=== PATIENT | male | born 1955 | race Caucasian/White ===

== ENCOUNTER 2016-10-26 19:35 | Outpatient (CLI) | payer BC ==
[~2016-10-26 19:35] MED LIST: AMIO200T2 PO; AMLO10TA2 PO; APIX5TAB PO; ASPI-808 PO; ATOR20TA49 PO; ATOR20TA66 PO; CEPH500C PO; DOCU-143 PO; FURO40TA4 PO; HYDR-3812 PO; HYDR-757 PO; IBUP-2055 PO; LISI10TA2 PO; LISI40TA PO; METO-270 PO; METO-333 PO; POTA10CA43 PO; POTA20TA8 PO; SULF-222 PO; TRAM50TA2 PO
--- OUTSIDE RECORDS SUMMARY | 2016-10-26 20:39 | XMS REPORT | Continuity of Care Document ---
Author Author [facility] Organization [facility] Address Unknown Phone Unavailable Care Team Providers Care Carbon Brusher Assembler Name Role Phone COLIN RIDLEY MD PCP Insurance Providers Payer Name Policy Number Subscriber Name Relationship [facility] [id number] Pete Hayward 16 Self / Same As Patient Advance Directives Directive Response Recorded Date/Time Advance Directives No 08/31/16 12:53am Health Care Power of Mounter [employer] No 08/31/16 12:53am Resuscitation Status Full Code [...] OFFICE September AT 3:40 P.M. AT THE [facility] [place]. (Unspecified) - Reason(s) for Referral: RESUME HOME [...] - 99.5) 09/01/2016 11:20am Temperature (Calculated Celsius) 36.56563 degrees C (36.4 - 37.5) 09/01/2016 8:17am [...] 7.00 inches 08/31/2016 12:56am Height (Calculated Centimeters) 170.161477 cm 08/31/2016 12:56am Weight (Pounds) 156 pounds 09/01/2016 6:00am Weight (Ounces) 7.0 oz 09/01/2016 6:00am Weight (Calculated Grams) 35074.857 gm 09/01/2016 6:00am Weight (Calculated Kilograms) 70.101671 kilograms 09/01/2016 6:00am Calculated BMI 26.2 08/31/2016 [...] SELECTED GROUPS OF HIGH RISK PATIENTS. SIXTH [place] COLLEGE OF CHEST PHYSICIANS CONSENSUS CONFERENCE ON [...] Discharge/Depart Date Attending Provider Discharged Inpatient [facility] 08/30/16 11:35pm 11:20am TRISH PIMENTEL MD Registered Clinic [facility] 08/21/16 10:21am TRIHS PIMENTEL MD Discharged Inpatient [facility] 08/13/16 4:57pm 2:20pm KAMLA FERNANDEZ DO Recent Diagnosis CHF (congestive heart failure) Hypertensive urgency, malignant
== END 2016-10-27 05:30 | disposition home or self-care (01) ==
LOC: SLEEP 19:35
PROVIDERS: ATTEND Internal Medicine Critical Care Medicine
DX: G47.33 Obstructive sleep apnea (adult) (pediatric) (principal)
CPT/HCPCS: 95810

== ENCOUNTER 2016-11-06 12:33 | Outpatient (RCR) | payer BC ==
--- OUTSIDE RECORDS SUMMARY | 2016-10-18 08:20 | XMS REPORT | Continuity of Care Document ---
Author Author [facility] Organization [facility] Address Unknown Phone Unavailable Care Team Providers Care Manufacturing Baker Name Role Phone COLIN RIDLEY MD PCP Insurance Providers Payer Name Policy Number Subscriber Name Relationship [facility] [id number] Pete Hayward 16 Self / Same As Patient Advance Directives Directive Response Recorded Date/Time Advance Directives No 08/31/16 12:53am Health Care Power of Customer Agent No 08/31/16 12:53am Resuscitation Status Full Code 08/31/16 12:53am Chief Complaint and Reason for Visit Chief Complaint 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;CHF;CELLULITIS L ARM Reason for Visit CHF (congestive heart failure) Hypertensive urgency, malignant Problems Active Problems Medical Problem Onset Date Status Acute heart failure Unknown Acute Bilateral leg edema Unknown Acute CHF (congestive heart failure) Unknown Acute Hypertensive urgency, malignant Unknown Acute Medications Current Home Medications Medication Dose Units Route Directions Days/Qty Instructions Start Date Apixaban 5 Mg 5 Mg Oral Twice A Day 08/30/16 Docusate Sodium 100 Mg 100 Mg Oral Twice A Day 08/30/16 Cephalexin 500 Mg 500 Mg Oral Twice A Day 7 Days 7 DAY SUPPLY FILLED 08/30/16 Lisinopril 10 Mg 10 Mg Oral Daily 08/31/16 Metoprolol Tartrate 25 Mg 25 Mg Oral Twice A Day 08/31/16 Potassium Chloride 20 Meq 20 Meq Oral Daily 14 Days TAKE FOR 14 DAYS WITH DAILY DOSE OF FUROSEMIDE, STARTING 09-13-16 TAKE 10MEQ DAILY 08/31/16 Atorvastatin Calcium 20 Mg 20 Mg Oral Bedtime 08/31/16 Tramadol Hcl 50 Mg 100 Mg Oral Every 4HRS as needed for Pain TAKES 2 ( 50MG) TABLETS 08/31/16 Hydrocodone/Acetaminophen 1 Each 1-2 Tab Oral Every 4HRS as needed for Pain 08/31/16 Potassium Chloride 10 Meq 10 Meq Oral As Directed TAKE ONCE DAILY AFTER 14 DAY THERAPY OF 20MEQ DAILY IS FINISHED ON 09-12-16. 08/31/16 Furosemide 40 Mg 40 Mg Oral Daily And Prn 60 Take daily Take additional dose if needed for swelling and/or shortness of breath 09/01/16 Amiodarone Hcl 200 Mg 200 Mg Oral Twice A Day 60 09/01/16 Past Home Medications Medication Directions Ordered Status Trimethoprim/Sulfamethoxazole 1 Ea Tablet, 1 Ea Oral Twice A Day 04/22/15 Discontinued Hydrocodone Bit/Acetaminophen 1 Each Tablet, 1 Ea Oral Every 6 Hours as needed for Severe Pain 04/22/15 Discontinued Metoprolol Succinate 25 Mg Tab.er.24h, 25 Mg Oral Daily 08/13/16 Discontinued Lisinopril 40 Mg Tablet, 40 Mg Oral Daily 08/13/16 Discontinued Atorvastatin Calcium 20 Mg Tablet, 20 Mg Oral Daily 08/13/16 Discontinued Tramadol Hcl 50 Mg Tablet, 100 Mg Oral Every 4HRS as needed for Pain Discontinued Aspirin 325 Mg Tablet, 325 Mg Oral Daily 08/14/16 Discontinued Ibuprofen 200 Mg Tablet, 600 Mg Oral Every 4HRS as needed for Pain 08/14/16 Discontinued Metoprolol Succinate 25 Mg Tab.er.24h, 25 Mg Oral Daily 08/16/16 Discontinued Lisinopril 40 Mg Tablet, 40 Mg Oral Daily 08/16/16 Discontinued Atorvastatin Calcium 20 Mg Tablet, 20 Mg Oral Daily 08/16/16 Discontinued Tramadol Hcl 50 Mg Tablet, 100 Mg Oral Every 4HRS as needed for Pain Discontinued Amlodipine Besylate 10 Mg Tablet, 10 Mg Oral Daily 08/16/16 Discontinued Furosemide 40 Mg Tablet, 40 Mg Oral Every 48 Hours 08/16/16 Discontinued Potassium Chloride 10 Meq Capsule.er, 10 Meq Oral Daily 08/16/16 Discontinued Amiodarone Hcl 200 Mg Tablet, 400 Mg Oral As Directed 08/30/16 Discontinued Furosemide 40 Mg Tablet, 40 Mg Oral As Directed 08/31/16 Discontinued Social History Social History Problem Response Recorded Date/Time Alcohol Use Denies Use 04/22/2015 7:20pm Recreational Drug Use No 04/22/2015 7:20pm Recent Foreign Travel No 08/31/2016 1:00am Recent Infectious Disease Exposure No 08/31/2016 1:00am Hospitalization with Isolation Denies 09/01/2016 11:37am Sexually Transmitted Disease No 08/31/2016 12:58am HIV/AIDS No 08/31/2016 12:58am Smoking Status Former Smoker 08/31/2016 12:54am Type Used Cigars 09/01/2016 11:37am Recent Hopitalizations Y LESLIE -D/C'D 08/29/16 08/31/2016 12:58am Sexually Transmitted Disease No 08/31/2016 12:58am Hospitalization with Isolation Denies 09/01/2016 11:37am Query Response Start Date Stop Date Smoking Status Former Smoker Hospital Discharge Instructions Patient Instructions Physician Instructions Follow Up/Plan Appointment with Dr. Pimentel's office in one to 2 weeks CARDIAC CATH DISCHARGE INSTRUCTIONS *Hold Metformin for 48 hours post heart cath. ACTIVITY * Go Home directly and rest. * Limit activity of the leg (or wrist if it was used) for 7 days including aerobics, swimming, jogging, bicycling, etc. * Restrict stair-climbing for 7 days if possible, if not, climb up with your non-cath leg, then bring together on the same step. * Avoid lifting, pushing, pulling or excessive movement of the affected extremity for 7 days. * Customary sexual activity may be resumed after 2 days-use caution not to use a position that strains or causes pain to the affected extremity. * No driving for 24 hours. * NO SMOKING. * Avoid straining for bowel movements for 7 days. * Gentle walking on level ground is allowed. * Returning to work will depend on the type of procedure and the results. Your doctor will discuss this with you. CALL YOUR DOCTOR FOR ANY OF THE FOLLOWING: *If bleeding from the puncture site occurs- Apply gentle pressure to site with clean cloth and call your doctor or EMS. * If a knot or lump forms under the skin, increases in size, or causes pain. * If bruising appears to be worsening or moving further down your leg instead of disappearing. * Temperature above 101 F. CARE OF YOUR GROIN INCISION; * Bruising or purple discoloration of the skin near the puncture site is common. * You may shower only, no bathtub bathing for 5 days. Be careful to avoid slipping as your leg may feel stiff. * If a closure device was used on your femoral artery, please see the attached guide regarding care of the device and your leg. * REMOVE the dressing from your groin the next day after your procedure in the shower. CARE OF YOUR WRIST INCISION; * Bruising or purple discoloration of the skin near the puncture site is common. * You may shower. * DO NOT submerge wrist. * Remove dressing in 24 hours. Plan of Care Discharge Date 09/01/16 11:20am Disposition 09 ADMITTED INPATIENT Instructions/Education Provided Heart Failure, Adult (DC) Prescriptions See Medication Section Referrals (Unspecified) - 09/18/16 Reason(s) for Referral: FOLLOW UP WITH DR PIMENTEL OFFICE September AT 3:40 P.M. AT THE [facility]. (Unspecified) - Reason(s) for Referral: RESUME HOME HEALTH PER PREVIOUS ORDERS. PLEASE DRAW BMP 09/04/2016 Additional Instructions/Education BMP CHECK ON August Care Plan and Goals See Discharge Instructions Section Functional Status Query Response Date Recorded Patient Orientation Normal For Age August 31, 2016 3:46pm Patient Orientation Person Place Time Situation Eyes Open September 01, 2016 11:37am Comprehension Ability Understands Concepts September 01, 2016 8:00am Allergies, Adverse Reactions, Alerts No known allergies. Immunizations Name Given Type FLU TRIvalent 5 years - Adult 08/31/16 Administered Vital Signs Acute Vital Signs Vital Response Date/Time Temperature (Fahrenheit) 98.3 degrees F (97.6 - 99.5) 09/01/2016 11:20am Temperature (Calculated Celsius) 36.48605 degrees C (36.4 - 37.5) 09/01/2016 8:17am Temperature Source Tympanic 09/01/2016 11:20am Pulse Rate (adult) 59 bpm (60 - 90) 09/01/2016 11:20am Respiratory Rate 16 bpm (12 - 24) 09/01/2016 11:20am O2 Sat by Pulse Oximetry 98 % (88 - 100) 09/01/2016 11:20am Blood Pressure 136/79 mm Hg 09/01/2016 11:20am Blood Pressure Mean 96 mm Hg 09/01/2016 8:17am Pain Numeric Pain Scale 0-No Pain 09/01/2016 11:20am Pain Intensity 0 08/13/2016 5:25pm Height (Feet) 5 feet 08/31/2016 12:56am Height (Inches) 7.00 inches 08/31/2016 12:56am Height (Calculated Centimeters) 170.341216 cm 08/31/2016 12:56am Weight (Pounds) 156 pounds 09/01/2016 6:00am Weight (Ounces) 7.0 oz 09/01/2016 6:00am Weight (Calculated Grams) 98542.857 gm 09/01/2016 6:00am Weight (Calculated Kilograms) 70.591929 kilograms 09/01/2016 6:00am Calculated BMI 26.2 08/31/2016 12:56am Capillary Refill Capillary Refill Less Than 3 Seconds 08/31/2016 8:05pm Capillary Refill Capillary Refill Less Than 3 Seconds 08/31/2016 8:05pm Results Laboratory Results Test Name Result Units Flags Reference Collection Date/Time Result Date/ Time Comments White Blood Count 9.3 10^3/uL 4.3-11.0 08/17/2016 5:23am 08/17/2016 6: 06am Red Blood Count 4.39 10^6/uL 4.35-5.85 08/17/2016 5:23am 08/17/2016 6: 06am Hemoglobin 14.4 G/DL 13.3-17.7 08/17/2016 5:23am 08/17/2016 6:06am Hematocrit 42 % 40-54 08/17/2016 5:23am 08/17/2016 6:06am Mean Corpuscular Volume 96 FL 80-99 08/17/2016 5:23am 08/17/2016 6: 06am Mean Corpuscular Hemoglobin 33 PG 25-34 08/17/2016 5:23am 08/17/2016 6: 06am Mean Corpuscular Hemoglobin Concent 34 G/DL 32-36 08/17/2016 5:23am 12/2015 6:06am Red Cell Distribution Width 13.2 % 10.0-14.5 08/17/2016 5:2015 6:06am Platelet Count 195 10^3/uL 130-400 08/17/2016 5:2308/17/2016 6:06am Mean Platelet Volume 10.4 FL 7.4-10.4 08/17/2016 5:2308/17/2016 6: 06am Neutrophils (%) (Auto) 74 % 42-75 08/15/2016 4:20am 08/15/2016 4:55am Lymphocytes (%) (Auto) 13 % 12-44 08/15/2016 4:20am 08/15/2016 4:55am Monocytes (%) (Auto) 11 % 0-12 08/15/2016 4:20am 08/15/2016 4:55am Eosinophils (%) (Auto) 2 % 0-10 08/15/2016 4:20am 08/15/2016 4:55am Basophils (%) (Auto) 0 % 0-10 08/15/2016 4:20am 08/15/2016 4:55am Neutrophils # (Auto) 8.5 X 10^3 H 1.8-7.8 08/15/2016 4:20am 08/15/2016 4: 55am Lymphocytes # (Auto) 1.5 X 10^3 1.0-4.0 08/15/2016 4:20am 08/15/2016 4: 55am Monocytes # (Auto) 1.3 X 10^3 H 0.0-1.0 08/15/2016 4:20am 08/15/2016 4: 55am Eosinophils # (Auto) 0.2 10^3/uL 0.0-0.3 08/15/2016 4:20am 08/15/2016 4 :55am Basophils # (Auto) 0.1 10^3/uL 0.0-0.1 08/15/2016 4:20am 08/15/2016 4: 55am Prothrombin Time 14.7 SEC 12.2-14.7 08/13/2016 4:00pm 08/13/2016 4: 28pm INR Comment 1.2 0.8-1.4 08/13/2016 4:00pm 08/13/2016 4:28pm INTERPRETIVE DATA SUGGESTED THERAPEUTIC RANGE FOR INR'S: VENOUS THROMBOSIS, PULMONARY EMBOLISM, OR PREVENTION OF SYSTEMIC EMBOLISM (EG. IN ATRIAL FIBRILLATION): 2.0 - 3.0 MECHANICAL PROSTHETIC HEART VALVES: 2.5 - 3.5* *NOTE: INR'S UP TO 4.5 MAY BE NECESSARY IN SELECTED GROUPS OF HIGH RISK PATIENTS. SIXTH CITIZEN OF [place] COLLEGE OF CHEST PHYSICIANS CONSENSUS CONFERENCE ON ANTITHROMBOTIC THERAPY (2000). Activated Partial Thromboplast Time 32 SEC 24-35 08/13/2016 4:00pm 4:28pm D-Dimer 1.16 UG/ML H 0.00-0.49 08/13/2016 4:00pm 08/13/2016 4:28pm Sodium Level 139 MMOL/L 135-145 08/17/2016 5:08/17/2016 6:31am Potassium Level 3.2 MMOL/L L 3.6-5.0 08/17/2016 5:08/17/2016 6:31am Chloride Level 102 MMOL/L 98-107 08/17/2016 5:08/17/2016 6:31am Carbon Dioxide Level 26 MMOL/L 21-32 08/17/2016 5:08/17/2016 6: 31am Anion Gap 11 MMOL/L 5-14 08/17/2016 5:08/17/2016 6:31am Blood Urea Nitrogen 18 MG/DL 7-18 08/17/2016 5:08/17/2016 6:31am Creatinine 0.89 MG/DL 0.60-1.30 08/17/2016 5:08/17/2016 6:31am BUN/Creatinine Ratio 20 08/17/2016 5:08/17/2016 6:31am Estimat Glomerular Filtration Rate > 60 08/17/2016 5:2015 6:31am GFR INTERPRETIVE DATA UNITS FOR ESTIMATED GFR (eGFR): mL/min/1.73 M2 REFERENCE RANGE FOR ESTIMATED GFR (eGFR) eGFR NORMAL eGFR >60 MODERATELY DECREASED eGFR 30-59 SEVERLY DECREASED eGFR 15-29 KIDNEY FAILURE <15 (OR DIALYSIS) Glucose Level 101 MG/DL 70-105 08/17/2016 5:08/17/2016 6:31am Calcium Level 8.8 MG/DL 8.5-10.1 08/17/2016 5:08/17/2016 6:31am Phosphorus Level 3.5 MG/DL 2.3-4.7 08/15/2016 4:20am 08/15/2016 5:15am Magnesium Level 1.8 MG/DL 1.8-2.4 08/16/2016 4:25am 08/16/2016 5:34am Total Bilirubin 0.8 MG/DL 0.1-1.0 08/14/2016 4:05am 08/14/2016 5:49am Alkaline Phosphatase 81 U/L 40-136 08/14/2016 4:05am 08/14/2016 5:49am Aspartate Amino Transf (AST/SGOT) 20 U/L 5-34 08/14/2016 4:05am 2015 5:49am Alanine Aminotransferase (ALT/SGPT) 22 U/L 0-55 08/14/2016 4:05am 08/14 5:49am Troponin I < 0.30 NG/ML <0.30 08/14/2016 4:05am 08/14/2016 9:09am Troponin I < 0.30 NG/ML <0.30 08/13/2016 4:00pm 08/13/2016 4:45pm Myoglobin 50.2 NG/ML 10.0-92.0 08/13/2016 4:00pm 08/13/2016 4:45pm B-Type Natriuretic Peptide 372.2 PG/ML H <100.0 08/16/2016 4:25am 2015 5:43am Total Protein 5.7 G/DL L 6.4-8.2 08/14/2016 4:05am 08/14/2016 5:49am Albumin 3.2 G/DL 3.2-4.5 08/14/2016 4:05am 08/14/2016 5:49am Triglycerides Level 87 MG/DL <150 08/14/2016 4:10am 08/14/2016 6:18am Cholesterol Level 139 MG/DL < 200 08/14/2016 4:10am 08/14/2016 6:18am HDL Cholesterol 39 MG/DL L 40-60 08/14/2016 4:10am 08/14/2016 6:18am LDL Cholesterol Direct 91 MG/DL 1-129 08/14/2016 4:10am 08/14/2016 6: 18am VLDL Cholesterol 17 MG/DL 5-40 08/14/2016 4:10am 08/14/2016 6:18am Pending Laboratory Results Test Name Collection Date/Time Microbiology Results Procedure Source Result Collection Date/Time Result Date/Time MRSA Screen Nasal MRSA not isolated 08/13/2016 7:25pm 08/15/2016 6:36am Procedures Procedure Status Date Provider(s) MEASURE OF CARDIAC SAMPL & PRESSURE, L HEART, PERC APPROACH Completed TRISH PIMENTEL MD FLUOROSCOPY OF LEFT HEART USING LOW OSMOLAR CONTRAST Completed 08/16/16 TRISH PIMENTEL MD FLUOROSCOPY OF MULT COR ART USING L OSM CONTRAST Completed 08/16/16 TRISH PIMENTEL MD FLUOROSCOPY OF THORACIC AORTA USING LOW OSMOLAR CONTRAST Completed 08/16/16 TRISH PIMENTEL MD Tracing only of electrocardiogram Completed 08/13/16 KEVON HOUSTON MD Color Doppler echocardiography Active 08/13/16 KAMLA FERNANDEZ DO Tracing only of electrocardiogram Completed 08/14/16 TRISH PIMENTEL MD Tracing only of electrocardiogram Completed 08/30/16 COLIN MCKNIGHT DO Tracing only of electrocardiogram Completed 08/31/16 TRISH PIMENTEL MD Color Doppler echocardiography Completed 08/31/16 TRISH PIMENTEL MD Tracing only of electrocardiogram Active 09/01/16 TRISH PIMENTEL MD Encounters Encounter Location Arrival/Admit Date Discharge/Depart Date Attending Provider Discharged Inpatient [facility] 08/30/16 11:35pm 11:20am TRISH PIMENTEL MD Registered Clinic [facility] 08/21/16 10:21am TRISH PIMENTEL MD Discharged Inpatient [facility] 08/13/16 4:57pm 2:20pm KAMLA FERNANDEZ DO Recent Diagnosis CHF (congestive heart failure) Hypertensive urgency, malignant
== END 2017-01-16 | disposition home or self-care (01) ==
LOC: CR 12:33
PROVIDERS: ATTEND Internal Medicine Cardiovascular Disease
DX: Z48.812 Encounter for surgical aftercare following surgery on the circulatory system (principal); Z95.1 Presence of aortocoronary bypass graft
CPT/HCPCS: 93798

== ENCOUNTER → 2016-11-10 | Outpatient (CLI) | payer BC ==
--- OUTSIDE RECORDS SUMMARY | 2016-11-10 13:02 | XMS REPORT | Continuity of Care Document ---
Author Author [facility] Organization [facility] Address Unknown Phone Unavailable Care Team Providers Care Javascript Application Developer Name Role Phone COLIN RIDLEY MD PCP Insurance Providers Payer Name Policy Number Subscriber Name Relationship [facility] [id number] Pete Hayward 16 Self / Same As Patient Advance Directives Directive Response Recorded Date/Time Advance Directives No 08/31/16 12:53am Health Care Power of Member Services Representative No 08/31/16 12:53am Resuscitation Status Full Code [...] OFFICE September AT 3:40 P.M. AT [facility]. (Unspecified) - Reason(s) for Referral: RESUME [...] - 99.5) 09/01/2016 11:20am Temperature (Calculated Celsius) 36.67859 degrees C (36.4 - 37.5) 09/01/2016 8:17am [...] 7.00 inches 08/31/2016 12:56am Height (Calculated Centimeters) 170.427476 cm 08/31/2016 12:56am Weight (Pounds) 156 pounds 09/01/2016 6:00am Weight (Ounces) 7.0 oz 09/01/2016 6:00am Weight (Calculated Grams) 00919.857 gm 09/01/2016 6:00am Weight (Calculated Kilograms) 70.447657 kilograms 09/01/2016 6:00am Calculated BMI 26.2 08/31/2016 [...] SELECTED GROUPS OF HIGH RISK PATIENTS. SIXTH [place] COLLEGE OF CHEST PHYSICIANS CONSENSUS CONFERENCE ON [...] Inpatient [facility] 08/30/16 11:35pm 11:20am TRISH PIMENTEL MD Registered Clinic [facility] 08/21/16 10:21am TRISH PIMENTEL MD Discharged Inpatient [facility] 08/13/16 4:57pm 2:20pm KAMLA FERNANDEZ DO Recent Diagnosis CHF (congestive heart failure) Hypertensive urgency, malignant
--- NOTE | 2016-11-13 10:01 | ECHOCARDIOGRAPHY REPORT ---
PROCEDURE PHYSICIAN: TRISH LORENZ DATE OF PROCEDURE: 11/10/2016 TWO DIMENSIONAL ECHOCARDIOGRAM REPORT PRIMARY PHYSICIAN: OTHER PHYSICIAN: REFERRING PHYSICIAN: Dr. Malina Gates ORDERING PHYSICIAN: INDICATION FOR THE PROCEDURE: 1. Congestive heart failure. 2. Coronary artery disease. MEASUREMENTS DERIVED VALUES LV DIAMETER (LAX) NORMALS NORMALS Diastolic 5 (3.6-5.2) Eject. Fract. 35 to 40% (60%+/-6%) Systolic (2.3-3.9) Diastolic Vol. % Shortening (0.22-0.42) Systolic Vol. Aortic Root IVS THICKNESS Diastolic 1.1 (0.6-1.1) LVPW THICKNESS Diastolic 1.1 (0.6-1.1) LA DIAMETER Systolic 4 (2.1-3.7) FINDINGS: 1. Technically difficult study. 2. The left ventricle is prominent. Endocardium was not well visualized in all segments. Overall, there is hypokinesia to dyskinesia involving the mid to apical anterior wall and anterior septum, anterolateral wall. Cannot comment on segmental wall motion otherwise. Systolic function is reduced. Estimated ejection fraction 35 to 40%. 3. The left atrium is dilated. No clot or thrombus were seen within the left atrium. 4. The right atrium and right ventricle are prominent. No clot or thrombus were seen within the right side. 5. Mitral valve is normal in morphology with mild mitral regurgitation noted by color Doppler flow. No mitral valve prolapse. No mitral valve stenosis. 6. Aortic valve leaflets were not well visualized. There is no significant aortic stenosis or regurgitation seen. 7. Tricuspid valve is normal in morphology with mild tricuspid regurgitation noted by color Doppler flow. Insufficient Doppler signal to evaluate pulmonary artery pressure. 8. Pulmonic valve was not visualized. 9. No pericardial effusion. IN CONCLUSION: 1. Technically difficult study. 2. Prominent left ventricle with hypokinesia involving the anterior wall, anterior septum, anterolateral wall. Endocardium was not well visualized in all segments. Systolic function is reduced. Estimated ejection fraction 35 to 40%, although the quality of the study is suboptimal. 3. Dilated left atrium. 4. Mild mitral and tricuspid regurgitation. 5. Estimated pulmonary artery pressure of 25 mmHg although the quality of the Doppler was suboptimal. Job ID: [id number] Dictated Date: 11/13/2016 08:31:11 Regulatory Services Consultant Date: 11/13/2016 09:57:38 / chan
== END ==
LOC: CARD 12:58
PROVIDERS: ATTEND Internal Medicine Cardiovascular Disease
DX: I25.10 Atherosclerotic heart disease of native coronary artery without angina pectoris (principal); E78.2 Mixed hyperlipidemia; I10 Essential (primary) hypertension; I27.2 Other secondary pulmonary hypertension; E66.9 Obesity, unspecified
CPT/HCPCS: 93306

== ENCOUNTER → 2017-05-28 | Outpatient (CLI) | payer BC ==
[~2017-05-28] VITALS: Ht 170.2 cm; Wt 86.2 kg
[~2017-05-28] MED LIST changes: +CATHETER FLUSH 10 ML SYR IV PRN; +REGADENOSON 0.4 MG/5 ML SYR (LEXISCAN) IV ONE
[2017-05-28 09:20] VITALS: BP 186/108
--- NOTE | 2017-05-28 12:46 | STRESS TEST ---
DATE OF SERVICE: 05/28/2017 LEXISCAN MYOVIEW STRESS TEST REPORT REFERRING PHYSICIAN: Dr. Malina Gates and Dr. Duran. Baseline heart rate is 60. Baseline blood pressure 190/100. Baseline EKG is sinus rhythm with no ischemic changes. SUMMARY: The patient was injected with 10.73 mCi of technetium-99 Myoview and the resting images were obtained. Then, the patient received 0.4 mg of Lexiscan followed by 29.1 mCi of technetium-99 Myoview. Throughout the test, there were no EKG changes. The resting and stress images were reviewed and compared in the short axis, horizontal long axis, and vertical long axis views. Review of the images showed decreased uptake at the mid to apical anterolateral and inferolateral wall with no reversibility, appeared to be fixed. SSS is 8, SDS zero. TID value 1.0. On the gated images, the left ventricle is prominent with diffuse left ventricular hypokinesia involving the inferior wall, inferolateral wall and anterolateral wall, inferoseptum and anteroseptum. Calculated ejection fraction 47%. CONCLUSION: 1. The patient tolerated Lexiscan well. 2. Fixed defect involving the mid to apical anterolateral wall and inferolateral wall with no significant ischemia. 3. Normal left ventricular size with mild diffuse left ventricular hypokinesia calculated ejection fraction 47%. 4. Overall, patient is considered at intermediate risk for perioperative cardiovascular complications, decision regarding the surgery, risks versus benefits is deferred to the surgeon. Job ID: [id number] DocumentID: [id number] Dictated Date: 05/28/2017 11:54:10 Accounting Coordinator Date: 05/28/2017 12:29:30 Dictated By: TRISH LORENZ MD
== END ==
LOC: CARD 07:03
PROVIDERS: ATTEND Internal Medicine Cardiovascular Disease
DX: Z01.810 Encounter for preprocedural cardiovascular examination (principal); I25.10 Atherosclerotic heart disease of native coronary artery without angina pectoris; I10 Essential (primary) hypertension
CPT/HCPCS: 78452; 93017

== ENCOUNTER 2019-02-03 09:29 | Inpatient (IN) | payer BC, MEDICARE ==
[~2019-02-03] VITALS: Ht 167.6 cm; Wt 103.0 kg
[~2019-02-03 09:29] MED LIST changes: +ACHD5005 PO; -AMIO200T2 PO; +AMIO200T4 PO; -AMLO10TA2 PO; +AMLO10TA7 PO; -CATHETER FLUSH 10 ML SYR IV PRN; -HYDR-3812 PO; -METO-270 PO; +METO-387 PO; -REGADENOSON 0.4 MG/5 ML SYR (LEXISCAN) IV ONE
--- OUTSIDE RECORDS SUMMARY | 2019-02-03 09:45 | XMS REPORT | Continuity of Care Document ---
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 18 mg/dL 7-18 Serum or plasma creatinine measurement (mass/volume) 1.05 mg/dL 0.60-1.30 Serum or plasma urea nitrogen/creatinine mass ratio 17 NRG Serum or plasma creatinine measurement with calculation of estimated glomerular filtration rate > NRG Serum or plasma glucose measurement (mass/volume) 79 mg/dL 70-105 Serum or plasma calcium measurement (mass/volume) 9.0 mg/dL 8.5-10.1 Serum or plasma phosphate measurement (mass/volume) - 08/15/16 04:20 Serum or plasma phosphate measurement (mass/volume) 3.5 mg/dL 2.3-4.7 Magnesium - 08/15/16 04:20 Magnesium 1.8 mg/dL 1.8-2.4 Automated blood complete blood count (hemogram) panel - 08/17/16 05:23 Blood leukocytes automated count (number/volume) 9.3 10*3/uL 4.3-11.0 Blood erythrocytes automated count (number/volume) 4.39 10*6/uL 4.35-5.85 Venous blood hemoglobin measurement (mass/volume) 14.4 g/dL 13.3-17.7 Blood hematocrit (volume fraction) 42 % 40-54 Automated erythrocyte mean corpuscular volume 96 [foz_us] 80-99 Automated erythrocyte mean corpuscular hemoglobin (mass per erythrocyte) 33 pg 25-34 Automated erythrocyte mean corpuscular hemoglobin concentration measurement ( mass/volume) 34 g/dL 32-36 Automated erythrocyte distribution width ratio 13.2 % 10.0-14.5 Automated blood platelet count (count/volume) 195 10*3/uL 130-400 Automated blood platelet mean volume measurement 10.4 [foz_us] 7.4-10.4 Whole blood basic metabolic panel - 08/17/16 05:23 Serum or plasma sodium measurement (moles/volume) 139 mmol/L 135-145 Serum or plasma potassium measurement (moles/volume) 3.2 mmol/L 3.6-5.0 Serum or plasma chloride measurement (moles/volume) 102 mmol/L 98-107 Carbon dioxide 26 mmol/L 21-32 Serum or plasma anion gap determination (moles/volume) 11 mmol/L 5-14 Serum or plasma urea nitrogen measurement (mass/volume) 18 mg/dL 7-18 Serum or plasma creatinine measurement (mass/volume) 0.89 mg/dL 0.60-1.30 Serum or plasma urea nitrogen/creatinine mass ratio 20 NRG Serum or plasma creatinine measurement with calculation of estimated glomerular filtration rate > NRG Serum or plasma glucose measurement (mass/volume) 101 mg/dL 70-105 Serum or plasma calcium measurement (mass/volume) 8.8 mg/dL 8.5-10.1 Complete blood count (CBC) with automated white blood cell (WBC) differential - 08/30/16 22:40 Blood leukocytes automated count (number/volume) 9.2 10*3/uL 4.3-11.0 Blood erythrocytes automated count (number/volume) 3.43 10*6/uL 4.35-5.85 Venous blood hemoglobin measurement (mass/volume) 11.3 g/dL 13.3-17.7 Blood hematocrit (volume fraction) 33 % 40-54 Automated erythrocyte mean corpuscular volume 97 [foz_us] 80-99 Automated erythrocyte mean corpuscular hemoglobin (mass per erythrocyte) 33 pg 25-34 Automated erythrocyte mean corpuscular hemoglobin concentration measurement ( mass/volume) 34 g/dL 32-36 Automated erythrocyte distribution width ratio 12.8 % 10.0-14.5 Automated blood platelet count (count/volume) 271 10*3/uL 130-400 Automated blood platelet mean volume measurement 9.0 [foz_us] 7.4-10.4 Automated blood neutrophils/100 leukocytes 70 % 42-75 Automated blood lymphocytes/100 leukocytes 11 % 12-44 Blood monocytes/100 leukocytes 15 % 0-12 Automated blood eosinophils/100 leukocytes 3 % 0-10 Automated blood basophils/100 leukocytes 0 % 0-10 Blood neutrophils automated count (number/volume) 6.5 10*3 1.8-7.8 Blood lymphocytes automated count (number/volume) 1.1 10*3 1.0-4.0 Blood monocytes automated count (number/volume) 1.3 10*3 0.0-1.0 Automated eosinophil count 0.3 10*3/uL 0.0-0.3 Automated blood basophil count (count/volume) 0.0 10*3/uL 0.0-0.1 PT panel in platelet poor plasma by coagulation assay - 08/30/16 22:40 Prothrombin time (PT) in platelet poor plasma by coagulation assay 16.7 s 12.2-14.7 INR in platelet poor plasma or blood by coagulation assay 1.4 0.8-1.4 Activated partial thromboplastin time (aPTT) in platelet poor plasma bycoagulation assay - 08/30/16 22:40 Activated partial thromboplastin time (aPTT) in platelet poor plasma bycoagulation assay 43 s 24-35 Comprehensive metabolic panel - 08/30/16 22:40 Serum or plasma sodium measurement (moles/volume) 138 mmol/L 135-145 Serum or plasma potassium measurement (moles/volume) 4.1 mmol/L 3.6-5.0 Serum or plasma chloride measurement (moles/volume) 101 mmol/L 98-107 Carbon dioxide 28 mmol/L 21-32 Serum or plasma anion gap determination (moles/volume) 9 mmol/L 5-14 Serum or plasma urea nitrogen measurement (mass/volume) 16 mg/dL 7-18 Serum or plasma creatinine measurement (mass/volume) 1.00 mg/dL 0.60-1.30 Serum or plasma urea nitrogen/creatinine mass ratio 16 NRG Serum or plasma creatinine measurement with calculation of estimated glomerular filtration rate > NRG Serum or plasma glucose measurement (mass/volume) 105 mg/dL 70-105 Serum or plasma calcium measurement (mass/volume) 8.9 mg/dL 8.5-10.1 Serum or plasma total bilirubin measurement (mass/volume) 0.4 mg/dL 0.1-1.0 Serum or plasma alkaline phosphatase measurement (enzymatic activity/volume) 87 U/L 40-136 Serum or plasma aspartate aminotransferase measurement (enzymatic activity/ volume) 33 U/L 5-34 Serum or plasma alanine aminotransferase measurement (enzymatic activity/volume ) 19 U/L 0-55 Serum or plasma protein measurement (mass/volume) 6.4 g/dL 6.4-8.2 Serum or plasma albumin measurement (mass/volume) 3.5 g/dL 3.2-4.5 Magnesium - 08/30/16 22:40 Magnesium 2.0 mg/dL 1.8-2.4 Serum or plasma creatine kinase measurement (enzymatic activity/volume) - 08/30 22:40 Serum or plasma creatine kinase measurement (enzymatic activity/volume) 39 U/L 30-200 Serum or plasma creatine kinase MB measurement (enzymatic activity/volume) - 22:40 Serum or plasma creatine kinase MB measurement (enzymatic activity/volume) 1.7 ng/mL <6.6 Serum or plasma troponin i.cardiac measurement (mass/volume) - 08/30/16 22:40 Serum or plasma troponin i.cardiac measurement (mass/volume) 0.36 ng /mL <0.30 Serum or plasma lithium measurement (moles/volume) - 08/30/16 22:40 BNP level 1098.4 pg/mL <100.0 Complete blood count (CBC) with automated white blood cell (WBC) differential - 08/31/16 03:00 Blood leukocytes automated count (number/volume) 8.5 10*3/uL 4.3-11.0 Blood erythrocytes automated count (number/volume) 3.47 10*6/uL 4.35-5.85 Venous blood hemoglobin measurement (mass/volume) 11.4 g/dL 13.3-17.7 Blood hematocrit (volume fraction) 34 % 40-54 Automated erythrocyte mean corpuscular volume 98 [foz_us] 80-99 Automated erythrocyte mean corpuscular hemoglobin (mass per erythrocyte) 33 pg 25-34 Automated erythrocyte mean corpuscular hemoglobin concentration measurement ( mass/volume) 34 g/dL 32-36 Automated erythrocyte distribution width ratio 13.0 % 10.0-14.5 Automated blood platelet count (count/volume) 320 10*3/uL 130-400 Automated blood platelet mean volume measurement 9.6 [foz_us] 7.4-10.4 Automated blood neutrophils/100 leukocytes 73 % 42-75 Automated blood lymphocytes/100 leukocytes 10 % 12-44 Blood monocytes/100 leukocytes 13 % 0-12 Automated blood eosinophils/100 leukocytes 3 % 0-10 Automated blood basophils/100 leukocytes 1 % 0-10 Blood neutrophils automated count (number/volume) 6.2 10*3 1.8-7.8 Blood lymphocytes automated count (number/volume) 0.9 10*3 1.0-4.0 Blood monocytes automated count (number/volume) 1.1 10*3 0.0-1.0 Automated eosinophil count 0.3 10*3/uL 0.0-0.3 Automated blood basophil count (count/volume) 0.0 10*3/uL 0.0-0.1 Comprehensive metabolic panel - 08/31/16 03:30 Serum or plasma sodium measurement (moles/volume) 141 mmol/L 135-145 Serum or plasma potassium measurement (moles/volume) 3.9 mmol/L 3.6-5.0 Serum or plasma chloride measurement (moles/volume) 99 mmol/L 98-107 Carbon dioxide 31 mmol/L 21-32 Serum or plasma anion gap determination (moles/volume) 11 mmol/L 5-14 Serum or plasma urea nitrogen measurement (mass/volume) 15 mg/dL 7-18 Serum or plasma creatinine measurement (mass/volume) 1.02 mg/dL 0.60-1.30 Serum or plasma urea nitrogen/creatinine mass ratio 15 NRG Serum or plasma creatinine measurement with calculation of estimated glomerular filtration rate > NRG Serum or plasma glucose measurement (mass/volume) 85 mg/dL 70-105 Serum or plasma calcium measurement (mass/volume) 9.1 mg/dL 8.5-10.1 Serum or plasma total bilirubin measurement (mass/volume) 0.5 mg/dL 0.1-1.0 Serum or plasma alkaline phosphatase measurement (enzymatic activity/volume) 86 U/L 40-136 Serum or plasma aspartate aminotransferase measurement (enzymatic activity/ volume) 30 U/L 5-34 Serum or plasma alanine aminotransferase measurement (enzymatic activity/volume ) 20 U/L 0-55 Serum or plasma protein measurement (mass/volume) 6.4 g/dL 6.4-8.2 Serum or plasma albumin measurement (mass/volume) 3.5 g/dL 3.2-4.5 Serum or plasma troponin i.cardiac measurement (mass/volume) - 08/31/16 03:30 Serum or plasma troponin i.cardiac measurement (mass/volume) 0.37 ng /mL <0.30 Automated blood complete blood count (hemogram) panel - 09/01/16 03:18 Blood leukocytes automated count (number/volume) 9.6 10*3/uL 4.3-11.0 Blood erythrocytes automated count (number/volume) 3.54 10*6/uL 4.35-5.85 Venous blood hemoglobin measurement (mass/volume) 11.7 g/dL 13.3-17.7 Blood hematocrit (volume fraction) 35 % 40-54 Automated erythrocyte mean corpuscular volume 98 [foz_us] 80-99 Automated erythrocyte mean corpuscular hemoglobin (mass per erythrocyte) 33 pg 25-34 Automated erythrocyte mean corpuscular hemoglobin concentration measurement ( mass/volume) 34 g/dL 32-36 Automated erythrocyte distribution width ratio 13.1 % 10.0-14.5 Automated blood platelet count (count/volume) 333 10*3/uL 130-400 Automated blood platelet mean volume measurement 9.2 [foz_us] 7.4-10.4 Comprehensive metabolic panel - 09/01/16 03:18 Serum or plasma sodium measurement (moles/volume) 140 mmol/L 135-145 Serum or plasma potassium measurement (moles/volume) 3.6 mmol/L 3.6-5.0 Serum or plasma chloride measurement (moles/volume) 99 mmol/L 98-107 Carbon dioxide 28 mmol/L 21-32 Serum or plasma anion gap determination (moles/volume) 13 mmol/L 5-14 Serum or plasma urea nitrogen measurement (mass/volume) 16 mg/dL 7-18 Serum or plasma creatinine measurement (mass/volume) 1.08 mg/dL 0.60-1.30 Serum or plasma urea nitrogen/creatinine mass ratio 15 NRG Serum or plasma creatinine measurement with calculation of estimated glomerular filtration rate > NRG Serum or plasma glucose measurement (mass/volume) 81 mg/dL 70-105 Serum or plasma calcium measurement (mass/volume) 9.0 mg/dL 8.5-10.1 Serum or plasma total bilirubin measurement (mass/volume) 0.6 mg/dL 0.1-1.0 Serum or plasma alkaline phosphatase measurement (enzymatic activity/volume) 86 U/L 40-136 Serum or plasma aspartate aminotransferase measurement (enzymatic activity/ volume) 26 U/L 5-34 Serum or plasma alanine aminotransferase measurement (enzymatic activity/volume ) 18 U/L 0-55 Serum or plasma protein measurement (mass/volume) 6.0 g/dL 6.4-8.2 Serum or plasma albumin measurement (mass/volume) 3.1 g/dL 3.2-4.5 Serum or plasma troponin i.cardiac measurement (mass/volume) - 09/01/16 03:18 Serum or plasma troponin i.cardiac measurement (mass/volume) 0.33 ng /mL <0.30 Serum or plasma lithium measurement (moles/volume) - 09/01/16 03:18 BNP level 619.4 pg/mL <100.0 Phosphorus - 09/04/16 11:20 Phosphorus 4.6 mg/dL 2.5-4.8 Encounters ACCT No. Visit Date/Time Discharge Status Pt. Type Provider Facility Loc./Unit Complaint [id number] 01/27/2019 14:00:00 01/27/2019 14:00:00 CAN Preadmit CHARBEL KNOWLES [facility] CARD CAD [id number] 05/28/2017 07:03:00 05/28/2017 23:59:59 CLS Outpatient TRISH LORENZ MD [facility] CARD CAD I25.10 [id number] 04/30/2017 10:00:00 04/30/2017 23:59:59 CLS Preadmit CHARBEL KNOWLES [facility] CARD CAD, HYPERLIPIDEMIA,HYPERTENSION,CHELSIE [id number] 01/17/2017 08:00:00 01/17/2017 23:59:59 CLS Preadmit TRISH LORENZ MD [facility] CR STATUS POST ACB [id number] 11/06/2016 12:33:00 01/16/2017 00:01:00 DIS Outpatient TRISH LORENZ MD [facility] CR STATUS POST ACB [id number] 11/10/2016 12:58:00 11/10/2016 23:59:59 CLS Outpatient TRISH LORENZ MD [facility] CARD CAD,HLP [id number] 10/26/2016 19:35:00 10/27/2016 05:30:00 DIS Outpatient RUDY WADE DO [facility] SLEEP CHELSIE [id number] 08/30/2016 23:35:00 09/01/2016 11:20:00 DIS Inpatient TRISH LORENZ MD [facility] ICU 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;CHF; CELLULITIS L ARM [id number] 08/21/2016 10:21:00 08/21/2016 23:59:59 CLS Outpatient TRISH LORENZ MD [facility] CARD ACUTE SYSTOLIC HEART FAIL,HYPERTENSIVE HEART DIS [id number] 08/13/2016 16:57:00 08/17/2016 14:20:00 DIS Inpatient KAMLA FERNANDEZ DO [facility] 4TH ACUTE HEART FAILURE, MALIGNANT HYPERTENSION [id number] 04/22/2015 19:22:00 04/22/2015 21:24:00 DIS Emergency NANDINI REED APRN [facility] ER FINGER LAC [id number] 03/06/2013 08:36:00 03/06/2013 23:59:59 CLS Outpatient CHARBEL KNOWLES [facility] CARD CAD,HTN,HLP, BLURRED VISION [id number] 02/03/2019 09:30:00 ACT Emergency COLLIN REA MD [facility] ER SOB,NAUSEA [id number] 04/22/2015 19:22:27 ACT Document Registration [id number] 11/19/2017 12:46:00 12/17/2017 09:35:00 DIS Outpatient Arnold SNOW [id number] 06/19/2017 13:46:00 07/13/2017 14:58:00 DIS Outpatient BANWART, J [id number] 09/04/2016 11:16:00 09/04/2016 23:59:00 DIS Outpatient Maykel Patino
--- NOTE | 2019-02-03 10:42 | ED Respiratory ---
General Chief Complaint: Respiratory Problems Stated Complaint: SOB,NAUSEA Nursing Triage Note: Pt ambulatory to rm 5. Pt reports, "feeling like I am having a heart attack." Pt denies chest pain at this time. Pt reports waking up at approximately midnight feeling SOB. Pt c/o nausea and cough for the last 24 hours. Monitor shows a-fib. Pt denies hx. Pt reports not taking BP meds over the weekend. Source: patient Exam Limitations: no limitations History of Present Illness Date Seen by Provider: Feb 03, 2019 Time Seen by Provider: 10:39 Initial Comments This 63-year-old white male presents with shortness of breath which awoke him at midnight last night. The patient's symptoms mimic a previous myocardial infarction for which he underwent bypass surgery in [place] several years ago. The patient denies chest pain but has had diaphoresis and nausea. The patient has had an associated cough in last 24 hours. Patient denies acute change in medication, associated fever or chill, productive cough, headache, stiff neck, or photophobia. Allergies and Home Medications Allergies Coded Allergies: No Known Drug Allergies (Unverified , 04/22/15) Home Medications Amiodarone HCl 200 Mg Tablet, 200 MG PO BID Prescribed by: TRISH LORENZ on 09/01/16 08 Apixaban 5 Mg Tablet, 5 MG PO BID, (Reported) Atorvastatin Calcium 20 Mg Tablet, 20 MG PO HS, (Reported) Cephalexin 500 Mg Capsule, 500 MG PO BID, (Reported) 7 DAY SUPPLY FILLED 08-29-16 Docusate Sodium 100 Mg Capsule, 100 MG PO BID, (Reported) Furosemide 40 Mg Tablet, 40 MG PO DAILY PRN Take daily Take additional dose if needed for swelling and/or shortness of breath Prescribed by: TRISH LORENZ on 09/01/16 08 Hydrocodone Bit/Acetaminophen 1 Each Tablet, 1-2 TAB PO Q4H PRN for PAIN, ( Reported) Lisinopril 10 Mg Tablet, 10 MG PO DAILY, (Reported) Metoprolol Tartrate 25 Mg Tablet, 25 MG PO BID, (Reported) Potassium Chloride 20 Meq Tab.er.prt, 20 MEQ PO DAILY, (Reported) TAKE FOR 14 DAYS WITH DAILY DOSE OF FUROSEMIDE, STARTING 09-13-16 TAKE 10MEQ DAILY Potassium Chloride 10 Meq Capsule.er, 10 MEQ PO UD, (Reported) TAKE ONCE DAILY AFTER 14 DAY THERAPY OF 20MEQ DAILY IS FINISHED ON 09-12-16. Tramadol HCl 50 Mg Tablet, 100 MG PO Q4H PRN for PAIN, (Reported) TAKES 2 (50MG) TABLETS Patient Home Medication List Home Medication List Reviewed: Yes Review of Systems Review of Systems Constitutional: No chills, No fever; malaise EENTM: No hearing loss Respiratory: see HPI, cough Cardiovascular: see HPI; No edema, No palpitations, No syncope Gastrointestinal: No abdominal pain; nausea; No vomiting Genitourinary: No dysuria, No frequency Musculoskeletal: No back pain Skin: No rash Psychiatric/Neurological: No Symptoms Reported Hematologic/Lymphatic: No Symptoms Reported Immunological/Allergic: no symptoms reported Past Lmnravh-Toqwws-Exwnta Hx Past Med/Social Hx: Reviewed Nursing Past Med/Soc Hx Patient Social History Alcohol Use: Rarely Uses Recreational Drug Use: No Smoking Status: Former Smoker Type Used: Cigars Former Smoker, Quit: Aug 10, 2016 2nd Hand Smoke Exposure: No Recent Foreign Travel: No Contact w/Someone Who Travel: No Recent Infectious Disease Expo: No Recent Hopitalizations: No Physical Abuse: No Sexual Abuse: No Immunizations Up To Date Tetanus Booster (TDap): Less than 5yrs Seasonal Allergies Seasonal Allergies: No Past Medical History Surgeries: Yes (CARDIAC CATHS. STENT X 1 IN 1998; 2 VESSEL CABG 08/30/16 [facility]/DR. MCMAHON) Cardiac, CABG, Coronary Stent Respiratory: No COPD Currently Using CPAP: No Currently Using BIPAP: No Cardiac: Yes Atrial Fibrillation, Coronary Artery Disease, Heart Attack, High Cholesterol, Hypertension Neurological: No Reproductive Disorders: No Sexually Transmitted Disease: No HIV/AIDS: No Gastrointestinal: No Musculoskeletal: Yes (CHRONIC SHOULDER AND KNEE PAIN) Arthritis Endocrine: No Loss of Vision: Right Hearing Impairment: Denies Cancer: No Psychosocial: No Integumentary: No Blood Disorders: No Adverse Reaction/Blood Tranf: No Family Medical History No Pertinent Family Hx Physical Exam Vital Signs - First Documented 02/03/19 09:29 Temp 97.2 Pulse 51 Resp 20 B/P (MAP) 155/130 (138) Pulse Ox 94 O2 Delivery Room Air Capillary Refill : Less Than 3 Seconds Height: 5'6.00" Weight: 230lbs. 0.0oz. 104.414463ii; 29.8 BMI Method:Stated General Appearance: WD/WN, no apparent distress HEENT: normal ENT inspection Neck: normal inspection Respiratory: decreased breath sounds Cardiovascular: regular rate, rhythm, no murmur Gastrointestinal: normal bowel sounds, non tender, soft Extremities: normal range of motion, non-tender, normal inspection Neurologic/Psychiatric: no motor/sensory deficits, alert, normal mood/affect Skin: normal color, warm/dry; No diaphoresis Progress/Results/Core Measures Suspected Sepsis Recent Fever Within 48 Hours: No Infection Criteria Present: None New/Unexplained Altered Menta: No Sepsis Screen: No Definite Risk SIRS Temperature:97.2 Pulse: 51 Respiratory Rate: 20 Laboratory Tests 02/03/19 09:32: White Blood Count 9.2 Blood Pressure 155 /130 Mean: 138 Laboratory Tests 02/03/19 09:32: Creatinine 1.31H, INR Comment 0.9, Platelet Count 247, Total Bilirubin 1.4H Results/Orders Lab Results Laboratory Tests Test 02/03/19 09:32 Range/Units White Blood Count 9.2 4.3-11.0 10^3/uL Red Blood Count 5.06 4.35-5.85 10^6/uL Hemoglobin 15.7 13.3-17.7 G/DL Hematocrit 48 40-54 % Mean Corpuscular Volume 96 80-99 FL Mean Corpuscular Hemoglobin 31 25-34 PG Mean Corpuscular Hemoglobin Concent 32 32-36 G/DL Red Cell Distribution Width 13.9 10.0-14.5 % Platelet Count 247 130-400 10^3/uL Mean Platelet Volume 10.1 7.4-10.4 FL Neutrophils (%) (Auto) 81 H 42-75 % Lymphocytes (%) (Auto) 10 L 12-44 % Monocytes (%) (Auto) 9 0-12 % Eosinophils (%) (Auto) 1 0-10 % Basophils (%) (Auto) 0 0-10 % Neutrophils # (Auto) 7.4 1.8-7.8 X 10^3 Lymphocytes # (Auto) 0.9 L 1.0-4.0 X 10^3 Monocytes # (Auto) 0.8 0.0-1.0 X 10^3 Eosinophils # (Auto) 0.1 0.0-0.3 10^3/uL Basophils # (Auto) 0.0 0.0-0.1 10^3/uL Prothrombin Time 12.8 12.2-14.7 SEC INR Comment 0.9 0.8-1.4 Activated Partial Thromboplast Time 38 H 24-35 SEC D-Dimer 2.76 H 0.00-0.49 UG/ML Sodium Level 142 135-145 MMOL/L Potassium Level 4.3 3.6-5.0 MMOL/L Chloride Level 104 98-107 MMOL/L Carbon Dioxide Level 26 21-32 MMOL/L Anion Gap 12 5-14 MMOL/L Blood Urea Nitrogen 18 7-18 MG/DL Creatinine 1.31 H 0.60-1.30 MG/DL Estimat Glomerular Filtration Rate 55 BUN/Creatinine Ratio 14 Glucose Level 112 H 70-105 MG/DL Calcium Level 10.1 8.5-10.1 MG/DL Corrected Calcium 9.8 8.5-10.1 MG/DL Magnesium Level 2.3 1.8-2.4 MG/DL Total Bilirubin 1.4 H 0.1-1.0 MG/DL Aspartate Amino Transf (AST/SGOT) 40 H 5-34 U/L Alanine Aminotransferase (ALT/SGPT) 38 0-55 U/L Alkaline Phosphatase 109 40-136 U/L Myoglobin 77.5 10.0-92.0 NG/ML Troponin I 0.084 H <0.028 NG/ML B-Type Natriuretic Peptide 1360.4 H <100.0 PG/ML Total Protein 8.0 6.4-8.2 GM/DL Albumin 4.4 3.2-4.5 GM/DL My Orders Orders - ÁLVARO, COLLIN Julio MD Cbc With Automated Diff (02/03/19 10:36) Magnesium (02/03/19 10:36) Chest 1 View, Ap/Pa Only (02/03/19 10:36) Ekg Tracing (02/03/19 10:36) Cardiac Profile 1 (02/03/19 10:36) Comprehensive Metabolic Panel (02/03/19 10:36) Myoglobin Serum (02/03/19 10:36) Protime With Inr (02/03/19 10:36) Partial Thromboplastin Time (02/03/19 10:36) O2 (02/03/19 10:36) Monitor-Rhythm Ecg Trace Only (02/03/19 10:36) Lipid Panel (02/04/19 06:00) Ed Iv/Invasive Line Start (02/03/19 10:36) BNP (02/03/19 10:36) Fibrin Degradation Products (02/03/19 10:36) Furosemide Injection (Lasix Injection) (02/03/19 11:30) Nitroglycerin Ointment (Nitrobid Ointme (02/03/19 11:30) Clopidogrel Tablet (Plavix Tablet) (02/03/19 12:45) Aspirin Tablet (Aspirin Tablet) (02/03/19 12:45) Medications Given in ED Current Medications Medications Dose Ordered Sig/Joselito Route Start Time Stop Time Status Last Admin Dose Admin Aspirin 325 mg ONCE ONCE PO 02/03/19 12:45 02/03/19 12:46 DC 02/03/19 12:50 325 MG Clopidogrel Bisulfate 300 mg ONCE ONCE PO 02/03/19 12:45 02/03/19 12:46 DC 02/03/19 12:50 300 MG Furosemide 40 mg ONCE ONCE IVP 02/03/19 11:30 02/03/19 11:31 DC 02/03/19 11:40 40 MG Nitroglycerin 1 inch ONCE ONCE TOP 02/03/19 11:30 02/03/19 11:31 DC 02/03/19 11:40 1 INCH Vital Signs/I&O 02/03/19 09:29 Temp 97.2 Pulse 51 Resp 20 B/P (MAP) 155/130 (138) Pulse Ox 94 O2 Delivery Room Air Capillary Refill : Less Than 3 Seconds Blood Pressure Mean: 138 Progress Note : Time: 12:37 Progress Note The patient's laboratory evaluation demonstrated an elevated BNP, d-dimer, and troponin. The patient's EKG demonstrated A. fib. Cardiac consultation was undertaken with . He recommended aspirin and Plavix. He requested an echo of the heart today. A call has been placed to Dr. Santiago for his help in the care of the patient. Departure Communication (Admissions) Time/Spoke to Admitting Phy: 12:39 A call has been placed to Dr. Queen. Time/Spoke to Consulting Phy: 12:39 Dr. Abebe. Impression Primary Impression: CHF (congestive heart failure) Qualified Codes: I50.9 - Heart failure, unspecified Additional Impressions: Elevated troponin Elevated d-dimer Disposition: 09 ADMITTED INPATIENT Condition: Improved Admissions Decision to Admit Reason: Admit from ER (General) Decision to Admit/Date: Feb 03, 2019 Time/Decision to Admit Time: 12:56 Departure-Patient Inst. Referrals: COLIN RIDLEY MD (PCP/Family) Primary Care Physician COLLIN REA MD Feb 03, 2019 10:42
[2019-02-03 10:46] LABS: HEMATOCRIT 48 % (40-54); HEMOGLOBIN 15.7 G/DL (13.3-17.7); LYMPHOCYTES % (AUTO) 10 % (12-44); MEAN CORPUSCULAR HEMOGLOBIN 31 PG (25-34); MEAN CORPUSCULAR HGB CONC 32 G/DL (32-36); MEAN CORPUSCULAR VOLUME 96 FL (80-99); MEAN PLATELET VOLUME 10.1 FL (7.4-10.4); NEUTROPHILS % (AUTO) 81 % (42-75); PLATELET COUNT 247 10^3/uL (130-400); RED CELL DISTRIBUTION WIDTH 13.9 % (10.0-14.5); WHITE BLOOD COUNT 9.2 10^3/uL (4.3-11.0)
[2019-02-03 10:47] LABS: BASOPHILS % (AUTO) 0 % (0-10); EOSINOPHILS # (AUTO) 0.1 10^3/uL (0.0-0.3); EOSINOPHILS % (AUTO) 1 % (0-10); LYMPHOCYTES # (AUTO) 0.9 X 10^3 (1.0-4.0); MONOCYTES # (AUTO) 0.8 X 10^3 (0.0-1.0); MONOCYTES % (AUTO) 9 % (0-12); NEUTROPHILS # (AUTO) 7.4 X 10^3 (1.8-7.8)
[2019-02-03 10:51] LABS: INR 0.9 (0.8-1.4); PROTHROMBIN TIME PATIENT 12.8 SEC (12.2-14.7)
[2019-02-03 10:58] LABS: ALBUMIN 4.4 GM/DL (3.2-4.5); BILIRUBIN,TOTAL 1.4 MG/DL (0.1-1.0); CALCIUM 10.1 MG/DL (8.5-10.1); CREATININE SERUM 1.31 MG/DL (0.60-1.30); MAGNESIUM 2.3 MG/DL (1.8-2.4); POTASSIUM 4.3 MMOL/L (3.6-5.0)
--- NOTE | 2019-02-03 11:01 | Diagnostic Imaging Report ---
Indication: Respiratory distress. Portable chest 10:54 AM There are postop changes from the median sternotomy. Heart size and pulmonary vascularity are normal. Lungs are clear. There are no effusions or pneumothoraces. Impression: Postsurgical changes in the chest. No acute abnormality seen. Dictated by: Dictated on workstation # [id number]
[2019-02-03] MEDS ORDERED: FUROSEMIDE 40 MG/4 ML INJ (LASIX) IVP ONE (11:30)
[2019-02-03] MEDS ORDERED: NITROGLYCERIN 2% OINT 1 GM UNIT DOSE PACKET TOP ONE (11:30)
--- NOTE | 2019-02-03 12:22 | NUR ---
800 ml urine out at this time.
[2019-02-03] MEDS ORDERED: CLOPIDOGREL 300 MG (PLAVIX) TABLET PO ONE (12:45)
[2019-02-03] MEDS ORDERED: ASPIRIN 325 MG (5 GR) TABLET PO ONE (12:45)
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
[2019-02-03 14:15] VITALS: BP 159/125
[2019-02-03 14:36] VITALS: BP 175/100
[2019-02-03] MEDS ORDERED: CATHETER FLUSH 10 ML SYR IV PRN (15:15)
--- NOTE | 2019-02-03 15:53 | NUR ---
Patient received definity solution for his echocardiogram with no complaints.
--- NOTE | 2019-02-03 15:59 | Consultation-Cardiology ---
HPI-Cardiology Cardiology Consultation: Date of Consultation 02/03/19 Date of Admission Attending Physician Clive Santiago MD Admitting Physician Malina Gates MD Consulting Physician Petr ABEBE MD HPI: Time Seen by a Provider: 16:00 Chief Complaint: Chest pain, shortness of breath This is a 63-year-old gentleman who is a patient of Dr. Pimentel. He has history of CABG, CAD. Last coronary angiography was in 2016 which showed patent grafts to LAD and left circumflex artery. RCA was patent. Patient has previous history of atrial fibrillation and was on amiodarone and Eliquis. However these were discontinued subsequently. He also has history of sleep apnea and is supposed to be on CPAP. He denies active smoking. He presents with chest pain with diaphoresis and nausea. He also complains of shortness of breath. Review of Systems-Cardiology Review of Systems Constitutional: As described under HPI; No As described under HPI, No no symptoms reported, No chills, No fever, No lightheadedness Eyes: No As described under HPI, No no symptoms reported, No blindness, No blurred vision, No contact lenses, No drainage, No decreased acuity, No foreign body sensation, No pain, No vision change Ears/Nose/Throat: No As described under HPI, No no symptoms reported, No chronic hearing loss, No ear discharge, No ear pain, No nasal drainage, No ulcerations Respiratory: No no symptoms reported; As described under HPI; No As described under HPI, No cough, No orthopnea; shortness of breath; No SOB with excertion Cardiovascular: No no symptoms reported; As described under HPI; No As described under HPI; chest pain; No edema, No irregular heart rate, No lightheadedness, No palpitations Gastrointestinal: No no symptoms reported, No As described under HPI, No abdomen distended, No abdominal pain, No blood streaked bowels, No constipation , No diarrhea, No nausea, No vomiting, No stool coloration changes Genitourinary: No As described under HPI, No burning, No dysuria, No discharge , No frequency, No flank pain, No hematuria, No urgency Skin: No rash, No skin related problems, No ulcerations Psychiatric/Neurological: No anxiety, No depression, No seizure, No focal weakness, No syncope Hematologic: No bleeding abnormalities RKE-Xqaibh-Gwihpk Hx Patient Social History Alcohol Use: Rarely Uses Recreational Drug Use: No Smoking Status: Former Smoker Type Used: Cigars 2nd Hand Smoke Exposure: No Recent Foreign Travel: No Recent Infectious Disease Expo: No Hospitalization with Isolation: Denies Immunizations Up To Date Tetanus Booster (TDap): Less than 5yrs Past Medical History PMH As described under Assessment. Allergies and Home Medications Allergies Coded Allergies: No Known Drug Allergies (Unverified , 04/22/15) Home Medications Acetaminophen 500 Mg Tablet, 1,000 MG PO Q4H PRN for PAIN-MILD, (Reported) Atorvastatin Calcium 40 Mg Tablet, 40 MG PO HS, (Reported) Furosemide 40 Mg Tablet, 40 MG PO DAILY, (Reported) Ibuprofen 200 Mg Tablet, 600 MG PO Q6H PRN for PAIN-MILD, (Reported) Lisinopril/Hydrochlorothiazide 1 Each Tablet, 1 TAB PO DAILY, (Reported) Metoprolol Tartrate 25 Mg Tablet, 25 MG PO BID, (Reported) Potassium Chloride 10 Meq Tablet.er, 10 MEQ PO DAILY, (Reported) Vit C/Marvin & Celery Ex/Grp E 1 Each Capsule, 3 CAP PO DAILY, (Reported) Patient Home Medication List Home Medication List Reviewed: Yes Physical Exam-Cardiology Physical Exam Vital Signs/I&O 02/03/19 02/03/19 02/03/19 02/03/19 09:29 14:01 14:15 14:36 Temp 97.2 97.2 97.2 97.5 Pulse 51 85 85 75 Resp 20 20 20 18 B/P (MAP) 155/130 (138) 159/125 (136) 159/125 175/100 Pulse Ox 94 96 96 97 O2 Delivery Room Air Room Air Room Air Room Air 02/03/19 02/03/19 15:30 16:10 Temp 98.1 Pulse 88 Resp 18 B/P (MAP) 174/98 (123) Pulse Ox 96 O2 Delivery Room Air Room Air Capillary Refill : Less Than 3 Seconds Constitutional: appears stated age; No apparent distress; well-developed, well- nourished HEENT: PERRL; No normal ENT inspection, No TMs normal, No pharynx normal, No scleral icterus (R), No scleral icterus (L), No pale conjunctivae (R), No pale conjunctivae (L), No photophobia, No TM abnormal (R), No TM abnormal (L), No pharyngeal erythema, No tonsillar exudate, No other, No discharge, No EOMI; hearing is well preserved; No hard of hearing; oral hygience is good; No ulceration, No xanthelasmas are seen Neck: No non-tender, No full range of motion, No supple, No normal inspection, No carotid bruit, No limited range of motion, No lymphadenopathy (R), No lymphadenopathy (L), No tender lateral, No tender midline, No thyromegaly, No other; carotid pulses are 2 + bilaterally; No with good upstrokes Respiratory: No accessory muscle use, No respiratory distress, No chest tender , No chest expansion is symmetric; chest is bilaterally symmetric; No lungs clear to percussion; lungs clear to auscultation; No crackles, No rhonchi, No rales, No stridor, No wheezing, No pleural rub, No other Cardiovascular: No regular rate-rhythm; irregularly irregular; No extra beats, No parasternal heave is noted, No JVD, No edema, No bradycardia, No tachycardia , No point of maximal impulse, No cardiac thrills are palpable; S1 and S2; No gallop/S3, No gallop/S4, No diastolic murmur, No systolic murmur, No friction rub, No click, No other Gastrointestinal: No tender, No soft, No round, No distended, No pulsatile mass , No organomegaly, No guarding, No rebound, No tenderness, No hernia, No mass, No audible bowel sounds, No abnormal bowel sounds, No abdominal bruits, No spleenomegaly, No other Rectal: deferred Extremities: No normal range of motion, No non-tender, No normal inspection, No pedal edema, No calf tenderness, No normal capillary refill, No pelvis stable , No calf tenderness, No inflammation, No pedal edema, No slow capillary refill , No swelling, No other, No abrasion, No clubbing, No cyanosis, No ecchymosis, No laceration, No no lower extremity edema bilateral, No significant edema, No tenderness, No wound Neurologic/Psychiatric: no motor/sensory deficits, alert, normal mood/affect, oriented x 3, power is 5/5 both on sides Skin: No normal color, No warm/dry, No cyanosis, No cool, No diaphoresis, No damp, No ecchymosis, No jaundice, No mottled, No pallor, No rash, No tattoos/ piercings, No ulcerations, No rash on exposed areas, No ulcerations on exposed areas, No other Data Review Labs Laboratory Tests 02/03/19 09:32: White Blood Count 9.2, Red Blood Count 5.06, Hemoglobin 15.7, Hematocrit 48, Mean Corpuscular Volume 96, Mean Corpuscular Hemoglobin 31, Mean Corpuscular Hemoglobin Concent 32, Red Cell Distribution Width 13.9, Platelet Count 247, Mean Platelet Volume 10.1, Neutrophils (%) (Auto) 81H, Lymphocytes (%) (Auto) 10L, Monocytes (%) (Auto) 9, Eosinophils (%) (Auto) 1, Basophils (%) (Auto) 0, Neutrophils # (Auto) 7.4, Lymphocytes # (Auto) 0.9L, Monocytes # (Auto) 0.8, Eosinophils # (Auto) 0.1, Basophils # (Auto) 0.0, Prothrombin Time 12.8, INR Comment 0.9, Activated Partial Thromboplast Time 38H, D-Dimer 2.76H, Sodium Level 142, Potassium Level 4.3, Chloride Level 104, Carbon Dioxide Level 26, Anion Gap 12, Blood Urea Nitrogen 18, Creatinine 1.31H, Estimat Glomerular Filtration Rate 55, BUN/Creatinine Ratio 14, Glucose Level 112H, Calcium Level 10.1, Corrected Calcium 9.8, Magnesium Level 2.3, Total Bilirubin 1.4H, Aspartate Amino Transf (AST/SGOT) 40H, Alanine Aminotransferase (ALT/SGPT) 38, Alkaline Phosphatase 109, Myoglobin 77.5, Troponin I 0.084H, B-Type Natriuretic Peptide 1360.4H, Total Protein 8.0, Albumin 4.4 ECG Impression ECG Initial ECG Rhythm: PVC Initial ECG Impression: Atrial Fibrillation A/P-Cardiology Assessment/Admission Diagnosis Chest pain with positive troponins, Shortness of breath, Positive BNP, positive D dimer, Sleep apnea, History of CAD, Paroxysmal atrial fibrillation with controlled ventricular rate. Plan Chest pain with positive troponins, previous history of CAD. Coronary angiography by Dr. Pimentel in 2016 which showed patent grafts. Defer to Dr. Pimentel about coronary angiography versus nuclear stress testing. Shortness of breath, acute congestive heart failure. We will request an echocardiogram. IV Lasix. Positive BNP, positive D dimer, Sleep apnea, CPAP is recommended. History of CAD, Paroxysmal atrial fibrillation with controlled ventricular rate, I discussed with the patient about eliquis and he flatly refused Eliquis. I will defer to Dr. Pimentel. Thank you for your consultation. Please call me if you have any questions. Cristina Abebe MD, FACP, FACC, FSCAI, FHRS, CCDS Interventional Cardiology Cardiac Electrophysiology Vascular Medicine and Endovascular Interventions Petr ABEBE MD Feb 03, 2019 3:59 pm
[2019-02-03] MEDS ORDERED: POTA10TA10 PO (16:09)
[2019-02-03] MEDS ORDERED: LISI1TAB8 PO (16:09)
[2019-02-03] MEDS ORDERED: ATOR40TA70 PO (16:09)
[2019-02-03] MEDS ORDERED: FURO40TA4 PO (16:09)
[2019-02-03 16:10] VITALS: BP 174/98
[2019-02-03] MEDS ORDERED: ACET-2267 PO (16:18)
[2019-02-03] MEDS ORDERED: VIT1CAPS4 PO (16:18)
[2019-02-03] MEDS ORDERED: IBUP-30 PO (16:18)
--- NOTE | 2019-02-03 16:19 | NUR ---
SPOKE WITH THE PATIENT ABOUT HIS MEDICATIONS. HE HAD A LIST WITH HIM AND I COMPARED IT WITH THE EXT MED HX. IN ADDITION TO WHAT IS SHOWN ON THE EXT MED HX [facility] FILLED: 11-09-18 METOPROLOL TARTRATE 25MG BID #180 OTC MEDS: ADVIL 600MG PRN TYLENOL 1000MG PRN TART KESSLER 2 DAILY
[2019-02-03] MEDS: NS IV 1000 ML 1,000 ML IV SCH (17:36)
[2019-02-03 19:20] VITALS: BP 115/81
[2019-02-04 00:01] VITALS: BP 143/90
[2019-02-04 04:55] VITALS: BP 174/93
[2019-02-04 06:19] VITALS: BP 153/99
[2019-02-04 06:32] LABS: BASOPHILS % (AUTO) 0 % (0-10); EOSINOPHILS # (AUTO) 0.2 10^3/uL (0.0-0.3); EOSINOPHILS % (AUTO) 4 % (0-10); HEMATOCRIT 43 % (40-54); HEMOGLOBIN 14.1 G/DL (13.3-17.7); LYMPHOCYTES % (AUTO) 19 % (12-44); MEAN CORPUSCULAR HEMOGLOBIN 31 PG (25-34); MEAN CORPUSCULAR HGB CONC 33 G/DL (32-36); MEAN CORPUSCULAR VOLUME 94 FL (80-99); MEAN PLATELET VOLUME 9.8 FL (7.4-10.4); MONOCYTES # (AUTO) 0.6 X 10^3 (0.0-1.0); MONOCYTES % (AUTO) 10 % (0-12); NEUTROPHILS # (AUTO) 3.7 X 10^3 (1.8-7.8); NEUTROPHILS % (AUTO) 67 % (42-75); PLATELET COUNT 190 10^3/uL (130-400); RED CELL DISTRIBUTION WIDTH 13.7 % (10.0-14.5); WHITE BLOOD COUNT 5.6 10^3/uL (4.3-11.0)
[2019-02-04 06:54] LABS: ALANINE AMINOTRANSFERASE 44 U/L (0-55); ALBUMIN 3.5 GM/DL (3.2-4.5); ALKALINE PHOSPHATASE 84 U/L (40-136); BILIRUBIN,TOTAL 1.1 MG/DL (0.1-1.0); BUN/CREATININE RATIO 19; CARBON DIOXIDE 26 MMOL/L (21-32); CHLORIDE 106 MMOL/L (98-107); CHOLESTEROL 184 MG/DL (< 200); CREATININE SERUM 1.02 MG/DL (0.60-1.30); GFR ESTIMATED > 60; GLUCOSE 90 MG/DL (70-105); HDL CHOLESTEROL 35 MG/DL (40-60); POTASSIUM 3.5 MMOL/L (3.6-5.0); SODIUM 141 MMOL/L (135-145); TOTAL PROTEIN 6.4 GM/DL (6.4-8.2); TRIGLYCERIDES 92 MG/DL (<150); VLDL CHOLESTEROL 18 MG/DL (5-40)
[2019-02-04 08:00] VITALS: BP 186/87
[2019-02-04] MEDS ORDERED: KCL 10 MEQ TAB (MICRO K) PO SCH (08:13)
[2019-02-04] MEDS ORDERED: meTOprolol TARTRATE 25 MG (LOPRESSOR) TABLET PO SCH (09:00)
[2019-02-04] MEDS ORDERED: FUROSEMIDE 40 MG (LASIX) TAB PO SCH (09:00)
[2019-02-04] MEDS ORDERED: ASPIRIN 325 MG (5 GR) TABLET PO SCH (09:00)
[2019-02-04] MEDS ORDERED: HYDROCHLOROTHIAZIDE 12.5 MG (HCTZ) CAP PO SCH (09:00)
[2019-02-04] MEDS ORDERED: CLOPIDOGREL 75 MG (PLAVIX) TABLET PO SCH (09:00)
[2019-02-04] MEDS ORDERED: lisINopril 20 MG (PRINIVIL) TABLET PO SCH (09:00)
[2019-02-04] MEDS ORDERED: FUROSEMIDE 40 MG/4 ML INJ (LASIX) IVP SCH (09:03)
[2019-02-04] MEDS: POTASSIUM CL 10MEQ/50ML IVPB 50 ML IV SCH ×2 (09:15→10:21)
[2019-02-04] MEDS: NS IV 1000 ML 1,000 ML IV SCH (11:34)
[2019-02-04 12:00] VITALS: BP 133/73
--- NOTE | 2019-02-04 12:12 | Cardiology Progress Note ---
Subjective Date Seen by Provider: Feb 04, 2019 Time Seen by Provider: 12:09 Subjective/Events-last exam patient was seen and evaluated at bedside, feeling better, reporting improvement in his dyspnea, denied any chest pain. No palpitation Review of Systems General: No Chills, No Night Sweats, No Fatigue, No Malaise, No Appetite, No Other HEENT: No Head Aches, No Visual Changes, No Eye Pain, No Ear Pain, No Dysphasia , No Sinus Congestion, No Post Nasal Drip, No Sore Throat, No Other Pulmonary: Dyspnea; No Cough, No Pleuritic Chest Pain, No Other Cardiovascular: Edema; No: Chest Pain, Palpitations, Orthopnea, Paroxysmal Noc. Dyspnea, Lt Headedness, Other Objective-Cardiology Exam Last Set of Vital Signs Vital Signs 02/04/19 08:00 Temp 98.7 Pulse 63 Resp 20 B/P (MAP) 186/87 (120) Pulse Ox 96 O2 Delivery Room Air Capillary Refill : Less Than 3 Seconds I&O Intake and Output 02/04/19 00:00 Intake Total 680 ml Output Total 625 ml Balance 55 ml Intake Oral 680 ml Output Urine Total 625 ml Daily Weight Change No No General: Alert, Oriented X3, Cooperative HEENT: Atraumatic, PERRLA Neck: Supple, No JVD, No Thyromegaly Lungs: Clear to Auscultation, Normal Air Movement Heart: Regular Rate, Normal S1, Normal S2, No Murmurs Abdomen: Normal Bowel Sounds, Soft, No Tenderness, No Hepatosplenomegaly, No Masses Extremities: No Clubbing, No Cyanosis, No Edema, Normal Pulses, No Tenderness/ Swelling Skin: No Rashes, No Breakdown, No Significant Lesion Neuro: Normal Gait, Normal Speech, Strength at 5/5 X4 Ext, Normal Tone, Sensation Intact Psych/Mental Status: Mental Status NL, Mood NL Results Lab Laboratory Tests 02/04/19 06:04 A/P-Cardiology Admission Diagnosis shortness of breath Coronary artery disease Congestive heart failure, acute on chronic left ventricular systolic dysfunction Hypertension Hyperlipidemia Assessment/Plan Shortness of breath, acute on chronic left ventricular systolic dysfunction, ejection fraction 30-35 percent per echocardiogram, responded well to diuretics. Feeling better. Continue to monitor Troponin level is normal, trending down, abnormal value 0.3. EKG did not show acute changes. Denied any chest pain. Planning to discharge and follow-up as an outpatient Coronary artery disease, history of angioplasty, CABG 2 done early in August 2016, patient return for chest pain and flash pulmonary edema, cardiac catheterization was done on August 31, 2016. Showing patent DOMÍNGUEZ to LAD, patent vein graft to the obtuse marginal branch with small vessel disease with slower flow responded to intracoronary nitroglycerin and improvement of the flow. Continue medical therapy. Stress test done 05/28/17 revealed fixed defect with no ischemia or infarct. EF 47%, continue to monitor Congestive heart failure, acute on chronic left ventricular systolic dysfunction , ischemic cardiomyopathy, responding to diuretics. Continue to monitor Peripheral edema, educated on diet and compliance with diet and medication Hypertension, controlled. Continue to monitor Paroxysmal atrial fibrillation, had transient atrial fibrillation after his bypass surgery, currently sinus rhythm. Continue to monitor. Hyperlipidemia, continue on current medication and monitor lipids Pulmonary hypertension, continue to monitor at this time Mild bilateral carotid stenosis, nonobstructive disease. continue to monitor Right eye blindness, episode of left eye blurred vision occurred in the past. Workup has been negative. Gouty arthritis, having significant pain in his knees and shoulder,receiving injection his knees. Tobaccoism, back to smoking, educated on smoking cessation Clinical Quality Measures DVT/VTE Risk/Contraindication: Risk Factor Score Per Nursin RFS Level Per Nursing on Admit: 4+=Very High TRISH LORENZ MD Feb 04, 2019 12:12
[2019-02-04] MEDS ORDERED: ASPI-983 PO (12:15)
[2019-02-04] MEDS ORDERED: FURO40TA4 PO (12:15)
--- NOTE | 2019-02-04 13:05 | History & Physical-Hospitalist ---
History of Present Illness HPI/Chief Complaint The patient is a 63-year-old white male who presented to the emergency room on the morning of 02/03 with complaints of shortness of breath. He reported that this seemed to come on suddenly and awakened him at about midnight on 02/03. There was no chest pain associated with it. He reported that he noted that his ankles were quite swollen and did not believe that they were when he went to bed. He became very anxious and also remembered that he was not using his CPAP. He got up and took his dogs on a walk for a few blocks but return very winded. His anxiety and shortness of breath continued as well as the sensation of pounding in his chest and he ultimately came to the emergency room at about 0900 hours. Electrocardiogram showed him to be in atrial fibrillation with frequent PVCs. He has a heart history and some years ago had stenting performed percutaneously. In 2015 he had bypass grafting and states that he was in atrial fibrillation in the immediate postop period and then converted back to sinus rhythm. His echocardiogram shows an ejection fraction less than 40 percent. He adds that he is of a long line of high cholesterols and relatively early coronary artery disease. Date Seen 02/04/19 Time Seen by a Provider: 13:00 Attending Physician Clive Santiago MD PCP Malina Ridley MD Referring Physician Date of Admission Feb 03, 2019 at 12:30 Home Medications & Allergies Home Medications Reviewed patient Home Medication Reconciliation performed by pharmacy medication reconciliations underwriting technician and/or nursing. Patients Allergies have been reviewed. Allergies Allergies Coded Allergies No Known Drug Allergies (Unverified04/22/15) Past Gjgywln-Uctkyp-Lyhooi Hx Past Med/Social Hx: Reviewed Nursing Past Med/Soc Hx Patient Social History Alcohol Use: Rarely Uses Recreational Drug Use: No Smoking Status: Former Smoker Former Smoker, Quit: Aug 10, 2016 Type Used: Cigars 2nd Hand Smoke Exposure: No Recent Foreign Travel: No Contact w/other who traveled: No Recent Hopitalizations: No Recent Infectious Disease Expo: No Immunizations Up To Date Tetanus Booster (TDap): Less than 5yrs Seasonal Allergies Seasonal Allergies: No Past Medical History Surgeries: Cardiac, CABG, Coronary Stent Currently Using CPAP: No Currently Using BIPAP: No Cardiac: Atrial Fibrillation, Coronary Artery Disease, Heart Attack, High Cholesterol, Hypertension Reproductive: No Sexually Transmitted Disease: No HIV/AIDS: No Musculoskeletal: Arthritis Loss of Vision: Right Hearing Impairment: Denies History of Blood Disorders: No Adverse Reaction to Blood Watson: No Family History No Pertinent Family Hx Review of Systems Constitutional: see HPI EENTM: no symptoms reported Respiratory: see HPI, cough, dyspnea on exertion Cardiovascular: see HPI, palpitations Gastrointestinal: no symptoms reported Genitourinary: no symptoms reported Musculoskeletal: no symptoms reported Skin: no symptoms reported Psychiatric/Neurological: No Symptoms Reported Physical Exam Physical Exam Vital Signs Vital Signs - First Documented 02/03/19 09:29 Temp 97.2 Pulse 51 Resp 20 B/P (MAP) 155/130 (138) Pulse Ox 94 O2 Delivery Room Air Capillary Refill : Less Than 3 Seconds Height, Weight, BMI Height: 5'6.00" Weight: 227lbs. 0.0oz. 102.543871hi; 37.1 BMI Method:Stated General Appearance: Anxious Eyes: Bilateral Eye Normal Inspection HEENT: Normal ENT Inspection Neck: Normal Inspection Respiratory: Chest Non Tender, Lungs Clear, Normal Breath Sounds, No Accessory Muscle Use, No Respiratory Distress Cardiovascular: Irregularly Irregular Gastrointestinal: Other (obese. No masses or tenderness to palpation.) Extremity: Other Neurologic/Psychiatric: Alert, Oriented x3, No Motor/Sensory Deficits, Normal Mood/Affect, shuttler car II-XII Norm as Tested Skin: Normal Color, Warm/Dry Lymphatic: No Adenopathy Results Results/Procedures Labs Laboratory Tests 02/03/19 09:32 02/04/19 06:04 Patient resulted labs reviewed. Assessment/Plan Admission Diagnosis See below Admission Status: Observation Assessment and Plan 1.acute congestive heart failure. 2.ischemic cardiomyopathy. 3.atrial fibrillation and frequent PVCs. Clinical Quality Measures DVT/VTE Risk/Contraindication: Risk Factor Score Per Nursin RFS Level Per Nursing on Admit: 4+=Very High Copy Copies To 1: MALINA RIDLEY MD,CLIVE Granados MD Feb 04, 2019 13:05
[2019-02-04 14:45] VITALS: BP 133/73
[2019-02-04] MEDS ORDERED: ATORVASTATIN 40 MG (LIPITOR) TABLET PO SCH (21:00)
== END 2019-02-04 14:45 | disposition home or self-care (01) | DRG 293 ==
LOC: EDUNIT# 09:29 → ER 09:30 → 4TH 12:30
PROVIDERS: ADMIT Internal Medicine; ATTEND Internal Medicine
DX: I50.23 Acute on chronic systolic (congestive) heart failure (principal); I25.5 Ischemic cardiomyopathy; I48.0 Paroxysmal atrial fibrillation; F17.290 Nicotine dependence, other tobacco product, uncomplicated; I25.10 Atherosclerotic heart disease of native coronary artery without angina pectoris; I25.2 Old myocardial infarction; E78.00 Pure hypercholesterolemia, unspecified; I11.0 Hypertensive heart disease with heart failure; M19.91 Primary osteoarthritis, unspecified site; E78.5 Hyperlipidemia, unspecified; I27.20 Pulmonary hypertension, unspecified; I65.23 Occlusion and stenosis of bilateral carotid arteries; M10.9 Gout, unspecified; H54.40 Blindness, one eye, unspecified eye; G47.30 Sleep apnea, unspecified; Z95.5 Presence of coronary angioplasty implant and graft; Z95.1 Presence of aortocoronary bypass graft
CPT/HCPCS: 36415; 71045; 80053; 80061; 83735; 83874; 83880; 84484; 85025; 85379; 85610; 85730; 93005; 93041; 93306

== ENCOUNTER 2019-05-14 06:54 | Day surgery (SDC) | payer BC, MEDICARE ==
[~2019-05-14] VITALS: Ht 167.6 cm; Wt 102.1 kg
[2019-05-14] VITALS (24 sets, daily range): BP systolic 107–149; BP diastolic 8–125
[~2019-05-14 06:54] MED LIST changes: +ACET-2267 PO; +ASPI-983 PO; +ATOR40TA70 PO; +IBUP-30 PO; +LISI1TAB8 PO; +POTA10TA10 PO; +VIT1CAPS4 PO
[2019-05-14] MEDS ORDERED: NS IV 1000 ML 1,000 ML ONE (07:05)
[2019-05-14] MEDS ORDERED: LIDOCAINE 2% VISCOUS 15 ML UDC ONE (07:05)
[2019-05-14] MEDS: NS IV 1000 ML 1,000 ML IV SCH ×3 (07:19→20:29)
[2019-05-14] MEDS ORDERED: RIVA20TA PO (07:38)
[2019-05-14] MEDS ORDERED: ASPI-983 PO (07:38)
[2019-05-14] MEDS ORDERED: FURO40TA4 PO (07:38)
[2019-05-14 07:39] LABS: HEMOGLOBIN 15.9 G/DL (13.3-17.7); MEAN PLATELET VOLUME 9.1 FL (7.4-10.4); RED CELL DISTRIBUTION WIDTH 14.8 % (10.0-14.5); WHITE BLOOD COUNT 7.4 10^3/uL (4.3-11.0)
[2019-05-14 07:51] LABS: INR 1.9 (0.8-1.4); PROTHROMBIN TIME PATIENT 22.6 SEC (12.2-14.7)
--- NOTE | 2019-05-14 07:53 | Diagnostic Imaging Report ---
INDICATION: Transesophageal echo preop. Comparison with 02/03/2019. FINDINGS: Portable chest shows mild cardiomegaly with median sternotomy changes. The lungs are well-aerated and clear. No pneumothorax or pleural effusions. No bony abnormality is noted. IMPRESSION: Stable portable chest with cardiomegaly and postoperative residue. Dictated by: Dictated on workstation # [id number]
[2019-05-14 07:56] LABS: ALBUMIN 4.3 GM/DL (3.2-4.5); BILIRUBIN,TOTAL 0.6 MG/DL (0.1-1.0); CALCIUM 9.8 MG/DL (8.5-10.1); CREATININE SERUM 1.24 MG/DL (0.60-1.30); POTASSIUM 3.8 MMOL/L (3.6-5.0); TOTAL PROTEIN 7.6 GM/DL (6.4-8.2)
[2019-05-14] MEDS ORDERED: MIDAZOLAM 2 MG/2 ML (VERSED) VIAL ONE (08:09)
[2019-05-14] MEDS ORDERED: proPOfol 200 MG/20 ML (DIPRIVAN) VIAL IV ONE ×2 (08:09→09:00)
[2019-05-14] MEDS ORDERED: AMIODARONE (OMNICELL DRIP KIT) 150 MG/3 ML IV ONE (08:33)
--- NOTE | 2019-05-14 08:42 | Cardiac Procedure Note-CS/ASA ---
Pre-Procedure Note Pre-Op Procedure Note H&P Reviewed The H&P was reviewed, patient examined and no changes noted. Date H&P Reviewed: May 14, 2019 Time H&P Reviewed: 08:10 Conscious Sedation Pre-Proced Time 08:10 ASA Score 3 For ASA 3 and 4: Consider anesthesia and medical clearance. Also, for patients with a history of failed moderate sedation consider anesthesia. Airway Lungs Heart ASA score ASA 1: a normal healthy patient ASA 2: a patient with a mild systemic disease (mid diabetes, controlled hypertension, obesity X ASA 3: a patient with a severe systemic disease that limits activity (angina, COPD, prior Myocardial infarction) ASA 4: a patient with an incapacitating disease that is a constant threat to life (CHF, renal failure) ASA 5: a moribund patient not expected to survive 24 hrs. (ruptured aneurysm) ASA 6: a declared brain- patient whose organs are being harvested. For emergent operations, add the letter E after the classification Mallampati Classification Grade 3 Sedation Plan Analgesia, Amnesia, Plan communicated to team members, Discussed options with patient/fam, Discussed risks with patient/fam The patient is an appropriate candidate to undergo the planned procedure, sedation, and anesthesia. The patient immediately re-assessed prior to indication. TRISH LORENZ MD May 14, 2019 08:42
--- NOTE | 2019-05-14 08:44 | Cardioversion ---
Cardioversion PROCEDURE PHYSICIAN: Trish Pimentel DATE OF PROCEDURE: 05/14/19 DIRECT EXTERNAL ELECTRICAL CARDIOVERSION: Indications: Atrial Fibrillation Preoperative diagnoses: Atrial Fibrillation Postoperative diagnosis: Sinus rhythm, Successful Electrical Cardioversion Anesthesia: By Anesthesia services Complications: None Specimen: None Contrast: 0 Flouroscopy: none Procedure Details: The patient was brought the cardiac catheterization technologist after informed consent was taken, all the risks and complications were explained including the risk of stroke. Electrical cardioversion was carried out with anesthesia support with propofol. 200 joules of synchronized shock was delivered through external patches which promptly restored sinus rhythm. The patient tolerated the procedure well. Conclusions: Successful electrical cardioversion Final Diagnosis: Chronic persistent atrial fibrillation Coronary artery disease Congestive heart failure, chronic compensated ischemic cardiomyopathy Hypertension TRISH PIMENTEL MD May 14, 2019 08:44
--- NOTE | 2019-05-14 08:48 | Progress Note ---
Standard Progress Note Progress Notes/Assess & Plan Date Seen by a Provider: May 14, 2019 Time Seen by a Provider: 08:34 Progress/Assessment & Plan asa3. start time 0824 end time 0834. 100mg propofol and 2mg versed given. tolerated procedure well YARED ANDREA CRNA May 14, 2019 08:48
[2019-05-14] MEDS ORDERED: MIDAZOLAM 2 MG/2 ML (VERSED) VIAL IVP ONE (09:00)
[2019-05-14] MEDS ORDERED: AMIODARONE FOR BOLUS 150 MG in D5W 100 ML IVPB 100 ML IV ONE (09:00)
[2019-05-14] MEDS: D5W IV SCH ×2 (09:28→17:23)
[2019-05-14] MEDS: AMIODARONE FOR BOLUS IV SCH ×2 (09:28→17:23)
[2019-05-14] MEDS: RIVAROXABAN 20 MG TABLET (XARELTO) PO SCH (10:56)
[2019-05-14] MEDS: KCL 10 MEQ TAB (MICRO K) PO SCH (10:56)
[2019-05-14] MEDS: meTOprolol TARTRATE 25 MG (LOPRESSOR) TABLET PO SCH ×2 (10:56→20:29)
[2019-05-14] MEDS: AMIODARONE 200 MG (CORDARONE) TAB PO SCH ×2 (10:56→20:29)
[2019-05-14] MEDS: lisINopril 20 MG (PRINIVIL) TABLET PO SCH (10:56)
[2019-05-14] MEDS: ASPIRIN E.C. 81 MG (ECOTRIN) TAB PO SCH (10:57)
[2019-05-14] MEDS: HYDROCHLOROTHIAZIDE 12.5 MG (HCTZ) CAP PO SCH (10:57)
[2019-05-14] MEDS: FUROSEMIDE 40 MG (LASIX) TAB PO SCH (16:22)
[2019-05-14] MEDS ORDERED: ATORVASTATIN 40 MG (LIPITOR) TABLET PO SCH (21:00)
[2019-05-15] VITALS (9 sets, daily range): BP systolic 126–174; BP diastolic 76–121
--- NOTE | 2019-05-15 05:46 | Pulmonary Consultation ---
History of Present Illness History of Present Illness Date of Consultation 05/15/19 05:45 Time Seen by Provider: 06:39 Date of Admission Allergies and Home Medications Allergies Coded Allergies: amlodipine (Verified Allergy, Unknown, 05/14/19) Home Medications Acetaminophen 500 Mg Tablet, 1,000 MG PO Q4H PRN for PAIN-MILD, (Reported) Aspirin 81 Mg Tablet.dr, 81 MG PO DAILY, (Reported) Atorvastatin Calcium 40 Mg Tablet, 40 MG PO HS, (Reported) Furosemide 40 Mg Tablet, 40 MG PO BID, (Reported) Lisinopril/Hydrochlorothiazide 1 Each Tablet, 1 TAB PO DAILY, (Reported) Metoprolol Tartrate 25 Mg Tablet, 25 MG PO BID, (Reported) Potassium Chloride 10 Meq Tablet.er, 10 MEQ PO DAILY, (Reported) Rivaroxaban 20 Mg Tablet, 20 MG PO DAILY IN EVENING, (Reported) Vit C/Marvin & Celery Ex/Grp E 1 Each Capsule, 3 CAP PO DAILY, (Reported) Past Eidhaxk-Btmqfl-Qfqacu Hx Patient Social History Alcohol Use: Rarely Uses Recreational Drug Use: No Smoking Status: Former Smoker Type Used: Cigars Former Smoker, Quit: Aug 10, 2016 2nd Hand Smoke Exposure: No Recent Foreign Travel: No Contact w/Someone Who Travel: No Recent Infectious Disease Expo: No Recent Hopitalizations: No Immunizations Up To Date Tetanus Booster (TDap): Less than 5yrs Date of Pneumonia Vaccine: May 14, 2018 Seasonal Allergies Seasonal Allergies: No Past Medical History Surgeries: Yes (CARDIAC CATHS. STENT X 1 IN 1998; 2 VESSEL CABG 08/30/16 [facility]/DR. MCMAHON) Cardiac, CABG, Coronary Stent Respiratory: No COPD Currently Using CPAP: No Currently Using BIPAP: No Cardiac: Yes Atrial Fibrillation, Coronary Artery Disease, Heart Attack, High Cholesterol, Hypertension Neurological: No Reproductive Disorders: No Sexually Transmitted Disease: No HIV/AIDS: No Gastrointestinal: No Musculoskeletal: Yes (CHRONIC SHOULDER AND KNEE PAIN) Arthritis Endocrine: No Loss of Vision: Right Hearing Impairment: Denies Cancer: No Psychosocial: No Integumentary: No Blood Disorders: No Adverse Reaction/Blood Tranf: No Family Medical History No Pertinent Family Hx Review of Systems Time Seen by Provider: 06:38 Constitutional: Weakness, Malaise; No: Fever, Chills, Sweats, Other Eyes: No: Pain, Vision change, Conjunctivae inflammation, Eyelid inflammation, Other, Redness ENT: Nose congestion; No: Ear pain, Ear discharge, Nose pain, Nose discharge, Mouth pain, Mouth swelling, Throat pain, Throat swelling, Other Respiratory: SOB with excertion; No: Cough, Dry, Shortness of breath, Wheezing, Hemoptysis, Pleuritic Pain, Sputum, Wheezing, Other Cardiovascular: Palpitations, Lt Headedness; No: Chest Pain, Orthopnea, Paroxysmal Noc. Dyspnea, Edema, Other Gastrointestinal: No: Nausea, Vomiting, Abdominal Pain, Diarrhea, Constipation, Melena, Hematochezia, Other Sepsis Event Evaluation Height, Weight, BMI Height: 5'6.00" Weight: 225lbs. 0.0oz. 102.946464uf; 36.3 BMI Method:Stated Exam Exam Vital Signs Date Time Temp Pulse Resp B/P (MAP) Pulse Ox O2 Delivery O2 Flow Rate FiO2 05/15/19 05:00 70 16 174/111 (132) 95 Room Air 05/15/19 04:15 96.9 05/15/19 04:00 97 Room Air 05/15/19 04:00 63 18 164/100 (121) 99 Room Air 05/15/19 03:00 61 27 148/106 (120) 98 Room Air 05/15/19 02:00 55 12 126/83 (97) 95 Room Air 05/15/19 01:00 64 17 153/121 (132) 99 Room Air 05/15/19 01:00 64 05/15/19 00:00 97 Room Air 05/15/19 00:00 96.6 05/15/19 00:00 51 13 136/76 (96) 98 Room Air 05/14/19 23:00 56 18 116/79 (91) 99 Room Air 05/14/19 22:00 54 14 132/93 (106) 98 Room Air 05/14/19 21:00 56 16 120/81 (94) 100 Room Air 05/14/19 20:31 96.6 05/14/19 20:00 97 Room Air 05/14/19 20:00 57 16 133/94 (107) 99 Room Air 05/14/19 19:00 51 05/14/19 19:00 51 16 129/79 (96) 99 Room Air 05/14/19 18:00 58 17 107/89 (95) 97 Room Air 05/14/19 17:00 74 10 135/91 (106) 97 Room Air 05/14/19 16:18 97 Room Air 05/14/19 16:00 64 16 129/95 (106) 97 Room Air 05/14/19 16:00 96.6 05/14/19 15:00 68 16 134/68 (90) 96 Room Air 05/14/19 14:00 66 15 134/92 (106) 96 Room Air 05/14/19 13:00 72 16 133/88 (103) 97 Room Air 05/14/19 12:41 71 05/14/19 12:00 96.7 05/14/19 12:00 70 12 139/113 (122) 98 Room Air 05/14/19 12:00 98 Room Air 05/14/19 11:00 74 16 145/95 (112) 99 Room Air 05/14/19 10:14 71 05/14/19 10:00 99 Room Air 05/14/19 10:00 75 21 133/87 (102) Room Air 05/14/19 09:47 84 16 132/99 (110) 98 Room Air 05/14/19 09:33 74 16 129/96 (107) 98 Room Air 05/14/19 09:19 73 16 128/104 (112) 100 Room Air 05/14/19 09:03 73 16 126/99 (108) 100 Nasal Cannula 2.00 05/14/19 08:50 75 16 128/79 (95) 100 Nasal Cannula 2.00 05/14/19 08:42 82 16 139/91 (107) 100 Nasal Cannula 2.00 05/14/19 08:36 89 16 140/118 (125) 100 Nasal Cannula 2.00 05/14/19 08:27 92 16 149/8 (55) 100 Nasal Cannula 2.00 05/14/19 08:24 96 16 138/125 (129) 100 Nasal Cannula 2.00 05/14/19 08:23 100 Nasal Cannula 2.00 05/14/19 07:25 98.3 87 16 136/110 (119) 100 Room Air I & O 05/15/19 07:00 Intake Total 2143 ml Output Total 2150 ml Balance -7 ml Height & Weight Height: 5'6.00" Weight: 225lbs. 0.0oz. 102.598999xh; 36.3 BMI Method:Stated General Appearance: No Apparent Distress, WD/WN, Anxious HEENT: PERRL/EOMI Neck: Full Range of Motion, Non Tender, Supple Respiratory: Chest Non Tender, No Accessory Muscle Use, No Respiratory Distr ess, Decreased Breath Sounds Cardiovascular: Regular Rate, Rhythm Gastrointestinal: normal bowel sounds, non tender, soft, no organomegaly Extremity: Normal Capillary Refill Neurologic/Psychiatric: Alert, Oriented x3 Skin: Normal Color, Warm/Dry Lymphatic: No Adenopathy Results Lab Laboratory Tests 05/14/19 07:31 Assessment/Plan Assessment/Plan Afib RVR s/p cardioversion -Currently on Amio gtt -Cardiology following -On Xarelto hx systolic CHF - EF 30% -Lasix HTN Hx CHELSIE - pt has not been able to tolerate -Will follow as out pt to help with CPAP desensitization -PT may need BiPAP secondary to CPAP failure Hx of tobacco use -Pt needs out pt PFT RUDY WADE DO May 15, 2019 05:46
[2019-05-15 06:17] LABS: BUN/CREATININE RATIO 16; CALCIUM 9.4 MG/DL (8.5-10.1); CARBON DIOXIDE 21 MMOL/L (21-32); CHLORIDE 104 MMOL/L (98-107); CREATININE SERUM 1.15 MG/DL (0.60-1.30); GFR ESTIMATED > 60; GLUCOSE 111 MG/DL (70-105); POTASSIUM 3.7 MMOL/L (3.6-5.0); SODIUM 138 MMOL/L (135-145)
[2019-05-15] MEDS ORDERED: hydrALAZINE (APESOLINE) 20 MG/ML VIAL ONE (06:30)
[2019-05-15] MEDS: KCL 10 MEQ TAB (MICRO K) PO SCH (06:40)
[2019-05-15] MEDS: FUROSEMIDE 40 MG (LASIX) TAB PO SCH (06:40)
[2019-05-15] MEDS ORDERED: hydrALAZINE (APESOLINE) 20 MG/ML VIAL IV NR ×2 (06:45→07:08)
[2019-05-15] MEDS: NS IV 1000 ML 1,000 ML IV SCH (06:45)
--- NOTE | 2019-05-15 06:45 | NUR ---
Patient's blood pressure noted to be running 170s/110s. EICU notified and orders received to give one time dose hydralazine 20mg IV. Will continue to monitor.
[2019-05-15] MEDS: HYDROCHLOROTHIAZIDE 12.5 MG (HCTZ) CAP PO SCH (08:16)
[2019-05-15] MEDS: meTOprolol TARTRATE 25 MG (LOPRESSOR) TABLET PO SCH (08:16)
[2019-05-15] MEDS: lisINopril 20 MG (PRINIVIL) TABLET PO SCH (08:16)
[2019-05-15] MEDS: AMIODARONE 200 MG (CORDARONE) TAB PO SCH (08:16)
[2019-05-15] MEDS: ASPIRIN E.C. 81 MG (ECOTRIN) TAB PO SCH (08:16)
[2019-05-15] MEDS: RIVAROXABAN 20 MG TABLET (XARELTO) PO SCH (08:17)
--- NOTE | 2019-05-15 08:25 | Cardiology Progress Note ---
Subjective Date Seen by Provider: May 15, 2019 Time Seen by Provider: 08:20 Subjective/Events-last exam Patient sitting up in chair. Denies any chest pain or dyspnea, currently in sinus rhythm. Review of Systems General: No Chills, No Night Sweats, No Fatigue, No Malaise, No Appetite, No Ot her HEENT: No Head Aches, No Visual Changes, No Eye Pain, No Ear Pain, No Dysp hasia, No Sinus Congestion, No Post Nasal Drip, No Sore Throat, No Other Pulmonary: No Dyspnea, No Cough, No Pleuritic Chest Pain, No Other Cardiovascular: No: Chest Pain, Palpitations, Orthopnea, Paroxysmal Noc. Dyspnea, Edema, Lt Headedness, Other Objective-Cardiology Exam Last Set of Vital Signs Vital Signs 05/14/19 05/15/19 05/15/19 05/15/19 09:03 04:15 09:00 10:00 Temp 96.9 Pulse 57 Resp 15 B/P (MAP) 141/89 (106) Pulse Ox 99 O2 Delivery Room Air O2 Flow Rate 2.00 Capillary Refill : I&O Intake and Output 05/15/19 00:00 Intake Total 2093 ml Output Total 1850 ml Balance 243 ml Intake Oral 1190 ml IV Total 903 ml Output Urine Total 1850 ml General: Alert, Oriented X3, Cooperative HEENT: Atraumatic, PERRLA Neck: Supple, No JVD, No Thyromegaly Lungs: Clear to Auscultation, Normal Air Movement Heart: Regular Rate, Normal S1, Normal S2, No Murmurs Abdomen: Normal Bowel Sounds, Soft, No Tenderness, No Hepatosplenomegaly, No Masses Extremities: No Clubbing, No Cyanosis, No Edema, Normal Pulses, No Tenderness /Swelling Skin: No Rashes, No Breakdown, No Significant Lesion Neuro: Normal Gait, Normal Speech, Strength at 5/5 X4 Ext, Normal Tone, Sensation Intact Psych/Mental Status: Mental Status NL, Mood NL Results Lab Laboratory Tests 05/15/19 05:25 A/P-Cardiology Admission Diagnosis Atrial fibrillation CAD HTN HLP Assessment/Plan Coronary artery disease, history of angioplasty, CABG 2 done early in August 2016, patient return for chest pain and flash pulmonary edema, cardiac catheterization was done on August 31, 2016. Showing patent DOMÍNGUEZ to LAD, patent vein graft to the obtuse marginal branch with small vessel disease with slower flow responded to intracoronary nitroglycerin and improvement of the flow. Continue medical therapy. Stress test done 05/28/17 revealed fixed defect with no ischemia or infarct. EF 47%. Persistent atrial fibrillation, has been maintained on Xarelto since February 2019. s/p FREDERIC with cardioversion yesterday. Currently in sinus rhythm. Continue PO amiodarone. [id number] score of 4, yearly risk of stroke without oral anticoagulation is 4 percent, maintained on Xarelto. Congestive heart failure, chronic compensated left ventricular systolic dysfunction, last echocardiogram reported as ejection fraction 30-35 percent. Continue to monitor Peripheral edema, maintained on Lasix, doing better, continue to monitor Hypertension, controlled. Continue to monitor Hyperlipidemia, continue on current medication and monitor lipids CHELSIE, maintained on CPAP, follows with Dr. Whatley Pulmonary hypertension, continue to monitor at this time Mild bilateral carotid stenosis, nonobstructive disease. Most recent cardiac duplex done April 2019. Right eye blindness, episode of left eye blurred vision occurred in the past. Workup has been negative. Tobaccoism, Patient has stopped smoking in August after his bypass Supervisory-Addendum Brief Supervisory Addendum Participated in pt care: history, MDM, physical Personally performed: exam, history, MDM Care discussed with: IVAN Notes: Patient was seen and evaluated, examination showed normal sinus rhythm, lungs were clear, patient had successful electrical cardioversion yesterday, I'll load him with amiodarone bolus IV and oral, discussed the management plan, continue on oral anticoagulation and planning to do amiodarone 400 mg twice daily for one week then 200 mg twice daily. Continue to monitor, planning to evaluate echocardiogram as an outpatient. Discussed his discharge medication. CHARBEL GUERRERO May 15, 2019 08:25 TRISH LORENZ MD May 15, 2019 10:28
[2019-05-15] MEDS ORDERED: AMIO200T4 PO (08:37)
[2019-05-15] MEDS ORDERED: FURO40TA4 PO (08:37)
== END 2019-05-15 11:15 | disposition home or self-care (01) ==
LOC: CATH 06:54 → ICU 10:04 → CATH 05-15 11:15
PROVIDERS: ATTEND Internal Medicine Cardiovascular Disease
DX: I48.0 Paroxysmal atrial fibrillation (principal); I25.10 Atherosclerotic heart disease of native coronary artery without angina pectoris; I11.0 Hypertensive heart disease with heart failure; I50.22 Chronic systolic (congestive) heart failure; I25.5 Ischemic cardiomyopathy; E78.5 Hyperlipidemia, unspecified; J44.9 Chronic obstructive pulmonary disease, unspecified; E78.00 Pure hypercholesterolemia, unspecified; G89.29 Other chronic pain; M25.519 Pain in unspecified shoulder; M25.569 Pain in unspecified knee; G47.33 Obstructive sleep apnea (adult) (pediatric); M10.9 Gout, unspecified; I27.20 Pulmonary hypertension, unspecified; E66.9 Obesity, unspecified; Z68.36 Body mass index [BMI] 36.0-36.9, adult; Z88.8 Allergy status to other drugs, medicaments and biological substances; Z79.82 Long term (current) use of aspirin; Z79.01 Long term (current) use of anticoagulants; Z87.891 Personal history of nicotine dependence; Z95.5 Presence of coronary angioplasty implant and graft; Z95.1 Presence of aortocoronary bypass graft; Z82.49 Family history of ischemic heart disease and other diseases of the circulatory system; Z82.3 Family history of stroke
CPT/HCPCS: 36415; 71045; 80048; 80053; 83735; 84100; 85027; 85610; 85730; 87081; 92960; 93005; 93312; 93320; 93325

== ENCOUNTER → 2019-10-22 | Outpatient (CLI) | payer BC ==
[~2019-10-22] MED LIST changes: +RIVA20TA PO; -TRAM50TA2 PO; +TRM50T PO
== END ==
LOC: CARD 12:33
PROVIDERS: ATTEND Physician Assistant
DX: I25.10 Atherosclerotic heart disease of native coronary artery without angina pectoris (principal); E78.5 Hyperlipidemia, unspecified; I10 Essential (primary) hypertension; I27.20 Pulmonary hypertension, unspecified
CPT/HCPCS: 93306

== ENCOUNTER 2020-04-05 22:41 | Emergency (ER) | payer BC ==
[~2020-04-05] VITALS: Ht 170 cm; Wt 99.7 kg
[~2020-04-05 22:41] MED LIST changes: -IBUP-2055 PO; +IBUP-2473 PO; +LISI1TAB25 PO; -LISI1TAB8 PO; -METO-387 PO; +MTP25TSR PO
[2020-04-05] MEDS ORDERED: HYDR-3922 (23:28)
[2020-04-05] MEDS ORDERED: CLON0.1T (23:28)
[2020-04-05] MEDS ORDERED: CLON0.2T (23:28)
[2020-04-05] MEDS ORDERED: LISI40TA (23:28)
[2020-04-06 00:15] LABS: BASOPHILS % (AUTO) 0 % (0-10); EOSINOPHILS # (AUTO) 0.1 10^3/uL (0.0-0.3); EOSINOPHILS % (AUTO) 2 % (0-10); HEMATOCRIT 42 % (40-54); HEMOGLOBIN 14.1 G/DL (13.3-17.7); LYMPHOCYTES # (AUTO) 1.5 X 10^3 (1.0-4.0); LYMPHOCYTES % (AUTO) 21 % (12-44); MEAN CORPUSCULAR HEMOGLOBIN 31 PG (25-34); MEAN CORPUSCULAR HGB CONC 33 G/DL (32-36); MEAN CORPUSCULAR VOLUME 93 FL (80-99); MEAN PLATELET VOLUME 9.4 FL (7.4-10.4); MONOCYTES # (AUTO) 1.1 X 10^3 (0.0-1.0); MONOCYTES % (AUTO) 16 % (0-12); NEUTROPHILS # (AUTO) 4.4 X 10^3 (1.8-7.8); NEUTROPHILS % (AUTO) 61 % (42-75); PLATELET COUNT 214 10^3/uL (130-400); RED CELL DISTRIBUTION WIDTH 14.8 % (10.0-14.5); WHITE BLOOD COUNT 7.3 10^3/uL (4.3-11.0)
[2020-04-06 00:33] LABS: INR 2.3 (0.8-1.4); PROTHROMBIN TIME PATIENT 26.5 SEC (12.2-14.7)
[2020-04-06 00:35] LABS: POTASSIUM 3.7 MMOL/L (3.6-5.0)
[2020-04-06 00:36] LABS: CALCIUM 9.1 MG/DL (8.5-10.1)
[2020-04-06 00:39] LABS: BILIRUBIN,TOTAL 0.5 MG/DL (0.1-1.0)
[2020-04-06 00:40] LABS: ERYTHROCYTE SEDIMENTATION RATE 9 MM/HR (0-30)
[2020-04-06 00:41] LABS: CREATININE SERUM 1.75 MG/DL (0.60-1.30)
[2020-04-06 00:44] LABS: MAGNESIUM 2.3 MG/DL (1.6-2.4)
[2020-04-06] MEDS ORDERED: SULF1TAB35 PO (01:11)
[2020-04-06] MEDS ORDERED: RX-TRIMETH/SULFA. 160-800 MG (BACTRIM DS) TAB PPK#2 PO STA (01:12)
--- NOTE | 2020-04-06 01:12 | ED Lower Extremity ---
General Chief Complaint: Lower Extremity Stated Complaint: LEFT LEG SWELLING Nursing Triage Note: c/o left leg swelling today. denies injury. Nursing Sepsis Screen: No Definite Risk Source: patient History of Present Illness Date Seen by Provider: Apr 05, 2020 Time Seen by Provider: 23:49 Initial Comments PT ARRIVES VIA POV FROM HOME STATES HE WOKE THIS MORNING AND HAD SWELLING AND REDNESS TO LEFT LOWER LEG HAS CHRONIC SWELLING IN LEGS, BUT HAS NEVER BEEN THIS BAD, AND IS NOT NORMALLY RED. HAS HISTORY OF CHF AND WAS ADMITTED OVERNIGHT AT [facility] THE FIRST January FOR IT NO PAIN TO LEG AND NO PAIN WITH WALKING NO KNOWN INJURY NO PARESTHESIAS OR MOTOR DEFICITS NO CHEST PAIN NO SHORTNESS OF BREATH NO PALPITATIONS NO DIZZINESS NO FEVER PT IS ON XARELTO FOR CAD WITH CABG AND STENT--STATES HE MISSED A DOSE ON SATU RDAY 04/03/20. PCP: DR. RIDLEY MOGUL OPERATOR: DR. LORENZ Allergies and Home Medications Allergies Coded Allergies: amlodipine (Verified Allergy, Unknown, 05/14/19) Home Medications Amiodarone HCl 200 Mg Tablet, 400 MG PO BID 400mg BID x 1 week, then 200mg BID Prescribed by: CHARBEL ESCALERA on 05/15/19 0837 Aspirin 81 Mg Tablet.dr, 81 MG PO DAILY, (Reported) Atorvastatin Calcium 40 Mg Tablet, 40 MG PO HS, (Reported) Furosemide 40 Mg Tablet, 40 MG PO BID Prescribed by: CHARBEL ESCALERA on 05/15/19 0837 Metoprolol Tartrate 25 Mg Tablet, 25 MG PO BID, (Reported) Potassium Chloride 10 Meq Tablet.er, 10 MEQ PO DAILY, (Reported) Rivaroxaban 20 Mg Tablet, 20 MG PO DAILY IN EVENING, (Reported) Sulfamethoxazole/Trimethoprim 1 Each Tablet, 1 EACH PO BID Prescribed by: COLIN MCKNIGHT on 04/06/20 0111 Patient Home Medication List Home Medication List Reviewed: Yes Review of Systems Constitutional: no symptoms reported; No chills, No diaphoresis, No dizziness, No fever EENTM: no symptoms reported Respiratory: no symptoms reported; No short of breath Cardiovascular: no symptoms reported; No chest pain Gastrointestinal: no symptoms reported Musculoskeletal: see HPI Skin: see HPI Psychiatric/Neurological: No Symptoms Reported Past Loiyudu-Zwepnl-Oarguh Hx Past Med/Social Hx: Reviewed and Corrections made Patient Social History Alcohol Use: Denies Use Recreational Drug Use: No Smoking Status: Former Smoker Type Used: Cigars, Cigarettes Former Smoker, Quit: Aug 10, 2016 2nd Hand Smoke Exposure: No Recent Foreign Travel: No Contact w/Someone Who Travel: No Recent Infectious Disease Expo: No Recent Hopitalizations: No Physical Abuse: No Sexual Abuse: No Mistreated: No Fear: No Immunizations Up To Date Tetanus Booster (TDap): Less than 5yrs Date of Pneumonia Vaccine: May 14, 2018 Seasonal Allergies Seasonal Allergies: No Past Medical History Surgeries: Yes (CARDIAC CATHS. STENT X 1 IN 1998; 2 VESSEL CABG 08/30/16 [facility]/DR. MCMAHON) Cardiac, CABG, Coronary Stent Respiratory: No COPD Currently Using CPAP: No Currently Using BIPAP: No Cardiac: Yes (BRADYCARDIA; CHF; 2 VESSEL CABG; STENT X 1) Atrial Fibrillation, Chronic Edema/Swelling, Coronary Artery Disease, Heart Attack, High Cholesterol, Hypertension Neurological: No Reproductive Disorders: No Sexually Transmitted Disease: No HIV/AIDS: No Genitourinary: No Gastrointestinal: No Musculoskeletal: Yes (CHRONIC SHOULDER AND KNEE PAIN) Arthritis Endocrine: No HEENT: No Loss of Vision: Right Hearing Impairment: Denies Cancer: No Psychosocial: No Integumentary: No Blood Disorders: No Adverse Reaction/Blood Tranf: No Family Medical History No Pertinent Family Hx Physical Exam Vital Signs Vital Signs - First Documented 04/05/20 23:16 Temp 36.6 Pulse 47 Resp 16 B/P (MAP) 176/91 (119) Pulse Ox 98 O2 Delivery Room Air Capillary Refill : Less Than 3 Seconds Height, Weight, BMI Height: 5'6.00" Weight: 225lbs. 0.0oz. 102.385192bo; 34.00 BMI Method:Stated General Appearance: WD/WN, no apparent distress, other (AMBULATES INTO ER WITHOUT DIFFICULTY) Cardiovascular: normal peripheral pulses (+2-3/4 BILATERALLY), no murmur, bradycardia (RATE IN 40'S--APPEARS TO BE FAIRLY NORMAL FOR PT, AND PT IS ASYMPTOMATIC. ) Respiratory: normal breath sounds, no respiratory distress, no accessory muscle use Legs: bilateral leg other (RIGHT LOWER LEG WITH 1+ EDEMA. LEFT LOWER LEG WITH 2-3 + EDEMA, ALONG WITH MILD ERYTHEMA AND WARMTH TO LOWER LEG--MOSTLY ANTERIOR, MEDIAL AND PART OF POSTERIOR ASPECT--STARTS JUST BELOW KNEE AND ENDS JUST ABOVE THE ANKLE. PT HAS A FEW SMALL, SCATTERED SORES TO LOWER LEG BUT NO OBVIOUS SIGNS OF AN INFECTED SORE. ) Knees: bilateral knee normal inspection Ankles: bilateral ankle normal inspection Feet: bilateral foot normal inspection Neurologic/Tendon: normal sensation, normal motor functions, normal tendon functions Neurologic/Psychiatric: no motor/sensory deficits, alert, normal mood/affect, oriented x 3 Skin: normal color, warm/dry, other ( ABOVE) Progress/Results/Core Measures Results/Orders Lab Results Laboratory Tests Test 04/06/20 00:00 Range/Units White Blood Count 7.3 4.3-11.0 10^3/uL Red Blood Count 4.55 4.35-5.85 10^6/uL Hemoglobin 14.1 13.3-17.7 G/DL Hematocrit 42 40-54 % Mean Corpuscular Volume 93 80-99 FL Mean Corpuscular Hemoglobin 31 25-34 PG Mean Corpuscular Hemoglobin Concent 33 32-36 G/DL Red Cell Distribution Width 14.8 H 10.0-14.5 % Platelet Count 214 130-400 10^3/uL Mean Platelet Volume 9.4 7.4-10.4 FL Neutrophils (%) (Auto) 61 42-75 % Lymphocytes (%) (Auto) 21 12-44 % Monocytes (%) (Auto) 16 H 0-12 % Eosinophils (%) (Auto) 2 0-10 % Basophils (%) (Auto) 0 0-10 % Neutrophils # (Auto) 4.4 1.8-7.8 X 10^3 Lymphocytes # (Auto) 1.5 1.0-4.0 X 10^3 Monocytes # (Auto) 1.1 H 0.0-1.0 X 10^3 Eosinophils # (Auto) 0.1 0.0-0.3 10^3/uL Basophils # (Auto) 0.0 0.0-0.1 10^3/uL Erythrocyte Sedimentation Rate 9 0-30 MM/HR Prothrombin Time 26.5 H 12.2-14.7 SEC INR Comment 2.3 H 0.8-1.4 Activated Partial Thromboplast Time 55 H 24-35 SEC Sodium Level 140 135-145 MMOL/L Potassium Level 3.7 3.6-5.0 MMOL/L Chloride Level 102 98-107 MMOL/L Carbon Dioxide Level 26 21-32 MMOL/L Anion Gap 12 5-14 MMOL/L Blood Urea Nitrogen 22 H 7-18 MG/DL Creatinine 1.75 H 0.60-1.30 MG/DL Estimat Glomerular Filtration Rate 39 BUN/Creatinine Ratio 13 Glucose Level 99 70-105 MG/DL Lactic Acid Level 0.93 0.50-2.00 MMOL/L Calcium Level 9.1 8.5-10.1 MG/DL Corrected Calcium 9.1 8.5-10.1 MG/DL Magnesium Level 2.3 1.6-2.4 MG/DL Total Bilirubin 0.5 0.1-1.0 MG/DL Aspartate Amino Transf (AST/SGOT) 30 5-34 U/L Alanine Aminotransferase (ALT/SGPT) 29 0-55 U/L Alkaline Phosphatase 99 40-136 U/L B-Type Natriuretic Peptide 471.4 H <100.0 PG/ML Total Protein 7.0 6.4-8.2 GM/DL Albumin 4.0 3.2-4.5 GM/DL My Orders Orders - COLIN MCKNIGHT DO Ed Iv/Invasive Line Start (04/05/20 23:54) Monitor-Rhythm Ecg Trace Only (04/05/20 23:54) BNP (04/05/20 23:54) Cbc With Automated Diff (04/05/20 23:54) Comprehensive Metabolic Panel (04/05/20 23:54) Lactic Acid Analyzer (04/05/20 23:54) Magnesium (04/05/20 23:54) Protime With Inr (04/05/20 23:54) Partial Thromboplastin Time (04/05/20 23:54) Blood Culture (04/05/20 23:54) Erythrocyte Sedimentation Rate (04/05/20 23:54) Chest 1 View, Ap/Pa Only (04/06/20 00:01) Rx-Trimeth/Sulfameth Ds Tab (Rx-Bactrim/ (04/06/20 01:12) Vital Signs/I&O 04/05/20 04/06/20 23:16 01:16 Temp 36.6 36.5 Pulse 47 40 Resp 16 16 B/P (MAP) 176/91 (119) 160/81 (119) Pulse Ox 98 99 O2 Delivery Room Air Room Air Blood Pressure Mean: 119 Progress Progress Note : Progress Note NO ULTRASOUND AVAILABLE AT THIS TIME OFFERED TO ORDER OUTPATIENT ULTRASOUND, BUT PT DECLINES AND STATES HE CAN JUST SEE HIS FAMILY TOMORROW. PT IS VERY ANXIOUS TO GO HOME. Departure Impression Primary Impression: LEFT LOWER LEG SWELLING AND ERYTHEMA Additional Impressions: Mild congestive heart failure Chronic anticoagulation Disposition: HOME, SELF-CARE Condition: Stable Departure-Patient Inst. Referrals: COLIN RIDLEY MD (PCP/Family) Primary Care Physician Patient Instructions: Cellulitis (Skin Infection), Adult (DC), Dependent Edema (DC), Heart Failure, Adult (DC) Add. Discharge Instructions: WEAR COMPRESSION STOCKINGS ELEVATE LEGS MUCH POSSIBLE TAKE AN EXTRA DOSE OF LASIX AND ONE EXTRA POTASSIUM PILL IN THE MORNING, OTHERWISE CONTINUE YOUR CURRENT MEDICATIONS PRESCRIBED FOLLOW UP WITH YOUR DR TOMORROW FOR FURTHER CARE All discharge instructions reviewed with patient and/or family. Voiced understanding. Scripts Sulfamethoxazole/Trimethoprim (Bactrim Ds Tablet) 1 Each Tablet 1 EACH PO BID, #20 TAB Prov: COLIN MCKNIGHT DO 04/06/20 COLIN MCKNIGHT DO Apr 06, 2020 01:11
[2020-04-06 01:16] VITALS: BP 160/81
--- NOTE | 2020-04-06 06:30 | Diagnostic Imaging Report ---
CLINICAL INDICATION: Patient with mild vascular congestion. EXAM: Portable chest x-ray upright view. COMPARISONS: Chest x-ray dated 05/14/2019. FINDINGS: Stable cardiomegaly with mild pulmonary vascular congestion seen which appears minimally increased. There is small airspace opacity in the right lung base seen which may be related to atelectasis versus infiltrate. There is no pleural effusion or pneumothorax. There are degenerative spurs involving the spine. Again seen sternotomy wires overlying the chest. IMPRESSION: 1: There is cardiomegaly and mild pulmonary vascular congestion which has slightly increased compared to prior study, which may be seen with congestive heart failure. 2: There is mild airspace opacity in right lung base which may represent atelectasis or infiltrate. 3: The remainder of this exam shows no significant interval change compared to the prior study of comparison. Dictated by: Dictated on workstation # [id number]
== END 2020-04-06 01:16 | disposition home or self-care (01) ==
LOC: EDUNIT# 22:41 → ER 22:42
DX: I11.0 Hypertensive heart disease with heart failure (principal); I50.9 Heart failure, unspecified; L54 Erythema in diseases classified elsewhere; I48.91 Unspecified atrial fibrillation; I25.2 Old myocardial infarction; E78.00 Pure hypercholesterolemia, unspecified; I25.10 Atherosclerotic heart disease of native coronary artery without angina pectoris; Z95.5 Presence of coronary angioplasty implant and graft; Z95.1 Presence of aortocoronary bypass graft; Z79.01 Long term (current) use of anticoagulants; Z88.8 Allergy status to other drugs, medicaments and biological substances; Z79.82 Long term (current) use of aspirin; Z87.891 Personal history of nicotine dependence
CPT/HCPCS: 36415; 71045; 80053; 83605; 83735; 83880; 85025; 85610; 85652; 85730; 87040; 93041

== ENCOUNTER 2021-09-25 20:22 | Inpatient (IN) | payer MEDICARE ==
[~2021-09-25] VITALS: Ht 172 cm; Wt 114.7 kg
[~2021-09-25 20:22] MED LIST changes: -AMIO200T4 PO; +AMIO200T65 PO; +AMLO-251 PO; -AMLO10TA7 PO; +ASPI-1238 PO; -ASPI-983 PO; +CLN.1T; +CLN.2T PO; +HYDR-3922 PO; -LISI10TA2 PO; +LISI10TA25 PO; -LISI1TAB25 PO; +LISI1TAB46 PO; -LISI40TA PO; +LISI40TA9 PO; +POTA-169 PO; -POTA20TA8 PO; +SULF1TAB38 PO
[2021-09-25] MEDS ORDERED: PROPOFOL DRIP (ICU) 100 ML IV ONE (22:34)
[2021-09-25] MEDS ORDERED: BISACODYL 10 MG SUPP (DULCOLAX) PR PRN (22:45)
[2021-09-25] MEDS ORDERED: ONDANSETRON 4 MG/2 ML (SDV) Z0FRAN IV PRN (22:45)
[2021-09-25] MEDS ORDERED: polyethylene glycoL POWDER 17 GM (MIRALAX) PACK PO PRN (22:45)
[2021-09-25] MEDS ORDERED: ONDANSETRON 4 MG (ZOFRAN) ORAL DISSOLVE TAB PO PRN (22:45)
[2021-09-25 22:49] LABS: ABG BASE EXCESS -4.3 MMOL/L (-2.5-2.5); ABG OXYGEN SATURATION 94 % (94-100); ABG PCO2 45 MMHG (35-45); ABG PH 7.29 (7.37-7.43); ABG PO2 82 MMHG (79-93); ABG TCO2 22.8 MMOL/L (21.0-31.0)
--- NOTE | 2021-09-25 22:49 | Diagnostic Imaging Report ---
PROCEDURE: CT angiography of the chest with contrast. TECHNIQUE: Multiple contiguous axial images were obtained through the chest after uneventful bolus administration of intravenous contrast. 3D reconstructed CTA MIP acquisitions were also performed. Auto Exposure Controls were utilized during the CT exam to meet ALARA standards for radiation dose reduction. INDICATION: Respiratory failure, hypoxemia and CODE. FINDINGS: There is good opacification of central pulmonary arteries without filling defect identified. There is more heterogeneous opacification of distal lower lobe branches most pronounced in the posterior basal segment which may represent small filling defects due to pulmonary emboli. There is, however, dense consolidation within both lower lobes with small amount of bilateral pleural fluid. There are also coronary artery calcifications. Endotracheal tube is in place with tip extending to the lower trachea just above the moises. The aorta is not well opacified but appears to be of normal caliber. Advanced degenerative findings are seen within the shoulder girdles. IMPRESSION: Dense consolidation within the lower lobes, bilaterally. This does limit evaluation, however, there is question of small filling defects involving the posterior basal aspect of both lower lobes possibly due to pulmonary emboli. No large or central pulmonary embolus is seen. Dictated by: Dictated on workstation # [id number]
[2021-09-25 22:51] LABS: ALLENS TEST YES-POS; INSPIRED O2 65%; PATIENT TEMP 36.2; VENTILATOR YES
[2021-09-25 23:08] LABS: BASOPHILS # (AUTO) 0.1 10^3/uL (0.0-0.1); BASOPHILS % (AUTO) 0 % (0-10); EOSINOPHILS # (AUTO) 0.1 10^3/uL (0.0-0.3); EOSINOPHILS % (AUTO) 0 % (0-10); HEMATOCRIT 47 % (40-54); HEMOGLOBIN 14.5 g/dL (13.3-17.7); LYMPHOCYTES # (AUTO) 1.4 10^3/uL (1.0-4.0); LYMPHOCYTES % (AUTO) 9 % (12-44); MEAN CORPUSCULAR HEMOGLOBIN 31 pg (25-34); MEAN CORPUSCULAR HGB CONC 31 g/dL (32-36); MEAN CORPUSCULAR VOLUME 99 fL (80-99); MEAN PLATELET VOLUME 9.7 fL (9.0-12.2); MONOCYTES # (AUTO) 1.6 10^3/uL (0.0-1.0); MONOCYTES % (AUTO) 9 % (0-12); NEUTROPHILS # (AUTO) 13.6 10^3/uL (1.8-7.8); NEUTROPHILS % (AUTO) 80 % (42-75); PLATELET COUNT 285 10^3/uL (130-400)
[2021-09-25] MEDS ORDERED: EPINEPHrine 1 MG INJECTION 4 MG in NS (IVPB) 248 ML IV SCH (23:15)
--- NOTE | 2021-09-25 23:19 | Tele-ICU Progress Note ---
Progress Note Transferred fron OSH -No notes, labs, orders etc Abg reviewed. Pt viewed on camera Intubated, Not in any acute distress. HR 60, RR 22. SATS 92%, BP 105/70. on AC/ 16/450/45/+5 awaiting CMP, CBC, LA d/w the nurse to call for any abn labs and orders. Pt is being evaluated by hospitalist. Interventions Minor-Other: Respiratory failure Annotated By: Joleen Back) Received medical records from OSH Date: 09/25/2021 23:17 Pt is transferred from [facility]. 66 y/o presented with sudden onset of SOB, felt congested and had severe SOB, No fever, chills or CP. Has Hx of COPD, CAD, HTN, CHF, MO, Gout, CABG X2 , Afib s/p ablation and obesity. CT chest with RLL PE and bilateral consolidation. Initial ABG hypercapnic and hypoxic resp failure PH 7.14/67 CO2. 1. Ac hypoxic , hypercapnic resp failure 2. Bilateral LL pneumonia CAP, POA 3.HYPERTENSION , INITIALLY UNCONTROLLED 4. Hx of CAD, CHF, CABG and Afib Plan Abx, heparin drip or Lovenox full dose. CMP, CBC , LA, BLOOD CULTURES and vent management. will have hospitalist d/w us for further orders etc. Page 1 of 1 [facility] HAYWARD [facility] This is a permanent part of the medical record. Do not discard. 09/25/2021 22:59 Focused Exam Lactate Level 09/25/21 22:58: Height, Weight, BMI Height: 5'6.00" Weight: 225lbs. 0.0oz. 102.771699az; 34.00 BMI Method:Stated Lactic Acid Level Laboratory Tests Test 09/25/21 22:58 JOLEEN BACK MD Sep 25, 2021 23:19
[2021-09-25 23:20] LABS: ALBUMIN 3.3 GM/DL (3.2-4.5); POTASSIUM 4.8 MMOL/L (3.6-5.0)
[2021-09-25 23:21] LABS: CALCIUM 8.4 MG/DL (8.5-10.1)
[2021-09-25 23:23] LABS: TOTAL PROTEIN 6.2 GM/DL (6.4-8.2)
[2021-09-25 23:24] LABS: BILIRUBIN,TOTAL 0.5 MG/DL (0.1-1.0)
[2021-09-25 23:26] LABS: CREATININE SERUM 1.63 MG/DL (0.60-1.30)
[2021-09-25] MEDS ORDERED: cefTRIAXone 1 GM PRE-MIX 50 ML IV SCH (23:30)
[2021-09-25] MEDS ORDERED: DOXYCYCLINE INJECTION 100 MG in NS (IVPB) 100 ML IV ONE (23:30)
[2021-09-25] MEDS: PROPOFOL DRIP (ICU) 100 ML IV SCH (23:35)
[2021-09-25] MEDS: NOREPINEPHRINE 8 MG/250 ML 250 ML IV SCH (23:35)
[2021-09-25] MEDS: VASOPRESSIN INJECTION 20 UNIT in NS (IVPB) 100 ML IV SCH (23:35)
[2021-09-25 23:36] LABS: ATYPICAL LYMPHOCYTES 1 %; BAND NEUTROPHILS 2 %; LYMPHOCYTES % (MANUAL) 10 %; METAMYELOCYTES % 1 %; MICROCYTOSIS SLIGHT; MONOCYTES % (MANUAL) 5 %; NEUTROPHILS % (MANUAL) 81 %; POLYCHROMASIA SLIGHT; TOXIC GRANULATION/VACUOLAZATIO 1+
[2021-09-25 23:53] LABS: PHOSPHORUS 4.1 MG/DL (2.3-4.7)
[2021-09-25 23:55] LABS: MAGNESIUM 2.1 MG/DL (1.6-2.4)
[2021-09-26] VITALS (7 sets, daily range): BP systolic 96–156; BP diastolic 57–89
[2021-09-26] MEDS ORDERED: RT-ALBUTEROL/IPRATROPIUM 3 ML (DUONEB) VIAL INH ONE (00:15)
[2021-09-26] MEDS ORDERED: ENOXAPARIN 100 MG/1 ML (LOVENOX) SYR SC SCH (00:15)
[2021-09-26] MEDS: D5 LR IV SOLUTION 1,000 ML IV SCH ×2 (02:00→23:37)
[2021-09-26] MEDS: RT-ALBUTEROL/IPRATROPIUM 3 ML (DUONEB) VIAL INH SCH ×6 (02:18→21:06)
[2021-09-26] MEDS: PROPOFOL DRIP (ICU) 100 ML IV SCH ×4 (03:37→23:35)
[2021-09-26] MEDS: NOREPINEPHRINE 8 MG/250 ML 250 ML IV SCH (03:37)
[2021-09-26 04:44] LABS: BASOPHILS # (AUTO) 0.1 10^3/uL (0.0-0.1); BASOPHILS % (AUTO) 1 % (0-10); EOSINOPHILS % (AUTO) 0 % (0-10); HEMATOCRIT 43 % (40-54); HEMOGLOBIN 13.6 g/dL (13.3-17.7); LYMPHOCYTES # (AUTO) 1.4 10^3/uL (1.0-4.0); LYMPHOCYTES % (AUTO) 9 % (12-44); MEAN CORPUSCULAR HEMOGLOBIN 31 pg (25-34); MEAN CORPUSCULAR HGB CONC 31 g/dL (32-36); MEAN CORPUSCULAR VOLUME 99 fL (80-99); MEAN PLATELET VOLUME 9.7 fL (9.0-12.2); MONOCYTES # (AUTO) 1.4 10^3/uL (0.0-1.0); MONOCYTES % (AUTO) 9 % (0-12); NEUTROPHILS # (AUTO) 12.5 10^3/uL (1.8-7.8); NEUTROPHILS % (AUTO) 81 % (42-75); PLATELET COUNT 268 10^3/uL (130-400); WHITE BLOOD COUNT 15.5 10^3/uL (4.3-11.0)
[2021-09-26 04:56] LABS: ALBUMIN 3.2 GM/DL (3.2-4.5)
[2021-09-26 04:57] LABS: POTASSIUM 4.4 MMOL/L (3.6-5.0)
[2021-09-26 04:58] LABS: CALCIUM 8.5 MG/DL (8.5-10.1)
[2021-09-26 04:59] LABS: TOTAL PROTEIN 6.1 GM/DL (6.4-8.2)
[2021-09-26 05:01] LABS: BILIRUBIN,TOTAL 0.3 MG/DL (0.1-1.0)
[2021-09-26 05:02] LABS: PHOSPHORUS 3.9 MG/DL (2.3-4.7)
[2021-09-26 05:03] LABS: CREATININE SERUM 1.63 MG/DL (0.60-1.30)
[2021-09-26 05:06] LABS: MAGNESIUM 2.1 MG/DL (1.6-2.4)
[2021-09-26] MEDS ORDERED: LACTATED RINGERS 1,000 ML IV SCH (05:30)
--- NOTE | 2021-09-26 05:34 | Tele-ICU Progress Note ---
Progress Note LA 2.38. Pt with ac hypoxic resp failure due to PNA. LA 2.38. LR 250 ml bolus ordered. No fluid overload on CT chest. Trend troponin. Request cardiology consult. d/w the bedside nurse. Interventions Minor-Other: SEPSIS , pna Focused Exam Lactate Level 09/25/21 22:58: Lactic Acid Level 2.30*H 09/26/21 04:19: Lactic Acid Level 2.38*H Height, Weight, BMI Height: 5'6.00" Weight: 225lbs. 0.0oz. 102.834756np; 37.79 BMI Method:Stated Lactic Acid Level Laboratory Tests Test 09/26/21 04:19 Lactic Acid Level 2.38 MMOL/L (0.50-2.00) *JOLEEN TURPIN MD Sep 26, 2021 05:34
[2021-09-26 05:36] LABS: ABG BASE EXCESS -1.2 MMOL/L (-2.5-2.5); ABG OXYGEN SATURATION 95 % (94-100); ABG PCO2 44 MMHG (35-45); ABG PH 7.35 (7.37-7.43); ABG PO2 78 MMHG (79-93); ABG TCO2 25.2 MMOL/L (21.0-31.0); ALLENS TEST YES-POS; INSPIRED O2 40%; PATIENT TEMP 36.3; VENTILATOR YES
[2021-09-26] MEDS: MAGNESIUM 1 GM/100 ML IVPB 100 ML IV SCH (05:45)
[2021-09-26] MEDS: KCL 20 MEQ TAB (K-DUR) PO SCH (05:45)
[2021-09-26] MEDS: POTASSIUM CL 10MEQ/50ML IVPB 50 ML IV SCH (05:45)
[2021-09-26] MEDS ORDERED: inSUlin ASPART (NovoLOG) 1 UNIT/0.01 ML (CHARGE PER UNIT) SC SCH (06:00)
--- NOTE | 2021-09-26 07:20 | Diagnostic Imaging Report ---
Clinical indications: Patient on ventilator. Exam: Portable chest x-ray upright view. Comparisons: Chest x-ray dated 04/06/2020. Findings: There is interval development of moderate amount of diffuse bilateral lung infiltrates with patchy consolidation and groundglass opacification. There is blunting of left costophrenic angle region and a left pleural effusion cannot be excluded. There is no pneumothorax. There is interval placement of feeding tube with tip overlying the expected region of the gastric body. ET tube has been placed in interim with its distal portion partially obscured by the sternotomy wires, but appears to be at least 2.5 cm from the moises. Follow up x-ray would help better evaluate. There are degenerative spurs involving the spine. Again seen cardiomegaly. Pulmonary vasculature is mildly prominent. IMPRESSION: 1: There is interval progression of diffuse bilateral lung infiltrates. 2: Again seen cardiomegaly. Pulmonary vasculature is mildly prominent. 3: There is interval placement of ET tube which is partially obscured, but appears to be at least 2.5 cm from the moises. Dictated by: Dictated on workstation # [id number]
--- NOTE | 2021-09-26 08:17 | Diagnostic Imaging Report ---
EXAM: US VENOUS LOWER EXT BECKY INDICATION: Respiratory failure. Pulmonary emboli. COMPARISON: None. TECHNIQUE: Duplex, peters-scale and color-flow imaging of the bilateral lower extremities venous system was performed FINDINGS: The bilateral common femoral vein, superficial femoral vein, profunda femoris, and popliteal veins are normal. These vessels show normal compressibility, color flow, and doppler augmentation. The deep calf veins demonstrate no distinct intraluminal thrombus where seen. IMPRESSION: No evidence of deep venous thrombosis in the bilateral lower extremities. Dictated by: Dictated on workstation # [id number]
--- NOTE | 2021-09-26 08:46 | Consultation-Cardiology ---
HPI-Cardiology Cardiology Consultation Date of Consultation 09/26/21 Date of Admission Time Seen by Provider: 08:40 Indication: Non-ST elevation myocardial infarction HPI 66 years old gentleman with extensive cardiac history, admitted with acute respiratory failure. Patient is intubated and sedated, unable to provide any history, history was obtained by reviewing his record and interviewing his son. Patient has been having shortness of breath for the past 2 weeks which progressed became severely short of breath earlier this morning, went to the hospital where he was intubated in [place] and transferred to [place]. He did not have chest pain or palpitation. Noted to have mild elevation in troponin level. Home Medications & Allergies Allergies: Coded Allergies: amlodipine (Verified Allergy, Unknown, 05/14/19) Home Medication List Reviewed: Yes UOF-Iwiuiy-Zzhbkn Hx Patient Social History Marital Status: Type Used: Cigars, Cigarettes 2nd Hand Smoke Exposure: No Recent Hopitalizations: No Immunizations Up To Date Tetanus Booster (TDap): Less than 5yrs Date of Pneumonia Vaccine: May 14, 2018 Past Medical History Discussed below Family Medical History Significant Family History: No Pertinent Family Hx Family Medical Hx Noncontributory Review of Systems-General Review of Systems Constitutional: no symptoms reported, see HPI, other (Unable to provide review of system) EENTM: see HPI, no symptoms reported Respiratory: no symptoms reported, see HPI Cardiovascular: see HPI Gastrointestinal: no symptoms reported, see HPI Genitourinary: no symptoms reported, see HPI Musculoskeletal: no symptoms reported, see HPI Skin: no symptoms reported, see HPI Psychiatric/Neurological: No Symptoms Reported, See HPI Reviewed Test Results Reviewed Test Results Lab Laboratory Tests Test 09/25/21 22:40 09/25/21 22:58 09/26/21 04:19 09/26/21 05:25 Range/Units Blood Gas Puncture Site RT RADIAL RIGHT RADIAL Blood Gas Patient Temperature 36.2 36.3 Arterial Blood pH 7.29 *L 7.35 L 7.37-7.43 Arterial Blood Partial Pressure CO2 45 44 35-45 MMHG Arterial Blood Partial Pressure O2 82 78 L 79-93 MMHG Arterial Blood HCO3 21 L 24 23-27 MMOL/L Arterial Blood Total CO2 22.8 25.2 21.0-31.0 MMOL/L Arterial Blood Oxygen Saturation 94 95 94-100 % Arterial Blood Base Excess -4.3 L -1.2 -2.5-2.5 MMOL/L Stuart Test YES-POS YES-POS Blood Gas Ventilator Setting YES YES Blood Gas Inspired Oxygen 65% 40% White Blood Count 17.0 H 15.5 H 4.3-11.0 10^3/uL Red Blood Count 4.74 4.40 4.30-5.52 10^6/uL Hemoglobin 14.5 13.6 13.3-17.7 g/dL Hematocrit 47 43 40-54 % Mean Corpuscular Volume 99 99 80-99 fL Mean Corpuscular Hemoglobin 31 31 25-34 pg Mean Corpuscular Hemoglobin Concent 31 L 31 L 32-36 g/dL Red Cell Distribution Width 13.5 13.5 10.0-14.5 % Platelet Count 285 268 130-400 10^3/uL Mean Platelet Volume 9.7 9.7 9.0-12.2 fL Immature Granulocyte % (Auto) 2 1 % Neutrophils (%) (Auto) 80 H 81 H 42-75 % Lymphocytes (%) (Auto) 9 L 9 L 12-44 % Monocytes (%) (Auto) 9 9 0-12 % Eosinophils (%) (Auto) 0 0 0-10 % Basophils (%) (Auto) 0 1 0-10 % Neutrophils # (Auto) 13.6 H 12.5 H 1.8-7.8 10^3/uL Lymphocytes # (Auto) 1.4 1.4 1.0-4.0 10^3/uL Monocytes # (Auto) 1.6 H 1.4 H 0.0-1.0 10^3/uL Eosinophils # (Auto) 0.1 0.0 0.0-0.3 10^3/uL Basophils # (Auto) 0.1 0.1 0.0-0.1 10^3/uL Immature Granulocyte # (Auto) 0.3 H 0.1 0.0-0.1 10^3/uL Neutrophils % (Manual) 81 % Lymphocytes % (Manual) 10 % Monocytes % (Manual) 5 % Metamyelocytes % 1 % Band Neutrophils 2 % Atypical Lymphocytes 1 % Smudge Cells 1 Toxic Granulation 1+ Polychromasia SLIGHT Microcytosis SLIGHT D-Dimer 2.72 H 0.00-0.49 UG/ML Sodium Level 138 142 135-145 MMOL/L Potassium Level 4.8 4.4 3.6-5.0 MMOL/L Chloride Level 108 H 108 H 98-107 MMOL/L Carbon Dioxide Level 19 L 21 21-32 MMOL/L Anion Gap 11 13 5-14 MMOL/L Blood Urea Nitrogen 18 18 7-18 MG/DL Creatinine 1.63 H 1.63 H 0.60-1.30 MG/DL Estimat Glomerular Filtration Rate 42 42 BUN/Creatinine Ratio 11 11 Glucose Level 168 H 129 H 70-105 MG/DL Lactic Acid Level 2.30 *H 2.38 *H 0.50-2.00 MMOL/L Calcium Level 8.4 L 8.5 8.5-10.1 MG/DL Corrected Calcium 9.0 9.1 8.5-10.1 MG/DL Phosphorus Level 4.1 3.9 2.3-4.7 MG/DL Magnesium Level 2.1 2.1 1.6-2.4 MG/DL Total Bilirubin 0.5 0.3 0.1-1.0 MG/DL Aspartate Amino Transf (AST/SGOT) 30 32 5-34 U/L Alanine Aminotransferase (ALT/SGPT) 25 26 0-55 U/L Alkaline Phosphatase 100 93 40-136 U/L Troponin I 0.335 *H 0.614 *H <0.028 NG/ML Total Protein 6.2 L 6.1 L 6.4-8.2 GM/DL Albumin 3.3 3.2 3.2-4.5 GM/DL Triglycerides Level 87 <150 MG/DL Procalcitonin 0.44 H <0.10 NG/ML Test 09/26/21 08:24 Range/Units Physical Exam Physical Exam Vital Signs Vital Signs - First Documented 09/25/21 09/25/21 09/25/21 09/25/21 22:41 22:45 23:21 23:29 Temp 36.2 Pulse 59 Resp 22 B/P (MAP) 105/70 Pulse Ox 93 O2 Delivery Mechanical Ventilator O2 Flow Rate 45.00 FiO2 45 Capillary Refill : Height, Weight, BMI Height: 5'6.00" Weight: 225lbs. 0.0oz. 102.253370iu; 37.79 BMI Method:Stated General Appearance: No Apparent Distress, WD/WN, Other (Sedated and intubated) Eyes: Bilateral Eye Normal Inspection, Bilateral Eye PERRL, Bilateral Eye EOMI HEENT: TMs Normal, Moist Mucous Membranes Neck: Full Range of Motion, Normal Inspection, Non Tender, Supple Respiratory: Chest Non Tender, No Accessory Muscle Use, Crackles, Decreased Breath Sounds, Other (Ventilator dependent) Cardiovascular: Regular Rate, Rhythm, No Edema, No Gallop, No JVD, No Murmur, Normal Peripheral Pulses Gastrointestinal: Normal Bowel Sounds, No Organomegaly, No Pulsatile Mass, Non Tender, Soft Back: Normal Inspection Extremity: Normal Capillary Refill, No Pedal Edema Neurologic/Psychiatric: Other (Sedated and intubated) Skin: Normal Color, Warm/Dry Lymphatic: No Adenopathy A/P-Cardiology Admission Diagnosis Acute respiratory failure None ST elevation myocardial infarction Coronary artery disease Pneumonia Assessment/Plan Acute respiratory failure, ventilator dependent, bilateral pneumonia, questionable bilateral pulmonary embolism. Mild elevation in troponin, probably type II myocardial infarction secondary to respiratory failure. He has extensive coronary artery disease, conservative management is recommended at this time. Coronary artery disease, History of angioplasty, CABG 2 done early in August 2016, Patient return for chest pain and flash pulmonary edema, cardiac catheterization was done on August 31, 2016. Showing patent DOMÍNGUEZ to LAD, patent vein graft to the obtuse marginal branch with small vessel disease with slower flow responded to intracoronary nitroglycerin and improvement of the flow. Stress test done 05/28/17 revealed fixed defect with no ischemia or infarct. EF 47%. Paroxysmal atrial fibrillation, has been maintained on Xarelto since February 2019. Status post FREDERIC with cardioversion done May 14, 2019. Continue to monitor [id number] score of 4, yearly risk of stroke without oral anticoagulation is 4 percent, maintained on Xarelto. Congestive heart failure, chronic compensated left ventricular systolic dysfunction, last echocardiogram reported as ejection fraction 30-35 percent, done in October 2019, moderate tricuspid regurgitation, left atrium 4.92 cm, PA pressure 65-70 mmHg. Continue on diuretics and monitor. I will review his 2D echo Peripheral edema, maintained on Lasix Hypertension, Unable to tolerate beta haresh secondary to bradycardia, patient is allergic to amlodipine. Does not tolerate hydrochlorothiazide secondary to history of gout. Patient was on clonidine 0.2 mg 3 times a day, hydralazine 100 mg 3 times a day, lisinopril 40 mg daily as an outpatient On this admission he is on pressors due to hypotensive secondary to sepsis. Holding his blood pressure medication and monitor closely. We will restart his blood pressure medication as needed Hyperlipidemia, continue on current medication and monitor lipids Pulmonary hypertension, continue to monitor at this time Mild bilateral carotid stenosis, nonobstructive disease. Most recent cardiac duplex done April 2019, I will evaluate carotid duplex. Right eye blindness, episode of left eye blurred vision occurred in the past. Workup has been negative. Tobaccoism, Patient has stopped smoking in August after his bypass Gouty arthritis with recent flareup, management per PCP TRISH LORENZ MD Sep 26, 2021 08:46
--- NOTE | 2021-09-26 09:30 | Tele-ICU Progress Note ---
Subjective Date Seen by a Provider: Sep 26, 2021 Time Seen by a Provider: 09:30 Sepsis Event Evaluation Height, Weight, BMI Height: 5'6.00" Weight: 225lbs. 0.0oz. 102.207176fe; 37.79 BMI Method:Stated Focused Exam Lactate Level 09/25/21 22:58: Lactic Acid Level 2.30*H 09/26/21 04:19: Lactic Acid Level 2.38*H 09/26/21 08:24: Lactic Acid Level 2.18*H Lactic Acid Level Laboratory Tests Test 09/26/21 08:24 Lactic Acid Level 2.18 MMOL/L (0.50-2.00) *H Exam Exam Patient acknowledged, consented, and participated in this virtual visit which was conducted using real time audio/video Vital Signs Date Time Temp Pulse Resp B/P (MAP) Pulse Ox O2 Delivery O2 Flow Rate FiO2 09/26/21 08:54 Mechanical Ventilator 35.00 09/26/21 08:30 64 28 135/74 93 Mechanical Ventilator 40.00 09/26/21 08:30 Mechanical Ventilator 35 09/26/21 08:25 63 25 93 Mechanical Ventilator 40.00 09/26/21 08:15 62 29 73/65 83 Mechanical Ventilator 40.00 09/26/21 08:00 62 14 106/95 92 Mechanical Ventilator 40.00 09/26/21 07:49 36.5 09/26/21 07:45 59 28 111/64 96 Mechanical Ventilator 40.00 09/26/21 07:30 60 28 107/67 96 Mechanical Ventilator 40.00 09/26/21 07:15 57 19 97 40 09/26/21 07:15 53 27 96/60 97 Mechanical Ventilator 40.00 09/26/21 07:00 52 28 92/56 96 Mechanical Ventilator 40.00 09/26/21 07:00 61 09/26/21 06:00 60 26 107/74 99 Mechanical Ventilator 40.00 09/26/21 05:25 Mechanical Ventilator 40.00 09/26/21 05:21 57 16 99 09/26/21 05:00 47 15 114/71 99 Mechanical Ventilator 45.00 09/26/21 04:51 Mechanical Ventilator 45 09/26/21 04:15 50 16 93/58 95 Mechanical Ventilator 45.00 09/26/21 04:00 36.3 09/26/21 03:37 86/55 09/26/21 03:37 86/55 09/26/21 03:15 53 16 91/59 95 Mechanical Ventilator 45.00 09/26/21 02:18 40 09/26/21 02:00 53 27 112/72 98 Mechanical Ventilator 45.00 09/26/21 02:00 52 16 97 45 09/26/21 01:00 56 16 126/86 97 Mechanical Ventilator 45.00 09/26/21 01:00 56 09/26/21 00:07 60 92 100 09/26/21 00:00 54 15 106/75 96 Mechanical Ventilator 45.00 09/25/21 23:45 55 16 103/74 95 Mechanical Ventilator 45.00 09/25/21 23:38 Mechanical Ventilator 45 09/25/21 23:35 56 111/74 09/25/21 23:35 56 111/74 09/25/21 23:30 56 15 100/69 93 Mechanical Ventilator 45.00 09/25/21 23:29 36.2 56 16 111/74 94 Mechanical Ventilator 45.00 09/25/21 23:21 60 16 93 45 09/25/21 23:00 58 16 91/65 93 Mechanical Ventilator 45.00 09/25/21 22:45 60 22 105/70 93 Mechanical Ventilator 45.00 09/25/21 22:41 59 I & O 09/26/21 07:00 Intake Total 350 ml Output Total 875 ml Balance -525 ml Height & Weight Height: 5'6.00" Weight: 225lbs. 0.0oz. 102.318199bt; 37.79 BMI Method:Stated General Appearance: No Apparent Distress, WD/WN, Other (Sedated and intubated) HEENT: TMs Normal, Moist Mucous Membranes Neck: Full Range of Motion, Normal Inspection, Non Tender, Supple Respiratory: Chest Non Tender, No Accessory Muscle Use, Crackles, Decreased Breath Sounds, Other (Ventilator dependent) Cardiovascular: Regular Rate, Rhythm, No Edema, No Gallop, No JVD, No Murmur, Normal Peripheral Pulses Extremity: Normal Capillary Refill, No Pedal Edema Neurologic/Psychiatric: Other (Sedated and intubated) Skin: Normal Color, Warm/Dry Lymphatic: No Adenopathy Results Lab Laboratory Tests 09/25/21 22:58 09/26/21 04:19 Assessment/Plan Assessment/Plan (Tele-ICU Physician , Progress Note ) Available chart/ vitals / labs / Images reviewed Video assessment done using teleICU camera, rest of exam as per RN Discussed with RN , EXAM PER RN Events overnight : Afebrile FiO2 - 40% I/O = neg Drips: d5lr 40 Pressors: , hemodynamically stable Sedation gtt: propofol 25 ( RASS -1 ) VENT SETTINGS and ABG reviewed candidate for SBT today REVIEWED Cardiovascular Stability / Sedation Score / FI02/PEEP / ABG / CXR Consultants: Hospital course: (09/25) 66yr old male admitted with respiratory failure, pneumonia, and PE 09/26 - 40% A/P Acute respiratory failure -Intubated 40 % - try SBT today -Full vent support PE , ? suspected - NO large vessels PE , can not be r/o small cliths in lower loves due to effusion/pna - US LE - neg DVT -lovenox 100 bid Shock - sepsi vs cardiogenic - OFF PRESSORS , will try not to VO with effusions /pulm HTN PNA - bilat infitrates on CT , with effusions - cont abx- ceftriaxone started 09/25 - await sputum cx CAD, elev trop - as per cardfs - EF 35-45% Pulm HTN - RVSP 65-70 mmHg CKD -? stable h/o a fib -AC with xarelto [employer] , lovenox now - sinus now - amio po Lines : (Central Line Necessity Reviewed) Engel: + OG: + Nutrition: not yet Analgesia: Anxiety/ delirium VTE Prophylaxis: lovenox 100 bid Stress Ulcer Prophylaxis: ppi Plans in collaboration with bedside consultants and IM MDs. Discussed with RN to reach out if any questions or concerns A total of 33 minutes of critical care time was devoted to this patient today, required to treat and/or prevent further deterioration of critical care condition ( as above) RICK PARRA MD Sep 26, 2021 09:30
[2021-09-26] MEDS: VASOPRESSIN INJECTION 20 UNIT in NS (IVPB) 100 ML IV SCH ×2 (09:37→21:33)
[2021-09-26] MEDS: ENOXAPARIN 300 MG/3 ML (LOVENOX) MULTI-DOSE VIAL SQ SCH ×2 (09:37→21:35)
[2021-09-26] MEDS: PANTOPRAZOLE 40 MG (PROTONIX) VIAL IV SCH (09:37)
--- NOTE | 2021-09-26 09:59 | Physical Therapy Progress Note ---
Therapy Progress Note Patient currently intubated. Physical Therapy will continue to follow and attempt Physical Therapy evaluation when patient is able to participate and tolerate. SHAMA RODAS PT Sep 26, 2021 09:59
--- NOTE | 2021-09-26 10:25 | Occ Therapy Progress Note ---
Therapy Progress Note OT orders received and chart reviewed. Pt is currently intubated/sedated. OT will continue to monitor pt and initiate tx when pt is more medically stable and able to actively participate in skilled therapy. DONNY PLUNKETT OT Sep 26, 2021 10:25
[2021-09-26] MEDS: inSUlin ASPART (NovoLOG) 1 UNIT/0.01 ML (CHARGE PER UNIT) SC SCH ×2 (11:32→18:52)
--- NOTE | 2021-09-26 12:39 | History & Physical-Hospitalist ---
WINDY JAQUEZ MED STUDENT 09/26/21 1239: History of Present Illness HPI/Chief Complaint Pt is intubated and not able to give a full HPI. Per the ICU note he had come form [place] w/ sudden onset of SOB, felt congested, and severe SOB. He has a history of COPD, CAD, HTN, CHF, MN, CABGx2, AFIB s/p ablation. CT chest w/ RLL PE and bilateral consolidation. This morning patient is laying in bed and is intubated and sedated. He does open his eyes to verbal stimulation and is able to squeeze hands on command. He has a catheter and appears stable. Cardiology is consulted. He is on ABX and pressors. Has a catheter and fluids. No family with him this morning. Source: patient, other (ICU note) Exam Limitations: other (Intubated/Sedated) Date Seen 09/26/21 Time Seen by a Provider: 08:40 Attending Physician Nely Fernandez Lisa A MD Referring Physician Date of Admission Sep 25, 2021 at 22:31 Home Medications & Allergies Home Medications Reviewed patient Home Medication Reconciliation performed by pharmacy medication reconciliations system support technician and/or nursing. Patients Allergies have been reviewed. Allergies Allergies Coded Allergies amlodipine (Verified Allergy, Unknown, 05/14/19) Past Rnvldlt-Zzcvyb-Bfwsrx Hx Patient Social History Marrital Status: Immunizations Up To Date Date of Pneumonia Vaccine: May 14, 2018 Seasonal Allergies Seasonal Allergies: No Current Status Primary Language: Nepali Past Medical History Surgeries: Cardiac, CABG, Coronary Stent COPD Currently Using CPAP: No Currently Using BIPAP: No Atrial Fibrillation, Chronic Edema/Swelling, Coronary Artery Disease, Heart Attack, High Cholesterol, Hypertension Sexually Transmitted Disease: No HIV/AIDS: No Arthritis Loss of Vision: Right Hearing Impairment: Denies Blood Disorders: No Adverse Reaction/Blood Tranf: No Family Medical History No Pertinent Family Hx Review of Systems ROS-Unable to Obtain: Pt is Sedated and Intubated Constitutional: other (Pt appears to be stable.) Physical Exam Physical Exam Vital Signs Vital Signs - First Documented 09/25/21 09/25/21 09/25/21 09/25/21 22:41 22:45 23:21 23:29 Temp 36.2 Pulse 59 Resp 22 B/P (MAP) 105/70 Pulse Ox 93 O2 Delivery Mechanical Ventilator O2 Flow Rate 45.00 FiO2 45 Capillary Refill : Height, Weight, BMI Height: 5'6.00" Weight: 225lbs. 0.0oz. 102.230242cf; 37.79 BMI Method:Stated General Appearance: No Apparent Distress, Other (Sedated and Intubated) HEENT: Pharynx Normal, Moist Mucous Membranes Neck: Supple Respiratory: Chest Non Tender; No Normal Breath Sounds (Lungs sounds a bit coarse, no wheeze); No Accessory Muscle Use, Other (Intubated) Cardiovascular: Regular Rate, Rhythm, No Murmur, Normal Peripheral Pulses, Other (Some edema of LE bilateral) Gastrointestinal: Normal Bowel Sounds, No Organomegaly, No Pulsatile Mass, Non Tender (Pt does not react to palpation), Soft Rectal: Deferred Extremity: Normal Capillary Refill, Normal Inspection; No No Pedal Edema (mild) Neurologic/Psychiatric: No Alert, No Oriented x3; Other (Intubated/Sedated) Skin: Normal Color, Warm/Dry Results Results/Procedures Labs Laboratory Tests 09/25/21 22:58 09/26/21 04:19 Patient resulted labs reviewed. Imaging NAME: AKILAH HAYWARD REC#: [id number] PT STATUS: ADM IN : 1955 PHYSICIAN: GIOVANNA JORDAN MD ADMIT DATE: 09/25/21/ICU Signed Date of Exam:09/25/21 CT ANGIO CHEST W PROCEDURE: CT angiography of the chest with contrast. TECHNIQUE: Multiple contiguous axial images were obtained through the chest after uneventful bolus administration of intravenous contrast. 3D reconstructed CTA MIP acquisitions were also performed. Auto Exposure Controls were utilized during the CT exam to meet ALARA standards for radiation dose reduction. INDICATION: Respiratory failure, hypoxemia and CODE. FINDINGS: There is good opacification of central pulmonary arteries without filling defect identified. There is more heterogeneous opacification of distal lower lobe branches most pronounced in the posterior basal segment which may represent small filling defects due to pulmonary emboli. There is, however, dense consolidation within both lower lobes with small amount of bilateral pleural fluid. There are also coronary artery calcifications. Endotracheal tube is in place with tip extending to the lower trachea just above the moises. The aorta is not well opacified but appears to be of normal caliber. Advanced degenerative findings are seen within the shoulder girdles. IMPRESSION: Dense consolidation within the lower lobes, bilaterally. This does limit evaluation, however, there is question of small filling defects involving the posterior basal aspect of both lower lobes possibly due to pulmonary emboli. No large or central pulmonary embolus is seen. Dictated by: Dictated on workstation # [id number] Dict: 09/25/210 Trans: 09/26/21800 PJE [id number] Interpreted by: LUNA JACOBS MD Electronically signed by: LUNA JACOBS MD 09/26/21800 NAME: AKILAH HAYWARD [facility] REC#: [id number] PT STATUS: ADM IN : 1955 PHYSICIAN: JOLEEN BACK MD ADMIT DATE: 09/25/21/ICU Draft Date of Exam:09/26/21 US VENOUS LOWER EXT BECKY EXAM: US VENOUS LOWER EXT BECKY INDICATION: Respiratory failure. Pulmonary emboli. COMPARISON: None. TECHNIQUE: Duplex, pteers-scale and color-flow imaging of the bilateral lower extremities venous system was performed FINDINGS: The bilateral common femoral vein, superficial femoral vein, profunda femoris, and popliteal veins are normal. These vessels show normal compressibility, color flow, and doppler augmentation. The deep calf veins demonstrate no distinct intraluminal thrombus where seen. IMPRESSION: No evidence of deep venous thrombosis in the bilateral lower extremities. Dictated on workstation # [id number] Dict: 09/26/21812 Trans: 09/26/21[facility] [id number] Interpreted by: MARISSA PAUL MD Electronically signed by: NAME: AKILAH HAYWARD [facility] REC#: [id number] PT STATUS: ADM IN : 1955 PHYSICIAN: GIOVANNA JORDAN MD ADMIT DATE: 09/25/21/ICU Signed Date of Exam:09/26/21 CHEST 1 VIEW, AP/PA ONLY Clinical indications: Patient on ventilator. Exam: Portable chest x-ray upright view. Comparisons: Chest x-ray dated 04/06/2020. Findings: There is interval development of moderate amount of diffuse bilateral lung infiltrates with patchy consolidation and groundglass opacification. There is blunting of left costophrenic angle region and a left pleural effusion cannot be excluded. There is no pneumothorax. There is interval placement of feeding tube with tip overlying the expected region of the gastric body. ET tube has been placed in interim with its distal portion partially obscured by the sternotomy wires, but appears to be at least 2.5 cm from the moises. Follow up x-ray would help better evaluate. There are degenerative spurs involving the spine. Again seen cardiomegaly. Pulmonary vasculature is mildly prominent. IMPRESSION: 1: There is interval progression of diffuse bilateral lung infiltrates. 2: Again seen cardiomegaly. Pulmonary vasculature is mildly prominent. 3: There is interval placement of ET tube which is partially obscured, but appears to be at least 2.5 cm from the moises. Dictated by: Dictated on workstation # [id number] Dict: 09/26/21 0647 Trans: 09/26/21 0825 [facility] [id number] Interpreted by: DELANEY JACQUES MD Electronically signed by: DELANEY JACQUES MD 09/26/21 0825 Assessment/Plan Admission Diagnosis Respiratory Failure, Sepsis Admission Status: Inpatient Order (span 2 midnights) Reason for Inpatient Admission: Vent, Sepsis Assessment and Plan Lactic Acidosis Sepsis Vent -Giving Fluids -ABX -ABG today 7.35/44/78 -Continue morning labs and adjust vent as needed -Continue sedation -Pressors as needed PE Elevated Troponin -Cardiology consulted -EF 35-45 -Echo done today -Blood thinners HX of COPD, CAD, HTN, CHF, MN, CABGx2, AFIB s/p ablation -Continue Home meds Supervisory-Addendum Brief Verification & Attestation Participated in pt care: history, physical Personally performed: exam, history Care discussed with: Medical Student Procedures: n/a n/a NELY FERNANDEZ DO 09/27/21 0539: History of Present Illness HPI/Chief Complaint CC: Respiratory failure HPI: This is [place] 66[place] me [place] [facility] [place] who [facility] to [facility] on a [facility]ator after [place] [facility] acute hypoxic respiratory failure. His troponin was elevated. Cardiology has been consulted. CT Scan showed pulmonary [place]oli[place] [id number]. ABG is 7.3544/78, and vent settings are 450/16/5/35%. He will be on a CPAP trial. Source: patient Exam Limitations: clinical condition Past Okqmdmn-Uhujrf-Qvhufq Hx Patient Social History Marrital Status: Employed/Student: retired Smoking Status: Unknown if Ever Smoked Past Medical History High Cholesterol, Hypertension Review of Systems ROS-Unable to Obtain: Intubation Physical Exam Physical Exam General Appearance: No Apparent Distress, Chronically ill Eyes: Right Eye Normal Inspection, Right Eye PERRL HEENT: PERRL/EOMI Respiratory: Lungs Clear, Normal Breath Sounds, No Accessory Muscle Use, No Respiratory Distress Cardiovascular: Regular Rate, Rhythm, No Edema, No Gallop, No JVD, No Murmur, Normal Peripheral Pulses Gastrointestinal: Normal Bowel Sounds, No Organomegaly, No Pulsatile Mass, Soft Back: Normal Inspection Extremity: Normal Capillary Refill, Normal Inspection, Non Tender, No Calf Tenderness, No Pedal Edema Skin: Normal Color, Warm/Dry Lymphatic: No Adenopathy Assessment/Plan Admission Diagnosis Assessment: Acute respiratory failure Ventilator dependence Hypertensive episode and [facility] Elevated troponin Plan: Supportive care Monitor closely Admission Status: Inpatient Order (span 2 midnights) Reason for Inpatient Admission: Ventilator dependence Supervisory-Addendum Brief Verification & Attestation Participated in pt care: history, MDM, physical Personally performed: exam, history, MDM, supervision of care Care discussed with: Medical Student Procedures: n/a Results interpretation: Verified all documentation Verification and Attestation of Medical Student E/M Service A medical student performed and documented this service in my presence. I reviewed and verified all information documented by the medical student and made modifications to such information, when appropriate. I personally performed the physical exam and medical decision making. Nely Fernandez, Sep 27, 2021,05:39 WINDY JAQUEZ MED STUDENT Sep 26, 2021 12:39 NELY FERNANDEZ DO Sep 27, 2021 05:39
[2021-09-26] MEDS: fentaNYL INJ 100 MCG/2 ML AMP IVP PRN (13:46)
[2021-09-26] MEDS: ACETAMINOPHEN 325 MG TABLET PO PRN (17:16)
[2021-09-27] VITALS (7 sets, daily range): BP systolic 130–229; BP diastolic 69–120
[2021-09-27] MEDS: inSUlin ASPART (NovoLOG) 1 UNIT/0.01 ML (CHARGE PER UNIT) SC SCH ×4 (01:44→18:38)
[2021-09-27] MEDS: D5 LR IV SOLUTION 1,000 ML IV SCH (01:53)
[2021-09-27] MEDS: NOREPINEPHRINE 8 MG/250 ML 250 ML IV SCH ×2 (02:02→12:41)
[2021-09-27] MEDS: RT-ALBUTEROL/IPRATROPIUM 3 ML (DUONEB) VIAL INH SCH ×6 (02:55→22:26)
[2021-09-27] MEDS: PROPOFOL DRIP (ICU) 100 ML IV SCH ×2 (02:58→06:02)
[2021-09-27 04:35] LABS: BASOPHILS % (AUTO) 0 % (0-10); EOSINOPHILS # (AUTO) 0.1 10^3/uL (0.0-0.3); EOSINOPHILS % (AUTO) 1 % (0-10); HEMATOCRIT 38 % (40-54); HEMOGLOBIN 12.1 g/dL (13.3-17.7); LYMPHOCYTES % (AUTO) 10 % (12-44); MEAN CORPUSCULAR HEMOGLOBIN 31 pg (25-34); MEAN CORPUSCULAR HGB CONC 32 g/dL (32-36); MEAN CORPUSCULAR VOLUME 98 fL (80-99); MEAN PLATELET VOLUME 9.3 fL (9.0-12.2); MONOCYTES # (AUTO) 0.9 10^3/uL (0.0-1.0); MONOCYTES % (AUTO) 10 % (0-12); NEUTROPHILS # (AUTO) 7.3 10^3/uL (1.8-7.8); NEUTROPHILS % (AUTO) 78 % (42-75); PLATELET COUNT 187 10^3/uL (130-400); WHITE BLOOD COUNT 9.4 10^3/uL (4.3-11.0)
[2021-09-27 04:47] LABS: ALBUMIN 2.9 GM/DL (3.2-4.5); POTASSIUM 3.5 MMOL/L (3.6-5.0)
[2021-09-27 04:49] LABS: CALCIUM 8.3 MG/DL (8.5-10.1)
[2021-09-27 04:50] LABS: TOTAL PROTEIN 5.8 GM/DL (6.4-8.2)
[2021-09-27 04:52] LABS: BILIRUBIN,TOTAL 0.3 MG/DL (0.1-1.0)
[2021-09-27 04:53] LABS: PHOSPHORUS 3.8 MG/DL (2.3-4.7)
[2021-09-27 04:54] LABS: CREATININE SERUM 1.21 MG/DL (0.60-1.30)
[2021-09-27 05:29] LABS: ABG BASE EXCESS 1.2 MMOL/L (-2.5-2.5); ABG OXYGEN SATURATION 93 % (94-100); ABG PCO2 47 MMHG (35-45); ABG PH 7.36 (7.37-7.43); ABG PO2 71 MMHG (79-93); ABG TCO2 27.4 MMOL/L (21.0-31.0)
[2021-09-27 05:30] LABS: ALLENS TEST YES-POS; INSPIRED O2 30%; PATIENT TEMP 36.9; VENTILATOR YES
[2021-09-27] MEDS: KCL 20 MEQ TAB (K-DUR) PO SCH (05:53)
[2021-09-27] MEDS: POTASSIUM CL 10MEQ/50ML IVPB 50 ML IV SCH ×7 (05:53→22:28)
[2021-09-27] MEDS: MAGNESIUM 1 GM/100 ML IVPB 100 ML IV SCH ×2 (05:53→16:40)
--- NOTE | 2021-09-27 06:05 | Diagnostic Imaging Report ---
INDICATION: Respiratory failure. COMPARISON: 09/26/2021 FINDINGS: Single frontal radiographic view of the chest was obtained and demonstrates indwelling endotracheal tube with tip just below the clavicular heads. Gastric tube is also identified. Tip likely terminates within the stomach. Sternotomy wires are also noted. Overall, lungs show interval improved aeration. There is mild residual prominence of the interstitium and prominence of the vasculature. Moderate cardiomegaly also persists. Small effusion is also noted on the right. Small effusion on the left cannot be entirely excluded. There is no pneumothorax. IMPRESSION: 1. Overall improved aeration, but with persistent cardiomegaly and sequela of CHF. 2. Probable small bibasilar effusions Dictated by: Dictated on workstation # [id number]
--- NOTE | 2021-09-27 06:48 | Occ Therapy Progress Note ---
Therapy Progress Note Pt currently intubated. OT to monitor pt's status and will initiate treatment when pt is medically stable and able to actively participate in skilled therapy. HIRAL VERA Sep 27, 2021 06:48
[2021-09-27] MEDS: PANTOPRAZOLE 40 MG (PROTONIX) VIAL IV SCH (07:59)
[2021-09-27] MEDS: cefTRIAXone 1 GM PRE-MIX 50 ML IV SCH (07:59)
[2021-09-27] MEDS: VASOPRESSIN INJECTION 20 UNIT in NS (IVPB) 100 ML IV SCH ×2 (07:59→19:23)
--- NOTE | 2021-09-27 08:43 | Physical Therapy Progress Note ---
Therapy Progress Note Pt currently intubated. PT to monitor pt's status and will initiate treatment when pt is medically stable and able to actively participate in skilled therapy. SHAMA RODAS PT Sep 27, 2021 08:43
--- NOTE | 2021-09-27 08:52 | Cardiology Progress Note ---
Subjective Date Seen by Provider: Sep 27, 2021 Time Seen by Provider: 08:51 Subjective/Events-last exam Patient is sedated and intubated Review of Systems General: Other (Unable to provide review of system) Focused Exam Lactate Level 09/25/21 22:58: Lactic Acid Level 2.30*H 09/26/21 04:19: Lactic Acid Level 2.38*H 09/26/21 08:24: Lactic Acid Level 2.18*H Objective-Cardiology Exam Last Set of Vital Signs Vital Signs 09/27/21 09/27/21 09/27/21 09/27/21 06:00 06:02 06:41 08:00 Temp 37.0 Pulse 63 Resp 18 B/P (MAP) 144/80 Pulse Ox 96 O2 Delivery Mechanical Ventilator O2 Flow Rate 30.00 FiO2 30 I&O Intake and Output 09/27/21 00:00 Intake Total 650 ml Output Total 1930 ml Balance -1280 ml Intake Oral 0 ml IV Total 350 ml Tube Feeding 60 ml Other 240 ml Output Urine Total 1930 ml General: No Acute Distress, Other (Sedated and intubated) HEENT: Atraumatic, PERRLA Neck: Supple, No JVD Lungs: Clear to Auscultation, Normal Air Movement Heart: Regular Rate, Normal S1, Normal S2 Abdomen: Normal Bowel Sounds, No Tenderness Extremities: No Clubbing, No Cyanosis Skin: No Rashes, No Breakdown Neuro: Other (Sedated and intubated) Psych/Mental Status: Other (Sedated and intubated) Results Lab Laboratory Tests 09/27/21 04:28 A/P-Cardiology Admission Diagnosis Acute respiratory failure None ST elevation myocardial infarction Coronary artery disease Pneumonia Assessment/Plan Acute respiratory failure, ventilator dependent, bilateral pneumonia, questio nable bilateral pulmonary embolism. Started on Lovenox, has been on Xarelto. Sepsis, pneumonia, pleural effusion, receiving antibiotic, ventilator dependent. Possible weaning today. Mild elevation in troponin, probably type II myocardial infarction secondary to respiratory failure. He has extensive coronary artery disease, conservative management is recommended at this time. Coronary artery disease, History of angioplasty, CABG 2 done early in August 2016, Patient return for chest pain and flash pulmonary edema, cardiac catheterization was done on August 31, 2016. Showing patent DOMÍNGUEZ to LAD, patent vein graft to the obtuse marginal branch with small vessel disease with slower flow responded to intracoronary nitroglycerin and improvement of the flow. Stress test done 05/28/17 revealed fixed defect with no ischemia or infarct. EF 47%. Paroxysmal atrial fibrillation, has been maintained on Xarelto since February 2019. Status post FREDERIC with cardioversion done May 14, 2019. Continue to monitor [id number] score of 4, yearly risk of stroke without oral anticoagulation is 4 percent, maintained on Xarelto. Currently on Lovenox Congestive heart failure, chronic compensated left ventricular systolic dysfunction, last echocardiogram reported as ejection fraction 30-35 percent, done in October 2019, moderate tricuspid regurgitation, left atrium 4.92 cm, PA pressure 65-70 mmHg. Continue on diuretics and monitor. I will review his 2D echo Peripheral edema, maintained on Lasix Hypertension, Unable to tolerate beta haresh secondary to bradycardia, patient is allergic to amlodipine. Does not tolerate hydrochlorothiazide secondary to history of gout. Patient was on clonidine 0.2 mg 3 times a day, hydralazine 100 mg 3 times a day, lisinopril 40 mg daily as an outpatient Currently off of pressors. Holding all his blood pressure medication. Continue to monitor closely Hyperlipidemia, continue on current medication and monitor lipids Pulmonary hypertension, continue to monitor at this time Mild bilateral carotid stenosis, nonobstructive disease. Most recent cardiac duplex done April 2019, I will evaluate carotid duplex. Right eye blindness, episode of left eye blurred vision occurred in the past. Workup has been negative. Tobaccoism, Patient has stopped smoking in August after his bypass Gouty arthritis with recent flareup, management per PCP TRISH LORENZ MD Sep 27, 2021 08:52
--- NOTE | 2021-09-27 09:02 | Tele-ICU Progress Note ---
Subjective Date Seen by a Provider: Sep 27, 2021 Time Seen by a Provider: 09:01 Sepsis Event Evaluation Height, Weight, BMI Height: 5'6.00" Weight: 225lbs. 0.0oz. 102.360201rb; 37.79 BMI Method:Stated Focused Exam Lactate Level 09/25/21 22:58: Lactic Acid Level 2.30*H 09/26/21 04:19: Lactic Acid Level 2.38*H 09/26/21 08:24: Lactic Acid Level 2.18*H Exam Exam Patient acknowledged, consented, and participated in this virtual visit which was conducted using real time audio/video Vital Signs Date Time Temp Pulse Resp B/P (MAP) Pulse Ox O2 Delivery O2 Flow Rate FiO2 09/27/21 08:00 Mechanical Ventilator 30 09/27/21 06:41 63 18 96 30 09/27/21 06:02 71 144/80 09/27/21 06:00 37.0 72 23 144/80 95 Mechanical Ventilator 30.00 09/27/21 05:00 36.8 66 18 137/68 94 Mechanical Ventilator 30.00 09/27/21 04:00 Mechanical Ventilator 35 09/27/21 04:00 36.7 64 17 138/70 95 Mechanical Ventilator 30.00 09/27/21 03:00 36.7 65 19 145/83 100 Mechanical Ventilator 30.00 09/27/21 03:00 Mechanical Ventilator 30.00 09/27/21 02:58 61 130/69 09/27/21 02:56 63 18 96 35 09/27/21 02:00 36.6 67 17 137/70 95 Mechanical Ventilator 35.00 09/27/21 01:00 70 09/27/21 01:00 36.6 63 17 112/66 95 Mechanical Ventilator 35.00 09/27/21 00:00 36.7 64 18 112/66 94 Mechanical Ventilator 35.00 09/27/21 00:00 Mechanical Ventilator 35 09/26/21 23:35 64 110/62 09/26/21 23:00 36.9 67 16 107/69 95 Mechanical Ventilator 35.00 09/26/21 22:00 37.1 68 17 118/59 96 Mechanical Ventilator 35.00 09/26/21 21:06 68 20 97 35 09/26/21 21:00 37.3 66 17 112/57 97 Mechanical Ventilator 35.00 09/26/21 20:00 Mechanical Ventilator 35 09/26/21 20:00 37.4 70 20 102/54 94 Mechanical Ventilator 35.00 09/26/21 19:49 70 105/55 09/26/21 19:00 75 09/26/21 19:00 37.8 75 19 99/49 93 Mechanical Ventilator 35.00 09/26/21 18:14 76 19 95 35 09/26/21 18:00 80 20 115/61 95 Mechanical Ventilator 35.00 09/26/21 17:45 83 21 118/62 94 Mechanical Ventilator 35.00 09/26/21 17:30 84 20 138/66 93 Mechanical Ventilator 35.00 09/26/21 17:17 83 146/77 09/26/21 17:15 85 24 145/70 92 Mechanical Ventilator 35.00 09/26/21 17:00 84 19 130/73 95 Mechanical Ventilator 35.00 09/26/21 16:45 86 24 132/67 95 Mechanical Ventilator 35.00 09/26/21 16:30 84 22 146/73 88 Mechanical Ventilator 35.00 09/26/21 16:26 Mechanical Ventilator 35 09/26/21 16:15 86 22 149/79 95 Mechanical Ventilator 35.00 09/26/21 16:00 152/77 09/26/21 15:45 83 21 146/77 95 Mechanical Ventilator 35.00 09/26/21 15:30 80 20 131/71 93 Mechanical Ventilator 35.00 09/26/21 15:15 80 16 139/70 94 Mechanical Ventilator 35.00 09/26/21 15:00 82 19 144/72 94 Mechanical Ventilator 35.00 09/26/21 14:45 77 20 148/81 94 Mechanical Ventilator 35.00 09/26/21 14:30 80 17 144/73 95 Mechanical Ventilator 35.00 09/26/21 14:19 82 23 95 35 09/26/21 14:15 128/89 09/26/21 14:00 80 20 152/69 96 Mechanical Ventilator 35.00 09/26/21 13:45 83 22 159/81 97 Mechanical Ventilator 35.00 09/26/21 13:30 81 18 163/77 95 Mechanical Ventilator 35.00 09/26/21 13:15 80 16 167/78 96 Mechanical Ventilator 35.00 09/26/21 13:00 168/83 09/26/21 12:52 37.4 09/26/21 12:45 79 19 170/82 96 Mechanical Ventilator 35.00 09/26/21 12:34 82 09/26/21 12:30 81 19 169/74 96 Mechanical Ventilator 35.00 09/26/21 12:30 Mechanical Ventilator 35 09/26/21 12:15 84 29 194/97 97 Mechanical Ventilator 35.00 09/26/21 12:00 83 19 187/94 96 Mechanical Ventilator 35.00 09/26/21 11:45 80 23 184/89 97 Mechanical Ventilator 35.00 09/26/21 11:30 80 14 120/96 91 Mechanical Ventilator 35.00 09/26/21 11:15 74 24 169/82 96 Mechanical Ventilator 35.00 09/26/21 11:00 68 28 156/84 92 Mechanical Ventilator 35.00 09/26/21 10:56 68 20 97 35 09/26/21 10:45 143/74 09/26/21 10:30 65 27 133/91 100 Mechanical Ventilator 35.00 09/26/21 10:15 65 28 133/71 97 Mechanical Ventilator 35.00 09/26/21 10:00 66 23 136/65 96 Mechanical Ventilator 35.00 09/26/21 09:45 62 29 131/64 96 Mechanical Ventilator 35.00 09/26/21 09:30 119/64 09/26/21 09:15 57 27 111/58 96 Mechanical Ventilator 35.00 I & O 09/27/21 07:00 Intake Total 660 ml Output Total 1675 ml Balance -1015 ml Height & Weight Height: 5'6.00" Weight: 225lbs. 0.0oz. 102.584063zr; 37.79 BMI Method:Stated General Appearance: No Apparent Distress, Chronically ill HEENT: PERRL/EOMI Neck: Supple Respiratory: Lungs Clear, Normal Breath Sounds, No Accessory Muscle Use, No Respiratory Distress Cardiovascular: Regular Rate, Rhythm, No Edema, No Gallop, No JVD, No Murmur, Normal Peripheral Pulses Extremity: Normal Capillary Refill, Normal Inspection, Non Tender, No Calf Tenderness, No Pedal Edema Neurologic/Psychiatric: No Alert, No Oriented x3; Other (Intubated/Sedated) Skin: Normal Color, Warm/Dry Lymphatic: No Adenopathy Results Lab Laboratory Tests 09/25/21 22:58 09/26/21 04:19 09/27/21 04:28 Assessment/Plan Assessment/Plan (Tele-ICU Physician , Progress Note ) Available chart/ vitals / labs / Images reviewed Video assessment done using teleICU camera, rest of exam as per RN Discussed with RN , EXAM PER RN Events overnight : Afebrile FiO2 - 40% I/O = neg Drips: d5lr 40 Pressors: , hemodynamically stable Sedation gtt: propofol 40 ( RASS -1 ) VENT SETTINGS and ABG reviewed candidate for SBT today REVIEWED Cardiovascular Stability / Sedation Score / FI02/PEEP / ABG / CXR Consultants: Hospital course: (09/25) 66yr old male admitted with respiratory failure, pneumonia, and PE 09/26 - 40% 09/27 - 35 % A/P Acute respiratory failure -Intubated 40 % - try SBT today -Full vent support PE , ? suspected - NO large vessels PE , can not be r/o small cliths in lower loves due to effusion/pna - US LE - neg DVT -lovenox 100 bid Shock - sepsi vs cardiogenic - OFF PRESSORS , will try not to VO with effusions /pulm HTN PNA - bilat infitrates on CT , with effusions - cont abx- ceftriaxone started 09/25 - await sputum cx CAD, elev trop - as per cardfs - EF 35-45% Pulm HTN - RVSP 65-70 mmHg CKD -? 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 Discussed with RN to reach out if any questions or concerns A total of 33 minutes of critical care time was devoted to this patient today, required to treat and/or prevent further deterioration of critical care conditimichael n ( as above) RICK PARRA MD Sep 27, 2021 09:02
[2021-09-27] MEDS ORDERED: FURO40TA4 PO (09:49)
[2021-09-27] MEDS ORDERED: AMIO200T65 PO (09:50)
[2021-09-27] MEDS ORDERED: POTA10TA37 PO (09:51)
[2021-09-27] MEDS ORDERED: LABETALOL HCL 20 MG/4 ML VIAL IV NR (11:00)
[2021-09-27] MEDS: ENOXAPARIN 300 MG/3 ML (LOVENOX) MULTI-DOSE VIAL SQ SCH ×2 (11:13→22:30)
--- NOTE | 2021-09-27 12:32 | Progress Note - Hospitalist ---
WINDY JAQUEZ MED STUDENT 09/27/21 1232: Subjective HPI/CC On Admission Date Seen by Provider: Sep 27, 2021 Time Seen by Provider: 08:50 CC: Respiratory failure HPI: This is a 66yoWM known to me from [facility] Dr. Gates who presented to [facility] on a ventilator after intubation at [facility] for acute hypoxic respiratory failure. His troponin was elevated. Cardiology has been consulted. CT Scan showed pulmonary emboli[place] [id number]. ABG is 7.35/44/78, and vent settings are 450/16/5/35%. He will be on a CPAP trial. Subjective/Events-last exam MR Hayward is intubated and sedated this morning. He is able to respond to verbal stimuli and squeezes my fingers on request. He is off pressors. Continuing ABX. He is currently going trial of extubation during rounds today. He is breathing on his own and sedation is stopped, if he continues well he will be taken off vent. Has a new CXR that looks a bit improved. ABG about the same as yesterday 7.36/47/71. Vent settings 16/450/5/30%. ROS not obtained due to intubated status Review of Systems Unable to obtain, intubated Focused Exam Lactate Level 09/25/21 22:58: Lactic Acid Level 2.30*H 09/26/21 04:19: Lactic Acid Level 2.38*H 09/26/21 08:24: Lactic Acid Level 2.18*H Objective Exam Vital Signs Vital Signs Date Time Temp Pulse Resp B/P (MAP) Pulse Ox O2 Delivery O2 Flow Rate FiO2 09/27/21 11:45 37.6 09/27/21 11:20 NIV Bilevel 50.00 09/27/21 11:00 114 30 187/109 98 09/27/21 09:58 30 Capillary Refill : General Appearance: No Apparent Distress, Other (intubated/sedated, can respond to verbal stimuli) HEENT: Moist Mucous Membranes Neck: Supple Respiratory: Chest Non Tender, Lungs Clear, Normal Breath Sounds, No Accessory Muscle Use, No Respiratory Distress, Other (vent) Cardiovascular: Regular Rate, Rhythm, No Murmur, Normal Peripheral Pulses, Other (some edema of LE) Gastrointestinal: Normal Bowel Sounds, No Organomegaly, No Pulsatile Mass, Non Tender, Soft Rectal: Deferred Extremity: Normal Capillary Refill, Normal Inspection, Normal Range of Motion; No No Pedal Edema (slight) Neurologic/Psychiatric: Alert (responds to verbal stimuli), Other (sedated) Results/Procedures Lab Laboratory Tests 09/27/21 04:28 Patient resulted labs reviewed. Radiology NAME: AKLIAH HAYWARD [facility] REC#: [id number] PT STATUS: ADM IN : 1955 PHYSICIAN: GIOVANNA JORDAN MD ADMIT DATE: 09/25/21/ICU Signed Date of Exam:09/27/21 CHEST 1 VIEW, AP/PA ONLY INDICATION: Respiratory failure. COMPARISON: 09/26/2021 FINDINGS: Single frontal radiographic view of the chest was obtained and demonstrates indwelling endotracheal tube with tip just below the clavicular heads. Gastric tube is also identified. Tip likely terminates within the stomach. Sternotomy wires are also noted. Overall, lungs show interval improved aeration. There is mild residual prominence of the interstitium and prominence of the vasculature. Moderate cardiomegaly also persists. Small effusion is also noted on the right. Small effusion on the left cannot be entirely excluded. There is no pneumothorax. IMPRESSION: 1. Overall improved aeration, but with persistent cardiomegaly and sequela of CHF. 2. Probable small bibasilar effusions Dictated by: Dictated on workstation # [id number] Dict: 09/27/21 0556 Trans: 09/27/21 0840 [facility] [id number] Interpreted by: SARAH EVANS MD Electronically signed by: SARAH EVANS MD 09/27/21 0840 Assessment/Plan Assessment and Plan Assess & Plan/Chief Complaint Lactic Acidosis Sepsis Vent -Giving Fluids -ABX -ABG today 7.36/47/71 -Continue morning labs and adjust vent as needed -pressors stopped -Pt currently being extubated, if pt can't tolerate will be re-intubated PE Elevated Troponin -Cardiology consulted -EF 35-45 -Echo done yesterday -Blood thinners HX of COPD, CAD, HTN, CHF, DC, CABGx2, AFIB s/p ablation -Continue Home meds Supervisory-Addendum Brief Verification & Attestation Participated in pt care: history, physical Personally performed: exam Care discussed with: Medical Student Procedures: n/a n/a KAMLA FERNANDEZ DO 09/28/21 0518: Subjective Subjective/Events-last exam Pt on a weaning trial Rocephin is still on board Off pressors ABG is 7.36/47/71 Vent settings are 450/16/5/35% Objective Exam General Appearance: No Apparent Distress, Other (intubated/sedated, can respond to verbal stimuli) Respiratory: Lungs Clear, Normal Breath Sounds Cardiovascular: Regular Rate, Rhythm Assessment/Plan Assessment and Plan Assess & Plan/Chief Complaint Supportive care Wean protocol Supervisory-Addendum Brief Verification & Attestation Participated in pt care: history, MDM, physical Personally performed: exam, history, MDM, supervision of care Care discussed with: Medical Student Procedures: n/a Results interpretation: Verified all documentation Verification and Attestation of Medical Student E/M Service A medical student performed and documented this service in my presence. I reviewed and verified all information documented by the medical student and made modifications to such information, when appropriate. I personally performed the physical exam and medical decision making. Kamla Fernandez, Sep 28, 2021,05:18 WINDY JAQUEZ MED STUDENT Sep 27, 2021 12:32 KAMLA FERNANDEZ DO Sep 28, 2021 05:18
[2021-09-27] MEDS ORDERED: hydrALAZINE (APESOLINE) 20 MG/ML VIAL IV ONE (13:00)
[2021-09-27] MEDS ORDERED: niCARdipine IV FOR DRIP 50 MG KIT ONE (13:54)
[2021-09-27] MEDS ORDERED: NS (IVPB) 250 ML ONE (13:55)
[2021-09-27] MEDS: niCARdipine IV 50 MG in NS (IVPB) 230 ML IV SCH ×2 (14:01→19:23)
--- NOTE | 2021-09-27 14:29 | Pulmonary Progress Note ---
ALFONSO ESPINO 09/27/21 1429: Subjective Subjective/Events-last exam The patient was successfully extubated today. He is resting comfortably and has no complaints at this time. Review of Systems General: No Chills, No Night Sweats HEENT: No Head Aches, No Visual Changes Pulmonary: No Dyspnea, No Cough Cardiovascular: No: Chest Pain, Palpitations Gastrointestinal: No: Nausea, Vomiting Genitourinary: No Dysuria, No Frequency Musculoskeletal: No: other, neck pain, shoulder pain, arm pain, back pain, hand pain, leg pain, foot pain Neurological: No: Weakness, Numbness Exam Exam Patient acknowledged, consented, and participated in this virtual visit which was conducted using real time audio/video Vital Signs Date Time Temp Pulse Resp B/P (MAP) Pulse Ox O2 Delivery O2 Flow Rate FiO2 09/27/21 13:00 97 09/27/21 12:00 NIV Bilevel 50 09/27/21 11:45 37.6 09/27/21 11:20 NIV Bilevel 50.00 09/27/21 11:00 37.8 114 30 187/109 98 Nasal Cannula 4.00 09/27/21 10:58 113 25 98 50.00 09/27/21 10:15 Nasal Cannula 4.00 09/27/21 10:00 37.8 93 23 229/120 94 Mechanical Ventilator 30.00 09/27/21 09:58 92 23 94 30 09/27/21 09:00 37.4 72 19 201/110 94 Mechanical Ventilator 30.00 09/27/21 08:00 37.3 73 25 149/94 96 Mechanical Ventilator 30.00 09/27/21 08:00 Mechanical Ventilator 30 09/27/21 07:00 69 09/27/21 07:00 37.1 69 18 163/94 96 Mechanical Ventilator 30.00 09/27/21 06:41 63 18 96 30 09/27/21 06:02 71 144/80 09/27/21 06:00 37.0 72 23 144/80 95 Mechanical Ventilator 30.00 09/27/21 05:00 36.8 66 18 137/68 94 Mechanical Ventilator 30.00 09/27/21 04:00 Mechanical Ventilator 35 09/27/21 04:00 36.7 64 17 138/70 95 Mechanical Ventilator 30.00 09/27/21 03:00 36.7 65 19 145/83 100 Mechanical Ventilator 30.00 09/27/21 03:00 Mechanical Ventilator 30.00 09/27/21 02:58 61 130/69 09/27/21 02:56 63 18 96 35 09/27/21 02:00 36.6 67 17 137/70 95 Mechanical Ventilator 35.00 09/27/21 01:00 70 09/27/21 01:00 36.6 63 17 112/66 95 Mechanical Ventilator 35.00 09/27/21 00:00 36.7 64 18 112/66 94 Mechanical Ventilator 35.00 09/27/21 00:00 Mechanical Ventilator 35 09/26/21 23:35 64 110/62 09/26/21 23:00 36.9 67 16 107/69 95 Mechanical Ventilator 35.00 09/26/21 22:00 37.1 68 17 118/59 96 Mechanical Ventilator 35.00 09/26/21 21:06 68 20 97 35 09/26/21 21:00 37.3 66 17 112/57 97 Mechanical Ventilator 35.00 09/26/21 20:00 Mechanical Ventilator 35 09/26/21 20:00 37.4 70 20 102/54 94 Mechanical Ventilator 35.00 09/26/21 19:49 70 105/55 09/26/21 19:00 75 09/26/21 19:00 37.8 75 19 99/49 93 Mechanical Ventilator 35.00 09/26/21 18:14 76 19 95 35 09/26/21 18:00 80 20 115/61 95 Mechanical Ventilator 35.00 09/26/21 17:45 83 21 118/62 94 Mechanical Ventilator 35.00 09/26/21 17:30 84 20 138/66 93 Mechanical Ventilator 35.00 09/26/21 17:17 83 146/77 09/26/21 17:15 85 24 145/70 92 Mechanical Ventilator 35.00 09/26/21 17:00 84 19 130/73 95 Mechanical Ventilator 35.00 09/26/21 16:45 86 24 132/67 95 Mechanical Ventilator 35.00 09/26/21 16:30 84 22 146/73 88 Mechanical Ventilator 35.00 09/26/21 16:26 Mechanical Ventilator 35 09/26/21 16:15 86 22 149/79 95 Mechanical Ventilator 35.00 09/26/21 16:00 152/77 09/26/21 15:45 83 21 146/77 95 Mechanical Ventilator 35.00 09/26/21 15:30 80 20 131/71 93 Mechanical Ventilator 35.00 09/26/21 15:15 80 16 139/70 94 Mechanical Ventilator 35.00 09/26/21 15:00 82 19 144/72 94 Mechanical Ventilator 35.00 09/26/21 14:45 77 20 148/81 94 Mechanical Ventilator 35.00 09/26/21 14:30 80 17 144/73 95 Mechanical Ventilator 35.00 I & O 09/27/21 07:00 Intake Total 660 ml Output Total 1675 ml Balance -1015 ml Height & Weight Height: 5'6.00" Weight: 225lbs. 0.0oz. 102.209295qd; 37.79 BMI Method:Stated General Appearance: No Apparent Distress HEENT: Moist Mucous Membranes Neck: Supple Respiratory: Chest Non Tender, Lungs Clear, Normal Breath Sounds, No Accessory Muscle Use, No Respiratory Distress Cardiovascular: Regular Rate, Rhythm, No Murmur, Normal Peripheral Pulses, Other (some edema of LE) Extremity: Normal Capillary Refill, Normal Inspection, Normal Range of Motion; No No Pedal Edema (slight) Neurologic/Psychiatric: Alert (responds to verbal stimuli), Other (sedated) Skin: Normal Color, Warm/Dry Lymphatic: No Adenopathy Results Lab Laboratory Tests 09/25/21 22:58 09/26/21 04:19 09/27/21 04:28 Assessment/Plan Assessment/Plan Acute respiratory failure - Extubated on 09/27 - Currently on BIPAP 50% PNA - bilat infitrates on CT , with effusions - cont abx- ceftriaxone started 09/25 - await sputum cx Hypertension - cardene drip CAD, elev trop - as per cardfs - EF 35-45% RICK PARRA MD 09/30/21 1422: Subjective Date Seen by a Provider: Sep 27, 2021 Time Seen by a Provider: 10:00 Supervisory-Addendum Brief Verification & Attestation Participated in pt care: history, MDM, physical Personally performed: exam, history, MDM, supervision of care Care discussed with: Medical Student Procedures: n/a Results interpretation: Verified all documentation A medical student performed and documented this service. I reviewed information documented by the medical student . Medical student performed patients physica l exam . Medical decision making was done during tele-rounds with this medical student and a bedside RN . Please see my notes for details /clarification of assessment and plans ALFONSO ESPINO Sep 27, 2021 14:29 RICK PARRA MD Sep 30, 2021 14:22
[2021-09-27] MEDS ORDERED: CALCIUM GLUCONATE 10% INJ 4.65 MEQ in NS (IVPB) 50 ML IV ONE (14:30)
[2021-09-27 15:37] LABS: POTASSIUM 3.1 MMOL/L (3.6-5.0)
[2021-09-27 15:44] LABS: MAGNESIUM 1.6 MG/DL (1.6-2.4)
[2021-09-28] MEDS: niCARdipine IV 50 MG in NS (IVPB) 230 ML IV SCH ×2 (00:36→08:48)
[2021-09-28] MEDS: inSUlin ASPART (NovoLOG) 1 UNIT/0.01 ML (CHARGE PER UNIT) SC SCH ×4 (00:36→19:28)
[2021-09-28] MEDS: RT-ALBUTEROL/IPRATROPIUM 3 ML (DUONEB) VIAL INH SCH ×6 (03:03→22:56)
[2021-09-28] MEDS: fentaNYL INJ 100 MCG/2 ML AMP IVP PRN ×3 (04:52→14:19)
[2021-09-28] MEDS: NOREPINEPHRINE 8 MG/250 ML 250 ML IV SCH ×2 (04:55→19:29)
[2021-09-28 05:01] LABS: BASOPHILS % (AUTO) 0 % (0-10); EOSINOPHILS % (AUTO) 0 % (0-10); HEMATOCRIT 42 % (40-54); HEMOGLOBIN 13.2 g/dL (13.3-17.7); LYMPHOCYTES # (AUTO) 0.5 10^3/uL (1.0-4.0); LYMPHOCYTES % (AUTO) 4 % (12-44); MEAN CORPUSCULAR HEMOGLOBIN 31 pg (25-34); MEAN CORPUSCULAR HGB CONC 32 g/dL (32-36); MEAN CORPUSCULAR VOLUME 97 fL (80-99); MEAN PLATELET VOLUME 9.9 fL (9.0-12.2); MONOCYTES # (AUTO) 1.2 10^3/uL (0.0-1.0); MONOCYTES % (AUTO) 9 % (0-12); NEUTROPHILS # (AUTO) 12.1 10^3/uL (1.8-7.8); NEUTROPHILS % (AUTO) 87 % (42-75); PLATELET COUNT 224 10^3/uL (130-400); WHITE BLOOD COUNT 13.9 10^3/uL (4.3-11.0)
[2021-09-28 05:16] LABS: ALBUMIN 3.1 GM/DL (3.2-4.5); POTASSIUM 3.7 MMOL/L (3.6-5.0)
[2021-09-28 05:17] LABS: CALCIUM 8.9 MG/DL (8.5-10.1)
[2021-09-28] MEDS: KCL 20 MEQ TAB (K-DUR) PO SCH (05:17)
[2021-09-28] MEDS: POTASSIUM CL 10MEQ/50ML IVPB 50 ML IV SCH (05:17)
[2021-09-28 05:18] LABS: TOTAL PROTEIN 6.6 GM/DL (6.4-8.2)
[2021-09-28 05:20] LABS: BILIRUBIN,TOTAL 1.1 MG/DL (0.1-1.0)
[2021-09-28 05:21] LABS: PHOSPHORUS 2.4 MG/DL (2.3-4.7)
[2021-09-28 05:22] LABS: CREATININE SERUM 0.97 MG/DL (0.60-1.30)
[2021-09-28 05:25] LABS: MAGNESIUM 2.2 MG/DL (1.6-2.4)
[2021-09-28] MEDS: MAGNESIUM 1 GM/100 ML IVPB 100 ML IV SCH (05:40)
[2021-09-28] MEDS: VASOPRESSIN INJECTION 20 UNIT in NS (IVPB) 100 ML IV SCH ×2 (06:29→14:19)
--- NOTE | 2021-09-28 07:07 | Diagnostic Imaging Report ---
INDICATION: Respiratory failure. Comparison with 09/27/2021. FINDINGS: ET tube has been removed. There has been improved aeration to the lungs. There continues to be some mild bilateral diffuse infiltrates though there is significantly less atelectasis in the lung bases. No pneumothorax or pleural effusion. Cardiomegaly with median sternotomy changes and prominence of pulmonary vasculature again noted. IMPRESSION: 1. Extubation chest with improved aeration since previous exam. 2. Continued cardiomegaly with pulmonary venous congestion and bilateral interstitial infiltrates. Dictated by: Dictated on workstation # [id number]
--- NOTE | 2021-09-28 08:23 | ST Dysphagia Evaluation ---
Speech Evaluation-General Medical Diagnosis SOB Onset Date: Sep 25, 2021 Therapy Diagnosis Therapy Diagnosis: Oropharyngeal Dysphagia Precautions Precautions: Aspiration Precautions/Isolations: Aspiration Referral Referring Physician: Dr. Cobian Medical History Pertinent Medical History: Atrial Fib, CABG, CAD, COPD, Heart Failure, [place], Smoking Reviewed History: Yes Speech PLF/Current-Dysphagia Prior Level of Function Patient lived in his own home where he was independent for his daily needs. Subjective Patient was pleasant and cooperative with the Bedside Dysphagia Evaluation. Oral Motor Skills Dentition: Natural Ability to Follow Directions: Good Patient was NPO pending BDE. Oral Expression Ability: No Impairment Voice Voice Phonatory-Based Quality: Hoarse Voice Pitch: Normal Voice Loudness: Normal Face Facial Symmetry: Symmetrical Oral-Facial Assessment Oral-Facial Dentition: Normal Labial Seal Description: Normal Lingual Protrusion: Normal Lingual ROM: Normal Lingual Strength: Normal Pharynx Velopharyngeal Move.: Normal Volitional Dry Swallow: Yes Voluntary Cough: Yes Can Clear Throat Volitionally: Yes Dysphagia Evaluation Consistencies Presented: Regular, Thin Liquid, Mechanical Soft, Pureed Oral phase is within normal range of function for all consistencies presented. Pharyngeal phase is within normal range of function for all consistencies presented. Dietary Recommendations: Regular Liquid Recommendations: Thin Swallowing Precautions: Alternate Liquids/Solids, Double Swallow, Decreased Rate of Oral Intake, Liquids from Straw, Small Bites and Sips, Sitting Upright 90 Degrees, Sitting 90 Degrees 30 Post Intake Dysphagia Evaluation Summary Patient is a pleasant 66 y/o male who was admitted to the ICU via ED due to se odalys SOB. The patient has a medical history of COPD, CAD, HTN, CHF, [place], Gout, A- Fib, and CABGx2. The patient was intubated upon arrival with extubation on 09/27/2021. Patient was referred for a BDE in order to return to least restrictive diet. The patient was presented 1/2 tsp of thin liquids x2 and small sips via straw x2 without difficulty. The patient completed trials of 1/2 tsp of puree, mechanical soft and regular without s/s of aspiration. The patient is recommended for a regular consistency diet with thin liquids. This information was presented to his nurse who will place the orders as such. Barriers to Learning Patient's recent health status, age Speech-Plan Patient/Family Goals Patient/Family Goals: Patient plans on returning to his home upon discharge. Treatment Plan Speech Therapy Treatment Plan: Discontinue ST Treatment Duration: Sep 28, 2021 Frequency: 1 time per week Estimated Hrs Per Day: .25 hour per day Rehab Potential: Good Barriers to Learning: Patient's recent health status, age Pt/Family Agrees to Plan: Yes Safety Risks/Education Teaching Recipient: Patient Teaching Methods: Demonstration, Discussion Response to Teaching: Verbalize Understanding, Return Demonstration Education Topics Provided: Safety strategies for oral intake, diet level Time Speech Therapy Time In: 07:45 Speech Therapy Time Out: 08:05 Total Billed Time: 20 Billed Treatment Time 1, NATHANIEL MENDOZA [address] [address] Sep 28, 2021 08:23
[2021-09-28] MEDS: PANTOPRAZOLE 40 MG (PROTONIX) VIAL IV SCH (08:34)
[2021-09-28] MEDS: cefTRIAXone 1 GM PRE-MIX 50 ML IV SCH (08:34)
[2021-09-28] MEDS: PROPOFOL DRIP (ICU) 100 ML IV SCH (08:35)
[2021-09-28] MEDS: ACETAMINOPHEN 325 MG TABLET PO PRN ×2 (08:45→17:07)
[2021-09-28] MEDS: D5 LR IV SOLUTION 1,000 ML IV SCH (08:48)
[2021-09-28] MEDS ORDERED: BUMETANIDE 1 MG/4 ML (BUMEX) VIAL IV NR (09:30)
--- NOTE | 2021-09-28 09:49 | Physical Therapy Evaluation ---
PT Evaluation-General Medical Diagnosis Admission Date Sep 25, 2021 at 22:31 Medical Diagnosis: SOB Onset Date: Sep 25, 2021 Therapy Diagnosis Therapy Diagnosis: Gait deficit, strength deficit Height/Weight Height (Feet): 5 Height (Inches): 6.00 Weight (Pounds): 225 Weight (Ounces): 0.0 Precautions Precautions/Isolations: Aspiration Referral Physician: Dr. Cobian Reason for Referral: Evaluation/Treatment Medical History Pertinent Medical History: Atrial Fib, CABG, CAD, COPD, Heart Failure, [place], Smoking Reviewed History: Yes Social History Home: Single Level Current Living Status: Alone Entry Into Home: Stairs With Railing PT Steps Into Home: 6 Prior Prior Level of Function SCALE: Activities may be completed with or without assistive devices. 2-Xqcxzobjtj-zocverm completes the activity by him/herself with no assistance from a helper. 5-Set-up or Clean-up Assistance-helper sets up or cleans up; patient completes activity. Warren assists only prior to or following the activity. 4-Supervision or Touching Assistance-helper provides verbal cues and/or touching/steadying and/or contact guard assistance as patient completes activity. Assistance may be provided throughout the activity or intermittently. 3-Partial/Moderate Assistance-helper does LESS THAN HALF the effort. Warren lifts, holds or supports trunk or limbs, but provides less than half the effort. 2-Substantial/Maximal Assistance-helper does MORE THAN HALF the effort. Warren lifts or holds trunk or limbs and provides more than half the effort. 7-Xopecviky-tgiqcz does ALL the effort. Patient does none of the effort to complete the activity. Or, the assistance of 2 or more helpers is required for the patient to complete the activity. If activity was not attempted, code reason: 7-Patient Refused. 9-Not Applicable-not attempted and the patient did not perform the activity before the current illness, exacerbation or injury. 10-Not Attempted due to Environmental Limitations-(lack of equipment, weather restraints, etc.). 88-Not Attempted due to Medical Conditions or Safety Concerns. Bed Mobility: 6 Transfers (B,C,W/C): 6 Gait: 6 Stairs: 6 Indoor Mobility (Ambulation): Independent Stairs: Independent Prior Devices Use: None Prior Device Use: Reports he has FWW and cane from 2 TKA PT Evaluation-Current Subjective Patient lying supine in bed upon PT arrival, agreeable to treatment. Patient reports 0/10 pain. PT just beginning objective portion of eval when [employer] TE[employer] LEADER comes into room and reports nurse told him that the patient had just gone into A-Fib. Reports he would be doing a EKG. PT eval from 914-926 am. Patient evaluation part 2 from 1446- 1514. Objective Patient Orientation: Person, Place, Time, Situation Attachments: Oxygen, Engel Catheter, IV ROM/Strength ROM Lower Extremities WFLs bilaterally to PROM all available planes. Significant strength deficit makes AROM difficult to assess. Strength Lower Extremities 3/5 bilaterally all hip, knee and ankle joints Sensory Vision: Functional Hearing: Functional Sensation Right Lower Extremit: Intact Sensation Left Lower Extremity: Intact Transfers Roll Left to Right (QC): 3 Sit to Lying (QC): 3 Lying to Sitting/Side of Bed(Q: 3 Patient sat edge of bed x 5 minutes with CGA for balance and safety. Gait Does the Patient Walk?: No and Walking Goal IS indicated Mode of Locomotion: Walk Anticipated Mode of Locomotion: Walk Balance Sitting Static: Fair Sitting Dynamic: Fair Treatment Supine LE therapeutic exercise, AP, QS, HS, GS, hip abd/add, SLR, SAQ x 20 bilateral LEs. Assessment/Needs Patient tolerated treatment fair. He performed LE therapeutic exercise of AP, QS, GS, hip abd/add, SLR, SAQ, HS x 20 each LE. Patient performs all bed mobility and transfers with Min/mod A and verbal cues for safety and progression. Patient tolerated sitting at edge of bed x 5 minutes with CGA for occasional trunk swaying. His O2 sats stayed above 94% throughout while on O2. Patient in bed post treatment with all needs met, nursing notified, call light in reach and daughter in the room. Rehab Potential: Fair PT Short Term Goals Short Term Goals Time Frame: Oct 05, 2021 Roll Left & Right: 5 Sit to lyin Lying to sitting on side of be: 5 Sit to stand: 3 Chair/awy-sv-yygkl transfer: 3 Toilet transfer: 3 Walk 10 feet: 3 Walk 50 feet with two turns: 3 PT C D Still Operator Goals Mcfp Goals PT C D Still Operator Goals Time Frame: Oct 14, 2021 Roll Left & Right (QC): 6 Sit to Lying (QC): 6 Lying-Sitting on Side/Bed(QC): 6 Sit to Stand (QC): 6 Chair/Ikz-pj-Zvnht Xfer(QC): 6 Toilet Transfer (QC): 6 Does the Patient Walk: Yes Walk 10 feet (QC): 5 Walk 50ft with 2 Turns (QC): 5 Walk 150 ft (QC): 5 1 Step (curb) (QC): 4 4 Steps (QC): 4 12 Steps (QC): 4 PT Plan Problem List Problem List: Activity Tolerance, Functional Strength, Safety, Balance, Gait, Transfer, Bed Mobility, ROM Treatment/Plan Treatment Plan: Continue Plan of Care Treatment Plan: Bed Mobility, Education, Functional Activity Claudia, Functional Strength, Group Therapy, Gait, Safety, Therapeutic Exercise, Transfers Treatment Duration: Nov 12, 2021 Frequency: 6 times per week Patient and/or Family Agrees t: Yes Safety Risks/Education Patient Education: Transfer Techniques, Reviewed Precautions, Safety Issues Teaching Recipient: Patient Teaching Methods: Demonstration, Discussion Response to Teaching: Verbalize Understanding, Return Demonstration Discharge Recommendations Target Placement Post acute placement recommended unless significant improvement made by patient. Time/GCodes Time In: 914 Time Out: 1514 Total Billed Treatment Time: 40 Total Billed Treatment Visit, Adry watts, Ex, PT adry from 914-926 am. Patient evaluation part 2 from 1106- 1514. SHAMA RODAS PT Sep 28, 2021 09:49
[2021-09-28] MEDS: ENOXAPARIN 300 MG/3 ML (LOVENOX) MULTI-DOSE VIAL SQ SCH ×2 (10:10→21:00)
[2021-09-28] MEDS ORDERED: AMIODARONE FOR BOLUS 150 MG in NS (IVPB) 100 ML IV NR (10:30)
--- NOTE | 2021-09-28 10:46 | Tele-ICU Progress Note ---
Subjective Date Seen by a Provider: Sep 28, 2021 Time Seen by a Provider: 09:17 Sepsis Event Evaluation Height, Weight, BMI Height: 5'6.00" Weight: 225lbs. 0.0oz. [id number]; 37.79 BMI Method:Stated Focused Exam Lactate Level 09/25/21 22:58: Lactic Acid Level 2.30*H 09/26/21 04:19: Lactic Acid Level 2.38*H 09/26/21 08:24: Lactic Acid Level 2.18*H Exam Exam Patient acknowledged, consented, and participated in this virtual visit which was conducted using real time audio/video Vital Signs Date Time Temp Pulse Resp B/P (MAP) Pulse Ox O2 Delivery O2 Flow Rate FiO2 09/28/21 10:37 98 Vapotherm 25.00 50 09/28/21 08:24 37.5 09/28/21 08:23 36.3 09/28/21 08:00 Vapotherm 25.00 50 09/28/21 07:26 98 Vapotherm 25.00 55 09/28/21 06:00 18 96 141/72 Vapotherm 25.00 70.00 09/28/21 05:00 21 94 141/71 Vapotherm 25.00 70.00 09/28/21 04:00 37.6 09/28/21 04:00 Vapotherm 25.00 70 09/28/21 04:00 26 97 129/72 Vapotherm 25.00 70.00 09/28/21 03:05 97 Vapotherm 25.00 60 09/28/21 03:00 20 20 141/77 97 Vapotherm 25.00 70.00 09/28/21 02:00 22 22 154/78 99 Vapotherm 25.00 70.00 09/28/21 01:00 19 19 138/71 97 Vapotherm 25.00 70.00 09/28/21 01:00 90 09/28/21 00:00 25 25 123/65 95 Vapotherm 25.00 70.00 09/28/21 00:00 37.6 09/27/21 23:59 Vapotherm 25.00 70 09/27/21 23:00 Vapotherm 25.00 70.00 09/27/21 23:00 Vapotherm 25.00 70 09/27/21 23:00 87 22 136/68 93 Vapotherm 25.00 70.00 09/27/21 22:26 89 16 97 35.00 09/27/21 22:00 85 20 139/69 96 NIV Bilevel 40.00 09/27/21 21:48 100 09/27/21 21:00 92 24 143/79 95 NIV Bilevel 40.00 09/27/21 20:00 NIV Bilevel 40 09/27/21 20:00 93 20 143/71 93 NIV Bilevel 40.00 09/27/21 19:20 89 22 98 40.00 09/27/21 19:00 95 09/27/21 19:00 98 18 145/76 97 NIV Bilevel 40.00 09/27/21 18:00 91 15 147/77 96 NIV Bilevel 40.00 09/27/21 17:00 102 15 155/77 96 NIV Bilevel 40.00 09/27/21 16:01 37.8 09/27/21 16:00 103 27 149/73 96 NIV Bilevel 40.00 09/27/21 16:00 NIV Bilevel 40 09/27/21 15:45 103 18 150/79 96 NIV Bilevel 40.00 09/27/21 15:00 103 24 148/76 96 NIV Bilevel 50.00 09/27/21 14:32 105 32 98 40.00 09/27/21 14:00 92 25 168/87 99 NIV Bilevel 50.00 09/27/21 13:00 92 29 203/119 100 NIV Bilevel 50.00 09/27/21 13:00 97 09/27/21 12:00 NIV Bilevel 50 09/27/21 12:00 95 14 203/116 99 NIV Bilevel 50.00 09/27/21 11:45 37.6 09/27/21 11:20 NIV Bilevel 50.00 09/27/21 11:00 37.8 114 30 187/109 98 Nasal Cannula 4.00 09/27/21 10:58 113 25 98 50.00 I & O 09/28/21 07:00 Intake Total 600 ml Output Total 2975 ml Balance -2375 ml Height & Weight Height: 5'6.00" Weight: 225lbs. 0.0oz. 102.345060ii; 37.79 BMI Method:Stated General Appearance: No Apparent Distress, Other (intubated/sedated, can respond to verbal stimuli) HEENT: Moist Mucous Membranes Neck: Supple Respiratory: Lungs Clear, Normal Breath Sounds Cardiovascular: Regular Rate, Rhythm Extremity: Normal Capillary Refill, Normal Inspection, Normal Range of Motion; No No Pedal Edema (slight) Neurologic/Psychiatric: Alert (responds to verbal stimuli), Other (sedated) Skin: Normal Color, Warm/Dry Lymphatic: No Adenopathy Results Lab Laboratory Tests 09/27/21 04:28 09/27/21 15:17 09/28/21 04:29 Assessment/Plan Assessment/Plan (Tele-ICU Physician , Progress Note ) Available chart/ vitals / labs / Images reviewed Video assessment done using teleICU camera, rest of exam as per RN Discussed with RN , EXAM PER RN Events overnight : Afebrile FiO2 - 40% I/O = neg Drips: d5lr 40 Pressors: , hemodynamically stable Consultants: Hospital course: (09/25) 66yr old male admitted with respiratory failure, pneumonia, and PE 09/26 - 40% 09/27 - 35 % - extubated -> bipap and cardene gtt 09/28- - VT 25L 50% now , will try bumex x1 A/P Acute respiratory failure -Intubated 40 % - extubated 09/27- went to BIPAP - ? pulmonary edema with HTN - - VT 25L 50% now , will try bumex x1 - cough with secretions PE , ? suspected - NO large vessels PE , can not be r/o small cliths in lower loves due to effusion/pna - US LE - neg DVT -lovenox 100 bid HTN - started on cardene 09/27 - as per cads Shock on presentation - sepsi vs cardiogenic - RESOLVED will try not to VO with effusions /pulm HTN PNA - bilat infitrates on CT , with effusions - cont abx- ceftriaxone started 09/25 - await sputum cx CAD, elev trop - as per cardfs - EF 35-45% Pulm HTN - -previous RVSP 65-70 mmHg - IMPROVED TO 45 mmHG ON LAST ECHO ( -lovenox 100 bid - DOUBT PE - on AC for h/o AFIB CKD -? 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 Discussed with RN to reach out if any questions or concerns A total of 33 minutes of critical care time was devoted to this patient today, required to treat and/or prevent further deterioration of critical care condition ( as above) RICK PARRA MD Sep 28, 2021 10:46
--- NOTE | 2021-09-28 11:07 | Occupational Therapy Eval ---
OT Evaluation-General/PLF Medical Diagnosis Admission Date Sep 25, 2021 at 22:31 Medical Diagnosis: SOB Onset Date: Sep 25, 2021 Therapy Diagnosis Therapy Diagnosis: decreased ADL Status Height/Weight Height (Feet): 5 Height (Inches): 6.00 Weight (Pounds): 225 Weight (Ounces): 0.0 Precautions Precautions/Isolations: Aspiration Referral Physician: Dr. Cobian Referral Reason: Evaluation/Treatment Medical History Pertinent Medical History: Atrial Fib, CABG, CAD, COPD, Heart Failure, [place], Smoking Additional Medical History COPD, CAD, HTN, CHF, [place], Gout, CABG x2, Afib s/p ablation, obesity Current History transfer from OSH due to sudden onset SOB and congestion. Pt intubated, extubated 09/27/21 Social History Home: Single Level Current Living Status: Alone Entry Into Home: Stairs With Railing Steps Into Home: 6 ADL-Prior Level of Function SCALE: Activities may be completed with or without assistive devices. 4-Ijqanwtpbu-fflvfsj completes the activity by him/herself with no assistance from a helper. 5-Set-up or Clean-up Assistance-helper sets up or cleans up; patient completes activity. Adel assists only prior to or following the activity. 4-Supervision or Touching Assistance-helper provides verbal cues and/or touching/steadying and/or contact guard assistance as patient completes activity. Assistance may be provided throughout the activity or intermittently. 3-Partial/Moderate Assistance-helper does LESS THAN HALF the effort. Adel lifts, holds or supports trunk or limbs, but provides less than half the effort. 2-Substantial/Maximal Assistance-helper does MORE THAN HALF the effort. Adel lifts or holds trunk or limbs and provides more than half the effort. 2-Skxezqoox-ccavvu does ALL the effort. Patient does none of the effort to complete the activity. Or, the assistance of 2 or more helpers is required for the patient to complete the activity. If activity was not attempted, code reason: 7-Patient Refused. 9-Not Applicable-not attempted and the patient did not perform the activity befo re the current illness, exacerbation or injury. 10-Not Attempted due to Environmental Limitations-(lack of equipment, weather re straints, etc.). 88-Not Attempted due to Medical Conditions or Safety Concerns. ADL PLOF Comments Pt indicates IND with ADLs and functional mobility at PLOF, no AD. Self Care: Independent Functional Cognition: Independent OT Current Status Subjective Pt laying in bed, agreeable to OT Tx. Nurse states pt OK to be seen by OT. Mental Status/Objective Patient Orientation: Person, Place, Situation Attachments: Engel Catheter, IV, Oxygen (vapotherm), Telemetry Current Hand Dominance: Left Upper Extremity ROM BUE shoulder flexion to approx 90 degrees Upper Extremity Coordination Slightly decreased, pt has difficulty making full fist LUE. States this is due to arthritis. Upper Extremity Strength grossly 3+/5 BUEs ADL-Treatment Eating (QC): 5 (Pt reports he was able to eat applesauce this morning after set up. He did spill.) Oral Hygiene (QC): 7 Shower/Bathe Self (QC): 7 Upper Body Dressing (QC): 7 On/Off Footwear (QC): 7 Toileting Hygiene (QC): 1 (catheter) Other Treatments Pt laying in bed, agreeable to OT tx. OT educated pt on purpose and benefit of OT, he verbalized understanding. Pt provided information about PLOF and home set up, and participated in UE screen. Pt declined ADLs at this time. Pt agreeable to UE exercises in order to increase BUE strength and activity tolerance. Pt performed x10 reps each of the following: shoulder flexion, elbow flexion/ext ension and finger flexion/extension. Post tx, pt in bed, call light in reach and all needs met. Education OT Patient Education: Correct positioning, Energy conservation, Exercise program, Modified ADL techniques, Progress toward Goal/Update tx plan, Purpose of tx/functional activities, Rehab process Teaching Recipient: Patient Teaching Methods: Discussion Response to Teaching: Verbalize Understanding OT Senior Living Goals Senior Living Goals Time Frame: Oct 14, 2021 Eating (QC): 6 Oral Hygiene (QC): 6 Toileting Hygiene (QC): 6 Shower/Bathe Self (QC): 6 Upper Body Dressing (QC): 6 Lower Body Dressing (QC): 6 On/Off Footwear (QC): 6 Additional Goals: 1-Demonstrate ADL Tasks, 2-Verbalize Understanding, 3- ImproveStrength/Claudia 1=Demonstrate adherence to instructed precautions during ADL tasks. 2=Patient will verbalize/demonstrate understanding of assistive devices/modifications for ADL. 3=Patient will improve strength/tolerance for activity to enable patient to perform ADL's. OT Education/Plan Problem List/Assessment Assessment: Decreased Activ Tolerance, Decreased UE Strength, Impaired Funct Balance, Impaired I ADL's, Impaired Self-Care Skills Discharge Recommendations Plan/Recommendations: Continue POC Treatment Plan/Plan of Care Patient would benefit from OT for education, treatment and training to promote independence in ADL's, mobility, safety and/or upper extremity function for ADL's. Plan of Care: ADL Retraining, Functional Mobility, UE Funct Exercise/Act Treatment Duration: Oct 14, 2021 Frequency: 3 times per week (3-5 times per week) Rehab Potential: Good Time/GCodes Start Time: 10:42 Stop Time: 10:51 Total Time Billed (hr/min): 9 Billed Treatment Time 1, DONNY POWELL OT Sep 28, 2021 11:07
--- NOTE | 2021-09-28 12:40 | Progress Note - Hospitalist ---
WINDY JAQUEZ MED STUDENT 09/28/21 1240: Subjective HPI/CC On Admission Date Seen by Provider: Sep 28, 2021 Time Seen by Provider: 08:20 CC: Respiratory failure HPI: This is a 66yoWM known to me from [facility] Dr. Gates who presented to [facility] on a ventilator after intubation at [facility] for acute hypoxic respiratory failure. His troponin was elevated. Cardiology has been consulted. CT Scan showed pulmonary emboli[place] [address]. ABG is 7.35/44/78, and vent settings are 450/16/5/35%. He will be on a CPAP trial. Subjective/Events-last exam Mr Hayward is sitting up in bed this morning. He is extubated and states that he is not in any pain at all today except for his chronic arthritis pain. He is not having any SOB but states he is coughing up a lot of nasty phlegm. He is eating okay, had some applesauce this morning and no problems with nausea, vomiting, or trouble swallowing. He has no bowel or bladder complaints but states he has not had a bowel movement. Currently has a catheter in. He has not done any PT. He does say he is a little swollen in the legs and that this is a chronic problem for him as well. Review of Systems General: No Chills, No Night Sweats, No Fatigue HEENT: No Head Aches, No Visual Changes, No Dysphasia Pulmonary: No Dyspnea; Cough Cardiovascular: Edema; No: Chest Pain, Palpitations Gastrointestinal: No: Nausea, Vomiting, Abdominal Pain, Diarrhea, Constipation, Melena Genitourinary: No Dysuria, No Frequency, No Hematuria Musculoskeletal: arm pain (arthritis), hand pain (arthritis) Neurological: No: Weakness, Numbness Unable to obtain, intubated Focused Exam Lactate Level 09/25/21 22:58: Lactic Acid Level 2.30*H 09/26/21 04:19: Lactic Acid Level 2.38*H 09/26/21 08:24: Lactic Acid Level 2.18*H Objective Exam Vital Signs Vital Signs Date Time Temp Pulse Resp B/P (MAP) Pulse Ox O2 Delivery O2 Flow Rate FiO2 09/28/21 11:51 37.0 09/28/21 11:03 106 129/77 09/28/21 10:37 98 Vapotherm 25.00 50 09/28/21 06:00 96 Capillary Refill : General Appearance: No Apparent Distress, WD/WN, Obese HEENT: Moist Mucous Membranes Neck: Supple Respiratory: Chest Non Tender; No Lungs Clear (coarse lung sounds in lower lobes); No Accessory Muscle Use, No Respiratory Distress Cardiovascular: Regular Rate, Rhythm; No No Edema; No Murmur, Normal Peripheral Pulses Gastrointestinal: Normal Bowel Sounds, No Organomegaly, No Pulsatile Mass, Non Tender, Soft Rectal: Deferred Extremity: Normal Capillary Refill, Normal Inspection, Normal Range of Motion, Non Tender, No Calf Tenderness, Pedal Edema Neurologic/Psychiatric: Alert, Oriented x3, Normal Mood/Affect Skin: Normal Color, Warm/Dry Results/Procedures Lab Laboratory Tests 09/27/21 15:17 09/28/21 04:29 Patient resulted labs reviewed. Radiology NAME: AKILAH HAYWARD [facility] REC#: [id number] PT STATUS: ADM IN : 1955 PHYSICIAN: GIOVANNA JORDAN MD ADMIT DATE: 09/25/21/ICU Signed Date of Exam:09/28/21 CHEST 1 VIEW, AP/PA ONLY INDICATION: Respiratory failure. Comparison with 09/27/2021. FINDINGS: ET tube has been removed. There has been improved aeration to the lungs. There continues to be some mild bilateral diffuse infiltrates though there is significantly less atelectasis in the lung bases. No pneumothorax or pleural effusion. Cardiomegaly with median sternotomy changes and prominence of pulmonary vasculature again noted. IMPRESSION: 1. Extubation chest with improved aeration since previous exam. 2. Continued cardiomegaly with pulmonary venous congestion and bilateral interstitial infiltrates. Dictated by: Dictated on workstation # [id number] Dict: 09/28/21 0655 Trans: 09/28/21 1139 [id number] Interpreted by: SHMUEL GENTILE MD Electronically signed by: SHMUEL GENTILE MD 09/28/21 1139 Assessment/Plan Assessment and Plan Assess & Plan/Chief Complaint Lactic Acidosis Sepsis -Will hep lock fluids, pt can eat and drink -ABX -Continue morning labs -pressors stopped -Pt extubated today On vapotherm 25L 55% PE Elevated Troponin -Cardiology consulted -EF 35-45 -Echo done yesterday -Blood thinners -No SOB or CP today HX of COPD, CAD, HTN, CHF, [place], CABGx2, AFIB s/p ablation -Continue Home meds Supervisory-Addendum Brief Verification & Attestation Participated in pt care: history, physical Personally performed: exam Care discussed with: Medical Student Procedures: n/a n/a KAMLA FERNANDEZ DO 09/29/21 0532: Subjective Subjective/Events-last exam Pt doing well Extubated yesterday at 10:00 Cardene drip due to elevated BP Heplocking IV fluid Inpatient rehab could be an option Vapotherm at 25 liters 55% Cough is productive with sputum Speech therapy saw him and agreed with regular diet Dr. Pimentel is appreciated Review of Systems General: Fatigue, Malaise Objective Exam General Appearance: No Apparent Distress, WD/WN, Chronically ill Respiratory: No Accessory Muscle Use, No Respiratory Distress, Decreased Breath Sounds Cardiovascular: Regular Rate, Rhythm Neurologic/Psychiatric: Alert, Oriented x3 Assessment/Plan Assessment and Plan Assess & Plan/Chief Complaint Assessment: Respiratory failure status post extubation Malignant hypertension Elevated troponin Acute bronchitis Plan: Supportive care Incentive spirometer Appreciate cardiology Supervisory-Addendum Brief Verification & Attestation Participated in pt care: history, MDM, physical Personally performed: exam, history, MDM, supervision of care Care discussed with: Medical Student Procedures: n/a Results interpretation: Verified all documentation Verification and Attestation of Medical Student E/M Service A medical student performed and documented this service in my presence. I reviewed and verified all information documented by the medical student and made modifications to such information, when appropriate. I personally performed the physical exam and medical decision making. Kamla Fernandez, Sep 29, 2021,05:32 WINDY JAQUEZ MED STUDENT Sep 28, 2021 12:40 KAMLA FERNANDEZ DO Sep 29, 2021 05:32
[2021-09-28] MEDS: AMIODARONE INJECTION 450 MG in D5W IV SOLUTION (EXCEL) 250 ML IV SCH ×2 (14:54→20:56)
--- NOTE | 2021-09-28 16:14 | Cardiology Progress Note ---
Subjective Date Seen by Provider: Sep 28, 2021 Time Seen by Provider: 16:11 Subjective/Events-last exam Patient is laying down in bed, extubated today, complain of fatigue Went to atrial fibrillation with rapid ventricular response earlier today. Review of Systems General: No Chills, No Night Sweats; Fatigue, Malaise; No Appetite, No Other HEENT: No Head Aches, No Visual Changes, No Eye Pain, No Ear Pain, No Dysphasia, No Sinus Congestion, No Post Nasal Drip, No Sore Throat, No Other Pulmonary: Dyspnea; No Cough, No Pleuritic Chest Pain, No Other Cardiovascular: No: Chest Pain, Palpitations, Orthopnea, Paroxysmal Noc. Dyspnea, Edema, Lt Headedness, Other Focused Exam Lactate Level 09/25/21 22:58: Lactic Acid Level 2.30*H 09/26/21 04:19: Lactic Acid Level 2.38*H 09/26/21 08:24: Lactic Acid Level 2.18*H Objective-Cardiology Exam Last Set of Vital Signs Vital Signs 09/28/21 09/28/21 09/28/21 09/28/21 09/28/21 06:00 11:03 11:51 14:12 15:00 Temp 37.0 Pulse 106 Resp 96 B/P (MAP) 129/77 Pulse Ox 97 O2 Delivery Vapotherm O2 Flow Rate 25.00 45.00 FiO2 45 I&O Intake and Output 09/28/21 00:00 Intake Total 960 ml Output Total 2695 ml Balance -1735 ml Intake Oral 0 ml IV Total 600 ml Tube Feeding 120 ml Other 240 ml Output Urine Total 2695 ml General: Alert, Oriented X3, Cooperative, No Acute Distress HEENT: Atraumatic, PERRLA Neck: Supple, No JVD Lungs: Clear to Auscultation, Normal Air Movement Heart: Normal S1, Normal S2, Other (Atrial fibrillation) Abdomen: Normal Bowel Sounds, No Tenderness Extremities: No Clubbing, No Cyanosis Skin: No Rashes, No Breakdown Neuro: Normal Speech Psych/Mental Status: Mental Status NL, Mood NL Results Lab Laboratory Tests 09/28/21 04:29 A/P-Cardiology Admission Diagnosis Acute respiratory failure None ST elevation myocardial infarction Coronary artery disease Pneumonia Assessment/Plan Acute respiratory failure, extubated on September 27, 2021, doing better today. managed by primary care team Paroxysmal atrial fibrillation has been on Xarelto since February 2019, underwent electrical cardioversion in April 2019. Went back to atrial fibrillation today. I rebolused him with amiodarone and placed him on a drip. Planning to do cardioversion in the morning. Patient has been on Xarelto since 2018 uninterrupted, since his admission while he was in sinus rhythm he was maintained on Lovenox and received Lovenox today. Sepsis, pneumonia, pleural effusion, receiving antibiotic, ventilator dependent. Possible weaning today. Mild elevation in troponin, probably type II myocardial infarction secondary to respiratory failure. He has extensive coronary artery disease, conservative management is recommended at this time. Coronary artery disease, History of angioplasty, CABG 2 done early in August 2016, Patient return for chest pain and flash pulmonary edema, cardiac catheterization was done on August 31, 2016. Showing patent DOMÍNGUEZ to LAD, patent vein graft to the obtuse marginal branch with small vessel disease with slower flow responded to intracoronary nitroglycerin and improvement of the flow. Stress test done 05/28/17 revealed fixed defect with no ischemia or infarct. EF 47%. [id number] score of 4, yearly risk of stroke without oral anticoagulation is 4 percent, maintained on Xarelto. Currently on Lovenox Congestive heart failure, chronic compensated left ventricular systolic dysfunction, ejection fraction 35 to 40%. Continue to monitor 2D echo was done on September 25, 2015 showing normal LV size with EF 35 to 40%, PA pressure 45 to 50 mmHg. Peripheral edema, maintained on Lasix, continue to monitor Hypertension, Unable to tolerate beta haresh secondary to bradycardia, patient is allergic to amlodipine. Does not tolerate hydrochlorothiazide secondary to history of gout. Patient was on clonidine 0.2 mg 3 times a day, hydralazine 100 mg 3 times a day, lisinopril 40 mg daily as an outpatient I will restart his home medication slowly and monitor his blood pressure tolerance and response Hyperlipidemia, continue on current medication and monitor lipids Pulmonary hypertension, continue to monitor at this time Mild bilateral carotid stenosis, nonobstructive disease. Most recent cardiac duplex done April 2019, I will evaluate carotid duplex. Right eye blindness, episode of left eye blurred vision occurred in the past. Workup has been negative. Tobaccoism, Patient has stopped smoking in August after his bypass Gouty arthritis with recent flareup, management per PCP TRISH LORENZ MD Sep 28, 2021 16:14
[2021-09-29] MEDS: RT-ALBUTEROL/IPRATROPIUM 3 ML (DUONEB) VIAL INH SCH ×5 (02:39→19:21)
[2021-09-29] MEDS: niCARdipine IV 50 MG in NS (IVPB) 230 ML IV SCH ×3 (03:10→20:58)
[2021-09-29] MEDS: ACETAMINOPHEN 325 MG TABLET PO PRN (03:41)
[2021-09-29 04:31] LABS: BASOPHILS % (AUTO) 0 % (0-10); EOSINOPHILS % (AUTO) 0 % (0-10); HEMATOCRIT 39 % (40-54); HEMOGLOBIN 12.3 g/dL (13.3-17.7); LYMPHOCYTES # (AUTO) 0.8 10^3/uL (1.0-4.0); LYMPHOCYTES % (AUTO) 5 % (12-44); MEAN CORPUSCULAR HEMOGLOBIN 31 pg (25-34); MEAN CORPUSCULAR HGB CONC 32 g/dL (32-36); MEAN CORPUSCULAR VOLUME 97 fL (80-99); MEAN PLATELET VOLUME 9.6 fL (9.0-12.2); MONOCYTES # (AUTO) 1.5 10^3/uL (0.0-1.0); MONOCYTES % (AUTO) 10 % (0-12); NEUTROPHILS # (AUTO) 12.9 10^3/uL (1.8-7.8); NEUTROPHILS % (AUTO) 84 % (42-75); PLATELET COUNT 232 10^3/uL (130-400); WHITE BLOOD COUNT 15.3 10^3/uL (4.3-11.0)
[2021-09-29 04:46] LABS: POTASSIUM 3.4 MMOL/L (3.6-5.0)
[2021-09-29 04:47] LABS: CALCIUM 9.1 MG/DL (8.5-10.1)
[2021-09-29 04:48] LABS: TOTAL PROTEIN 6.6 GM/DL (6.4-8.2)
[2021-09-29] MEDS: VASOPRESSIN INJECTION 20 UNIT in NS (IVPB) 100 ML IV SCH ×2 (04:49→15:20)
[2021-09-29 04:52] LABS: CREATININE SERUM 1.05 MG/DL (0.60-1.30); PHOSPHORUS 2.5 MG/DL (2.3-4.7)
[2021-09-29 04:55] LABS: MAGNESIUM 2.1 MG/DL (1.6-2.4)
[2021-09-29] MEDS ORDERED: KCL 20 MEQ TAB (K-DUR) PO ONE (05:00)
[2021-09-29] MEDS: POTASSIUM CL 10MEQ/50ML IVPB 50 ML IV SCH ×5 (05:04→13:19)
[2021-09-29] MEDS: KCL 20 MEQ TAB (K-DUR) PO SCH (05:04)
[2021-09-29] MEDS: MAGNESIUM 1 GM/100 ML IVPB 100 ML IV SCH (05:04)
[2021-09-29] MEDS: inSUlin ASPART (NovoLOG) 1 UNIT/0.01 ML (CHARGE PER UNIT) SC SCH ×5 (05:05→20:57)
--- NOTE | 2021-09-29 06:07 | Diagnostic Imaging Report ---
INDICATION: Respiratory failure. FINDINGS: AP view of chest is obtained with comparison made study one day earlier. There is continued cardiomegaly and prominence of pulmonary vascularity. Diffuse bilateral airspace disease is stable or mildly improved. No pneumothorax or significant pleural fluid is seen. Advanced degenerative findings are seen in the shoulder girdles. IMPRESSION: Stable or mildly improved airspace disease suggestive of edema. Dictated by: Dictated on workstation # [id number]
[2021-09-29] MEDS: NOREPINEPHRINE 8 MG/250 ML 250 ML IV SCH ×2 (07:10→20:57)
--- NOTE | 2021-09-29 08:19 | Cardioversion ---
Cardioversion PROCEDURE PHYSICIAN: Trish Pimentel DATE OF PROCEDURE: 09/29/21 DIRECT EXTERNAL ELECTRICAL CARDIOVERSION: Indications: Atrial Fibrillation with rapid ventricular rate Preoperative diagnoses: Atrial Fibrillation with rapid ventricular rate Postoperative diagnosis: Sinus rhythm, Successful Electrical Cardioversion Anesthesia: By Anesthesia services Complications: None Specimen: None Contrast: 0 Flouroscopy: none Procedure Details: The patient was brought the laborer hoisting after informed consent was taken, all the risks and complications were explained including the risk of stroke. Electrical cardioversion was carried out with anesthesia support with propofol. 200 joules of synchronized shock was delivered through external patches which promptly restored sinus rhythm. The patient tolerated the procedure well. Conclusions: Successful electrical cardioversion in terminating atrial fibrillation TRISH PIMENTEL MD Sep 29, 2021 08:19
--- NOTE | 2021-09-29 08:19 | Conscious Sedation/ASA ---
Conscious Sedation Pre-Proced Time 08:00 ASA Score 3 For ASA 3 and 4: Consider anesthesia and medical clearance. Also, for patients with a history of failed moderate sedation consider anesthesia. Airway Lungs Heart ASA score ASA 1: a normal healthy patient ASA 2: a patient with a mild systemic disease (mid diabetes, controlled hypertension, obesity x ASA 3: a patient with a severe systemic disease that limits activity (angina, COPD, prior Myocardial infarction) ASA 4: a patient with an incapacitating disease that is a constant threat to life (CHF, renal failure) ASA 5: a moribund patient not expected to survive 24 hrs. (ruptured aneurysm) ASA 6: a declared brain- patient whose organs are being harvested. For emergent operations, add the letter E after the classification Mallampati Classification Grade 3 Sedation Plan Analgesia, Amnesia, Plan communicated to team members, Discussed options with patient/fam, Discussed risks with patient/fam The patient is an appropriate candidate to undergo the planned procedure, sedation, and anesthesia. The patient immediately re-assessed prior to indication. TRISH LORENZ MD Sep 29, 2021 08:18
--- NOTE | 2021-09-29 08:20 | Cardiology Progress Note ---
Subjective Date Seen by Provider: Sep 29, 2021 Time Seen by Provider: 08:19 Subjective/Events-last exam Patient was seen at bedside, still on Vapotherm. Doing better. Feeling better. Review of Systems General: No Chills, No Night Sweats, No Fatigue, No Malaise, No Appetite, No Other HEENT: No Head Aches, No Visual Changes, No Eye Pain, No Ear Pain, No Dysphasia, No Sinus Congestion, No Post Nasal Drip, No Sore Throat, No Other Pulmonary: No Dyspnea, No Cough, No Pleuritic Chest Pain, No Other Cardiovascular: No: Chest Pain, Palpitations, Orthopnea, Paroxysmal Noc. Dyspnea, Edema, Lt Headedness, Other Focused Exam Lactate Level 09/26/21 08:24: Lactic Acid Level 2.18*H Objective-Cardiology Exam Last Set of Vital Signs Vital Signs 09/29/21 09/29/21 09/29/21 09/29/21 06:00 07:23 07:44 08:14 Temp 36.0 Pulse 98 Resp 29 B/P (MAP) 137/74 Pulse Ox 95 O2 Delivery Vapotherm O2 Flow Rate 40.00 100.00 FiO2 35 I&O Intake and Output 09/29/21 00:00 Intake Total 1903 ml Output Total 2725 ml Balance -822 ml Intake Oral 1380 ml IV Total 523 ml Output Urine Total 2725 ml General: Alert, Oriented X3, Cooperative, No Acute Distress HEENT: Atraumatic, PERRLA Neck: Supple, No JVD Lungs: Clear to Auscultation, Normal Air Movement Heart: Normal S1, Normal S2, Other (Atrial fibrillation) Abdomen: Normal Bowel Sounds, No Tenderness Extremities: No Clubbing, No Cyanosis Skin: No Rashes, No Breakdown Neuro: Normal Speech Psych/Mental Status: Mental Status NL, Mood NL Results Lab Laboratory Tests 09/29/21 04:13 A/P-Cardiology Admission Diagnosis Acute respiratory failure None ST elevation myocardial infarction Coronary artery disease Pneumonia Assessment/Plan Acute respiratory failure, extubated on September 27, 2021, doing better today. managed by primary care team Paroxysmal atrial fibrillation has been on Xarelto since February 2019, underwent electrical cardioversion in April 2019. Underwent another electrical cardioversion today on September 29, 2021 after being admitted with amiodarone IV. Continue on oral amiodarone, patient tolerated procedure well. Sepsis, pneumonia, pleural effusion, receiving antibiotic, ventilator dependent. Possible weaning today. Mild elevation in troponin, probably type II myocardial infarction secondary to respiratory failure. He has extensive coronary artery disease, conservative management is recommended at this time. Coronary artery disease, History of angioplasty, CABG 2 done early in August 2016, Patient return for chest pain and flash pulmonary edema, cardiac catheterization was done on August 31, 2016. Showing patent DOMÍNGUEZ to LAD, patent vein graft to the obtuse marginal branch with small vessel disease with slower flow responded to intracoronary nitroglycerin and improvement of the flow. Stress test done 05/28/17 revealed fixed defect with no ischemia or infarct. EF 47%. [id number] score of 4, yearly risk of stroke without oral anticoagulation is 4 percent, maintained on Xarelto. Currently on Lovenox Congestive heart failure, chronic compensated left ventricular systolic dysfunction, ejection fraction 35 to 40%. Continue to monitor 2D echo was done on September 25, 2015 showing normal LV size with EF 35 to 40%, PA pressure 45 to 50 mmHg. Peripheral edema, maintained on Lasix, continue to monitor Hypertension, Unable to tolerate beta haresh secondary to bradycardia, patient is allergic to amlodipine. Does not tolerate hydrochlorothiazide secondary to history of gout. Patient was on clonidine 0.2 mg 3 times a day, hydralazine 100 mg 3 times a day, lisinopril 40 mg daily as an outpatient I will restart his home medication slowly and monitor his blood pressure tolerance and response Hyperlipidemia, continue on current medication and monitor lipids Pulmonary hypertension, continue to monitor at this time Mild bilateral carotid stenosis, nonobstructive disease. Most recent cardiac duplex done April 2019, I will evaluate carotid duplex. Right eye blindness, episode of left eye blurred vision occurred in the past. Workup has been negative. Tobaccoism, Patient has stopped smoking in August after his bypass Gouty arthritis with recent flareup, management per PCP TRISH LORENZ MD Sep 29, 2021 08:20
[2021-09-29] MEDS: AMIODARONE 200 MG (CORDARONE) TAB PO SCH (08:58)
[2021-09-29] MEDS: PANTOPRAZOLE 40 MG (PROTONIX) VIAL IV SCH (08:58)
[2021-09-29] MEDS: cefTRIAXone 1 GM PRE-MIX 50 ML IV SCH (08:58)
[2021-09-29] MEDS: ENOXAPARIN 300 MG/3 ML (LOVENOX) MULTI-DOSE VIAL SQ SCH ×2 (09:38→21:02)
[2021-09-29] MEDS ORDERED: BUMETANIDE 1 MG/4 ML (BUMEX) VIAL IV NR (10:15)
[2021-09-29] MEDS ORDERED: MAGNESIUM 2 GM/50 ML IVPB 50 ML IV ONE (10:15)
--- NOTE | 2021-09-29 10:51 | Tele-ICU Progress Note ---
Subjective Date Seen by a Provider: Sep 29, 2021 Time Seen by a Provider: 10:06 Sepsis Event Evaluation Height, Weight, BMI Height: 5'6.00" Weight: 225lbs. 0.0oz. [id number]; 37.79 BMI Method:Stated Exam Exam Patient acknowledged, consented, and participated in this virtual visit which was conducted using real time audio/video Vital Signs Date Time Temp Pulse Resp B/P (MAP) Pulse Ox O2 Delivery O2 Flow Rate FiO2 09/29/21 10:26 94 Nasal Cannula 5.00 09/29/21 08:50 Vapotherm 15.00 35.00 09/29/21 08:14 Vapotherm 40.00 100.00 09/29/21 08:04 88 09/29/21 08:00 Vapotherm 15.00 35 09/29/21 07:44 36.0 09/29/21 07:23 95 Vapotherm 15.00 35 09/29/21 07:22 96 Vapotherm 20.00 40 09/29/21 07:00 88 09/29/21 06:00 98 29 137/74 97 Vapotherm 25.00 45.00 09/29/21 05:00 103 28 143/75 93 Vapotherm 25.00 45.00 09/29/21 04:20 37.0 09/29/21 04:11 37.0 09/29/21 04:00 125 29 145/73 95 Vapotherm 25.00 45.00 09/29/21 04:00 Vapotherm 20.00 45 09/29/21 03:41 38.0 09/29/21 03:29 38.0 Vapotherm 20.00 45.00 09/29/21 03:00 121 28 149/73 96 Vapotherm 25.00 45.00 09/29/21 02:40 98 Vapotherm 20.00 40 09/29/21 02:00 120 19 145/96 96 Vapotherm 25.00 45.00 09/29/21 01:00 118 25 130/85 96 Vapotherm 25.00 45.00 09/29/21 00:40 97 09/29/21 00:00 116 21 175/70 95 Vapotherm 25.00 45.00 09/29/21 00:00 37.3 09/28/21 23:59 Vapotherm 25.00 45 09/28/21 23:00 103 30 143/73 96 Vapotherm 25.00 45.00 09/28/21 22:57 96 Vapotherm 20.00 45 09/28/21 22:00 101 27 149/69 96 Vapotherm 25.00 45.00 09/28/21 21:00 98 26 146/61 93 Vapotherm 25.00 45.00 09/28/21 20:00 Vapotherm 25.00 45 09/28/21 20:00 107 19 139/73 97 Vapotherm 25.00 45.00 09/28/21 19:46 36.8 09/28/21 19:14 96 Vapotherm 20.00 45 09/28/21 19:00 96 23 123/65 94 Vapotherm 25.00 45.00 09/28/21 19:00 93 09/28/21 16:45 122 21 144/81 96 09/28/21 16:30 120 24 142/85 09/28/21 16:30 117 20 153/104 95 09/28/21 16:15 115 24 140/90 96 09/28/21 16:05 111 29 96 09/28/21 16:00 35.5 09/28/21 16:00 117 21 124/96 09/28/21 16:00 Vapotherm 25.00 45 09/28/21 15:45 106 14 161/143 91 09/28/21 15:30 110 19 153/104 83 09/28/21 15:15 111 24 159/91 96 09/28/21 15:05 112 33 95 09/28/21 15:00 105 24 144/97 96 09/28/21 15:00 Vapotherm 25.00 45.00 09/28/21 14:45 103 19 145/87 09/28/21 14:30 110 20 165/94 09/28/21 14:15 111 28 145/82 09/28/21 14:12 97 Vapotherm 20.00 45 09/28/21 14:05 98 18 98 09/28/21 14:00 98 17 136/98 09/28/21 13:45 105 20 133/102 09/28/21 13:30 101 25 145/70 85 09/28/21 13:15 107 26 142/85 96 09/28/21 13:05 102 22 98 09/28/21 13:00 94 09/28/21 12:00 Vapotherm 25.00 45 09/28/21 11:51 37.0 09/28/21 11:03 106 129/77 I & O 09/29/21 07:00 Intake Total 1903 ml Output Total 2425 ml Balance -522 ml Height & Weight Height: 5'6.00" Weight: 225lbs. 0.0oz. 102.580215yj; 37.79 BMI Method:Stated General Appearance: No Apparent Distress, WD/WN, Chronically ill HEENT: Moist Mucous Membranes Neck: Supple Respiratory: No Accessory Muscle Use, No Respiratory Distress, Decreased Breath Sounds Cardiovascular: Regular Rate, Rhythm Capillary Refill: Less Than 3 Seconds Extremity: Normal Capillary Refill, Normal Inspection, Normal Range of Motion, Non Tender, No Calf Tenderness, Pedal Edema Neurologic/Psychiatric: Alert, Oriented x3 Skin: Normal Color, Warm/Dry Lymphatic: No Adenopathy Results Lab Laboratory Tests 09/27/21 15:17 09/28/21 04:29 09/29/21 04:13 Assessment/Plan Assessment/Plan (Tele-ICU Physician , Progress Note ) Available chart/ vitals / labs / Images reviewed Video assessment done using teleICU camera, rest of exam as per RN Discussed with RN , EXAM PER RN Events overnight : Afebrile FiO2 - 40% I/O = neg Drips: [id number] 40 Pressors: , hemodynamically stable Consultants: Hospital course: (09/25) 66yr old male admitted with respiratory failure, pneumonia, and PE 09/26 - 40% 09/27 - 35 % - extubated -> bipap and cardene gtt 09/28- - VT 25L 50% now , will try bumex x1 09/29 - cCARDIOVERSION , in sinus , cardene htt , VT 15L 35% A/P Acute respiratory failure -Intubated 40 % - extubated 09/27- went to BIPAP - ? pulmonary edema with HTN - - VT VT 15L 35% now , will try bumex x1 again - cough with secretions suspected PE on admission - NO large vessels PE , can not be r/o small cliths in lower loves due to effusion/pna - US LE - neg DVT -lovenox 100 bid ( on AC for a -fib anyway HTN - started on cardene 09/27 - as per cads Shock on presentation - sepsi vs cardiogenic - RESOLVED will try not to VO with effusions /pulm HTN PNA - bilat infitrates on CT , with effusions - cont abx- ceftriaxone started 09/25 - await sputum cx CAD, elev trop - as per cardfs - EF 35-45% Pulm HTN - -previous RVSP 65-70 mmHg - IMPROVED TO 45 mmHG ON LAST ECHO ( -lovenox 100 bid - DOUBT PE - on AC for h/o AFIB CKD -? 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 Discussed with RN to reach out if any questions or concerns A total of 33 minutes of critical care time was devoted to this patient today, required to treat and/or prevent further deterioration of critical care condition ( as above) RICK APRRA MD Sep 29, 2021 10:51
[2021-09-29] MEDS: MAGNESIUM 1 GM/D5W 100 ML IVPB IV SCH ×2 (10:56→12:22)
--- NOTE | 2021-09-29 11:01 | Physical Therapy Daily Note ---
PT Daily Note-Current Subjective Pt is in bed and states that he is ready to get up and out of bed. Pain Numeric Pain Scale: 0-No Pain Location: No Pain Reported Mental Status Patient Orientation: Person, Place, Time, Situation Attachments: SCD's, Oxygen, Engel Catheter, IV Transfers SCALE: Activities may be completed with or without assistive devices. 0-Dfpbbncnwj-ajzhcmo completes the activity by him/herself with no assistance from a helper. 5-Set-up or Clean-up Assistance-helper sets up or cleans up; patient completes activity. [place] assists only prior to or following the activity. 4-Supervision or Touching Assistance-helper provides verbal cues and/or touching/steadying and/or contact guard assistance as patient completes activity. Assistance may be provided throughout the activity or intermittently. 3-Partial/Moderate Assistance-helper does LESS THAN HALF the effort. [place] lifts, holds or supports trunk or limbs, but provides less than half the effort. 2-Substantial/Maximal Assistance-helper does MORE THAN HALF the effort. [place] lifts or holds trunk or limbs and provides more than half the effort. 2-Nphwgtlmd-dwirnp does ALL the effort. Patient does none of the effort to c omplete the activity. Or, the assistance of 2 or more helpers is required for the patient to complete the activity. If activity was not attempted, code reason: 7-Patient Refused. 9-Not Applicable-not attempted and the patient did not perform the activity before the current illness, exacerbation or injury. 10-Not Attempted due to Environmental Limitations-(lack of equipment, weather restraints, etc.). 88-Not Attempted due to Medical Conditions or Safety Concerns. Roll Left & Right (QC): 3 Sit to Lying (QC): 3 Lying to Sitting/Side of Bed(Q: 3 Sit to Stand (QC): 3 Gait Training Does the Patient Walk?: Yes Distance: 2ft Gait Persons Needed: 1 Gait Assistive Device: FWW Pt was able to take 3 steps forward and back, then 2 steps to the (R). Exercises Supine Ex: LE Protocol Supine Reps: 15 Assessment Current Status: Good Progress Stood 3x with the last attempt he was able to lock out his knees and remain standing 30 seconds. He was then able to take 2 steps forward and back. 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 Sheet Metal Worker Helper Goals Time Frame: Oct 14, 2021 Roll Left & Right (QC): 6 Sit to Lying (QC): 6 Lying-Sitting on Side/Bed(QC): 6 Sit to Stand (QC): 6 Chair/Tlu-sf-Wsnql Xfer(QC): 6 Toilet Transfer (QC): 6 Does the Patient Walk: Yes Walk 10 feet (QC): 5 Walk 50ft with 2 Turns (QC): 5 Walk 150 ft (QC): 5 1 Step (curb) (QC): 4 4 Steps (QC): 4 12 Steps (QC): 4 PT Plan Treatment/Plan Treatment Plan: Continue Plan of Care Treatment Plan: Bed Mobility, Education, Functional Activity Claudia, Functional Strength, Group Therapy, Gait, Safety, Therapeutic Exercise, Transfers Treatment Duration: Nov 12, 2021 Frequency: 6 times per week Patient and/or Family Agrees t: Yes Time/GCodes Time In: 1004 Time Out: 1030 Total Billed Treatment Time: 26 Total Billed Treatment 1, fa 10, ex 16 SCOT DENTON PT Sep 29, 2021 11:01
--- NOTE | 2021-09-29 11:12 | Occupational Ther Daily Note ---
OT Current Status-Daily Note Subjective Pt in bed, nurse states pt OK for therapy at this time. Pt reports he is pretty tired today Mental Status/Objective Patient Orientation: Person, Place Attachments: Engel Catheter, IV, Oxygen ADL-Treatment Therapy Code Descriptions/Definitions Functional [place] Measure: 0=Not Assessed/NA 4=Minimal Assistance 1=Total Assistance 5=Supervision or Setup 2=Maximal Assistance 6=Modified [place] 3=Moderate Assistance 7=Complete IndependenceSCALE: Activities may be completed with or without assistive devices. 1-Tgflfpegiw-htpksvf completes the activity by him/herself with no assistance from a helper. 5-Set-up or Clean-up Assistance-helper sets up or cleans up; patient completes activity. [place] assists only prior to or following the activity. 4-Supervision or Touching Assistance-helper provides verbal cues and/or touching/steadying and/or contact guard assistance as patient completes activi ty. Assistance may be provided throughout the activity or intermittently. 3-Partial/Moderate Assistance-helper does LESS THAN HALF the effort. [place] lifts, holds or supports trunk or limbs, but provides less than half the effort. 2-Substantial/Maximal Assistance-helper does MORE THAN HALF the effort. [place] lifts or holds trunk or limbs and provides more than half the effort. 1-Akynljmlp-nnfzyh does ALL the effort. Patient does none of the effort to complete the activity. Or, the assistance of 2 or more helpers is required for the patient to complete the activity. If activity was not attempted, code reason: 7-Patient Refused. 9-Not Applicable-not attempted and the patient did not perform the activity before the current illness, exacerbation or injury. 10-Not Attempted due to Environmental Limitations-(lack of equipment, weather restraints, etc.). 88-Not Attempted due to Medical Conditions or Safety Concerns. Oral Hygiene (QC): 3 (min A) Other Treatment Pt in bed, OT gathered oral care supplies and set on tray table in front of pt. Pt required assistance opening toothbrush packet, unscrewing lid of toothpaste, and squeezing onto toothbrush. pt able to brush teeth using RUE, assistance provided to hold basin. Pt has difficulty with coordination of L hand. Pt washed his face with set up assistance using RUE. OT instructed pt to continue with UE exercises throughout the day in order to increase strength and activity tolerance, he verbalized understanding. Post tx, pt in bed, call light in reach and all needs met. Education OT Patient Education: Correct positioning, Energy conservation, Exercise program, Modified ADL techniques, Progress toward Goal/Update tx plan, Purpose of tx/functional activities, Rehab process Teaching Recipient: Patient Teaching Methods: Discussion Response to Teaching: Verbalize Understanding OT Long-Term Goals Long-Term Goals Time Frame: Oct 14, 2021 Eating (QC): 6 Oral Hygiene (QC): 6 Toileting Hygiene (QC): 6 Shower/Bathe Self (QC): 6 Upper Body Dressing (QC): 6 Lower Body Dressing (QC): 6 On/Off Footwear (QC): 6 Additional Goals: 1-Demonstrate ADL Tasks, 2-Verbalize Understanding, 3- ImproveStrength/Claudia 1=Demonstrate adherence to instructed precautions during ADL tasks. 2=Patient will verbalize/demonstrate understanding of assistive devices/mod ifications for ADL. 3=Patient will improve strength/tolerance for activity to enable patient to perform ADL's. OT Education/Plan Problem List/Assessment Assessment: Decreased Activ Tolerance, Decreased UE Strength, Impaired Coordination, Impaired Funct Balance, Impaired I ADL's, Impaired Self-Care Skills Discharge Recommendations Plan/Recommendations: Continue POC Treatment Plan/Plan of Care Patient would benefit from OT for education, treatment and training to promote independence in ADL's, mobility, safety and/or upper extremity function for ADL's. Plan of Care: ADL Retraining, Functional Mobility, UE Funct Exercise/Act Treatment Duration: Oct 14, 2021 Frequency: 3 times per week (3-5 times per week) Rehab Potential: Fair Time/GCodes Start Time: 10:55 Stop Time: 11:04 Total Time Billed (hr/min): 9 Billed Treatment Time 1, ADL DONNY PLUNKETT OT Sep 29, 2021 11:12
[2021-09-29] MEDS: fentaNYL INJ 100 MCG/2 ML AMP IVP PRN ×3 (12:19→23:24)
--- NOTE | 2021-09-29 13:12 | Progress Note - Hospitalist ---
WINDY JAQUEZ MED STUDENT 09/29/21 1312: Subjective HPI/CC On Admission Date Seen by Provider: Sep 29, 2021 Time Seen by Provider: 08:35 CC: Respiratory failure HPI: This is [place] 66yo[place] me [place] [facility] [place] who presented to [facility] a ventilator after [place] [facility] [place] respiratory failure. His troponin was elevated. Cardiology has been consulted. CT Scan showed pulmonary emboli. [place] [id number]. ABG is 7.35/44/78, and vent settings are 450/16/5/35%. He will be on a CPAP trial. Subjective/Events-last exam Pt is awake and sitting up in bed this morning. He states that he is not having any fevers or chills. He is not having any pain this morning. He does have a bit of a productive cough but is not complaining of SOB. He is eating and drinking without difficulty. He has not had a BM yet but does not havy any bowel or bladder concerns. He has a urinary catheter. He has decreased his vapotherm from yesterday to 15L 35% Review of Systems General: No Chills, No Night Sweats, No Malaise HEENT: No Head Aches, No Visual Changes, No Dysphasia Pulmonary: No Dyspnea; Cough; No Pleuritic Chest Pain Cardiovascular: Edema; No: Chest Pain, Palpitations Gastrointestinal: Constipation; No: Nausea, Vomiting, Abdominal Pain, Diarrhea Genitourinary: No Dysuria, No Frequency, No Hematuria Musculoskeletal: other (Chronic arthritis pain) Neurological: No: Weakness, Numbness Objective Exam Vital Signs Vital Signs Date Time Temp Pulse Resp B/P (MAP) Pulse Ox O2 Delivery O2 Flow Rate FiO2 09/29/21 12:00 95 22 147/94 98 High Flow N/C 5.00 09/29/21 11:44 37.4 09/29/21 08:00 35 Capillary Refill : Less Than 3 Seconds General Appearance: No Apparent Distress, WD/WN, Obese HEENT: PERRL/EOMI, Moist Mucous Membranes Neck: Supple Respiratory: Chest Non Tender, Lungs Clear (slightly deminished but clearer than yesterday), Normal Breath Sounds, No Accessory Muscle Use, No Respiratory Distress Cardiovascular: Regular Rate, Rhythm, No Murmur, Normal Peripheral Pulses Gastrointestinal: Normal Bowel Sounds, No Organomegaly, No Pulsatile Mass, Non Tender, Soft Rectal: Deferred Extremity: Normal Capillary Refill, Normal Inspection, Non Tender, No Calf Tenderness, Other (some swelling of legs noted, pt states it is slightly worse than his chronic swelling. ) Neurologic/Psychiatric: Alert, Oriented x3, Normal Mood/Affect Skin: Normal Color, Warm/Dry Results/Procedures Lab Laboratory Tests 09/29/21 04:13 Patient resulted labs reviewed. Radiology NAME: AKILAH HAYWARD [facility] REC#: [id number] PT STATUS: ADM IN : 1955 PHYSICIAN: GIOVANNA JORDAN MD ADMIT DATE: 09/25/21/ICU Signed Date of Exam:09/29/21 CHEST 1 VIEW, AP/PA ONLY INDICATION: Respiratory failure. FINDINGS: AP view of chest is obtained with comparison made study one day earlier. There is continued cardiomegaly and prominence of pulmonary vascularity. Diffuse bilateral airspace disease is stable or mildly improved. No pneumothorax or significant pleural fluid is seen. Advanced degenerative findings are seen in the shoulder girdles. IMPRESSION: Stable or mildly improved airspace disease suggestive of edema. Dictated by: Dictated on workstation # [id number] Dict: 09/29/21 0559 Trans: 09/29/21 0637 [id number] Interpreted by: LUNA JACOBS MD Electronically signed by: LUNA JACOBS MD 09/29/21 0637 Assessment/Plan Assessment and Plan Assess & Plan/Chief Complaint Lactic Acidosis Sepsis -hep lock fluids, pt can eat and drink -ABX -Continue morning labs -pressors stopped -Pt extubated yesterday On vapotherm 15L 35% -Try to wean off as much O2 as possible PE Elevated Troponin -Cardiology consulted -EF 35-45 -Echo done -Blood thinners -No SOB or CP today Hypokalemia -Mild at 3.4 -Supplementing and will monitor HX of COPD, CAD, HTN, CHF, [place], CABGx2, AFIB s/p ablation -Continue Home meds pt candidate for rehab Pt continuing to improve Supervisory-Addendum Brief Verification & Attestation Participated in pt care: history, physical Personally performed: exam Care discussed with: Medical Student Procedures: n/a n/a KAMLA FERNANDEZ DO 09/30/21 0520: Subjective Subjective/Events-last exam Pt doing well Still remains critical but stable Not ready for inpatient rehab today Remains on a Cardene Drip Vapotherm 15 liters at 35% Labs are stable Review of Systems General: Fatigue, Malaise Objective Exam General Appearance: No Apparent Distress, WD/WN, Chronically ill, Obese Respiratory: No Accessory Muscle Use, No Respiratory Distress, Decreased Breath Sounds Cardiovascular: Regular Rate, Rhythm Neurologic/Psychiatric: Alert, Oriented x3 Assessment/Plan Assessment and Plan Assess & Plan/Chief Complaint Continue ICU aggressive care Supervisory-Addendum Brief Verification & Attestation Participated in pt care: history, MDM, physical Personally performed: exam, history, MDM, supervision of care Care discussed with: Medical Student Procedures: n/a Results interpretation: Verified all documentation Verification and Attestation of Medical Student E/M Service A medical student performed and documented this service in my presence. I reviewed and verified all information documented by the medical student and made modifications to such information, when appropriate. I personally performed the physical exam and medical decision making. Kamla Fernandez, Sep 30, 2021,05:20 WINDY JAQUEZ MED STUDENT Sep 29, 2021 13:12 KAMLA FERNANDEZ DO Sep 30, 2021 05:20
[2021-09-29 15:31] VITALS: BP 149/63
[2021-09-29] MEDS ORDERED: RT-ALBUTEROL SULF 2.5 MG/3 ML PRE-MIX VIAL INH PRN (15:45)
[2021-09-30] MEDS: VASOPRESSIN INJECTION 20 UNIT in NS (IVPB) 100 ML IV SCH ×2 (03:20→14:01)
[2021-09-30] MEDS: fentaNYL INJ 100 MCG/2 ML AMP IVP PRN (03:53)
[2021-09-30] MEDS: niCARdipine IV 50 MG in NS (IVPB) 230 ML IV SCH ×2 (04:04→11:03)
[2021-09-30 05:07] LABS: BASOPHILS # (AUTO) 0.1 10^3/uL (0.0-0.1); BASOPHILS % (AUTO) 0 % (0-10); EOSINOPHILS # (AUTO) 0.2 10^3/uL (0.0-0.3); EOSINOPHILS % (AUTO) 1 % (0-10); HEMATOCRIT 38 % (40-54); LYMPHOCYTES # (AUTO) 0.8 10^3/uL (1.0-4.0); LYMPHOCYTES % (AUTO) 6 % (12-44); MEAN CORPUSCULAR HEMOGLOBIN 31 pg (25-34); MEAN CORPUSCULAR HGB CONC 32 g/dL (32-36); MEAN CORPUSCULAR VOLUME 95 fL (80-99); MEAN PLATELET VOLUME 10.3 fL (9.0-12.2); MONOCYTES # (AUTO) 1.7 10^3/uL (0.0-1.0); MONOCYTES % (AUTO) 14 % (0-12); NEUTROPHILS # (AUTO) 10.1 10^3/uL (1.8-7.8); NEUTROPHILS % (AUTO) 78 % (42-75); PLATELET COUNT 239 10^3/uL (130-400); WHITE BLOOD COUNT 12.9 10^3/uL (4.3-11.0)
[2021-09-30 05:16] LABS: ALBUMIN 2.6 GM/DL (3.2-4.5); POTASSIUM 5.5 MMOL/L (3.6-5.0)
[2021-09-30 05:18] LABS: TOTAL PROTEIN 7.2 GM/DL (6.4-8.2)
[2021-09-30 05:20] LABS: BILIRUBIN,TOTAL 0.5 MG/DL (0.1-1.0)
[2021-09-30 05:21] LABS: PHOSPHORUS 3.6 MG/DL (2.3-4.7)
[2021-09-30 05:22] LABS: CREATININE SERUM 0.95 MG/DL (0.60-1.30)
[2021-09-30 05:25] LABS: MAGNESIUM 2.4 MG/DL (1.6-2.4)
[2021-09-30] MEDS: POTASSIUM CL 10MEQ/50ML IVPB 50 ML IV SCH (05:45)
[2021-09-30] MEDS: MAGNESIUM 1 GM/100 ML IVPB 100 ML IV SCH (05:45)
[2021-09-30] MEDS: KCL 20 MEQ TAB (K-DUR) PO SCH (05:45)
[2021-09-30] MEDS: inSUlin ASPART (NovoLOG) 1 UNIT/0.01 ML (CHARGE PER UNIT) SC SCH ×4 (05:46→21:28)
[2021-09-30] MEDS: cefTRIAXone 1 GM PRE-MIX 50 ML IV SCH (07:43)
[2021-09-30] MEDS: PANTOPRAZOLE 40 MG (PROTONIX) VIAL IV SCH (07:43)
[2021-09-30] MEDS: AMIODARONE 200 MG (CORDARONE) TAB PO SCH (07:43)
[2021-09-30] MEDS: RT-ALBUTEROL/IPRATROPIUM 3 ML (DUONEB) VIAL INH SCH ×2 (08:48→19:38)
--- NOTE | 2021-09-30 10:17 | Cardiology Progress Note ---
Subjective Date Seen by Provider: Sep 30, 2021 Time Seen by Provider: 10:15 Subjective/Events-last exam Patient is laying down in bed. Feeling better today. Still on Cardene drip Review of Systems General: No Chills, No Night Sweats; Fatigue, Malaise; No Appetite, No Other HEENT: No Head Aches, No Visual Changes, No Eye Pain, No Ear Pain, No Dysphasia, No Sinus Congestion, No Post Nasal Drip, No Sore Throat, No Other Pulmonary: Dyspnea; No Cough, No Pleuritic Chest Pain, No Other Cardiovascular: No: Chest Pain, Palpitations, Orthopnea, Paroxysmal Noc. Dyspnea, Edema, Lt Headedness, Other Objective-Cardiology Exam Last Set of Vital Signs Vital Signs 09/29/21 09/30/21 09/30/21 15:31 08:12 10:00 Temp 37.3 Pulse 87 Resp 10 B/P (MAP) 148/74 Pulse Ox 96 O2 Delivery High Flow N/C O2 Flow Rate 3.00 FiO2 32 I&O Intake and Output 09/30/21 00:00 Intake Total 2159 ml Output Total 2525 ml Balance -366 ml Intake Oral 1200 ml IV Total 959 ml Output Urine Total 2525 ml General: Alert, Oriented X3, Cooperative, No Acute Distress HEENT: Atraumatic, PERRLA Neck: Supple, No JVD Lungs: Clear to Auscultation, Normal Air Movement Heart: Normal S1, Normal S2, Other (Atrial fibrillation) Abdomen: Normal Bowel Sounds, No Tenderness Extremities: No Clubbing, No Cyanosis Skin: No Rashes, No Breakdown Neuro: Normal Speech Psych/Mental Status: Mental Status NL, Mood NL Results Lab Laboratory Tests 09/30/21 05:02 A/P-Cardiology Admission Diagnosis Acute respiratory failure None ST elevation myocardial infarction Coronary artery disease Pneumonia Assessment/Plan Acute respiratory failure, extubated on September 27, 2021, doing better today. managed by primary care team Paroxysmal atrial fibrillation has been on Xarelto since February 2019, underwent electrical cardioversion in April 2019. Underwent another electrical cardioversion today on September 29, 2021 after being admitted with amiodarone IV. Continue on oral amiodarone, patient tolerated procedure well. Hypertension, Unable to tolerate beta haresh secondary to bradycardia, patient is allergic to amlodipine. Does not tolerate hydrochlorothiazide secondary to history of gout. Patient was on clonidine 0.2 mg 3 times a day, hydralazine 100 mg 3 times a day, lisinopril 40 mg daily as an outpatient I am restarting his home medication and wean him off Cardene drip and evaluate tolerance and response Sepsis, pneumonia, pleural effusion, receiving antibiotic, ventilator dependent. Possible weaning today. Mild elevation in troponin, probably type II myocardial infarction secondary to respiratory failure. He has extensive coronary artery disease, conservative management is recommended at this time. Coronary artery disease, History of angioplasty, CABG 2 done early in August 2016, Patient return for chest pain and flash pulmonary edema, cardiac catheterization was done on August 31, 2016. Showing patent DOMÍNGUEZ to LAD, patent vein graft to the obtuse marginal branch with small vessel disease with slower flow responded to intracoronary nitroglycerin and improvement of the flow. Stress test done 05/28/17 revealed fixed defect with no ischemia or infarct. EF 47%. [id number] score of 4, yearly risk of stroke without oral anticoagulation is 4 percent, maintained on Xarelto. Currently on Lovenox Congestive heart failure, chronic compensated left ventricular systolic dysfunction, ejection fraction 35 to 40%. Continue to monitor 2D echo was done on September 25, 2015 showing normal LV size with EF 35 to 40%, PA pressure 45 to 50 mmHg. Peripheral edema, maintained on Lasix, continue to monitor Hyperlipidemia, continue on current medication and monitor lipids Pulmonary hypertension, continue to monitor at this time Mild bilateral carotid stenosis, nonobstructive disease. Most recent cardiac duplex done April 2019, I will evaluate carotid duplex. Right eye blindness, episode of left eye blurred vision occurred in the past. Workup has been negative. Tobaccoism, Patient has stopped smoking in August after his bypass Gouty arthritis with recent flareup, management per PCP TRISH LORENZ MD Sep 30, 2021 10:17
[2021-09-30] MEDS: NOREPINEPHRINE 8 MG/250 ML 250 ML IV SCH ×2 (10:28→21:29)
[2021-09-30] MEDS: ENOXAPARIN 300 MG/3 ML (LOVENOX) MULTI-DOSE VIAL SQ SCH ×2 (10:43→21:28)
[2021-09-30] MEDS ORDERED: methylPREDNISolone 40 MG/ML (Solu-MEDROL) VIAL IV ONE (10:45)
[2021-09-30] MEDS ORDERED: COLCHICINE 0.6 MG (COLCRYS) TABLET PO ONE (10:45)
--- NOTE | 2021-09-30 11:02 | Physical Therapy Daily Note ---
PT Daily Note-Current Subjective Patient in bed pre tx, agrees to PT, has unrated pain in his thumbs bilaterally due to gout, he also has painful swollen feet. Appearance Patient in recliner post tx with nurse call, phone, tray, all needs met. Mental Status Patient Orientation: Person, Place, Situation Attachments: Oxygen, Engel Catheter Transfers SCALE: Activities may be completed with or without assistive devices. 9-Nfgniltiuh-txpihgu completes the activity by him/herself with no assistance from a helper. 5-Set-up or Clean-up Assistance-helper sets up or cleans up; patient completes activity. [place] assists only prior to or following the activity. 4-Supervision or Touching Assistance-helper provides verbal cues and/or touching/steadying and/or contact guard assistance as patient completes activity. Assistance may be provided throughout the activity or intermittently. 3-Partial/Moderate Assistance-helper does LESS THAN HALF the effort. [place] lifts, holds or supports trunk or limbs, but provides less than half the effort. 2-Substantial/Maximal Assistance-helper does MORE THAN HALF the effort. [place] lifts or holds trunk or limbs and provides more than half the effort. 8-Gnqhrnofd-zkvckc does ALL the effort. Patient does none of the effort to complete the activity. Or, the assistance of 2 or more helpers is required for the patient to complete the activity. If activity was not attempted, code reason: 7-Patient Refused. 9-Not Applicable-not attempted and the patient did not perform the activity before the current illness, exacerbation or injury. 10-Not Attempted due to Environmental Limitations-(lack of equipment, weather restraints, etc.). 88-Not Attempted due to Medical Conditions or Safety Concerns. Roll Left & Right (QC): 4 Lying to Sitting/Side of Bed(Q: 4 Sit to Stand (QC): 3 Chair/Oep-zv-Cvwtq Xfer(QC): 3 Patient performed supine to sit with SBA, sit to stand mod assist, transfers with rolling walker with min assist. He has to take several steps to the recliner, ambulates about 3 feet, very painful for his feet. Exercises Seated Therapy Exercises: Ankle pumps, Long arc quads Seated Reps: 20 Treatments bed mobility and transfers, ambulation, LE strengthening Assessment Current Status: Poor Progress pain in feet and hands make mobility tough PT Short Term Goals Short Term Goals Time Frame: Oct 05, 2021 Roll Left & Right: 5 Sit to lyin Lying to sitting on side of be: 5 Sit to stand: 3 Chair/fqz-uf-tcruz transfer: 3 Toilet transfer: 3 Walk 10 feet: 3 Walk 50 feet with two turns: 3 PT Penitentiary Goals Account Relationship Manager Goals PT Penitentiary Goals Time Frame: Oct 14, 2021 Roll Left & Right (QC): 6 Sit to Lying (QC): 6 Lying-Sitting on Side/Bed(QC): 6 Sit to Stand (QC): 6 Chair/Ftf-ri-Igkya Xfer(QC): 6 Toilet Transfer (QC): 6 Does the Patient Walk: Yes Walk 10 feet (QC): 5 Walk 50ft with 2 Turns (QC): 5 Walk 150 ft (QC): 5 1 Step (curb) (QC): 4 4 Steps (QC): 4 12 Steps (QC): 4 PT Plan Problem List Problem List: Activity Tolerance, Functional Strength, Safety, Balance, Gait, Transfer, Bed Mobility, ROM Treatment/Plan Treatment Plan: Continue Plan of Care Treatment Plan: Bed Mobility, Education, Functional Activity Claudia, Functional Strength, Group Therapy, Gait, Safety, Therapeutic Exercise, Transfers Treatment Duration: Nov 12, 2021 Frequency: 6 times per week Patient and/or Family Agrees t: Yes Safety Risks/Education Patient Education: Gait Training, Transfer Techniques, Correct Positioning, Safety Issues Teaching Recipient: Patient Teaching Methods: Demonstration, Discussion Response to Teaching: Reinforcement Needed Time/GCodes Time In: 1037 Time Out: 1054 Total Billed Treatment Time: 17 Total Billed Treatment 1 visit FA CHIP BROWN PT Sep 30, 2021 11:02
--- NOTE | 2021-09-30 11:53 | Tele-ICU Progress Note ---
Subjective Date Seen by a Provider: Sep 30, 2021 Time Seen by a Provider: 11:53 Sepsis Event Evaluation Height, Weight, BMI Height: 5'6.00" Weight: 225lbs. 0.0oz. 102.538706uc; 37.79 BMI Method:Stated Exam Exam Patient acknowledged, consented, and participated in this virtual visit which was conducted using real time audio/video Vital Signs Date Time Temp Pulse Resp B/P (MAP) Pulse Ox O2 Delivery O2 Flow Rate FiO2 09/30/21 11:00 81 17 141/77 97 High Flow N/C 3.00 09/30/21 10:00 87 10 148/74 96 High Flow N/C 3.00 09/30/21 09:00 84 19 138/73 96 High Flow N/C 3.00 09/30/21 08:50 96 Nasal Cannula 3.00 09/30/21 08:16 High Flow N/C 3.00 09/30/21 08:12 37.3 09/30/21 08:00 86 18 136/80 96 High Flow N/C 3.00 09/30/21 07:00 85 09/30/21 07:00 89 13 144/76 94 High Flow N/C 3.00 09/30/21 06:00 89 22 144/74 95 High Flow N/C 3.00 09/30/21 05:00 86 17 141/79 95 High Flow N/C 3.00 09/30/21 04:04 High Flow N/C 3.00 09/30/21 04:00 87 33 150/67 93 High Flow N/C 3.00 09/30/21 03:00 87 13 133/83 96 High Flow N/C 3.00 09/30/21 02:00 86 22 139/71 95 High Flow N/C 3.00 09/30/21 01:00 86 09/30/21 01:00 87 12 145/80 96 High Flow N/C 3.00 09/30/21 00:00 85 15 137/75 96 High Flow N/C 3.00 09/30/21 00:00 37.0 09/29/21 23:59 High Flow N/C 3.00 09/29/21 23:00 84 18 144/74 96 High Flow N/C 3.00 09/29/21 22:00 85 21 145/76 96 High Flow N/C 3.00 09/29/21 21:00 86 13 149/74 92 High Flow N/C 3.00 09/29/21 20:00 38.0 09/29/21 20:00 86 21 150/79 95 High Flow N/C 3.00 09/29/21 20:00 High Flow N/C 3.00 09/29/21 19:22 96 Nasal Cannula 3.00 09/29/21 19:00 93 09/29/21 19:00 89 18 138/76 96 High Flow N/C 3.00 09/29/21 18:00 90 11 155/75 96 High Flow N/C 3.00 09/29/21 17:00 89 17 169/88 96 High Flow N/C 3.00 09/29/21 16:00 86 20 143/82 97 High Flow N/C 3.00 09/29/21 15:52 High Flow N/C 3.00 09/29/21 15:31 36.3 89 93 32 09/29/21 15:25 36.3 09/29/21 15:20 High Flow N/C 3.00 09/29/21 15:00 89 29 149/83 93 High Flow N/C 3.00 09/29/21 14:39 94 Nasal Cannula 3.00 09/29/21 14:00 98 23 154/78 98 High Flow N/C 5.00 09/29/21 13:00 95 22 155/76 98 High Flow N/C 5.00 09/29/21 13:00 93 09/29/21 12:00 95 22 147/94 98 High Flow N/C 5.00 09/29/21 12:00 High Flow N/C 5.00 I & O 09/30/21 07:00 Intake Total 2519 ml Output Total 2675 ml Balance -156 ml Height & Weight Height: 5'6.00" Weight: 225lbs. 0.0oz. 102.876029in; 37.79 BMI Method:Stated General Appearance: No Apparent Distress, WD/WN, Chronically ill, Obese HEENT: PERRL/EOMI, Moist Mucous Membranes Neck: Supple Respiratory: No Accessory Muscle Use, No Respiratory Distress, Decreased Breath Sounds Cardiovascular: Regular Rate, Rhythm Capillary Refill: Less Than 3 Seconds Extremity: Normal Capillary Refill, Normal Inspection, Non Tender, No Calf Tenderness, Other (some swelling of legs noted, pt states it is slightly worse t laureano his chronic swelling. ) Neurologic/Psychiatric: Alert, Oriented x3 Skin: Normal Color, Warm/Dry Lymphatic: No Adenopathy Results Lab Laboratory Tests 09/29/21 04:13 09/30/21 05:02 Assessment/Plan Assessment/Plan (Tele-ICU Physician , Progress Note ) Available chart/ vitals / labs / Images reviewed Video assessment done using teleICU camera, rest of exam as per RN Discussed with RN , EXAM PER RN Events overnight : Afebrile FiO2 - 40% I/O = neg Drips: d5lr 40 cardene Pressors: , hemodynamically stable Consultants: Hospital course: (09/25) 66yr old male admitted with respiratory failure, pneumonia, and PE 09/26 - 40% 09/27 - 35 % - extubated -> bipap and cardene gtt 09/28- - VT 25L 50% now , will try bumex x1 09/29 - CARDIOVERSION , in sinus , cardene htt , VT 15L 35% A/P Acute respiratory failure -Intubated 40 % - extubated 09/27- went to BIPAP - ? pulmonary edema with HTN - diuresis > 5 L - 3 L , STRTING ON LASIX PO - cough with secretions suspected PE on admission - NO large vessels PE , can not be r/o small cliths in lower loves due to effusion/pna - US LE - neg DVT -lovenox 100 bid ( on AC for a -fib anyway HTN - started on cardene 09/27 - as per cads Shock on presentation - sepsi vs cardiogenic - RESOLVED will try not to VO with effusions /pulm HTN PNA - bilat infitrates on CT , with effusions - cont abx- ceftriaxone started 09/25 - await sputum cx CAD, elev trop - as per cardfs - EF 35-45% Pulm HTN - -previous RVSP 65-70 mmHg - IMPROVED TO 45 mmHG ON LAST ECHO ( -lovenox 100 bid - DOUBT PE - on AC for h/o AFIB CKD -? stable, improved , monitor with diuresis h/o a fib -AC with xarelto HOUSEMAID , lovenox now - amio gtt , po to resume today - cardioversion 09/29 Lines : (Central Line Necessity Reviewed) Engel: + OG: + Nutrition: tf Analgesia: Anxiety/ delirium VTE Prophylaxis: lovenox 100 bid Stress Ulcer Prophylaxis: ppi Plans in collaboration with bedside consultants and IM MDs. Discussed with RN to reach out if any questions or concerns A total of 33 minutes of critical care time was devoted to this patient today, required to treat and/or prevent further deterioration of critical care condition ( as above) RICK PARRA MD Sep 30, 2021 11:53
--- NOTE | 2021-09-30 12:07 | Occupational Ther Daily Note ---
OT Current Status-Daily Note Subjective Pt up in recliner, agreeable to OT tx. Pt states gout in his thumbs are causing him pain, and he had pain in his feet limiting his mobility. Mental Status/Objective Patient Orientation: Normal For Age Attachments: IV, Oxygen ADL-Treatment Therapy Code Descriptions/Definitions Functional [place] Measure: 0=Not Assessed/NA 4=Minimal Assistance 1=Total Assistance 5=Supervision or Setup 2=Maximal Assistance 6=Modified [place] 3=Moderate Assistance 7=Complete IndependenceSCALE: Activities may be completed with or without assistive devices. 3-Iquszhcuua-gaxeacd completes the activity by him/herself with no assistance from a helper. 5-Set-up or Clean-up Assistance-helper sets up or cleans up; patient completes activity. [place] assists only prior to or following the activity. 4-Supervision or Touching Assistance-helper provides verbal cues and/or touching/steadying and/or contact guard assistance as patient completes activity. Assistance may be provided throughout the activity or intermittently. 3-Partial/Moderate Assistance-helper does LESS THAN HALF the effort. [place] lifts, holds or supports trunk or limbs, but provides less than half the effort. 2-Substantial/Maximal Assistance-helper does MORE THAN HALF the effort. [place] lifts or holds trunk or limbs and provides more than half the effort. 6-Gzkwcrops-newipo does ALL the effort. Patient does none of the effort to complete the activity. Or, the assistance of 2 or more helpers is required for the patient to complete the activity. If activity was not attempted, code reason: 7-Patient Refused. 9-Not Applicable-not attempted and the patient did not perform the activity before the current illness, exacerbation or injury. 10-Not Attempted due to Environmental Limitations-(lack of equipment, weather restraints, etc.). 88-Not Attempted due to Medical Conditions or Safety Concerns. Oral Hygiene (QC): 3 (Min A, OT held basin for pt) Other Treatment Pt seated in recliner. Declined UE exercises, as he has been completing them within his room. Pt agreeable to brushing his teeth and washing his face. OT set up ADL tx, pt required assistance opening toothpaste. Pt was able to squeeze paste onto brush on this date, as OT held toothbrush for pt. Pt able to brush his teeth using RUE, He reached for cup to rinse his mouth. OT held basin for pt as he rinsed/spit. Pt handed washcloth, he washed his face with set up assistance, assistance provided after task to replace NC. Pt declined further activity at this time. Post tx, pt in recliner, call light in reach and all need met. Education OT Patient Education: Correct positioning, Energy conservation, Exercise program, Modified ADL techniques, Progress toward Goal/Update tx plan, Purpose of tx/functional activities, Rehab process Teaching Recipient: Patient Teaching Methods: Discussion Response to Teaching: Verbalize Understanding OT Licensing Worker Goals Licensing Worker Goals Time Frame: Oct 14, 2021 Eating (QC): 6 Oral Hygiene (QC): 6 Toileting Hygiene (QC): 6 Shower/Bathe Self (QC): 6 Upper Body Dressing (QC): 6 Lower Body Dressing (QC): 6 On/Off Footwear (QC): 6 Additional Goals: 1-Demonstrate ADL Tasks, 2-Verbalize Understanding, 3- ImproveStrength/Claudia 1=Demonstrate adherence to instructed precautions during ADL tasks. 2=Patient will verbalize/demonstrate understanding of assistive devices/modifications for ADL. 3=Patient will improve strength/tolerance for activity to enable patient to perform ADL's. OT Education/Plan Problem List/Assessment Assessment: Decreased Activ Tolerance, Decreased UE Strength, Impaired Coordination, Impaired Funct Balance, Impaired I ADL's, Impaired Self-Care Skills, Restricted Funct UE ROM Discharge Recommendations Plan/Recommendations: Continue POC Treatment Plan/Plan of Care Patient would benefit from OT for education, treatment and training to promote independence in ADL's, mobility, safety and/or upper extremity function for ADL's. Plan of Care: ADL Retraining, Functional Mobility, UE Funct Exercise/Act Treatment Duration: Oct 14, 2021 Frequency: 3 times per week (3-5 times per week) Rehab Potential: Fair Time/GCodes Start Time: 11:41 Stop Time: 11:50 Total Time Billed (hr/min): 9 Billed Treatment Time 1, ADL DONNY PLUNKETT OT Sep 30, 2021 12:07
[2021-09-30] MEDS: cloNIDine 0.2 MG (CATAPRES) TAB PO SCH ×2 (12:35→21:28)
--- NOTE | 2021-09-30 13:49 | Progress Note - Hospitalist ---
JAZMIN MOSS 09/30/21 1349: Subjective HPI/CC On Admission Date Seen by Provider: Sep 30, 2021 Time Seen by Provider: 09:00 CC: Respiratory failure HPI: This is a 66yoWM known to me from [facility] [place] Gates who presented to [facility] on a ventilator after intubation at [facility] for acute hypoxic respiratory elsa aram. His troponin was elevated. Cardiology has been consulted. CT Scan showed pulmonary emboli. [place] [address]. ABG is 7.35/44/78, and vent settings are 450/16/5/35%. He will be on a CPAP trial. Subjective/Events-last exam Patient had cardioversion yesterday for Afib, maintained now on amiodarone. Dr. Pimentel thinks patient had a type II ID due to acute respiratory failure. Patient is complaining today of gout flare up that started in his left thumb and has now spread to his right thumb. Patient has had this before. Will start on solumedrol and colchicine. Patient is still complaining of his cough. Says that he coughed up some bile/blood today. Review of Systems Pulmonary: Cough Cardiovascular: No: Chest Pain, Palpitations Gastrointestinal: No: Nausea, Vomiting Genitourinary: No Dysuria Objective Exam Vital Signs Vital Signs Date Time Temp Pulse Resp B/P (MAP) Pulse Ox O2 Delivery O2 Flow Rate FiO2 09/30/21 13:00 80 18 130/80 High Flow N/C 3.00 09/30/21 12:30 97 09/30/21 08:12 37.3 09/29/21 15:31 32 Capillary Refill : Less Than 3 Seconds General Appearance: No Apparent Distress, WD/WN Respiratory: Chest Non Tender, Lungs Clear, Normal Breath Sounds, No Accessory Muscle Use, No Respiratory Distress Cardiovascular: Regular Rate, Rhythm, Normal Peripheral Pulses Rectal: Deferred Neurologic/Psychiatric: Alert, Oriented x3, Normal Mood/Affect Results/Procedures Lab Laboratory Tests 09/30/21 05:02 Patient resulted labs reviewed. Assessment/Plan Assessment and Plan Assess & Plan/Chief Complaint Assessment Sepsis AFib Elevated Troponin - Dr. Pimentel believes type II ID secondary to hypoxia Hyperkalemia Acute Gout flare-up PE COPD CAD HTN CHF Hx ID Plan Cardioversion done today -Continue care per cardiology Solumedrol Colchicine D/C KCl Continue ICU care Critical Care: Critically Ill Patient FERNANDEZ,NELY MARQUEZ 10/01/21 0626: Subjective Subjective/Events-last exam Pt doing okay Transitioning Cardene to PO meds Lasix and Potassium ordered Cardioversion yesterday due to AF and now he is on Amiodarone Solumedrol and Colchicine initiated for a gout flare up in his left thumb Review of Systems General: Fatigue, Malaise Musculoskeletal: hand pain Objective Exam General Appearance: No Apparent Distress, WD/WN, Chronically ill, Obese Respiratory: Lungs Clear, Normal Breath Sounds Cardiovascular: Regular Rate, Rhythm Neurologic/Psychiatric: Alert, Oriented x3 Assessment/Plan Assessment and Plan Assess & Plan/Chief Complaint Count treatment Atrial fibrillation management appreciated Supervisory-Addendum Brief Verification & Attestation Participated in pt care: history, MDM, physical Personally performed: exam, history, MDM, supervision of care Care discussed with: Medical Student Procedures: n/a Results interpretation: Verified all documentation Verification and Attestation of Medical Student E/M Service A medical student performed and documented this service in my presence. I reviewed and verified all information documented by the medical student and made modifications to such information, when appropriate. I personally performed the physical exam and medical decision making. Nely Fernandez, Oct 01, 2021,06:25 JAZMIN MOSS Sep 30, 2021 13:49 NELY FERNANDEZ DO Oct 01, 2021 06:26
[2021-09-30] MEDS: KCL 10 MEQ TAB (MICRO K) PO SCH (17:06)
[2021-09-30] MEDS: FUROSEMIDE 40 MG (LASIX) TAB PO SCH (17:16)
[2021-10-01] MEDS: VASOPRESSIN INJECTION 20 UNIT in NS (IVPB) 100 ML IV SCH (02:03)
[2021-10-01 05:43] LABS: BASOPHILS % (AUTO) 0 % (0-10); EOSINOPHILS # (AUTO) 0.2 10^3/uL (0.0-0.3); EOSINOPHILS % (AUTO) 1 % (0-10); HEMATOCRIT 42 % (40-54); HEMOGLOBIN 13.7 g/dL (13.3-17.7); LYMPHOCYTES # (AUTO) 0.6 10^3/uL (1.0-4.0); LYMPHOCYTES % (AUTO) 4 % (12-44); MEAN CORPUSCULAR HEMOGLOBIN 31 pg (25-34); MEAN CORPUSCULAR HGB CONC 32 g/dL (32-36); MEAN CORPUSCULAR VOLUME 96 fL (80-99); MEAN PLATELET VOLUME 10.7 fL (9.0-12.2); MONOCYTES # (AUTO) 1.1 10^3/uL (0.0-1.0); MONOCYTES % (AUTO) 8 % (0-12); NEUTROPHILS # (AUTO) 11.6 10^3/uL (1.8-7.8); NEUTROPHILS % (AUTO) 85 % (42-75); PLATELET COUNT 238 10^3/uL (130-400); WHITE BLOOD COUNT 13.6 10^3/uL (4.3-11.0)
[2021-10-01] MEDS: KCL 20 MEQ TAB (K-DUR) PO SCH (06:35)
[2021-10-01] MEDS: POTASSIUM CL 10MEQ/50ML IVPB 50 ML IV SCH (06:35)
[2021-10-01] MEDS: FUROSEMIDE 40 MG (LASIX) TAB PO SCH (06:35)
[2021-10-01] MEDS: MAGNESIUM 1 GM/100 ML IVPB 100 ML IV SCH (06:35)
[2021-10-01 06:41] LABS: ALBUMIN 2.9 GM/DL (3.2-4.5); POTASSIUM 4.4 MMOL/L (3.6-5.0)
[2021-10-01 06:42] LABS: CALCIUM 9.4 MG/DL (8.5-10.1)
[2021-10-01] MEDS: inSUlin ASPART (NovoLOG) 1 UNIT/0.01 ML (CHARGE PER UNIT) SC SCH ×2 (06:42→11:20)
[2021-10-01 06:44] LABS: TOTAL PROTEIN 6.7 GM/DL (6.4-8.2)
[2021-10-01 06:45] LABS: BILIRUBIN,TOTAL 0.3 MG/DL (0.1-1.0)
[2021-10-01 06:47] LABS: CREATININE SERUM 0.87 MG/DL (0.60-1.30); PHOSPHORUS 3.9 MG/DL (2.3-4.7)
[2021-10-01 06:50] LABS: MAGNESIUM 2.5 MG/DL (1.6-2.4)
[2021-10-01 07:06] LABS: BAND NEUTROPHILS 4 %; LYMPHOCYTES % (MANUAL) 9 %; MONOCYTES % (MANUAL) 6 %; NEUTROPHILS % (MANUAL) 81 %; RBC MORPH NORMAL
[2021-10-01] MEDS: RT-ALBUTEROL/IPRATROPIUM 3 ML (DUONEB) VIAL INH SCH (07:38)
[2021-10-01] MEDS: niCARdipine IV 50 MG in NS (IVPB) 230 ML IV SCH (07:42)
[2021-10-01] MEDS: KCL 10 MEQ TAB (MICRO K) PO SCH (08:10)
[2021-10-01] MEDS: cloNIDine 0.2 MG (CATAPRES) TAB PO SCH (08:10)
[2021-10-01] MEDS: AMIODARONE 200 MG (CORDARONE) TAB PO SCH (08:10)
[2021-10-01] MEDS: cefTRIAXone 1 GM PRE-MIX 50 ML IV SCH (08:11)
[2021-10-01] MEDS: PANTOPRAZOLE 40 MG (PROTONIX) VIAL IV SCH (08:11)
[2021-10-01] MEDS ORDERED: lisINopril 40 MG (PRINIVIL) TABLET PO SCH (09:00)
--- NOTE | 2021-10-01 09:38 | Tele-ICU Progress Note ---
Progress Note video rounds completed 66 y/o transfered from OSH for Resp failure/ PNA/PE Now extubated On therapeutic lovenox for PE and a fib Had afib and was cardioverted PE: sitting up in chair VSS Assessment/Plan Assessment/Plan (Tele-ICU Physician , Progress Note ) Available chart/ vitals / labs / Images reviewed Video assessment done using teleICU camera, rest of exam as per RN Discussed with RN , EXAM PER RN Events overnight : Afebrile FiO2 - 40% I/O = neg Drips: d5lr 40 cardene Pressors: , hemodynamically stable Consultants: Hospital course: (09/25) 66yr old male admitted with respiratory failure, pneumonia, and PE 09/26 - 40% 09/27 - 35 % - extubated -> bipap and cardene gtt 09/28- - VT 25L 50% now , will try bumex x1 09/29 - CARDIOVERSION , in sinus , cardene htt , VT 15L 35% A/P Acute respiratory failure -Intubated 40 % - extubated 09/27- went to BIPAP - ? pulmonary edema with HTN - diuresis > 5 L - 3 L , STRTING ON LASIX PO - cough with secretions suspected PE on admission - NO large vessels PE , can not be r/o small clots in lower lobes due to effusion/pna - US LE - neg DVT -lovenox 100 bid ( on AC for a -fib anyway HTN - started on cardene 09/27 - as per cads Shock on presentation - sepsi vs cardiogenic - RESOLVED will try not to VO with effusions /pulm HTN PNA - bilat infitrates on CT , with effusions - cont abx- ceftriaxone started 09/25 - await sputum cx CAD, elev trop - as per cardfs - EF 35-45% Pulm HTN - -previous RVSP 65-70 mmHg - IMPROVED TO 45 mmHG ON LAST ECHO ( -lovenox 100 bid - h/o a fib s/p cardioversion, cardiology following Focused Exam Height, Weight, BMI Height: 5'6.00" Weight: 225lbs. 0.0oz. 102.127528vx; 37.79 BMI Method:Stated Laboratory Tests 10/01/21 05:15 10/01/21 06:13 Labs Labs Laboratory Tests 09/30/21 10:16: Glucometer 99 09/30/21 15:49: Glucometer 141H 09/30/21 20:34: Glucometer 151H 10/01/21 05:15: White Blood Count 13.6H, Red Blood Count 4.43, Hemoglobin 13.7, Hematocrit 42, Mean Corpuscular Volume 96, Mean Corpuscular Hemoglobin 31, Mean Corpuscular Hemoglobin Concent 32, Red Cell Distribution Width 14.1, Platelet Count 238, Mean Platelet Volume 10.7, Immature Granulocyte % (Auto) 1, Neutrophils (%) (Auto) 85H, Lymphocytes (%) (Auto) 4L, Monocytes (%) (Auto) 8, Eosinophils (%) (Auto) 1, Basophils (%) (Auto) 0, Neutrophils # (Auto) 11.6H, Lymphocytes # (Auto) 0.6L, Monocytes # (Auto) 1.1H, Eosinophils # (Auto) 0.2, Basophils # (Auto) 0.0, Immature Granulocyte # (Auto) 0.2H, Neutrophils % (Manual) 81, Lymphocytes % (Manual) 9, Monocytes % (Manual) 6, Band Neutrophils 4, Blood Morphology Comment NORMAL 10/01/21 06:13: Sodium Level 138, Potassium Level 4.4, Chloride Level 105, Carbon Dioxide Level 23, Anion Gap 10, Blood Urea Nitrogen 26H, Creatinine 0.87, Estimat Glomerular Filtration Rate 87, BUN/Creatinine Ratio 30, Glucose Level 124H, Calcium Level 9.4, Corrected Calcium 10.3H, Phosphorus Level 3.9, Magnesium Level 2.5H, Total Bilirubin 0.3, Aspartate Amino Transf (AST/SGOT) 50H, Alanine Aminotransferase (ALT/SGPT) 41, Alkaline Phosphatase 71, Total Protein 6.7, Albumin 2.9L 10/01/21 06:40: Glucometer 119H Microbiology 09/26/21 Gram Stain - Final, Complete 09/26/21 Sputum Culture - Final, Complete Usual upper respiratory emi 09/26/21 Blood Culture - Preliminary, Resulted No growth AILYN DAHL MD Oct 01, 2021 09:38
[2021-10-01] MEDS: ENOXAPARIN 300 MG/3 ML (LOVENOX) MULTI-DOSE VIAL SQ SCH (11:02)
[2021-10-01] MEDS ORDERED: COLC0.6C3 PO ×2 (11:03→18:13)
--- NOTE | 2021-10-01 11:09 | Discharge Summary ---
Discharge Summary Hospital Course Was the Problem List Reviewed?: Yes Hospital Course Date of Admission: Sep 25, 2021 at 22:31 Admission Diagnosis : Family Physician/Provider: Malina Gates MD Date of Discharge: 10/01/21 Discharge Diagnosis: [Acute respiratory failure ] A. fib-with RVR Malignant hypertension Acute flareup of gout Myocardial infarction type II secondary to respiratory failure Coronary artery disease with history of coronary artery bypass graft Hospital Course: [ ] This is a 66-year-old white male who was admitted intubated from [facility] for acute respiratory's failure. It was felt to be secondary to flash pulmonary edema. The patient does have a history of coronary artery disease and depressed ejection fraction of 40%. The patient was extubated without difficulty and underwent cardioversion for atrial fibrillation with RVR. He was placed on antibiotics for presumed sepsis at the time of admission. CT angiogram showed the possibility of small pulmonary emboli in the small dependent pulmonary arteries. Venous Doppler of the legs did not confirm any thrombus. The patient was placed on Xarelto for his atrial fibrillation which would cover the possibility of pulmonary emboli as well. The patient did deve lop a flare of gout before being transferred to the acute patient rehab for further physical therapy from weakness and deconditioning. Labs and Pending Lab Test: Laboratory Tests 09/30/21 15:49: Glucometer 141H 09/30/21 20:34: Glucometer 151H 10/01/21 05:15: White Blood Count 13.6H, Red Blood Count 4.43, Hemoglobin 13.7, Hematocrit 42, Mean Corpuscular Volume 96, Mean Corpuscular Hemoglobin 31, Mean Corpuscular Hemoglobin Concent 32, Red Cell Distribution Width 14.1, Platelet Count 238, Mean Platelet Volume 10.7, Immature Granulocyte % (Auto) 1, Neutrophils (%) (Auto) 85H, Lymphocytes (%) (Auto) 4L, Monocytes (%) (Auto) 8, Eosinophils (%) (Auto) 1, Basophils (%) (Auto) 0, Neutrophils # (Auto) 11.6H, Lymphocytes # (Auto) 0.6L, Monocytes # (Auto) 1.1H, Eosinophils # (Auto) 0.2, Basophils # (Auto) 0.0, Immature Granulocyte # (Auto) 0.2H, Neutrophils % (Manual) 81, Lymphocytes % (Manual) 9, Monocytes % (Manual) 6, Band Neutrophils 4, Blood Morphology Comment NORMAL 10/01/21 06:13: Sodium Level 138, Potassium Level 4.4, Chloride Level 105, Carbon Dioxide Level 23, Anion Gap 10, Blood Urea Nitrogen 26H, Creatinine 0.87, Estimat Glomerular Filtration Rate 87, BUN/Creatinine Ratio 30, Glucose Level 124H, Calcium Level 9.4, Corrected Calcium 10.3H, Phosphorus Level 3.9, Magnesium Level 2.5H, Total Bilirubin 0.3, Aspartate Amino Transf (AST/SGOT) 50H, Alanine Aminotransferase (ALT/SGPT) 41, Alkaline Phosphatase 71, Total Protein 6.7, Albumin 2.9L 10/01/21 06:40: Glucometer 119H Microbiology 09/26/21 Gram Stain - Final, Complete 09/26/21 Sputum Culture - Final, Complete Usual upper respiratory eim 09/26/21 Blood Culture - Preliminary, Resulted No growth Home Meds Active Colchicine 0.6 Mg Capsule 0.6 Mg PO DAILY 30 Days Reported Potassium Chloride 10 Meq Tab.er.prt 10 Meq PO BID Amiodarone HCl 200 Mg Tablet 100 Mg PO DAILY TAKES 1/2 OF A 200MG TABLET Furosemide 40 Mg Tablet 40 Mg PO BID Hydralazine HCl 10 Mg Tablet 10 Mg PO TID Lisinopril 40 Mg Tablet 40 Mg PO DAILY Clonidine HCl 0.2 Mg Tablet 0.2 Mg PO TID Xarelto (Rivaroxaban) 20 Mg Tablet 20 Mg PO DAILY IN EVENING Atorvastatin Calcium 40 Mg Tablet 40 Mg PO DAILY 40MG TABLET IN THE EVENING Assessment/Pt Instructions Sepsis AFib Elevated Troponin - Dr. Pimentel believes type II OH secondary to hypoxia Hyperkalemia Acute Gout flare-up COPD CAD HTN CHF Hx OH Discharge Planning: >30 minutes discharge planning Discharge Instructions Discharge Diet: Low Sodium Diet, Cardiac Diet Activity as Tolerated: Yes Consultations Cardiology Discharge Physical Examination Vital Signs Vital Signs Date Time Temp Pulse Resp B/P (MAP) Pulse Ox O2 Delivery O2 Flow Rate FiO2 10/01/21 10:00 66 36 134/72 95 High Flow N/C 2.00 10/01/21 07:29 35.9 09/29/21 15:31 32 General Appearance: No Apparent Distress HEENT: Normal ENT Inspection Respiratory: Lungs Clear, Normal Breath Sounds, No Accessory Muscle Use, No Respiratory Distress Cardiovascular: Regular Rate, Rhythm, No Gallop, Systolic Murmur Gastrointestinal: Normal Bowel Sounds, Soft Extremity: Pedal Edema Skin: Normal Color Neurologic/Psychiatric: Alert, Oriented x3, Normal Mood/Affect Allergies: Coded Allergies: amlodipine (Verified Allergy, Unknown, 05/14/19) Discharge Summary Date of Admission Sep 25, 2021 at 22:31 Date of Discharge Discharge Date: Oct 01, 2021 Discharge Time: 1200 Admission Diagnosis Assessment: Acute respiratory failure Ventilator dependence Hypertensive episode and [facility] Elevated troponin Plan: Supportive care Monitor closely TASIA HUITRON MD Oct 01, 2021 11:09
--- NOTE | 2021-10-01 13:39 | Progress Note - Cardiology ---
Cardiology SOAP Progress Note Subjective: No cp or palp or syncope No shortness of breath at rest No swelling No n/v/d Gen weakness and malaise present Objective: I&O/Vital Signs 10/01/21 10/01/21 10/01/21 10/01/21 02:00 03:00 04:00 04:00 Pulse 56 65 64 Resp 15 17 12 B/P (MAP) 130/72 147/82 148/86 Pulse Ox 98 98 99 O2 Delivery High Flow N/C High Flow N/C High Flow N/C High Flow N/C O2 Flow Rate 2.00 2.00 2.00 2.00 10/01/21 10/01/21 10/01/21 10/01/21 04:00 05:00 06:00 07:00 Temp 36.8 Pulse 63 65 64 Resp 28 22 B/P (MAP) 143/88 139/89 Pulse Ox 99 99 O2 Delivery High Flow N/C High Flow N/C High Flow N/C O2 Flow Rate 2.00 2.00 2.00 10/01/21 10/01/21 10/01/21 10/01/21 07:00 07:29 07:38 08:00 Temp 35.9 Pulse 58 76 Resp 21 29 B/P (MAP) 140/82 136/92 Pulse Ox 100 100 89 O2 Delivery High Flow N/C Nasal Cannula High Flow N/C O2 Flow Rate 2.00 2.00 2.00 10/01/21 10/01/21 10/01/21 10/01/21 08:20 09:00 10:00 11:00 Pulse 66 66 69 Resp 16 36 16 B/P (MAP) 135/78 134/72 138/75 Pulse Ox 93 95 93 O2 Delivery Room Air High Flow N/C High Flow N/C High Flow N/C O2 Flow Rate 2.00 2.00 2.00 10/01/21 00:00 Intake Total 900 ml Output Total 975 ml Balance -75 ml Weight (Pounds): 225 Weight (Ounces): 0.0 Weight (Calculated Kilograms): 102.320166 Constitutional: AAO x 3, well-developed, well-nourished Respiratory: No accessory muscle use; other (fair, bilateral air entry that is diminished at th ebases) Cardiovascular: regular rate-rhythm, S1 and S2, systolic murmur (soft GAUDENCIO at card basee) Gastrointestional: No tender; soft; No guarding, No rebound; audible bowel sounds Extremities: swelling (mild to mod, bilat leg swelling); No clubbing, No cyanosis Neurologic/Psychiatric: oriented x 3, other (moves all limbs equally) Skin: No rash on exposed areas, No ulcerations on exposed areas Results/Procedures: Labs Laboratory Tests 09/30/21 15:49: Glucometer 141H 09/30/21 20:34: Glucometer 151H 10/01/21 05:15: White Blood Count 13.6H, Red Blood Count 4.43, Hemoglobin 13.7, Hematocrit 42, Mean Corpuscular Volume 96, Mean Corpuscular Hemoglobin 31, Mean Corpuscular Hemoglobin Concent 32, Red Cell Distribution Width 14.1, Platelet Count 238, Mean Platelet Volume 10.7, Immature Granulocyte % (Auto) 1, Neutrophils (%) (Auto) 85H, Lymphocytes (%) (Auto) 4L, Monocytes (%) (Auto) 8, Eosinophils (%) (Auto) 1, Basophils (%) (Auto) 0, Neutrophils # (Auto) 11.6H, Lymphocytes # (Auto) 0.6L, Monocytes # (Auto) 1.1H, Eosinophils # (Auto) 0.2, Basophils # (Auto) 0.0, Immature Granulocyte # (Auto) 0.2H, Neutrophils % (Manual) 81, Lymphocytes % (Manual) 9, Monocytes % (Manual) 6, Band Neutrophils 4, Blood Morphology Comment NORMAL 10/01/21 06:13: Sodium Level 138, Potassium Level 4.4, Chloride Level 105, Carbon Dioxide Level 23, Anion Gap 10, Blood Urea Nitrogen 26H, Creatinine 0.87, Estimat Glomerular Filtration Rate 87, BUN/Creatinine Ratio 30, Glucose Level 124H, Calcium Level 9.4, Corrected Calcium 10.3H, Phosphorus Level 3.9, Magnesium Level 2.5H, Total Bilirubin 0.3, Aspartate Amino Transf (AST/SGOT) 50H, Alanine Aminotransferase (ALT/SGPT) 41, Alkaline Phosphatase 71, Total Protein 6.7, Albumin 2.9L 10/01/21 06:40: Glucometer 119H 10/01/21 11:30: Glucometer 126H Microbiology 09/26/21 Gram Stain - Final, Complete 09/26/21 Sputum Culture - Final, Complete Usual upper respiratory emi 09/26/21 Blood Culture - Preliminary, Resulted No growth A/P: Assessment: Acute respiratory failure due sepsis and pneumonia, resolved - managed by Dr Cobian Paroxysmal atrial fibrillation - NSR post cardioversion on 09/29/21 - has been on Xarelto since February 2019 Hypertension, controlled - not suitable for beta-haresh (bradycardia) or amlodipine (reports intoleran ce) Mild elevation in troponin, probably type II myocardial infarction secondary to respiratory failure. He has extensive coronary artery disease, conservative management is recommended at this time. Coronary artery disease, - H/o CABG - Last cardiac catheterization was done on August 31, 2016: patent DOMÍNGUEZ to LAD, patent vein graft to the obtuse marginal branch with small vessel disease with slower flow responded to intracoronary nitroglycerin and improvement of the flow. - Stress test done 05/28/17 revealed fixed defect with no ischemia or infarct. EF 47%. - Minimal troponin elevation during this admission with sepsis and ac resp failure: likely type 2 [place] due ac resp failure H/o chronic systolic congestive heart failure and mod pulm htn - Echo 09/26/21: LVEF 35-40%, PASP 45-50 mmHg Chronic leg edema Hyperlipidemia Mild bilateral carotid stenosis, nonobstructive disease - monitored by Dr Pimentel Right eye blindness, episode of left eye blurred vision occurred in the past. Workup has been negative. Tobaccoism, Patient has stopped smoking several years ago Gouty arthritis Plan: * I reviewed the records of his hospitalization and interviewed and examined him * I discussed his case with Dr Cobian * Continue current antihypertensive regimen, amiodarone, and oral anticoag KYUNG GASTELUM MD FACP FAC CCDS Oct 01, 2021 13:39
[2021-10-01] MEDS ORDERED: ZINC220T3 PO (18:20)
[2021-10-01] MEDS ORDERED: CYAN500T44 PO (18:20)
[2021-10-01] MEDS ORDERED: ERGO50CA PO (18:22)
== END 2021-10-01 11:40 | DRG 871 ==
LOC: ICU 22:31
PROVIDERS: ADMIT Internal Medicine; ATTEND Internal Medicine
PROC: 5A1945Z Respiratory Ventilation, 24-96 Consecutive Hours (ICD-10-PCS; principal; 2021-09-25)
PROC: 0BH17EZ Insertion of Endotracheal Airway into Trachea, Via Natural or Artificial Opening (ICD-10-PCS; 2021-09-25)
PROC: 5A09357 Assistance with Respiratory Ventilation, Less than 24 Consecutive Hours, Continuous Positive Airway Pressure (ICD-10-PCS; 2021-09-27)
PROC: 5A2204Z Restoration of Cardiac Rhythm, Single (ICD-10-PCS; 2021-09-29)
DX: A41.9 Sepsis, unspecified organism (principal); J18.9 Pneumonia, unspecified organism; J96.01 Acute respiratory failure with hypoxia; I21.A1 Myocardial infarction type 2; I26.99 Other pulmonary embolism without acute cor pulmonale; J96.02 Acute respiratory failure with hypercapnia; J44.0 Chronic obstructive pulmonary disease with (acute) lower respiratory infection; Z99.11 Dependence on respirator [ventilator] status; I50.22 Chronic systolic (congestive) heart failure; I25.10 Atherosclerotic heart disease of native coronary artery without angina pectoris; I11.0 Hypertensive heart disease with heart failure; I25.2 Old myocardial infarction; Z95.1 Presence of aortocoronary bypass graft; I48.91 Unspecified atrial fibrillation; E66.9 Obesity, unspecified; M10.9 Gout, unspecified; I27.20 Pulmonary hypertension, unspecified; Z95.5 Presence of coronary angioplasty implant and graft; M19.90 Unspecified osteoarthritis, unspecified site; E78.00 Pure hypercholesterolemia, unspecified; J20.9 Acute bronchitis, unspecified; E87.6 Hypokalemia; E87.5 Hyperkalemia; I65.23 Occlusion and stenosis of bilateral carotid arteries; H54.413A Blindness right eye category 3, normal vision left eye; F17.210 Nicotine dependence, cigarettes, uncomplicated
CPT/HCPCS: 36415; 71045; 71275; 80053; 82805; 82947; 83605; 83735; 84100; 84132; 84145; 84478; 84484; 85007; 85025; 85027; 85379; 87040; 87070; 87081; 87205; 93005; 93306; 93970; 94002; 94003; 94640; 94660; 94799

== ENCOUNTER 2021-10-01 09:44 | Inpatient (IN) | payer MEDICARE, OTHER ==
[~2021-10-01] VITALS: Ht 172 cm; Wt 108.3 kg
[~2021-10-01 09:44] MED LIST changes: +POTA10TA37 PO
[2021-10-01] MEDS ORDERED: DOCUSATE SODIUM 100 MG (COLACE) CAP PO PRN (11:00)
[2021-10-01] MEDS ORDERED: BISACODYL 10 MG SUPP (DULCOLAX) PR PRN ×2 (11:00→13:15)
[2021-10-01] MEDS ORDERED: ALPRAZolam 0.25 MG (XANAX) TAB PO PRN (11:00)
[2021-10-01] MEDS ORDERED: CALCIUM CARBONATE 500 MG (TUMS) TAB.CHEW PO PRN (11:00)
[2021-10-01] MEDS ORDERED: LOPERAMIDE 2 MG (IMODIUM) TABLET PO PRN (11:00)
[2021-10-01] MEDS ORDERED: MELATONIN 3 MG TABLET PO PRN (11:00)
[2021-10-01] MEDS ORDERED: diphenhydrAMINE 25 MG TAB (BENADRYL) PO PRN (11:00)
[2021-10-01] MEDS ORDERED: ONDANSETRON 4 MG (ZOFRAN) ORAL DISSOLVE TAB PO PRN ×2 (11:00→13:15)
[2021-10-01] MEDS ORDERED: LACTULOSE SYRUP 10GM/15ML (ENULOSE) 30ML UDC PO PRN (11:00)
[2021-10-01] MEDS ORDERED: FLEET ENEMA ADULT 1 EA BTL PR PRN (11:00)
[2021-10-01] MEDS ORDERED: COLC0.6C3 PO ×2 (11:03→18:13)
[2021-10-01 11:45] VITALS: BP 162/74
--- NOTE | 2021-10-01 12:56 | Physical Therapy Evaluation ---
PT Evaluation-General Medical Diagnosis Admission Date Oct 01, 2021 at 09:44 Medical Diagnosis: Debility Onset Date: Sep 27, 2021 Therapy Diagnosis Therapy Diagnosis: Gait deficit, strength deficit Height/Weight Height (Feet): 5 Height (Inches): 6.00 Weight (Pounds): 225 Weight (Ounces): 0.0 Precautions Precautions/Isolations: Fall Prevention, Standard Precautions Referral Physician: Dr. Cobian Reason for Referral: Evaluation/Treatment Medical History Pertinent Medical History: Atrial Fib, CABG, CAD, COPD, Heart Failure, [place], Smoking Social History Home: Single Level Current Living Status: Children Entry Into Home: Stairs With Railing PT Steps Into Home: 5 Prior Prior Level of Function SCALE: Activities may be completed with or without assistive devices. 5-Yvdkvhasql-jyjtpde completes the activity by him/herself with no assistance from a helper. 5-Set-up or Clean-up Assistance-helper sets up or cleans up; patient completes activity. [place] assists only prior to or following the activity. 4-Supervision or Touching Assistance-helper provides verbal cues and/or touching/steadying and/or contact guard assistance as patient completes activity. Assistance may be provided throughout the activity or intermittently. 3-Partial/Moderate Assistance-helper does LESS THAN HALF the effort. [place] lifts, holds or supports trunk or limbs, but provides less than half the effort. 2-Substantial/Maximal Assistance-helper does MORE THAN HALF the effort. [place] lifts or holds trunk or limbs and provides more than half the effort. 0-Govusewwz-nxjnuv does ALL the effort. Patient does none of the effort to complete the activity. Or, the assistance of 2 or more helpers is required for the patient to complete the activity. If activity was not attempted, code reason: 7-Patient Refused. 9-Not Applicable-not attempted and the patient did not perform the activity before the current illness, exacerbation or injury. 10-Not Attempted due to Environmental Limitations-(lack of equipment, weather restraints, etc.). 88-Not Attempted due to Medical Conditions or Safety Concerns. Bed Mobility: 6 Transfers (B,C,W/C): 6 Gait: 6 Stairs: 6 Indoor Mobility (Ambulation): Independent Stairs: Independent Prior Devices Use: None PT Evaluation-Current Subjective Patient reports 0/10 pain currently. Reports he is experiencing gout in his hands and feet, but has started receiving medications for it yesterday Objective Patient Orientation: Person, Place, Time, Situation ROM/Strength ROM Lower Extremities WFLs bilaterally all planes to AROM. Feet and legs are swollen but his overall ROM is still WFLs Strength Lower Extremities 3+/5 bilaterally all hip, knee and ankle planes Sensory Vision: Functional Hearing: Functional Sensation Right Lower Extremit: Intact Sensation Left Lower Extremity: Intact Transfers Roll Left & Right (QC): 3 Sit to Lying (QC): 3 Lying to Sitting/Side of Bed(Q: 3 Sit to Stand (QC): 3 Chair/Ris-fs-Wvyft Xfer(QC): 3 Toilet Transfer (QC): 3 Car Transfer (QC): 3 Gait Does the Patient Walk?: Yes Mode of Locomotion: Walk Anticipated Mode of Locomotion: Walk Walk 10 feet (QC): 4 Walk 50 ft with 2 Turns(QC): 4 Walk 150 ft (QC): 88 Walking 10ft/uneven surface-QC: 88 Distance: 60 feet Gait Assistive Device: FWW Wheelchair Training Does the Pt Use a Wheelchair?: No Wheel 50 ft with 2 turns (QC): 88 Wheel 150 ft (QC): 88 Stairs #of Steps: 0 1 Step (curb) (QC): 88 4 Steps (QC): 88 12 Steps (QC): 88 Balance Sitting Static: Good Sitting Dynamic: Good Standing Static: Fair Standing Dynamic: Fair Picking up an Object (QC): 88 Assessment/Needs Patient tolerated treatment fair. Demonstrates minimal overall improvement in bed mobility and transfers since evaluation in ICU. Patient performs all observed bed mobility and transfers with min A. He ambulates 60 feet x 2 with FWW, with CGA, and tech following with transport chair. Patient in chair post treatment with all needs met, nursing notified, call light in reach and all needs met. Rehab Potential: Good PT Short Term Goals Short Term Goals Time Frame: Oct 08, 2021 Roll Left & Right: 4 Sit to lyin Lying to sitting on side of be: 4 Sit to stand: 4 Chair/ocy-yl-ihjvb transfer: 4 Toilet transfer: 4 Car transfer: 4 Walk 10 feet: 5 Walk 50 feet with two turns: 5 Walk 150 feet: 5 PT Jail Goals Jail Goals PT Shoemaking Finisher Goals Time Frame: Oct 28, 2021 Roll Left & Right (QC): 6 Sit to Lying (QC): 6 Lying-Sitting on Side/Bed(QC): 6 Sit to Stand (QC): 6 Chair/Uel-pd-Nywfx Xfer(QC): 6 Toilet Transfer (QC): 6 Car Transfer (QC): 6 Does the Patient Walk: Yes Walk 10 feet (QC): 6 Walk 50ft with 2 Turns (QC): 6 Walk 150 ft (QC): 6 Walking 10ft on Uneven Surface: 4 1 Step (curb) (QC): 4 4 Steps (QC): 4 12 Steps (QC): 4 Picking up an Object (QC): 5 Does the Pt use WC or Scooter?: No Wheel 50 feet with 2 turns (QC: 88 Wheel 150 feet: 88 PT Plan Problem List Problem List: Activity Tolerance, Functional Strength, Safety, Balance, Gait, Transfer, Bed Mobility, ROM Treatment/Plan Treatment Plan: Continue Plan of Care Treatment Plan: Bed Mobility, Education, Functional Activity Claudia, Functional Strength, Gait, Safety, Therapeutic Exercise, Transfers Treatment Duration: Nov 12, 2021 Frequency: At least 5 of 7 days/Wk (IRF) Estimated Hrs Per Day: 1.5 hours per day Patient and/or Family Agrees t: Yes Safety Risks/Education Patient Education: Gait Training, Transfer Techniques Teaching Recipient: Patient Teaching Methods: Demonstration, Discussion Response to Teaching: Verbalize Understanding, Return Demonstration Time/GCodes Time In: 1142 Time Out: 1207 Total Billed Treatment Time: 25 Total Billed Treatment Visit, Jeanne Escobar JOHN A PT Oct 01, 2021 12:55
[2021-10-01] MEDS ORDERED: RT-ALBUTEROL SULF 2.5 MG/3 ML PRE-MIX VIAL INH PRN (13:15)
[2021-10-01] MEDS ORDERED: polyethylene glycoL POWDER 17 GM (MIRALAX) PACK PO PRN (13:15)
[2021-10-01] MEDS ORDERED: ONDANSETRON 4 MG/2 ML (SDV) Z0FRAN IV PRN (13:15)
[2021-10-01] MEDS ORDERED: ACETAMINOPHEN 325 MG TABLET PO PRN (13:15)
--- NOTE | 2021-10-01 13:17 | PM&R Post Admission Assessment ---
PM&R Date of Visit: Oct 01, 2021 Time of Visit: 13:15 History of Present Illness Chief complaint: Myopathy following critical illness History of present illness: This is a 66-year-old white male who presents to inpatient rehab following intubation due to respiratory failure from malignant hypertension and atrial fibrillation with rapid ventricular response. Patient was moved over to [facility] from [facility] after episode of respiratory failure and intubation. He required multiple IV medication for malignant and emergent hypertension including Cardene. Patient remained intubated for 3 days. He did have an episode of atrial fibrillation with rapid ventricular response status post cardioversion and placed on amiodarone. He did have a gout attack in his left thumb relieved with 1 dose of Solu-Medrol and 1 dose of colchicine. He will need aggressive rehabilitation in order to return back to independent living. Past Dnftkvy-Bqfiat-Wleqmv Hx Past Med/Social Hx: Reviewed Nursing Past Med/Soc Hx, Reviewed and Corrections made Patient Social History Marrital Status: Employed/Student: retired Smoking Status: Former Smoker Former Smoker, Quit: Aug 10, 2016 Type Used: Cigars, Cigarettes 2nd Hand Smoke Exposure: No Recent Hopitalizations: No Immunizations Up To Date Tetanus Booster (TDap): Less than 5yrs Date of Pneumonia Vaccine: May 14, 2018 Seasonal Allergies Seasonal Allergies: No Past Medical History Surgeries: Cardiac, CABG, Coronary Stent Currently Using CPAP: No Currently Using BIPAP: No Cardiac: High Cholesterol, Hypertension Reproductive: No Sexually Transmitted Disease: No HIV/AIDS: No Musculoskeletal: Arthritis, Gout Loss of Vision: Right Hearing Impairment: Denies History of Blood Disorders: No Adverse Reaction to Blood Watson: No Family History No Pertinent Family Hx Prior Level of Function Bed Mobility: 6 Transfers: 6 Gait: 6 Stairs: 6 Indoor Mobility (Ambulation): Independent Stairs: Independent Prior Devices Use: None Current Level of Fuctioning Roll Left to Right: 3 Sit to Lyin Lying to Sitting/Side of Bed: 3 Sit to Stand: 3 Chair/Mpy-do-Ylrkk Xfer: 3 Car Transfer: 3 Does the Patient Walk: Yes Mode of Locomotion: Walk Anticipated Mode of Locomotion: Walk Walk 10 feet: 4 Walk 50 ft with 2 Turns: 4 Walk 150 ft: 88 Walking 10ft on uneven surface: 88 Gait Assistive Device: FWW Does the Pt Use a Wheelchair: No Wheel 50 ft with 2 turns: 88 Wheel 150 ft: 88 #of Steps: 0 1 Step (curb): 88 4 Steps: 88 12 Steps: 88 Picking up an Object: 88 PM&R Allergy/Meds/Data Review Allergies Coded Allergies: amlodipine (Verified Allergy, Unknown, 05/14/19) Home Medications Scheduled Amiodarone HCl (Amiodarone HCl), 100 MG PO DAILY, (Reported) Atorvastatin Calcium (Atorvastatin Calcium), 40 MG PO DAILY, (Reported) Clonidine HCl (Clonidine HCl), 0.2 MG PO TID, (Reported) Colchicine (Colchicine), 0.6 MG PO DAILY Cyanocobalamin (Vitamin B-12) (B-12), 500 MCG PO DAILY Ergocalciferol (Vitamin D2) (Vitamin D2), 50 MCG PO DAILY Furosemide (Furosemide), 40 MG PO BID, (Reported) Hydralazine HCl (Hydralazine HCl), 10 MG PO TID, (Reported) Lisinopril (Lisinopril), 40 MG PO DAILY, (Reported) Potassium Chloride (Potassium Chloride), 10 MEQ PO BID, (Reported) Rivaroxaban (Xarelto), 20 MG PO DAILY IN EVENING, (Reported) Zinc Sulfate (Zinc), 50 MG PO DAILY Discontinued Medications Amiodarone HCl (Amiodarone HCl), 400 MG PO BID Discontinued Reason: No Longer Taking Aspirin (Aspirin EC), 81 MG PO DAILY, (Reported) Discontinued Reason: No Longer Taking Clonidine HCl (Clonidine HCl), (Reported) Discontinued Reason: No Longer Taking Furosemide (Furosemide), 40 MG PO BID Discontinued Reason: Duplicate Order Metoprolol Tartrate (Metoprolol Tartrate), 25 MG PO BID, (Reported) Discontinued Reason: No Longer Taking Potassium Chloride (Potassium Chloride), 10 MEQ PO DAILY, (Reported) Discontinued Reason: No Longer Taking Sulfamethoxazole/Trimethoprim (Bactrim Ds Tablet), 1 EACH PO BID Discontinued Reason: No Longer Taking Current Medications Current Medications Reviewed Review of Systems Constitutional: see HPI, malaise, weakness EENTM: no symptoms reported Respiratory: dyspnea on exertion Cardiovascular: no symptoms reported Gastrointestinal: no symptoms reported Genitourinary: no symptoms reported Musculoskeletal: back pain, joint pain Skin: no symptoms reported Psychiatric/Neurological: Anxiety, Depressed All Other Systems Reviewed Negative Unless Noted: Yes Physical Exam Physical Exam Vital Signs Vital Signs - First Documented 10/01/21 11:45 Pulse 72 Resp 20 B/P (MAP) 162/74 (103) Pulse Ox 95 O2 Delivery Room Air Capillary Refill : Height, Weight, BMI Height: 5'6.00" Weight: 225lbs. 0.0oz. 102.061617yh; 37.79 BMI Method:Stated General Appearance: No Apparent Distress, WD/WN, Anxious, Chronically ill, Obese Eyes: Bilateral Eye Normal Inspection, Bilateral Eye PERRL HEENT: PERRL/EOMI, Normal ENT Inspection, Pharynx Normal Neck: Full Range of Motion, Normal Inspection, Non Tender, Supple, Carotid Bruit Respiratory: Chest Non Tender, Lungs Clear, Normal Breath Sounds, No Accessory Muscle Use, No Respiratory Distress Cardiovascular: Regular Rate, Rhythm, No Edema, No Gallop, No JVD, No Murmur, Normal Peripheral Pulses Gastrointestinal: Normal Bowel Sounds, No Organomegaly, No Pulsatile Mass, Non Tender, Soft Back: Normal Inspection, No CVA Tenderness, No Vertebral Tenderness Extremity: Normal Capillary Refill, Normal Inspection, Normal Range of Motion, Non Tender, No Calf Tenderness, No Pedal Edema Neurologic/Psychiatric: Alert, Oriented x3, No Motor/Sensory Deficits, 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 Norm as Tested, Abnormal Gait, Depressed Affect, Motor Weakness (Generalized 4/5) Skin: Normal Color, Warm/Dry Lymphatic: No Adenopathy PM&R Medical Assessment & Plan REHAB/MEDICAL ASSESSMENT AND PLAN: 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 The comorbidities that impact the patients function and/or functional outcome by: Malignant hypertension, atrial fibrillation, CAD, suspected CHELSIE REHAB PLAN: The patient is being admitted to our comprehensive inpatient rehabilitation facility and can tolerate the intensity of service consisting of at least: 180 minutes of therapy a day, 5 out of 7 days a week Rehab treatment will consist of: PT and OT will focus on aggressive rehabilitation with use of assistive device in order to regain enough function to return to independent living The patient/family has a good understanding of our discharge process and will benefit from an interdisciplinary inpatient rehabilitation program. The patient has potential to make improvement and is in need of at least two of the following multidisciplinary therapies including but not limited to physical, occupational, speech, and prosthetics and orthotics. Additionally the patient will need services from respiratory, nutritional services, wound care, psychology, etc. (Customize this to each patient). Given the patients complex condition and risk of further medical complications, rehabilitation services cannot be safely or effectively provided at a lower level of care such as a care home facility. BARRIERS TO DISCHARGE: Severe weakness ESTIMATED LOS: 10 days DISPOSITION: Home RELEVANT CHANGES SINCE PREADMISSION SCREENING: I have compared the patients medical and functional status at the time of the preadmission screening and there are: No changes PROGNOSIS: Good REHABILITATION GOALS: 1.PT and OT will focus on aggressive rehabilitation with use of assistive device in order to regain enough function to return to independent living All the above goals were reviewed with the patient and he/she is in agreement. By signing this document, I acknowledge that I have personally performed a full physical examination on this patient within 24 hours of admission to this inpatient rehabilitation facility and have determined the patient to be able to tolerate the above course of treatment at an intensive level for a reasonable period of time. I will be completing a detailed individualized Plan of Care for this patient by day #4 of the patients stay based upon the Preadmission Screen, the Post-Admission Evaluation, and the therapy evaluations. Admission Dx/Comorbidities: (1) Acute respiratory failure with hypoxia and hypercapnia ICD Codes: J96.01 - Acute respiratory failure with hypoxia; J96.02 - Acute respiratory failure with hypercapnia (2) Afib ICD Codes: I48.91 - Unspecified atrial fibrillation (3) CHF (congestive heart failure) Status: Acute (4) Bilateral leg edema Status: Acute (5) Hypertensive urgency, malignant Status: Acute Assessment/Plan Assessment and Plan Assess & Plan/Chief Complaint Assessment: 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 Status post intubation due to respiratory failure intubated at [facility] ER Congestive heart failure Atrial fibrillation with rapid ventricular response status post cardioversion placed on amiodarone Gout with acute gout flare Engel catheter now DC Anxiety with panic attacks Anemia Malignant hypertension requiring Cardene drip Plan: Supportive care Aggressive rehab Home meds Gout treatment KAMLA FERNANDEZ DO Oct 01, 2021 13:17
[2021-10-01] MEDS: inSUlin ASPART (NovoLOG) 1 UNIT/0.01 ML (CHARGE PER UNIT) SC SCH ×2 (16:56→23:13)
[2021-10-01] MEDS: FUROSEMIDE 40 MG (LASIX) TAB PO SCH (17:13)
[2021-10-01] MEDS: KCL 10 MEQ TAB (MICRO K) PO SCH (17:14)
[2021-10-01] MEDS: RIVAROXABAN 20 MG TABLET (XARELTO) PO SCH (17:14)
[2021-10-01] MEDS ORDERED: ZINC220T3 PO (18:20)
[2021-10-01] MEDS ORDERED: CYAN500T44 PO (18:20)
[2021-10-01] MEDS ORDERED: ERGO50CA PO (18:22)
[2021-10-01 20:00] VITALS: BP 153/80
[2021-10-01] MEDS: polyethylene glycoL POWDER 17 GM (MIRALAX) PACK PO SCH (21:00)
[2021-10-01] MEDS: DOCUSATE SODIUM 100 MG (COLACE) CAP PO SCH (21:47)
[2021-10-01] MEDS: cloNIDine 0.2 MG (CATAPRES) TAB PO SCH (21:47)
[2021-10-01] MEDS: SENNA W/DOCUSATE (SENOKOT S) TABLET PO SCH (21:47)
[2021-10-01] MEDS: RT-ALBUTEROL/IPRATROPIUM 3 ML (DUONEB) VIAL INH SCH (22:26)
[2021-10-02 01:40] VITALS: BP 162/74
[2021-10-02 06:05] LABS: BASOPHILS % (AUTO) 0 % (0-10); EOSINOPHILS # (AUTO) 0.1 10^3/uL (0.0-0.3); EOSINOPHILS % (AUTO) 1 % (0-10); HEMATOCRIT 37 % (40-54); HEMOGLOBIN 12.1 g/dL (13.3-17.7); LYMPHOCYTES # (AUTO) 1.1 10^3/uL (1.0-4.0); LYMPHOCYTES % (AUTO) 12 % (12-44); MEAN CORPUSCULAR HEMOGLOBIN 31 pg (25-34); MEAN CORPUSCULAR HGB CONC 32 g/dL (32-36); MEAN CORPUSCULAR VOLUME 95 fL (80-99); MEAN PLATELET VOLUME 10.4 fL (9.0-12.2); MONOCYTES # (AUTO) 0.9 10^3/uL (0.0-1.0); MONOCYTES % (AUTO) 9 % (0-12); NEUTROPHILS # (AUTO) 7.4 10^3/uL (1.8-7.8); NEUTROPHILS % (AUTO) 77 % (42-75); PLATELET COUNT 271 10^3/uL (130-400); WHITE BLOOD COUNT 9.7 10^3/uL (4.3-11.0)
[2021-10-02 06:12] LABS: ALBUMIN 2.8 GM/DL (3.2-4.5)
[2021-10-02 06:14] LABS: CALCIUM 9.4 MG/DL (8.5-10.1)
[2021-10-02 06:15] LABS: TOTAL PROTEIN 6.3 GM/DL (6.4-8.2)
[2021-10-02 06:17] LABS: BILIRUBIN,TOTAL 0.3 MG/DL (0.1-1.0)
[2021-10-02 06:18] LABS: CREATININE SERUM 0.97 MG/DL (0.60-1.30)
[2021-10-02] MEDS: inSUlin ASPART (NovoLOG) 1 UNIT/0.01 ML (CHARGE PER UNIT) SC SCH ×2 (06:31→11:53)
[2021-10-02 07:30] VITALS: BP 161/89
[2021-10-02] MEDS: KCL 10 MEQ TAB (MICRO K) PO SCH ×2 (08:38→17:52)
[2021-10-02] MEDS: FUROSEMIDE 40 MG (LASIX) TAB PO SCH ×2 (08:38→17:52)
[2021-10-02] MEDS: AMIODARONE 200 MG (CORDARONE) TAB PO SCH (08:38)
[2021-10-02] MEDS: PANTOPRAZOLE 40 MG (PROTONIX) TAB PO SCH (08:39)
[2021-10-02] MEDS: lisINopril 40 MG (PRINIVIL) TABLET PO SCH (08:40)
[2021-10-02] MEDS: cloNIDine 0.2 MG (CATAPRES) TAB PO SCH ×3 (08:52→21:33)
[2021-10-02] MEDS: SENNA W/DOCUSATE (SENOKOT S) TABLET PO SCH ×2 (10:05→19:58)
[2021-10-02] MEDS: DOCUSATE SODIUM 100 MG (COLACE) CAP PO SCH ×2 (10:05→19:57)
[2021-10-02] MEDS: polyethylene glycoL POWDER 17 GM (MIRALAX) PACK PO SCH ×2 (10:05→19:58)
[2021-10-02] MEDS: guaiFENesin/CODEINE (ROBITUSSIN AC) 10ML UDC PO PRN ×2 (10:08→21:33)
[2021-10-02] MEDS: ACETAMINOPHEN 325 MG TABLET PO PRN ×2 (10:26→17:51)
[2021-10-02] MEDS: RT-ALBUTEROL/IPRATROPIUM 3 ML (DUONEB) VIAL INH SCH ×2 (11:00→19:02)
--- NOTE | 2021-10-02 12:22 | Individualized Plan of Care ---
Individualized Plan of Care Rehab Nursing IPOC Order Admission Date Oct 01, 2021 at 09:44 Current Orders Orders Admission Order(Inpt,Obs,Sdc) (10/01/21 10:54) Vital Signs: Per Unit Policy ( ,, (10/01/21 10:54) Jake Qureshi (10/01/21 10:54) Sequential Compression Device (10/01/21 10:54) Knowledge Manager-Inpt Rehab Con (10/01/21 10:54) Rehab Nursing Orders-Ipoc (10/01/21 10:54) Physical Therapy Rehab Orders (10/01/21 10:54) Occupational Therapy Rehab Ord (10/01/21 10:54) Speech Therapy Rehab Orders (10/01/21 10:54) Cbc With Automated Diff (10/02/21 06:00) Comprehensive Metabolic Panel (10/02/21 06:00) Precautions (Aru) (10/01/21 10:54) Weekly Weight WEEK (10/01/21 10:54) Rehab-Intensity Of Therapy (10/01/21 10:54) Initiate Admission Nursing Pro .admission (10/01/21 10:54) Alprazolam Tablet (Xanax Tablet) (10/01/21 11:00) Calcium Carbonate Chew Tablet (Antacid C (10/01/21 11:00) Diphenhydramine Tablet (Benadryl Tablet) (10/01/21 11:00) Docusate Sodium Capsule (Colace Capsule) (10/01/21 21:00) Docusate Sodium Capsule (Colace Capsule) (10/01/21 11:00) Bisacodyl Suppository (Dulcolax Supposit (10/01/21 11:00) Lactulose Oral Solution (Enulose Oral So (10/01/21 11:00) Na Phos/Na Biphos Enema (Fleet Enema El (10/01/21 11:00) Guaifenesin/Codeine Syrup (Robitussin Ac (10/01/21 11:00) Loperamide Tablet (Imodium Tablet) (10/01/21 11:00) Melatonin Tablet (Melatonin Tablet) (10/01/21 11:00) Polyethylene Glycol Powder Pkt (Miralax (10/01/21 21:00) Ondansetron Oral Dissolve Tab (Zofran (10/01/21 11:00) Senna S Tablet (Senokot S Tablet) (10/01/21 21:00) Acetaminophen Tablet/Caplet (Tylenol T (10/01/21 11:00) Code/Resuscitation (10/01/21 10:54) Sequential Compression Device ONCE (10/01/21 10:54) Patient Visit (10/01/21 ) Pt Eval Low Complexity (10/01/21 ) Gait Training, Ea 15 Min (10/01/21 ) Code/Resuscitation (10/01/21 13:06) Catheter(Urinary) Discontinue (10/01/21 13:06) Albuterol Pre-Mix Nebs (Rt) (Proventil (10/01/21 13:15) Albuterol/Ipra Inhalation Soln (Duoneb I (10/01/21 21:00) Amiodarone Tablet (Cordarone Tablet) (10/02/21 09:00) Bisacodyl Suppository (Dulcolax Supposit (10/01/21 13:15) Furosemide Tablet (Lasix Tablet) (10/01/21 17:00) Polyethylene Glycol Powder Pkt (Miralax (10/01/21 13:15) Insulin Aspart (Novolog) (Novolog (Charg (10/01/21 16:00) Potassium Chloride (Tablet) (Klor Con Ta (10/01/21 18:00) Acetaminophen Tablet/Caplet (Tylenol T (10/01/21 13:15) Ondansetron Injection (Zofran Injectio (10/01/21 13:15) Ondansetron Oral Dissolve Tab (Zofran (10/01/21 13:15) Clonidine Tablet (Catapres Tablet) (10/01/21 21:00) Hydralazine Tablet (Apresoline Tablet) (10/01/21 21:00) Lisinopril Tablet (Zestril Tablet) (10/02/21 09:00) Consult Cardiology (10/01/21 13:06) Mat Initiate Protocol (10/01/21 13:06) Svn Small Volume Nebulizer (10/01/21 13:06) Svn Small Volume Nebulizer (10/01/21 13:06) Pantoprazole Tablet (Protonix Tablet) (10/02/21 09:00) Rivaroxaban Tablet (Xarelto Tablet) (10/01/21 17:00) Hydralazine Tablet (Apresoline Tablet) (10/01/21 21:00) Heart Healthy (10/01/21 Dinner) Ensure Plus Variety (10/01/21 17:54) Hydrocodone/Apap 5/325 Tablet (Lortab 5 (10/02/21 13:30) Methylprednisolone Sod Succ (Solu-Medrol (10/02/21 13:30) Atorvastatin Tablet (Lipitor Tablet) (10/03/21 09:00) Clonidine Tablet (Catapres Tablet) (10/02/21 21:00) Furosemide Tablet (Lasix Tablet) (10/02/21 21:00) Cyanocobalamin Tablet (Vitamin B-12 Tabl (10/03/21 09:00) (Nf) Ergocalciferol (Vitamin D2) (Vitami (10/03/21 09:00) Potassium Chloride (Tablet) (Klor Con Ta (10/02/21 21:00) Zinc Sulfate Capsule (Zinc 50 Mg Capsule (10/03/21 09:00) Colchicine Tablet (Colcrys Tablet) (10/03/21 09:00) Patient Visit (10/03/21 ) Speech Sound Lang Comp (10/03/21 ) Treat. Speech/Lang/Voice (10/03/21 ) Patient Visit (10/03/21 ) Exercise Therap, Ea 15 Min (10/03/21 ) Gait Training, Ea 15 Min (10/03/21 ) Patient Visit (10/03/21 ) Gait Training, Ea 15 Min (10/03/21 ) Rehab Nursing Orders: Ongoing Assess. of Cognitive Status, Ongoing Assess. of Function Status, Bladder Management, Bladder Scan, Bladder Training, Bowel Management, Bowel Training, Disease Management & Educaiton, DVT Prophylaxis, Fall Prevention, Fluid/Electrolyte/Nutrition Mgmt, Infection Prevention, Medication Management & Education, Management of Risks & Complications, Management of Skin Intergrity, Nutrition Management, Pain Management, Patient/Family Support, Safety Management Intensity of Therapy to be met Patient to be seen: Min.3h per day/5 of 7d PT IPOC Problem List: Activity Tolerance, Functional Strength, Safety, Balance, Gait, Transfer, Bed Mobility, ROM Treatment Plan: Continue Plan of Care Bed Mobility, Education, Functional Activity Claudia, Functional Strength, Gait, Safety, Therapeutic Exercise, Transfers Treatment Duration: Nov 12, 2021 Frequency: At least 5 of 7 days/Wk (IRF) Estimated Hrs Per Day: 1.5 hours per day OT IPOC Problems: Decreased Activ Tolerance, Decreased Safety Aware, Decreased UE Strength, Impaired I ADL's OT Treatment, Training and Edu: Yes Plan of Care: ADL Retraining, Cognitive Retraining, Functional Mobility Treatment Duration: Oct 03, 2021 Frequency: 5 times per week Estimated Hrs Per Day: [address] IPOC Speech Therapy Treatment Plan: Discontinue ST Treatment Duration: Oct 03, 2021 Frequency: Modified Program (IRF) Estimated Hrs Per Day: Other Knowledge Manager/Case Mgmt Knowledge Manager/Case Managemen: Discharge Planning Dietitian/C[employer]worx Piping Designer Dietitian/C[employer]worx Piping Designer to monitor nutritional status and make changes and/or recommendations as needed and work with speech pathology on dietary upgrades as the occur. Physician IPOC Medical Issues being managed closely and that require the 24 hour availability of a physician: Recent critical illness requiring intubation with malignant hypertension will require close monitoring and multiple medication adjustments in order to prevent decompensation again Medical Issues: Bowel/Bladder Function, DVT Prophylaxis, Falls Precautions, Fluid/Electrolyte/Nutrition Balance, Infection Protection, Pain Management Brief Synthesis of Preadmission Screen, Post-Admission Evaluation, and Therapy Evaluations: PT and OT will focus on regaining function in order to return back to independent living with use of a walker and increase independence in ADLs Medical Prognosis: Good Anticipated Length of Stay: 6 days KAMLA FERNANDEZ DO Oct 02, 2021 12:22
--- NOTE | 2021-10-02 12:22 | PM&R Progress Note ---
Subjective HPI/CC On Admission Date Seen by Provider: Oct 02, 2021 Time Seen by Provider: 12:00 Subjective/Events-last exam 10/02/2021: Patient doing really well Walking around with nurse Complains of gout and widespread joint pain Added hydrocodone at his request Solu-Medrol given Bowels are moving Voiding well Review of Systems General: Fatigue, Malaise Musculoskeletal: neck pain, shoulder pain, arm pain, back pain, hand pain, leg pain, foot pain Objective Exam Vital Signs Vital Signs Date Time Temp Pulse Resp B/P (MAP) Pulse Ox O2 Delivery O2 Flow Rate FiO2 10/02/21 20:10 Room Air 10/02/21 20:00 37.0 63 18 134/76 (95) 91 10/02/21 01:40 21 Capillary Refill : General Appearance: No Apparent Distress, WD/WN, Anxious, Chronically ill, Obese HEENT: PERRL/EOMI, Normal ENT Inspection, Pharynx Normal Neck: Full Range of Motion, Normal Inspection, Non Tender, Supple, Carotid Bruit Respiratory: Chest Non Tender, Lungs Clear, Normal Breath Sounds, No Accessory Muscle Use, No Respiratory Distress Cardiovascular: Regular Rate, Rhythm, No Edema, No Gallop, No JVD, No Murmur, Normal Peripheral Pulses Gastrointestinal: Normal Bowel Sounds, No Organomegaly, No Pulsatile Mass, Non Tender, Soft Back: Normal Inspection, No CVA Tenderness, No Vertebral Tenderness Extremity: Normal Capillary Refill, Normal Inspection, Normal Range of Motion, Non Tender, No Calf Tenderness, No Pedal Edema Neurologic/Psychiatric: Alert, Oriented x3, No Motor/Sensory Deficits, 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 FIM Transfers Therapy Code Descriptions/Definitions Functional [place] Measure: 0=Not Assessed/NA 4=Minimal Assistance 1=Total Assistance 5=Supervision or Setup 2=Maximal Assistance 6=Modified [place] 3=Moderate Assistance 7=Complete IndependenceSCALE: Activities may be completed with or without assistive devices. 5-Wohhktvaud-bouiuie completes the activity by him/herself with no assistance from a helper. 5-Set-up or Clean-up Assistance-helper sets up or cleans up; patient completes activity. [place] assists only prior to or following the activity. 4-Supervision or Touching Assistance-helper provides verbal cues and/or touc manuel/steadying and/or contact guard assistance as patient completes activity. Assistance may be provided throughout the activity or intermittently. 3-Partial/Moderate Assistance-helper does LESS THAN HALF the effort. [place] lifts, holds or supports trunk or limbs, but provides less than half the effort. 2-Substantial/Maximal Assistance-helper does MORE THAN HALF the effort. [place] lifts or holds trunk or limbs and provides more than half the effort. 2-Mxzmkmher-zebgvh does ALL the effort. Patient does none of the effort to complete the activity. Or, the assistance of 2 or more helpers is required for the patient to complete the activity. If activity was not attempted, code reason: 7-Patient Refused. 9-Not Applicable-not attempted and the patient did not perform the activity before the current illness, exacerbation or injury. 10-Not Attempted due to Environmental Limitations-(lack of equipment, weather restraints, etc.). 88-Not Attempted due to Medical Conditions or Safety Concerns. Roll Left to Right (QC): 3 Sit to Lying (QC): 3 Sit to Stand (QC): 3 Chair/Puj-ag-Gwmlb Xfer(QC): 3 Car Transfer (QC): 3 Gait Training Does the Patient Walk?: Yes Walk 10 feet (QC): 4 Walk 50 ft with 2 Turns(QC): 4 Walk 150 ft (QC): 88 Walking 10ft/uneven surface-QC: 88 Gait Assistive Device: FWW Wheelchair Training Does the Pt Use a Wheelchair?: No Wheel 50 ft with 2 turns (QC): 88 Wheel 150 ft (QC): 88 Stair Training #of Steps: 0 1 Step (curb) (QC): 88 4 Steps (QC): 88 12 Steps (QC): 88 Balance Picking up an Object (QC): 88 Assessment/Plan Assessment and Plan Assess & Plan/Chief Complaint Assessment: 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 Status post intubation due to respiratory failure intubated at [facility] ER Congestive heart failure Atrial fibrillation with rapid ventricular response status post cardioversion placed on amiodarone Gout with acute gout flare Engel catheter now DC Anxiety with panic attacks Anemia Malignant hypertension requiring Cardene drip Plan: Supportive care Aggressive rehab Home meds Gout treatment 10/02/2021: Supportive care Gout treatment (1) Acute respiratory failure with hypoxia and hypercapnia (2) Afib (3) CHF (congestive heart failure) Status: Acute (4) Bilateral leg edema Status: Acute (5) Hypertensive urgency, malignant Status: Acute KAMLA FERNANDEZ DO Oct 02, 2021 12:22
[2021-10-02] MEDS ORDERED: methylPREDNISolone 40 MG/ML (Solu-MEDROL) VIAL IV ONE (13:30)
[2021-10-02] MEDS: HYDROcodone/APAP 5 MG/325 MG (LORTAB) TAB PO PRN ×2 (13:44→21:33)
[2021-10-02] MEDS: RIVAROXABAN 20 MG TABLET (XARELTO) PO SCH (17:52)
[2021-10-02 20:00] VITALS: BP 134/76
[2021-10-02] MEDS ORDERED: KCL 10 MEQ TAB (MICRO K) PO SCH (21:00)
[2021-10-02] MEDS ORDERED: cloNIDine 0.2 MG (CATAPRES) TAB PO SCH (21:00)
[2021-10-02] MEDS ORDERED: FUROSEMIDE 40 MG (LASIX) TAB PO SCH (21:00)
[2021-10-03] MEDS: FUROSEMIDE 40 MG (LASIX) TAB PO SCH ×2 (06:44→17:20)
[2021-10-03 07:31] VITALS: BP 180/90
[2021-10-03] MEDS: cloNIDine 0.2 MG (CATAPRES) TAB PO SCH ×3 (07:49→20:15)
[2021-10-03] MEDS: lisINopril 40 MG (PRINIVIL) TABLET PO SCH (07:50)
[2021-10-03] MEDS: DOCUSATE SODIUM 100 MG (COLACE) CAP PO SCH ×2 (07:51→20:16)
[2021-10-03] MEDS: RT-ALBUTEROL/IPRATROPIUM 3 ML (DUONEB) VIAL INH SCH ×2 (07:53→19:58)
[2021-10-03] MEDS: SENNA W/DOCUSATE (SENOKOT S) TABLET PO SCH ×2 (08:09→20:17)
[2021-10-03] MEDS: polyethylene glycoL POWDER 17 GM (MIRALAX) PACK PO SCH ×2 (08:09→20:16)
--- NOTE | 2021-10-03 08:45 | PM&R Progress Note ---
Subjective HPI/CC On Admission Date Seen by Provider: Oct 03, 2021 Time Seen by Provider: 09:00 Subjective/Events-last exam 10/03/2021: Pt doing well Feels pretty good with his gout Colchicine will be ordered BP was high before meds given Checked meds and labs Moving around pretty well 10/02/2021: Patient doing really well Walking around with nurse Complains of gout and widespread joint pain Added hydrocodone at his request Solu-Medrol given Bowels are moving Voiding well Review of Systems General: Fatigue, Malaise Musculoskeletal: hand pain, leg pain Objective Exam Vital Signs Vital Signs Date Time Temp Pulse Resp B/P (MAP) Pulse Ox O2 Delivery O2 Flow Rate FiO2 10/03/21 20:30 Room Air 10/03/21 19:58 94 10/03/21 19:50 36.4 53 16 104/69 (81) 10/02/21 01:40 21 Capillary Refill : General Appearance: No Apparent Distress, WD/WN, Anxious, Chronically ill, Obese HEENT: PERRL/EOMI, Normal ENT Inspection, Pharynx Normal Neck: Full Range of Motion, Normal Inspection, Non Tender, Supple, Carotid Bruit Respiratory: Chest Non Tender, Lungs Clear, Normal Breath Sounds, No Accessory Muscle Use, No Respiratory Distress Cardiovascular: Regular Rate, Rhythm, No Edema, No Gallop, No JVD, No Murmur, Normal Peripheral Pulses Gastrointestinal: Normal Bowel Sounds, No Organomegaly, No Pulsatile Mass, Non Tender, Soft Back: Normal Inspection, No CVA Tenderness, No Vertebral Tenderness Extremity: Normal Capillary Refill, Normal Inspection, Normal Range of Motion, Non Tender, No Calf Tenderness, No Pedal Edema Neurologic/Psychiatric: Alert, Oriented x3, No Motor/Sensory Deficits, 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 FIM Transfers Therapy Code Descriptions/Definitions Functional [place] Measure: 0=Not Assessed/NA 4=Minimal Assistance 1=Total Assistance 5=Supervision or Setup 2=Maximal Assistance 6=Modified [place] 3=Moderate Assistance 7=Complete IndependenceSCALE: Activities may be completed with or without assistive devices. 9-Xjvpccmxpb-gzzktzk completes the activity by him/herself with no assistance from a helper. 5-Set-up or Clean-up Assistance-helper sets up or cleans up; patient completes activity. [place] assists only prior to or following the activity. 4-Supervision or Touching Assistance-helper provides verbal cues and/or touching/steadying and/or contact guard assistance as patient completes activity. Assistance may be provided throughout the activity or intermittently. 3-Partial/Moderate Assistance-helper does LESS THAN HALF the effort. [place] lifts, holds or supports trunk or limbs, but provides less than half the effort. 2-Substantial/Maximal Assistance-helper does MORE THAN HALF the effort. [place] lifts or holds trunk or limbs and provides more than half the effort. 7-Wrhalnzcs-ipuyoo does ALL the effort. Patient does none of the effort to complete the activity. Or, the assistance of 2 or more helpers is required for the patient to complete the activity. If activity was not attempted, code reason: 7-Patient Refused. 9-Not Applicable-not attempted and the patient did not perform the activity before the current illness, exacerbation or injury. 10-Not Attempted due to Environmental Limitations-(lack of equipment, weather restraints, etc.). 88-Not Attempted due to Medical Conditions or Safety Concerns. Roll Left to Right (QC): 3 Sit to Lying (QC): 3 Sit to Stand (QC): 3 Chair/Aup-dc-Uhhvg Xfer(QC): 3 Car Transfer (QC): 3 Gait Training Does the Patient Walk?: Yes Walk 10 feet (QC): 4 Walk 50 ft with 2 Turns(QC): 4 Walk 150 ft (QC): 88 Walking 10ft/uneven surface-QC: 88 Gait Assistive Device: FWW Wheelchair Training Does the Pt Use a Wheelchair?: No Wheel 50 ft with 2 turns (QC): 88 Wheel 150 ft (QC): 88 Stair Training #of Steps: 0 1 Step (curb) (QC): 88 4 Steps (QC): 88 12 Steps (QC): 88 Balance Picking up an Object (QC): 88 Assessment/Plan Assessment and Plan Assess & Plan/Chief Complaint Assessment: 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 Status post intubation due to respiratory failure intubated at [facility] ER Congestive heart failure Atrial fibrillation with rapid ventricular response status post cardioversion placed on amiodarone Gout with acute gout flare Engel catheter now DC Anxiety with panic attacks Anemia Malignant hypertension requiring Cardene ip Plan: Supportive care Aggressive rehab Home meds Gout treatment 10/02/2021: Supportive care Gout treatment 10/03/2021 Supportive care (1) Acute respiratory failure with hypoxia and hypercapnia (2) Afib (3) CHF (congestive heart failure) Status: Acute (4) Bilateral leg edema Status: Acute (5) Hypertensive urgency, malignant Status: Acute KAMLA FERNANDEZ DO Oct 03, 2021 08:45
[2021-10-03] MEDS ORDERED: lisINopril 40 MG (PRINIVIL) TABLET PO SCH (09:00)
[2021-10-03] MEDS: PANTOPRAZOLE 40 MG (PROTONIX) TAB PO SCH (09:12)
[2021-10-03] MEDS: ZINC SULFATE 220 MG CAPSULE PO SCH (09:13)
--- NOTE | 2021-10-03 09:14 | Physical Therapy Daily Note ---
PT Daily Note-Current Subjective Patient sitting in chair upon PT arrival, agreeable to treatment. Patient reports 5/10 pain in his hands and feet from the gout. Mental Status Patient Orientation: Person, Place, Time, Situation Transfers SCALE: Activities may be completed with or without assistive devices. 9-Fycrzfxcrs-bkswjca completes the activity by him/herself with no assistance from a helper. 5-Set-up or Clean-up Assistance-helper sets up or cleans up; patient completes activity. [place] assists only prior to or following the activity. 4-Supervision or Touching Assistance-helper provides verbal cues and/or touching/steadying and/or contact guard assistance as patient completes activity. Assistance may be provided throughout the activity or intermittently. 3-Partial/Moderate Assistance-helper does LESS THAN HALF the effort. [place] lifts, holds or supports trunk or limbs, but provides less than half the effort. 2-Substantial/Maximal Assistance-helper does MORE THAN HALF the effort. [place] lifts or holds trunk or limbs and provides more than half the effort. 8-Jcllysrlu-ulvxkp does ALL the effort. Patient does none of the effort to complete the activity. Or, the assistance of 2 or more helpers is required for the patient to complete the activity. If activity was not attempted, code reason: 7-Patient Refused. 9-Not Applicable-not attempted and the patient did not perform the activity before the current illness, exacerbation or injury. 10-Not Attempted due to Environmental Limitations-(lack of equipment, weather restraints, etc.). 88-Not Attempted due to Medical Conditions or Safety Concerns. Roll Left & Right (QC): 5 Sit to Lying (QC): 5 Lying to Sitting/Side of Bed(Q: 5 Sit to Stand (QC): 4 Chair/Hml-mz-Mrkqj Xfer(QC): 4 Toilet Transfer (QC): 4 Gait Training Does the Patient Walk?: Yes Distance: 250 Walk 10 feet (QC): 4 Walk 50 ft with 2 Turns(QC): 4 Walk 150 ft (QC): 4 Gait Persons Needed: 1 Gait Assistive Device: FWW Wheelchair Training Does the Pt Use a Wheelchair?: No Stair Training Stair Training: Handrails/: 1 handrail #of Steps: 12 1 Step (curb) (QC): 4 4 Steps (QC): 4 12 Steps (QC): 4 Stairs: Pattern: Reciprocal Exercises Seated Therapy Exercises: Ankle pumps, Long arc quads, Hip flexion, Hamstring Curls, Hip abd/add Seated Reps: 20 Standing: Hip Abduction, Heel/toe raises, 3 way Ex=Flex, Abd, Ext, Marching Standing Reps: 20 NuStep Minutes: 10 NuStep Workload: 1 Assessment Current Status: Good Progress Patient tolerated treatment well. Demonstrates significant overall improvement in tolerance to activity. Patient performs sitting therapeutic exercise as listed above while in the chair. Patient performs all bed mobility and transfers with CGA/SBA. Patient ambulates 250 feet with FWW, with SBA and verbal cues for safety, progression, balance and conservation of energy. Patient ascends/descends 12 steps with 1 handrail, with CGA. Patient performs standing therapeutic exercises as listed above. Patient then ambulates 80 back to his room. Patient performs bed mobility at setup. Patient in chair post treatment with all needs met, nursing notified, call light in reach. PT Short Term Goals Short Term Goals Time Frame: Oct 08, 2021 Roll Left & Right: 4 Sit to lyin Lying to sitting on side of be: 4 Sit to stand: 4 Chair/amy-mk-occqh transfer: 4 Toilet transfer: 4 Car transfer: 4 Walk 10 feet: 5 Walk 50 feet with two turns: 5 Walk 150 feet: 5 PT Retirement Goals Crap Shooter Goals PT Crap Shooter Goals Time Frame: Oct 28, 2021 Roll Left & Right (QC): 6 Sit to Lying (QC): 6 Lying-Sitting on Side/Bed(QC): 6 Sit to Stand (QC): 6 Chair/Qtn-ik-Kaxob Xfer(QC): 6 Toilet Transfer (QC): 6 Car Transfer (QC): 6 Does the Patient Walk: Yes Walk 10 feet (QC): 6 Walk 50ft with 2 Turns (QC): 6 Walk 150 ft (QC): 6 Walking 10ft on Uneven Surface: 4 1 Step (curb) (QC): 4 4 Steps (QC): 4 12 Steps (QC): 4 Picking up an Object (QC): 5 Does the Pt use WC or Scooter?: No Wheel 50 feet with 2 turns (QC: 88 Wheel 150 feet: 88 PT Plan Treatment/Plan Treatment Plan: Continue Plan of Care Treatment Plan: Bed Mobility, Education, Functional Activity Claudia, Functional Strength, Gait, Safety, Therapeutic Exercise, Transfers Treatment Duration: Nov 12, 2021 Frequency: At least 5 of 7 days/Wk (IRF) Estimated Hrs Per Day: 1.5 hours per day Patient and/or Family Agrees t: Yes Safety Risks/Education Patient Education: Gait Training, Transfer Techniques, Steps Teaching Recipient: Patient Teaching Methods: Demonstration, Discussion Response to Teaching: Verbalize Understanding, Return Demonstration Time/GCodes Time In: 800 Time Out: 900 Total Billed Treatment Time: 60 Total Billed Treatment Visit, Gait x 2, Ex x 2 SHAMA RODAS PT Oct 03, 2021 09:14
[2021-10-03] MEDS: AMIODARONE 200 MG (CORDARONE) TAB PO SCH (09:15)
[2021-10-03] MEDS: CYANOCOBALAMIN 1,000 MCG (VITAMIN B-12) TABLET PO SCH (09:25)
[2021-10-03] MEDS: KCL 10 MEQ TAB (MICRO K) PO SCH ×2 (09:25→17:22)
[2021-10-03 09:45] VITALS: BP 142/76
--- NOTE | 2021-10-03 10:15 | ST Cognitive Linguistic Eval ---
Speech Evaluation-General Medical Diagnosis Debility Onset Date: Sep 27, 2021 Therapy Diagnosis Therapy Diagnosis: Cognitive-communication Referral Referring Physician: Dr. Cobian Medical History Pertinent Medical History: Atrial Fib, CABG, CAD, COPD, Heart Failure, [place], Smoking Reviewed History: Yes Social History Current Living Status: Children Speech PLF-Current Status Prior Level of Function Patient lives in his own home with his son. He was independent prior to this admission. Subjective Patient was pleasant and cooperative with the cognitive assessment. Language Eval: Auditory Comprehends Simple Yes/No Ques: Functional Indent/Objects Multiple [place]: Functional Ident/Pics in Multiple [place]: Functional Follows 1-Step Commands: Functional Follows Complex Directions: Functional Follows General Conversations: Functional Language Eval: Verbal Language Completes Spontaneous Greeting: Functional Produces Auto, Serial Info: Functional Imitates Simple Words/Phrases: Functional Word Finding: Functional Requests Basic Needs: Functional States Basic Personal Info: Functional Expresses Complex Ideas: Functional Objective Cognitive Domain Attention: WNL Memory: WNL Problem Solving: Functional Executive Functions: WNL Visuospatial Skills: WNL Composite Severity Rating: WNL Clock Drawing Severity Rating: WNL Objective Formal/Standardized Tests [facility] Status ([facility]) Results 29/30, within normal range of function Oral Motor/Speech Production Within Normal Limits Impression Patient is a pleasant 66 y/o male who was admitted to the hospital via ED for severe SOB. Patient was given the SLUMS with a score of 29/30 obtained. This score is within the normal range of function and does not indicate the need for further skilled ST services. Speech Patient Assess Expression of Ideas/Wants: Expression (4) Understanding Verbal Content: Understands (4) Brief Interview-Mental Status: Yes Repetition of Three Words: Three (3) Temporal Orientation: Year: Correct (3) Temporal Orientation: Month: Accurate within 5 days(2) Temporal Orientation: Day: Correct (1) Recall : Wear to say "Sock": Yes, no cue required (2) Recall : Color: Yes, no cue required (2) Recall : Bed: Yes, no cue required (2) Memory/Recall Ability: Current season, Location of own room, Staff names and faces, That he or she is in a hsp/hsp unit Speech-Plan Patient/Family Goals Patient/Family Goals: Patient plans on returning to his home where his son lives with him. Treatment Plan Speech Therapy Treatment Plan: Discontinue ST Treatment Duration: Oct 03, 2021 Frequency: 1 time per week Estimated Hrs Per Day: .5 hour per day Rehab Potential: Good Barriers to Learning: No cognitive deficits noted Pt/Family Agrees to Plan: Yes Safety Risks/Education Teaching Recipient: Patient Teaching Methods: Discussion Response to Teaching: Verbalize Understanding Education Topics Provided: Safety within his room, communication of wants/needs Time Speech Therapy Time In: 09:00 Speech Therapy Time Out: 09:30 Total Billed Time: 30 Billed Treatment Time 1, [address] Oct 03, 2021 10:15
--- NOTE | 2021-10-03 10:36 | Occupational Therapy Eval ---
OT Evaluation-General/PLF Medical Diagnosis Admission Date Oct 01, 2021 at 09:44 Medical Diagnosis: Debility Onset Date: Sep 27, 2021 Therapy Diagnosis Therapy Diagnosis: decreased ADL status Height/Weight Height (Feet): 5 Height (Inches): 6.00 Weight (Pounds): 225 Weight (Ounces): 0.0 Precautions Precautions/Isolations: Fall Prevention, Standard Precautions Referral Physician: Dr. Cobian Referral Reason: Evaluation/Treatment Medical History Pertinent Medical History: Atrial Fib, CABG, CAD, COPD, Heart Failure, [place], Smoking Additional Medical History COPD, CAD, HTN, CHF, [place], Gout, CABG x2, Afib s/p ablation, obesity Current History transfer from OSH due to sudden onset SOB and congestion. Pt intubated, extubated 09/27/21. Pt transferred to ARU 10/01/21 for continued skilled therapy and medication management. Social History Home: Single Level Current Living Status: Children (son) Entry Into Home: Stairs With Railing Steps Into Home: 5 ADL-Prior Level of Function SCALE: Activities may be completed with or without assistive devices. 1-Qxujvaiqgb-tlngrht completes the activity by him/herself with no assistance from a helper. 5-Set-up or Clean-up Assistance-helper sets up or cleans up; patient completes activity. [place] assists only prior to or following the activity. 4-Supervision or Touching Assistance-helper provides verbal cues and/or touching/steadying and/or contact guard assistance as patient completes activity. Assistance may be provided throughout the activity or intermittently. 3-Partial/Moderate Assistance-helper does LESS THAN HALF the effort. [place] lifts, holds or supports trunk or limbs, but provides less than half the effort. 2-Substantial/Maximal Assistance-helper does MORE THAN HALF the effort. [place] lifts or holds trunk or limbs and provides more than half the effort. 0-Xuvqhbjgs-yewkiz does ALL the effort. Patient does none of the effort to complete the activity. Or, the assistance of 2 or more helpers is required for the patient to complete the activity. If activity was not attempted, code reason: 7-Patient Refused. 9-Not Applicable-not attempted and the patient did not perform the activity be fore the current illness, exacerbation or injury. 10-Not Attempted due to Environmental Limitations-(lack of equipment, weather restraints, etc.). 88-Not Attempted due to Medical Conditions or Safety Concerns. ADL PLOF Comments Pt reports IND with all ADLs and functional mobility, No AD Self Care: Independent Functional Cognition: Independent DME/Equipment: Grab Bars, Tub/Shower DME/Equipment Comments owns cane and walker. OT Current Status Subjective Pt up in recliner, agreeable to OT Tx. Mental Status/Objective Patient Orientation: Normal For Age Current Glasses/Contacts: Yes Hand Dominance: Right Upper Extremity ROM WFL, BUE shoulder flexion to approx 150 degrees. Upper Extremity Coordination WFL Upper Extremity Sensation WFL, pt denies tingling/numbness Upper Extremity Strength grossly 4+/5 ADL-Treatment Eating (QC): 5 (set up per pt report.) Oral Hygiene (QC): 5 (set up per clinical judgement) Shower/Bathe Self (QC): 5 (set up assist) Upper Body Dressing (QC): 5 (set up assist) Lower Body Dressing (QC): 5 (set up assist) On/Off Footwear (QC): 3 (Min A, OT completed suresh wraps. Pt able to doff/don gripper socks.) Toileting Hygiene (QC): 6 (IND with hygiene and clothing management.) Other Treatments Pt seated in recliner, used FWW to go into bathroom, transfer to toilet. Pt completed toileting, then transferred to PA. Pt doffed clothes, completed shower, then donned clothes. Pt used FWW to transfer to recliner, OT attempted to don TedHose, but pt's legs too swollen for largest size, suresh wraps donned instead, nurse notified. Pt then used FWW to perform functional mobility into therapy gym, SBA. In order to increase BUE strength and activity tolerance, pt completed x15 mins on arm bike, 20 Watt resistance, no rest breaks. Pt returned to his room, FWW, SBA, transferring to recliner. Post tx, pt in recliner, call light in reach and all needs met. Education OT Patient Education: Correct positioning, Energy conservation, Exercise program, Modified ADL techniques, Progress toward Goal/Update tx plan, Purpose of tx/functional activities, Rehab process Teaching Recipient: Patient Teaching Methods: Discussion Response to Teaching: Verbalize Understanding OT Short Term Goals Short Term Goals Time Frame: Oct 06, 2021 Putting on/taking off footwear: 5 OT Housekeeping/Laundry Goals Intermediate Goals Time Frame: Oct 14, 2021 Eating (QC): 6 Oral Hygiene (QC): 6 Toileting Hygiene (QC): 6 Shower/Bathe Self (QC): 6 Upper Body Dressing (QC): 6 Lower Body Dressing (QC): 6 On/Off Footwear (QC): 6 Additional Goals: 1-Demonstrate ADL Tasks, 2-Verbalize Understanding, 3- ImproveStrength/Claudia 1=Demonstrate adherence to instructed precautions during ADL tasks. 2=Patient will verbalize/demonstrate understanding of assistive devices/modifications for ADL. 3=Patient will improve strength/tolerance for activity to enable patient to perform ADL's. OT Education/Plan Problem List/Assessment Assessment: Decreased Activ Tolerance, Impaired Funct Balance, Impaired I ADL's Discharge Recommendations Plan/Recommendations: Continue POC Therapy Discharge Recommendati: Home & Family Equpiment Recommendations-D/C: Extended Bath Bench Treatment Plan/Plan of Care Patient would benefit from OT for education, treatment and training to promote independence in ADL's, mobility, safety and/or upper extremity function for ADL's. Plan of Care: ADL Retraining, Functional Mobility, Group Exercise/Act as Ind, UE Funct Exercise/Act Treatment Duration: Oct 14, 2021 Frequency: At least 5 of 7 days/Wk (IRF) Estimated Hrs Per Day: 1.5 hours per day Rehab Potential: Good Time/GCodes Start Time: 09:30 Stop Time: 10:45 Total Time Billed (hr/min): 75 Billed Treatment Time 1, EVL (10'), ADL 3 (50), EX (15') DONNY PLUNKETT OT Oct 03, 2021 10:36
--- NOTE | 2021-10-03 10:42 | Progress Note - Cardiology ---
Cardiology SOAP Progress Note Subjective: Sitting up in recliner at the bedside States he is feeling much better No c/o palpitations, CP or SOB LE swelling is improving - SHANNON wraps in place Objective: I&O/Vital Signs 10/04/21 10/04/21 10/04/21 10/04/21 07:43 07:45 07:53 09:18 Temp 36.8 Pulse 65 Resp 20 B/P (MAP) 200/101 (134) 160/54 (89) Pulse Ox 94 95 O2 Delivery Room Air Room Air Room Air Weight (Pounds): 225 Weight (Ounces): 0.0 Weight (Calculated Kilograms): 102.388698 Constitutional: AAO x 3, well-developed, well-nourished Respiratory: No accessory muscle use, No respiratory distress; chest expansion is symmetric, chest is bilaterally symmetric, lungs clear to auscultation Cardiovascular: regular rate-rhythm; No JVD; S1 and S2 Gastrointestional: No tender; soft, round, audible bowel sounds Extremities: other (mod bilat LE swelling) Neurologic/Psychiatric: grossly intact (moves all extremities) Skin: No rash on exposed areas, No ulcerations on exposed areas Results/Procedures: Labs A/P: Assessment: Acute respiratory failure due sepsis and pneumonia, resolved - managed by Dr Cobian Paroxysmal atrial fibrillation - NSR post cardioversion on 09/29/21 - has been on Xarelto since February 2019 Hypertension, controlled - not suitable for beta-haresh (bradycardia) or amlodipine (reports intolerance) Mild elevation in troponin, probably type II myocardial infarction secondary to respiratory failure. He has extensive coronary artery disease, conservative management is recommended at this time. Coronary artery disease, - H/o CABG - Last cardiac catheterization was done on August 31, 2016: patent DOMÍNGUEZ to LAD, patent vein graft to the obtuse marginal branch with small vessel disease with slower flow responded to intracoronary nitroglycerin and improvement of the flow. - Stress test done 05/28/17 revealed fixed defect with no ischemia or infarct. EF 47%. - Minimal troponin elevation during this admission with sepsis and ac resp failure: likely type 2 DE due ac resp failure H/o chronic systolic congestive heart failure and mod pulm htn - Echo 09/26/21: LVEF 35-40%, PASP 45-50 mmHg Chronic leg edema Hyperlipidemia Mild bilateral carotid stenosis, nonobstructive disease - monitored by Dr Pimentel Right eye blindness, episode of left eye blurred vision occurred in the past. Workup has been negative. Tobaccoism, Patient has stopped smoking several years ago Gouty arthritis Plan: Continue current cardiac medication regimen Monitor lab from time to time ROMERO DICKEY Oct 03, 2021 10:42
[2021-10-03] MEDS: COLCHICINE 0.6 MG (COLCRYS) TABLET PO PRN (11:30)
--- NOTE | 2021-10-03 13:25 | Physical Therapy Daily Note ---
PT Daily Note-Current Subjective Patient currently rates gout pain at 7/10, but states "They just gave me pain medicine a few minutes ago so it hasn't kicked in yet." Mental Status Patient Orientation: Person, Place, Time, Situation Transfers SCALE: Activities may be completed with or without assistive devices. 6-Khkcxbhfam-jxuqwxy completes the activity by him/herself with no assistance from a helper. 5-Set-up or Clean-up Assistance-helper sets up or cleans up; patient completes activity. [place] assists only prior to or following the activity. 4-Supervision or Touching Assistance-helper provides verbal cues and/or touching/steadying and/or contact guard assistance as patient completes activity. Assistance may be provided throughout the activity or intermittently. 3-Partial/Moderate Assistance-helper does LESS THAN HALF the effort. [place] lifts, holds or supports trunk or limbs, but provides less than half the effort. 2-Substantial/Maximal Assistance-helper does MORE THAN HALF the effort. [place] lifts or holds trunk or limbs and provides more than half the effort. 2-Zyhlflihs-blxyfn does ALL the effort. Patient does none of the effort to complete the activity. Or, the assistance of 2 or more helpers is required for the patient to complete the activity. If activity was not attempted, code reason: 7-Patient Refused. 9-Not Applicable-not attempted and the patient did not perform the activity befo re the current illness, exacerbation or injury. 10-Not Attempted due to Environmental Limitations-(lack of equipment, weather re straints, etc.). 88-Not Attempted due to Medical Conditions or Safety Concerns. Sit to Stand (QC): 5 Chair/Hpx-qu-Cjnvm Xfer(QC): 5 Gait Training Does the Patient Walk?: Yes Distance: 300 Walk 10 feet (QC): 5 Walk 50 ft with 2 Turns(QC): 5 Walk 150 ft (QC): 5 Gait Assistive Device: FWW Assessment Current Status: Good Progress Patient sitting in chair upon PT arrival, agreeable to treatment. Patient performs all observed transfers with setup. Patient ambulates 300 feet with FWW, with Mod I and verbal cues for path. Patient ambulates with improved stride length, increased endurance and improved posture with no megan loss of balance. Patient in chair post treatment with all needs met, nursing notified, call light in reach. PT Short Term Goals Short Term Goals Time Frame: Oct 08, 2021 Roll Left & Right: 4 Sit to lyin Lying to sitting on side of be: 4 Sit to stand: 4 Chair/tux-oq-vftbk transfer: 4 Toilet transfer: 4 Car transfer: 4 Walk 10 feet: 5 Walk 50 feet with two turns: 5 Walk 150 feet: 5 PT Prison Goals Community Services Coordinator Goals PT Community Services Coordinator Goals Time Frame: Oct 28, 2021 Roll Left & Right (QC): 6 Sit to Lying (QC): 6 Lying-Sitting on Side/Bed(QC): 6 Sit to Stand (QC): 6 Chair/Fuv-ep-Wipua Xfer(QC): 6 Toilet Transfer (QC): 6 Car Transfer (QC): 6 Does the Patient Walk: Yes Walk 10 feet (QC): 6 Walk 50ft with 2 Turns (QC): 6 Walk 150 ft (QC): 6 Walking 10ft on Uneven Surface: 4 1 Step (curb) (QC): 4 4 Steps (QC): 4 12 Steps (QC): 4 Picking up an Object (QC): 5 Does the Pt use WC or Scooter?: No Wheel 50 feet with 2 turns (QC: 88 Wheel 150 feet: 88 PT Plan Treatment/Plan Treatment Plan: Continue Plan of Care Treatment Plan: Bed Mobility, Education, Functional Activity Claudia, Functional Strength, Gait, Safety, Therapeutic Exercise, Transfers Treatment Duration: Nov 12, 2021 Frequency: At least 5 of 7 days/Wk (IRF) Estimated Hrs Per Day: 1.5 hours per day Patient and/or Family Agrees t: Yes Safety Risks/Education Patient Education: Gait Training Teaching Recipient: Patient Teaching Methods: Demonstration, Discussion Response to Teaching: Verbalize Understanding, Return Demonstration Time/GCodes Time In: 1300 Time Out: 1315 Total Billed Treatment Time: 15 Total Billed Treatment Visit, SHAMA Onofre PT Oct 03, 2021 13:25
[2021-10-03 14:00] VITALS: BP 133/74
[2021-10-03] MEDS: RIVAROXABAN 20 MG TABLET (XARELTO) PO SCH (17:20)
[2021-10-03 19:50] VITALS: BP 104/69
[2021-10-03] MEDS: HYDROcodone/APAP 5 MG/325 MG (LORTAB) TAB PO PRN (20:15)
[2021-10-04] MEDS: HYDROcodone/APAP 5 MG/325 MG (LORTAB) TAB PO PRN ×2 (02:46→07:58)
[2021-10-04] MEDS: COLCHICINE 0.6 MG (COLCRYS) TABLET PO PRN ×3 (03:13→17:47)
--- NOTE | 2021-10-04 05:58 | PM&R Progress Note ---
Subjective HPI/CC On Admission Date Seen by Provider: Oct 04, 2021 Time Seen by Provider: 11:00 Subjective/Events-last exam 10/04/2021: Pt doing very well Gout management discussed Colchicine will be used as needed Checked meds and labs Has chronic pain issues BP is still very high before meds 10/03/2021: Pt doing well Feels pretty good with his gout Colchicine will be ordered BP was high before meds given Checked meds and labs Moving around pretty well 10/02/2021: Patient doing really well Walking around with nurse Complains of gout and widespread joint pain Added hydrocodone at his request Solu-Medrol given Bowels are moving Voiding well Review of Systems General: Fatigue, Malaise Objective Exam Vital Signs Vital Signs Date Time Temp Pulse Resp B/P (MAP) Pulse Ox O2 Delivery O2 Flow Rate FiO2 10/04/21 23:31 72 115/69 (84) 10/04/21 21:05 95 Room Air 10/04/21 20:17 18 10/04/21 19:25 36.4 10/02/21 01:40 21 Capillary Refill : General Appearance: No Apparent Distress, WD/WN, Anxious, Chronically ill, Obese HEENT: PERRL/EOMI, Normal ENT Inspection, Pharynx Normal Neck: Full Range of Motion, Normal Inspection, Non Tender, Supple, Carotid Bruit Respiratory: Chest Non Tender, Lungs Clear, Normal Breath Sounds, No Accessory Muscle Use, No Respiratory Distress Cardiovascular: Regular Rate, Rhythm, No Edema, No Gallop, No JVD, No Murmur, Normal Peripheral Pulses Gastrointestinal: Normal Bowel Sounds, No Organomegaly, No Pulsatile Mass, Non Tender, Soft Back: Normal Inspection, No CVA Tenderness, No Vertebral Tenderness Extremity: Normal Capillary Refill, Normal Inspection, Normal Range of Motion, Non Tender, No Calf Tenderness, No Pedal Edema Neurologic/Psychiatric: Alert, Oriented x3, No Motor/Sensory Deficits, sausage smoker II- XII Norm as Tested, Abnormal Gait, Depressed Affect, Motor Weakness (Generalized 4/5) Skin: Normal Color, Warm/Dry Lymphatic: No Adenopathy Results/Procedures Lab Patient resulted labs reviewed. FIM Transfers Therapy Code Descriptions/Definitions Functional [place] Measure: 0=Not Assessed/NA 4=Minimal Assistance 1=Total Assistance 5=Supervision or Setup 2=Maximal Assistance 6=Modified [place] 3=Moderate Assistance 7=Complete IndependenceSCALE: Activities may be completed with or without assistive devices. 8-Zarqirebup-pqmqadp completes the activity by him/herself with no assistance from a helper. 5-Set-up or Clean-up Assistance-helper sets up or cleans up; patient completes activity. [place] assists only prior to or following the activity. 4-Supervision or Touching Assistance-helper provides verbal cues and/or touching/steadying and/or contact guard assistance as patient completes activity. Assistance may be provided throughout the activity or intermittently. 3-Partial/Moderate Assistance-helper does LESS THAN HALF the effort. [place] lifts, holds or supports trunk or limbs, but provides less than half the effort. 2-Substantial/Maximal Assistance-helper does MORE THAN HALF the effort. [place] lifts or holds trunk or limbs and provides more than half the effort. 7-Khryrhotq-gygkyb does ALL the effort. Patient does none of the effort to complete the activity. Or, the assistance of 2 or more helpers is required for the patient to complete the activity. If activity was not attempted, code reason: 7-Patient Refused. 9-Not Applicable-not attempted and the patient did not perform the activity before the current illness, exacerbation or injury. 10-Not Attempted due to Environmental Limitations-(lack of equipment, weather restraints, etc.). 88-Not Attempted due to Medical Conditions or Safety Concerns. Roll Left to Right (QC): 5 Sit to Lying (QC): 5 Sit to Stand (QC): 5 Chair/Ojd-ts-Uudnq Xfer(QC): 5 Car Transfer (QC): 3 Gait Training Does the Patient Walk?: Yes Distance: 300 Walk 10 feet (QC): 5 Walk 50 ft with 2 Turns(QC): 5 Walk 150 ft (QC): 5 Walking 10ft/uneven surface-QC: 88 Gait Persons Needed: 1 Gait Assistive Device: FWW Wheelchair Training Does the Pt Use a Wheelchair?: No Wheel 50 ft with 2 turns (QC): 88 Wheel 150 ft (QC): 88 Stair Training Stair Training: Handrails/: 1 handrail #of Steps: 12 1 Step (curb) (QC): 4 4 Steps (QC): 4 12 Steps (QC): 4 Stairs: Pattern: Reciprocal Balance Picking up an Object (QC): 88 ADL-Treatment Eating (QC): 5 (set up per pt report.) Oral Hygiene (QC): 5 (set up per clinical judgement) Shower/Bathe Self (QC): 5 (set up assist) Upper Body Dressing (QC): 5 (set up assist) Lower Body Dressing (QC): 5 (set up assist) On/Off Footwear (QC): 3 (Min A, OT completed suresh wraps. 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 Status post intubation due to respiratory failure intubated at [facility] ER Congestive heart failure Atrial fibrillation with rapid ventricular response status post cardioversion placed on amiodarone Gout with acute gout flare Engel catheter now DC Anxiety with panic attacks Anemia Malignant hypertension requiring Cardene drip Plan: Supportive care Aggressive rehab Home meds Gout treatment 10/02/2021: Supportive care Gout treatment 10/03/2021 Supportive care 10/04/2021: Supportive care Monitor blood pressure (1) Acute respiratory failure with hypoxia and hypercapnia (2) Afib (3) CHF (congestive heart failure) Status: Acute (4) Bilateral leg edema Status: Acute (5) Hypertensive urgency, malignant Status: Acute KAMLA FERNANDEZ DO Oct 04, 2021 05:58
[2021-10-04] MEDS: FUROSEMIDE 40 MG (LASIX) TAB PO SCH ×2 (06:33→17:47)
[2021-10-04] MEDS: AMIODARONE 200 MG (CORDARONE) TAB PO SCH (07:18)
[2021-10-04] MEDS: lisINopril 40 MG (PRINIVIL) TABLET PO SCH (07:19)
[2021-10-04] MEDS: cloNIDine 0.2 MG (CATAPRES) TAB PO SCH ×3 (07:19→20:24)
[2021-10-04] MEDS: RT-ALBUTEROL/IPRATROPIUM 3 ML (DUONEB) VIAL INH SCH ×2 (07:43→21:05)
[2021-10-04 07:45] VITALS: BP 200/101
[2021-10-04 07:53] VITALS: BP 160/54
[2021-10-04] MEDS: PANTOPRAZOLE 40 MG (PROTONIX) TAB PO SCH (07:56)
[2021-10-04] MEDS: KCL 10 MEQ TAB (MICRO K) PO SCH ×2 (07:56→17:47)
[2021-10-04] MEDS: ZINC SULFATE 220 MG CAPSULE PO SCH (07:57)
[2021-10-04] MEDS: CYANOCOBALAMIN 1,000 MCG (VITAMIN B-12) TABLET PO SCH (07:57)
--- NOTE | 2021-10-04 08:26 | Occupational Ther Daily Note ---
OT Current Status-Daily Note Subjective Pt seated in recliner, agreeable to OT tx. Pt states he feels ready to go home. 8/10 pain in Bilateral feet, nursing aware. Mental Status/Objective Patient Orientation: Normal For Age ADL-Treatment Therapy Code Descriptions/Definitions Functional [place] Measure: 0=Not Assessed/NA 4=Minimal Assistance 1=Total Assistance 5=Supervision or Setup 2=Maximal Assistance 6=Modified [place] 3=Moderate Assistance 7=Complete IndependenceSCALE: Activities may be completed with or without assistive devices. 1-Rsavxhemjm-gszlbst completes the activity by him/herself with no assistance from a helper. 5-Set-up or Clean-up Assistance-helper sets up or cleans up; patient completes activity. [place] assists only prior to or following the activity. 4-Supervision or Touching Assistance-helper provides verbal cues and/or touching/steadying and/or contact guard assistance as patient completes activity. Assistance may be provided throughout the activity or intermittently. 3-Partial/Moderate Assistance-helper does LESS THAN HALF the effort. Tensed lifts, holds or supports trunk or limbs, but provides less than half the effort. 2-Substantial/Maximal Assistance-helper does MORE THAN HALF the effort. Tensed lifts or holds trunk or limbs and provides more than half the effort. 0-Qjzbjdoeb-yqgivl does ALL the effort. Patient does none of the effort to complete the activity. Or, the assistance of 2 or more helpers is required for the patient to complete the activity. If activity was not attempted, code reason: 7-Patient Refused. 9-Not Applicable-not attempted and the patient did not perform the activity before the current illness, exacerbation or injury. 10-Not Attempted due to Environmental Limitations-(lack of equipment, weather restraints, etc.). 88-Not Attempted due to Medical Conditions or Safety Concerns. Eating (QC): 5 (Set up assist with contianers) Oral Hygiene (QC): 6 (Per pt report, able to open toothpaste container and squeeze onto brush.) Other Treatment Pt seated in recliner, used FWW to perform functional mobility to therapy gym, mod I. OT tx with focus on increasing BUE strength and activity tolerance. Pt completed arm bike x25 Matias, x20 mins, no rest breaks. OT educated pt on adaptive technique to open containers. Instead of using thumbs, pt educated on hooking edge of lid with fingers and using his palm to open containers in order to decrease stress and pain on his thumbs due to gout. Pt demo'd understanding. Pt then completed pegboard activity, 2lb wrist weights BUEs. Pt placed/removed x100 pegs, using palms as much as possible to decrease pain in thumbs. Pt then completed board games, 2lb wrist weights BUE for activity tolerance and problem solving. Pt completed connect 4 game, and checkers. Pt used FWW to return to johann m, mod I. Post tx, pt in recliner, call light in reach and all needs met. Education OT Patient Education: Correct positioning, Energy conservation, Exercise program, Modified ADL techniques, Progress toward Goal/Update tx plan, Purpose of tx/functional activities, Rehab process Teaching Recipient: Patient Teaching Methods: Discussion Response to Teaching: Verbalize Understanding OT Short Term Goals Short Term Goals Time Frame: Oct 06, 2021 Putting on/taking off footwear: 5 OT Tool Repairer Bench Goals Tool Repairer Bench Goals Time Frame: Oct 14, 2021 Eating (QC): 6 Oral Hygiene (QC): 6 Toileting Hygiene (QC): 6 Shower/Bathe Self (QC): 6 Upper Body Dressing (QC): 6 Lower Body Dressing (QC): 6 On/Off Footwear (QC): 6 Additional Goals: 1-Demonstrate ADL Tasks, 2-Verbalize Understanding, 3- ImproveStrength/Claudia 1=Demonstrate adherence to instructed precautions during ADL tasks. 2=Patient will verbalize/demonstrate understanding of assistive devices/modifications for ADL. 3=Patient will improve strength/tolerance for activity to enable patient to perform ADL's. OT Education/Plan Problem List/Assessment Assessment: Decreased Activ Tolerance, Decreased UE Strength, Impaired I ADL's, Impaired Self-Care Skills Discharge Recommendations Plan/Recommendations: Continue POC Treatment Plan/Plan of Care Patient would benefit from OT for education, treatment and training to promote independence in ADL's, mobility, safety and/or upper extremity function for ADL's. Plan of Care: ADL Retraining, Cognitive Retraining, Functional Mobility Treatment Duration: Oct 03, 2021 Frequency: 5 times per week Estimated Hrs Per Day: 1 hour per day Rehab Potential: Good Time/GCodes Start Time: 08:00 Stop Time: 09:30 Total Time Billed (hr/min): 90 Billed Treatment Time 1, EX (20'), FA 5 (70') DONNY PLUNKETT OT Oct 04, 2021 08:26
[2021-10-04] MEDS: DOCUSATE SODIUM 100 MG (COLACE) CAP PO SCH ×2 (09:17→20:19)
[2021-10-04] MEDS: SENNA W/DOCUSATE (SENOKOT S) TABLET PO SCH ×2 (09:17→20:19)
[2021-10-04] MEDS: polyethylene glycoL POWDER 17 GM (MIRALAX) PACK PO SCH ×2 (09:17→19:10)
--- NOTE | 2021-10-04 11:07 | Physical Therapy Daily Note ---
PT Daily Note-Current Subjective Pt. agrees to Rx. Feels he has made good progress, Still has discomfort in his feet he attributes to gouty arthritis. Pt states he has dealt with depression had has hesitated sharing this with his PCP. This was shared with nursing. Pt also shares that he has panic attacks out of no where since 1st experiencing air hunger Pain Numeric Pain Scale: 4 Location: Left Location Body Site: Foot Pain Description: Pressure Mental Status Patient Orientation: Normal For Age Transfers SCALE: Activities may be completed with or without assistive devices. 2-Uswyuovqlh-uenhbvv completes the activity by him/herself with no assistance from a helper. 5-Set-up or Clean-up Assistance-helper sets up or cleans up; patient completes activity. [place] assists only prior to or following the activity. 4-Supervision or Touching Assistance-helper provides verbal cues and/or touching/steadying and/or contact guard assistance as patient completes activity. Assistance may be provided throughout the activity or intermittently. 3-Partial/Moderate Assistance-helper does LESS THAN HALF the effort. Bypro lifts, holds or supports trunk or limbs, but provides less than half the effort. 2-Substantial/Maximal Assistance-helper does MORE THAN HALF the effort. Bypro lifts or holds trunk or limbs and provides more than half the effort. 9-Bjvwdgggm-yghgtj does ALL the effort. Patient does none of the effort to co mplete the activity. Or, the assistance of 2 or more helpers is required for the patient to complete the activity. If activity was not attempted, code reason: 7-Patient Refused. 9-Not Applicable-not attempted and the patient did not perform the activity before the current illness, exacerbation or injury. 10-Not Attempted due to Environmental Limitations-(lack of equipment, weather restraints, etc.). 88-Not Attempted due to Medical Conditions or Safety Concerns. Roll Left & Right (QC): 6 Sit to Lying (QC): 6 Lying to Sitting/Side of Bed(Q: 6 Sit to Stand (QC): 6 Chair/Jsl-vl-Ttsme Xfer(QC): 6 Gait Training Does the Patient Walk?: Yes Walk 10 feet (QC): 5 Walk 50 ft with 2 Turns(QC): 5 Walk 150 ft (QC): 5 Gait Persons Needed: 1 Gait Assistive Device: FWW Exercises Supine Ex: Bridging, Ankle pumps, Quad Set, Rolling, Glut sets, Heel Slides, Short Arc Quads, Scooting, Straight leg raise, Hip abd/add Supine Reps: 15 NuStep Minutes: 10 NuStep Workload: 2 Assessment Current Status: Good Progress PT Short Term Goals Short Term Goals Time Frame: Oct 08, 2021 Roll Left & Right: 4 Sit to lyin Lying to sitting on side of be: 4 Sit to stand: 4 Chair/dan-rs-yskpj transfer: 4 Toilet transfer: 4 Car transfer: 4 Walk 10 feet: 5 Walk 50 feet with two turns: 5 Walk 150 feet: 5 PT Mcc Goals Can Sealer Goals PT Mcc Goals Time Frame: Oct 28, 2021 Roll Left & Right (QC): 6 Sit to Lying (QC): 6 Lying-Sitting on Side/Bed(QC): 6 Sit to Stand (QC): 6 Chair/Thx-yg-Gpiar Xfer(QC): 6 Toilet Transfer (QC): 6 Car Transfer (QC): 6 Does the Patient Walk: Yes Walk 10 feet (QC): 6 Walk 50ft with 2 Turns (QC): 6 Walk 150 ft (QC): 6 Walking 10ft on Uneven Surface: 4 1 Step (curb) (QC): 4 4 Steps (QC): 4 12 Steps (QC): 4 Picking up an Object (QC): 5 Does the Pt use WC or Scooter?: No Wheel 50 feet with 2 turns (QC: 88 Wheel 150 feet: 88 PT Plan Treatment/Plan Treatment Plan: Continue Plan of Care Treatment Plan: Bed Mobility, Education, Functional Activity Claudia, Functional Strength, Gait, Safety, Therapeutic Exercise, Transfers Treatment Duration: Nov 12, 2021 Frequency: At least 5 of 7 days/Wk (IRF) Estimated Hrs Per Day: 1.5 hours per day Patient and/or Family Agrees t: Yes Safety Risks/Education Patient Education: Gait Training, Transfer Techniques, Correct Positioning, Disease Process, Safety Issues Teaching Recipient: Patient Teaching Methods: Demonstration, Discussion Response to Teaching: Verbalize Understanding, Return Demonstration, Reinforcement Needed Time/GCodes Time In: 1015 Time Out: 1100 Total Billed Treatment Time: 45 Total Billed Treatment 1,GT15m,FA10m,EX20m PAUL GONZALEZ RETAIL SOLAR ADVISOR Oct 04, 2021 11:07
--- NOTE | 2021-10-04 12:05 | Progress Note - Cardiology ---
Cardiology SOAP Progress Note Subjective: No c/o CP or SOB No c/o palpitations Objective: I&O/Vital Signs 10/04/21 10/04/21 10/04/21 10/04/21 07:43 07:45 07:53 09:18 Temp 36.8 Pulse 65 Resp 20 B/P (MAP) 200/101 (134) 160/54 (89) Pulse Ox 94 95 O2 Delivery Room Air Room Air Room Air Weight (Pounds): 225 Weight (Ounces): 0.0 Weight (Calculated Kilograms): 102.102265 Constitutional: AAO x 3, well-developed, well-nourished Respiratory: No accessory muscle use, No respiratory distress; chest expansion is symmetric, chest is bilaterally symmetric, lungs clear to auscultation Cardiovascular: regular rate-rhythm; No JVD; S1 and S2 Gastrointestional: No tender; soft, round, audible bowel sounds Extremities: other (mod bilat LE swelling) Neurologic/Psychiatric: grossly intact (moves all extremities) Skin: No rash on exposed areas, No ulcerations on exposed areas A/P: Assessment: Acute respiratory failure due sepsis and pneumonia, resolved - managed by Dr Cobian Paroxysmal atrial fibrillation - NSR post cardioversion on 09/29/21 - has been on Xarelto since February 2019 Hypertension, controlled - not suitable for beta-haresh (bradycardia) or amlodipine (reports intolerance) Mild elevation in troponin, probably type II myocardial infarction secondary to respiratory failure. He has extensive coronary artery disease, conservative management is recommended at this time. Coronary artery disease, - H/o CABG - Last cardiac catheterization was done on August 31, 2016: patent DOMÍNGUEZ to LAD, patent vein graft to the obtuse marginal branch with small vessel disease with slower flow responded to intracoronary nitroglycerin and improvement of the flow. - Stress test done 05/28/17 revealed fixed defect with no ischemia or infarct. EF 47%. - Minimal troponin elevation during this admission with sepsis and ac resp fa ilure: likely type 2 AR due ac resp failure H/o chronic systolic congestive heart failure and mod pulm htn - Echo 09/26/21: LVEF 35-40%, PASP 45-50 mmHg Chronic leg edema Hyperlipidemia Mild bilateral carotid stenosis, nonobstructive disease - monitored by Dr Pimentel Right eye blindness, episode of left eye blurred vision occurred in the past. Workup has been negative. Tobaccoism, Patient has stopped smoking several years ago Gouty arthritis Plan: Uncontrolled HTN - reported intolerance to BB and amlodipine - start doxazosin - adjust as indicated Monitor lab ROMERO DICKEY Oct 04, 2021 12:05
[2021-10-04] MEDS ORDERED: doxAzosin 4 MG (CARDURA) TAB PO NR (12:45)
[2021-10-04 13:07] VITALS: BP 134/71
--- NOTE | 2021-10-04 14:07 | Physical Therapy Daily Note ---
PT Daily Note-Current Subjective Patient sitting in chair upon PT arrival with nurses in the room, patient agreeable to treatment. Mental Status Patient Orientation: Person, Place, Time, Situation Transfers SCALE: Activities may be completed with or without assistive devices. 6-Hlmvayxgum-fvuqgqg completes the activity by him/herself with no assistance from a helper. 5-Set-up or Clean-up Assistance-helper sets up or cleans up; patient completes activity. [place] assists only prior to or following the activity. 4-Supervision or Touching Assistance-helper provides verbal cues and/or touching/steadying and/or contact guard assistance as patient completes ac tivity. Assistance may be provided throughout the activity or intermittently. 3-Partial/Moderate Assistance-helper does LESS THAN HALF the effort. [place] lifts, holds or supports trunk or limbs, but provides less than half the effort. 2-Substantial/Maximal Assistance-helper does MORE THAN HALF the effort. [place] lifts or holds trunk or limbs and provides more than half the effort. 2-Oiecesnaa-cjvgqy does ALL the effort. Patient does none of the effort to complete the activity. Or, the assistance of 2 or more helpers is required for the patient to complete the activity. If activity was not attempted, code reason: 7-Patient Refused. 9-Not Applicable-not attempted and the patient did not perform the activity before the current illness, exacerbation or injury. 10-Not Attempted due to Environmental Limitations-(lack of equipment, weather restraints, etc.). 88-Not Attempted due to Medical Conditions or Safety Concerns. Sit to Stand (QC): 5 Chair/Yey-zg-Saufm Xfer(QC): 5 Gait Training Does the Patient Walk?: Yes Distance: 300 feet Walk 10 feet (QC): 5 Walk 50 ft with 2 Turns(QC): 5 Walk 150 ft (QC): 5 Gait Assistive Device: FWW Stair Training Stair Training: Handrails/: 1 handrail #of Steps: 4 1 Step (curb) (QC): 4 Exercises Supine Ex: Ankle pumps, Quad Set, Glut sets Supine Reps: 20 Seated Therapy Exercises: Long arc quads, Hip flexion, Hamstring Curls, Hip abd/add Seated Reps: 20 NuStep Minutes: 10 NuStep Workload: 3 Assessment Current Status: Good Progress Patient tolerated treatment well. Demonstrates good overall improvement in bed mobility and transfers, increased overall gait distance and improved tolerance to activity. Patient in chair post treatment with all needs met, nursing notified, call light in hand. PT Short Term Goals Short Term Goals Time Frame: Oct 08, 2021 Roll Left & Right: 4 Sit to lyin Lying to sitting on side of be: 4 Sit to stand: 4 Chair/uym-su-ttpco transfer: 4 Toilet transfer: 4 Car transfer: 4 Walk 10 feet: 5 Walk 50 feet with two turns: 5 Walk 150 feet: 5 PT Environmental Studies Faculty Member Goals Environmental Studies Faculty Member Goals PT Intermediate Goals Time Frame: Oct 28, 2021 Roll Left & Right (QC): 6 Sit to Lying (QC): 6 Lying-Sitting on Side/Bed(QC): 6 Sit to Stand (QC): 6 Chair/Lps-st-Qdsxb Xfer(QC): 6 Toilet Transfer (QC): 6 Car Transfer (QC): 6 Does the Patient Walk: Yes Walk 10 feet (QC): 6 Walk 50ft with 2 Turns (QC): 6 Walk 150 ft (QC): 6 Walking 10ft on Uneven Surface: 4 1 Step (curb) (QC): 4 4 Steps (QC): 4 12 Steps (QC): 4 Picking up an Object (QC): 5 Does the Pt use WC or Scooter?: No Wheel 50 feet with 2 turns (QC: 88 Wheel 150 feet: 88 PT Plan Treatment/Plan Treatment Plan: Continue Plan of Care Treatment Plan: Bed Mobility, Education, Functional Activity Claudia, Functional Strength, Gait, Safety, Therapeutic Exercise, Transfers Treatment Duration: Nov 12, 2021 Frequency: At least 5 of 7 days/Wk (IRF) Estimated Hrs Per Day: 1.5 hours per day Patient and/or Family Agrees t: Yes Safety Risks/Education Patient Education: Gait Training Teaching Recipient: Patient Teaching Methods: Demonstration, Discussion Response to Teaching: Verbalize Understanding, Return Demonstration Time/GCodes Time In: 1310 Time Out: 1355 Total Billed Treatment Time: 45 Total Billed Treatment Visit, Rusty Angel (2) SHAMA RODAS PT Oct 04, 2021 14:06
[2021-10-04] MEDS: RIVAROXABAN 20 MG TABLET (XARELTO) PO SCH (17:47)
[2021-10-04 19:25] VITALS: BP 88/54
[2021-10-04 20:17] VITALS: BP 97/63
[2021-10-04] MEDS ORDERED: doxAzosin 4 MG (CARDURA) TAB PO SCH (21:00)
[2021-10-04 23:31] VITALS: BP 115/69
[2021-10-05 05:46] VITALS: BP 124/71
[2021-10-05] MEDS: COLCHICINE 0.6 MG (COLCRYS) TABLET PO PRN (06:07)
[2021-10-05] MEDS: FUROSEMIDE 40 MG (LASIX) TAB PO SCH ×2 (06:07→17:45)
--- NOTE | 2021-10-05 06:47 | PM&R Progress Note ---
Subjective HPI/CC On Admission Date Seen by Provider: Oct 05, 2021 Time Seen by Provider: 11:45 Subjective/Events-last exam 10/05/2021: Pt doing a lot better DC planned for tomorrow Checked meds and labs No pain except for Gout pain Ready for discharge tomorrow 10/04/2021: Pt doing very well Gout management discussed Colchicine will be used as needed Checked meds and labs Has chronic pain issues BP is still very high before meds 10/03/2021: Pt doing well Feels pretty good with his gout Colchicine will be ordered BP was high before meds given Checked meds and labs Moving around pretty well 10/02/2021: Patient doing really well Walking around with nurse Complains of gout and widespread joint pain Added hydrocodone at his request Solu-Medrol given Bowels are moving Voiding well Review of Systems General: Fatigue, Malaise Objective Exam Vital Signs Vital Signs Date Time Temp Pulse Resp B/P (MAP) Pulse Ox O2 Delivery O2 Flow Rate FiO2 10/05/21 21:24 98 Room Air 10/05/21 19:53 36.6 67 16 119/68 (85) 10/02/21 01:40 21 Capillary Refill : General Appearance: No Apparent Distress, WD/WN, Anxious, Chronically ill, Obese HEENT: PERRL/EOMI, Normal ENT Inspection, Pharynx Normal Neck: Full Range of Motion, Normal Inspection, Non Tender, Supple, Carotid Bruit Respiratory: Chest Non Tender, Lungs Clear, Normal Breath Sounds, No Accessory Muscle Use, No Respiratory Distress Cardiovascular: Regular Rate, Rhythm, No Edema, No Gallop, No JVD, No Murmur, Normal Peripheral Pulses Gastrointestinal: Normal Bowel Sounds, No Organomegaly, No Pulsatile Mass, Non Tender, Soft Back: Normal Inspection, No CVA Tenderness, No Vertebral Tenderness Extremity: Normal Capillary Refill, Normal Inspection, Normal Range of Motion, Non Tender, No Calf Tenderness, No Pedal Edema Neurologic/Psychiatric: Alert, Oriented x3, No Motor/Sensory Deficits, manager bank II- XII Norm as Tested, Abnormal Gait, Depressed Affect, Motor Weakness (Generalized 4/5) Skin: Normal Color, Warm/Dry Lymphatic: No Adenopathy Results/Procedures Lab Patient resulted labs reviewed. FIM Transfers Therapy Code Descriptions/Definitions Functional [place] Measure: 0=Not Assessed/NA 4=Minimal Assistance 1=Total Assistance 5=Supervision or Setup 2=Maximal Assistance 6=Modified [place] 3=Moderate Assistance 7=Complete IndependenceSCALE: Activities may be completed with or without assistive devices. 1-Uznxkzdhgd-epwfqcd completes the activity by him/herself with no assistance f rom a helper. 5-Set-up or Clean-up Assistance-helper sets up or cleans up; patient completes activity. [place] assists only prior to or following the activity. 4-Supervision or Touching Assistance-helper provides verbal cues and/or touching/steadying and/or contact guard assistance as patient completes activity. Assistance may be provided throughout the activity or intermittently. 3-Partial/Moderate Assistance-helper does LESS THAN HALF the effort. [place] lifts, holds or supports trunk or limbs, but provides less than half the effort. 2-Substantial/Maximal Assistance-helper does MORE THAN HALF the effort. [place] lifts or holds trunk or limbs and provides more than half the effort. 3-Rmerqgnpo-fzdepo does ALL the effort. Patient does none of the effort to complete the activity. Or, the assistance of 2 or more helpers is required for the patient to complete the activity. If activity was not attempted, code reason: 7-Patient Refused. 9-Not Applicable-not attempted and the patient did not perform the activity before the current illness, exacerbation or injury. 10-Not Attempted due to Environmental Limitations-(lack of equipment, weather restraints, etc.). 88-Not Attempted due to Medical Conditions or Safety Concerns. Roll Left to Right (QC): 6 Sit to Lying (QC): 6 Sit to Stand (QC): 5 Chair/Qsd-un-Rqfmw Xfer(QC): 5 Car Transfer (QC): 3 Gait Training Does the Patient Walk?: Yes Distance: 300 feet Walk 10 feet (QC): 5 Walk 50 ft with 2 Turns(QC): 5 Walk 150 ft (QC): 5 Walking 10ft/uneven surface-QC: 88 Gait Persons Needed: 1 Gait Assistive Device: FWW Wheelchair Training Does the Pt Use a Wheelchair?: No Wheel 50 ft with 2 turns (QC): 88 Wheel 150 ft (QC): 88 Stair Training Stair Training: Handrails/: 1 handrail #of Steps: 4 1 Step (curb) (QC): 4 4 Steps (QC): 4 12 Steps (QC): 4 Stairs: Pattern: Reciprocal Balance Picking up an Object (QC): 88 ADL-Treatment Eating (QC): 5 (Set up assist with contianers) Oral Hygiene (QC): 6 (Per pt report, able to open toothpaste container and squeeze onto brush.) Shower/Bathe Self (QC): 5 (set up assist) Upper Body Dressing (QC): 5 (set up assist) Lower Body Dressing (QC): 5 (set up assist) On/Off Footwear (QC): 3 (Min A, OT completed suresh wraps. 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 Status post intubation due to respiratory failure intubated at [facility] ER Congestive heart failure Atrial fibrillation with rapid ventricular response status post cardioversion placed on amiodarone Gout with acute gout flare Engel catheter now DC Anxiety with panic attacks Anemia Malignant hypertension requiring Cardene drip Plan: Supportive care Aggressive rehab Home meds Gout treatment 10/02/2021: Supportive care Gout treatment 10/03/2021 Supportive care 10/04/2021: Supportive care Monitor blood pressure 10/05/2021: Discharge home tomorrow Await cardiology for blood pressure meds discharge (1) Acute respiratory failure with hypoxia and hypercapnia (2) Afib (3) CHF (congestive heart failure) Status: Acute (4) Bilateral leg edema Status: Acute (5) Hypertensive urgency, malignant Status: Acute KAMLA FERNANDEZ DO Oct 05, 2021 06:47
[2021-10-05 08:03] VITALS: BP 124/71
--- NOTE | 2021-10-05 08:34 | Occupational Ther Daily Note ---
OT Current Status-Daily Note Subjective Pt up in recliner. Pt agreeable to OT tx. Pt rates finger pain 3/10. Pt rates foot pain 8/10. Mental Status/Objective Patient Orientation: Normal For Age ADL-Treatment Therapy Code Descriptions/Definitions Functional [place] Measure: 0=Not Assessed/NA 4=Minimal Assistance 1=Total Assistance 5=Supervision or Setup 2=Maximal Assistance 6=Modified [place] 3=Moderate Assistance 7=Complete IndependenceSCALE: Activities may be completed with or without assistive devices. 0-Zszgbznqne-ausurfm completes the activity by him/herself with no assistance from a helper. 5-Set-up or Clean-up Assistance-helper sets up or cleans up; patient completes activity. [place] assists only prior to or following the activity. 4-Supervision or Touching Assistance-helper provides verbal cues and/or touching/steadying and/or contact guard assistance as patient completes activity. Assistance may be provided throughout the activity or intermittently. 3-Partial/Moderate Assistance-helper does LESS THAN HALF the effort. [place] lifts, holds or supports trunk or limbs, but provides less than half the effort. 2-Substantial/Maximal Assistance-helper does MORE THAN HALF the effort. [place] lifts or holds trunk or limbs and provides more than half the effort. 4-Dqkuneyze-riuaxo does ALL the effort. Patient does none of the effort to complete the activity. Or, the assistance of 2 or more helpers is required for the patient to complete the activity. If activity was not attempted, code reason: 7-Patient Refused. 9-Not Applicable-not attempted and the patient did not perform the activity before the current illness, exacerbation or injury. 10-Not Attempted due to Environmental Limitations-(lack of equipment, weather restraints, etc.). 88-Not Attempted due to Medical Conditions or Safety Concerns. Eating (QC): 6 Oral Hygiene (QC): 6 Shower/Bathe Self (QC): 6 Upper Body Dressing (QC): 6 Lower Body Dressing (QC): 6 On/Off Footwear: 6 Toileting Hygiene (QC): 6 Toilet Transfer (QC): 6 Other Treatment Pt transferred from recliner to shower, completed showering and dressing tasks, then back to recliner using FWW, mod I. Pt transferred back to bathroom to get glasses then walked to therapy gym with FWW, mod I. Pt completed arm bike, 25 w, 20 mins, no rest breaks. Pt completed the graded clothespins, placing/removing them X2 BUE, no rest breaks. Pt completed the peg board, placing/removing x100 pegs, 2X using BUE, no rest breaks. Pt used FWW to go into shower room with bathtub, pt transferred in/out of bathtub, holding onto the wall/GBs as needed, no LOB or safety concerns noted. OT demonstrated tub/transfer bench and educated pt on safety of using one if he feels like he would like one at discharge. Pt did not want one at this time. Pt returned to room using FWW, mod I, transferred to recliner. Post tx, pt in recliner, call light in reach and al needs met. Education OT Patient Education: Correct positioning, Energy conservation, Modified ADL techniques, Rehab process, Transfer techniques Teaching Methods: Discussion Response to Teaching: Verbalize Understanding OT Short Term Goals Short Term Goals Time Frame: Oct 06, 2021 Putting on/taking off footwear: 5 OT Clam Dredger Goals Clam Dredger Goals Time Frame: Oct 14, 2021 Eating (QC): 6 (met) Oral Hygiene (QC): 6 (met) Toileting Hygiene (QC): 6 (met) Shower/Bathe Self (QC): 6 (met) Upper Body Dressing (QC): 6 (met) Lower Body Dressing (QC): 6 (met) On/Off Footwear (QC): 6 (met) Additional Goals: 1-Demonstrate ADL Tasks, 2-Verbalize Understanding, 3- ImproveStrength/Claudia 1=Demonstrate adherence to instructed precautions during ADL tasks. 2=Patient will verbalize/demonstrate understanding of assistive devices/mod ifications for ADL. 3=Patient will improve strength/tolerance for activity to enable patient to perform ADL's. OT Education/Plan Problem List/Assessment Assessment: Decreased Activ Tolerance, Impaired Funct Balance, Impaired I ADL's Discharge Recommendations Plan/Recommendations: Continue POC Treatment Plan/Plan of Care Patient would benefit from OT for education, treatment and training to promote independence in ADL's, mobility, safety and/or upper extremity function for ADL's. Plan of Care: ADL Retraining, Cognitive Retraining, Functional Mobility Treatment Duration: Oct 03, 2021 Frequency: 5 times per week Estimated Hrs Per Day: 1 hour per day Rehab Potential: Good Time/GCodes Start Time: 08:00 Stop Time: 09:30 Total Time Billed (hr/min): 90 Billed Treatment Time 1, ADL (15), EX (20), FA 4 (55) DONNY PLUNKETT OT Oct 05, 2021 08:34
[2021-10-05] MEDS: lisINopril 40 MG (PRINIVIL) TABLET PO SCH (09:30)
[2021-10-05] MEDS: PANTOPRAZOLE 40 MG (PROTONIX) TAB PO SCH (09:30)
[2021-10-05] MEDS: ZINC SULFATE 220 MG CAPSULE PO SCH (09:30)
[2021-10-05] MEDS: CYANOCOBALAMIN 1,000 MCG (VITAMIN B-12) TABLET PO SCH (09:30)
[2021-10-05] MEDS: cloNIDine 0.2 MG (CATAPRES) TAB PO SCH ×3 (09:30→20:43)
[2021-10-05] MEDS: AMIODARONE 200 MG (CORDARONE) TAB PO SCH (09:30)
[2021-10-05] MEDS: KCL 10 MEQ TAB (MICRO K) PO SCH ×2 (09:30→17:45)
[2021-10-05] MEDS: polyethylene glycoL POWDER 17 GM (MIRALAX) PACK PO SCH ×2 (09:35→20:46)
[2021-10-05] MEDS: DOCUSATE SODIUM 100 MG (COLACE) CAP PO SCH ×2 (09:35→20:45)
[2021-10-05] MEDS: SENNA W/DOCUSATE (SENOKOT S) TABLET PO SCH ×2 (09:35→20:46)
[2021-10-05] MEDS: RT-ALBUTEROL/IPRATROPIUM 3 ML (DUONEB) VIAL INH SCH ×2 (11:02→21:24)
--- NOTE | 2021-10-05 11:54 | Physical Therapy Daily Note ---
PT Daily Note-Current Subjective Pt. agrees to Rx, asks when he might be dismissed as he feels he is doing everything indep. SW visits with pt briefly during Rx. c/o pain minimal in bilat feet Pain Numeric Pain Scale: 5-Moderate Pain Location: Left (and right ) Location Body Site: Foot Pain Description: Pressure Mental Status Patient Orientation: Normal For Age Transfers SCALE: Activities may be completed with or without assistive devices. 6-Uhqbarhewv-vyoxxuq completes the activity by him/herself with no assistance from a helper. 5-Set-up or Clean-up Assistance-helper sets up or cleans up; patient completes activity. [place] assists only prior to or following the activity. 4-Supervision or Touching Assistance-helper provides verbal cues and/or touching/steadying and/or contact guard assistance as patient completes activity. Assistance may be provided throughout the activity or intermittently. 3-Partial/Moderate Assistance-helper does LESS THAN HALF the effort. [place] lifts, holds or supports trunk or limbs, but provides less than half the effort. 2-Substantial/Maximal Assistance-helper does MORE THAN HALF the effort. [place] lifts or holds trunk or limbs and provides more than half the effort. 1-Catiqviba-cyrdzg does ALL the effort. Patient does none of the effort to complete the activity. Or, the assistance of 2 or more helpers is required for the patient to complete the activity. If activity was not attempted, code reason: 7-Patient Refused. 9-Not Applicable-not attempted and the patient did not perform the activity before the current illness, exacerbation or injury. 10-Not Attempted due to Environmental Limitations-(lack of equipment, weather restraints, etc.). 88-Not Attempted due to Medical Conditions or Safety Concerns. Roll Left & Right (QC): 6 Sit to Lying (QC): 6 Lying to Sitting/Side of Bed(Q: 6 Sit to Stand (QC): 6 Chair/Pdu-aj-Xqcpt Xfer(QC): 6 Toilet Transfer (QC): 6 Car Transfer (QC): 6 Gait Training Does the Patient Walk?: Yes Walk 10 feet (QC): 6 Walk 50 ft with 2 Turns(QC): 6 Walk 150 ft (QC): 6 Walking 10ft/uneven surface-QC: 6 Gait Persons Needed: 0 Stair Training Stair Training: Handrails/: 2 handrails #of Steps: 12 1 Step (curb) (QC): 6 4 Steps (QC): 6 12 Steps (QC): 6 Stairs: Pattern: Reciprocal slow as pt has bilat TKRs and feels he is still making progress with them, uses rails Balance Picking up an Object (QC): 5 Exercises Supine Ex: Bridging, Ankle pumps, Quad Set, Rolling, Glut sets, Heel Slides, Short Arc Quads, Scooting, Straight leg raise, Hip abd/add Supine Reps: 20 NuStep Minutes: 12 NuStep Workload: 3 Assessment Current Status: Good Progress meets goals PT Short Term Goals Short Term Goals Time Frame: Oct 08, 2021 Roll Left & Right: 4 Sit to lyin Lying to sitting on side of be: 4 Sit to stand: 4 Chair/iwa-si-ezgos transfer: 4 Toilet transfer: 4 Car transfer: 4 Walk 10 feet: 5 Walk 50 feet with two turns: 5 Walk 150 feet: 5 PT Usp Goals Usp Goals PT Bass Guitar Teacher Goals Time Frame: Oct 28, 2021 Roll Left & Right (QC): 6 Sit to Lying (QC): 6 Lying-Sitting on Side/Bed(QC): 6 Sit to Stand (QC): 6 Chair/Gel-fr-Oprmz Xfer(QC): 6 Toilet Transfer (QC): 6 Car Transfer (QC): 6 Does the Patient Walk: Yes Walk 10 feet (QC): 6 Walk 50ft with 2 Turns (QC): 6 Walk 150 ft (QC): 6 Walking 10ft on Uneven Surface: 4 1 Step (curb) (QC): 4 4 Steps (QC): 4 12 Steps (QC): 4 Picking up an Object (QC): 5 Does the Pt use WC or Scooter?: No Wheel 50 feet with 2 turns (QC: 88 Wheel 150 feet: 88 PT Plan Treatment/Plan Treatment Plan: Continue Plan of Care Treatment Plan: Bed Mobility, Education, Functional Activity Claudia, Functional Strength, Gait, Safety, Therapeutic Exercise, Transfers Treatment Duration: Nov 12, 2021 Frequency: At least 5 of 7 days/Wk (IRF) Estimated Hrs Per Day: 1.5 hours per day Patient and/or Family Agrees t: Yes Safety Risks/Education Patient Education: Gait Training, Transfer Techniques, Correct Positioning, Safety Issues Teaching Recipient: Patient Teaching Methods: Demonstration, Discussion Response to Teaching: Verbalize Understanding, Return Demonstration, Reinforcement Needed Time/GCodes Time In: 1100 Time Out: 1200 Total Billed Treatment Time: 60 Total Billed Treatment 1,EX35m,GT10m,FA15m PAUL GONZALEZ LEADERSHIP PROGRAM INTERNSHIP Oct 05, 2021 11:54
[2021-10-05 13:14] VITALS: BP 118/55
--- NOTE | 2021-10-05 13:49 | Physical Therapy Daily Note ---
PT Daily Note-Current Subjective Pt. agrees to Rx. Discussed that he is safer using FWW as long as he has foot pain because he could wt bear if he needed sudden relief from wt bearing. pt. agrees to balance testing but also agrees he will use FWW as needed. Pt anticipates DC tomorrow morning Pain Numeric Pain Scale: 4 Location: Left (and right ) Location Body Site: Foot Pain Description: Burning Mental Status Patient Orientation: Normal For Age Transfers SCALE: Activities may be completed with or without assistive devices. 5-Arpsbygeiz-nirjxse completes the activity by him/herself with no assistance from a helper. 5-Set-up or Clean-up Assistance-helper sets up or cleans up; patient completes activity. [place] assists only prior to or following the activity. 4-Supervision or Touching Assistance-helper provides verbal cues and/or touching/steadying and/or contact guard assistance as patient completes activit y. Assistance may be provided throughout the activity or intermittently. 3-Partial/Moderate Assistance-helper does LESS THAN HALF the effort. [place] lifts, holds or supports trunk or limbs, but provides less than half the effort. 2-Substantial/Maximal Assistance-helper does MORE THAN HALF the effort. [place] lifts or holds trunk or limbs and provides more than half the effort. 2-Cfcjbrpbd-prdadp does ALL the effort. Patient does none of the effort to complete the activity. Or, the assistance of 2 or more helpers is required for the patient to complete the activity. If activity was not attempted, code reason: 7-Patient Refused. 9-Not Applicable-not attempted and the patient did not perform the activity before the current illness, exacerbation or injury. 10-Not Attempted due to Environmental Limitations-(lack of equipment, weather restraints, etc.). 88-Not Attempted due to Medical Conditions or Safety Concerns. mod I for all Gait Training Does the Patient Walk?: Yes Walk 10 feet (QC): 6 Walk 50 ft with 2 Turns(QC): 6 Walk 150 ft (QC): 6 Walking 10ft/uneven surface-QC: 6 Gait Persons Needed: 0 Gait Assistive Device: FWW Mod I with FWW , up ad rené Balance Picking up an Object (QC): 88 Special Test Comments VERDIN 54/56 Treatments VERDIN test with good results, pt. can ambulate without AD when he deems feasible Assessment Current Status: Good Progress meets goals PT Short Term Goals Short Term Goals Time Frame: Oct 08, 2021 Roll Left & Right: 4 Sit to lyin Lying to sitting on side of be: 4 Sit to stand: 4 Chair/dkq-ko-zxxqo transfer: 4 Toilet transfer: 4 Car transfer: 4 Walk 10 feet: 5 Walk 50 feet with two turns: 5 Walk 150 feet: 5 PT Nursing Home Goals Treating Inspector Goals PT Treating Inspector Goals Time Frame: Oct 28, 2021 Roll Left & Right (QC): 6 Sit to Lying (QC): 6 Lying-Sitting on Side/Bed(QC): 6 Sit to Stand (QC): 6 Chair/Yeh-eo-Oiyii Xfer(QC): 6 Toilet Transfer (QC): 6 Car Transfer (QC): 6 Does the Patient Walk: Yes Walk 10 feet (QC): 6 Walk 50ft with 2 Turns (QC): 6 Walk 150 ft (QC): 6 Walking 10ft on Uneven Surface: 4 1 Step (curb) (QC): 4 4 Steps (QC): 4 12 Steps (QC): 4 Picking up an Object (QC): 5 Does the Pt use WC or Scooter?: No Wheel 50 feet with 2 turns (QC: 88 Wheel 150 feet: 88 PT Plan Treatment/Plan Treatment Plan: Continue Plan of Care Treatment Plan: Bed Mobility, Education, Functional Activity Claudia, Functional Strength, Gait, Safety, Therapeutic Exercise, Transfers Treatment Duration: Nov 12, 2021 Frequency: At least 5 of 7 days/Wk (IRF) Estimated Hrs Per Day: 1.5 hours per day Patient and/or Family Agrees t: Yes Safety Risks/Education Patient Education: Gait Training, Correct Positioning, Safety Issues Teaching Recipient: Patient Teaching Methods: Demonstration, Discussion Response to Teaching: Verbalize Understanding, Return Demonstration, Reinforcement Needed Time/GCodes Time In: 1315 Time Out: 1345 Total Billed Treatment Time: 30 Total Billed Treatment 1,NM30m PAUL GONZALEZ [employer] SUPERVISOR Oct 05, 2021 13:49
[2021-10-05 15:07] VITALS: BP 118/55
[2021-10-05] MEDS: RIVAROXABAN 20 MG TABLET (XARELTO) PO SCH (17:45)
[2021-10-05 19:53] VITALS: BP 119/68
--- NOTE | 2021-10-05 20:12 | Cardiology Progress Note ---
Progress Note-Cardiology Events since last exam Date Seen by Provider: Oct 05, 2021 Time Seen by Provider: 20:06 Events since last exam We are following him for hypertension. He anticipates being discharged home tomorrow. He lives in [place]. He denies chest discomfort, dyspnea, palpitations, or syncope. He has mild ankle edema. Certain portions of this document may have been dictated utilizing voice recognition technology. Inherent to this technology, typographical and grammatical errors may exist. As much as I am diligent to identify and correct these mistakes, some errors may remain in the document. Vitals Last set of Vitals Signs Vital Signs 10/02/21 10/05/21 01:40 19:53 Temp 36.6 Pulse 67 Resp 16 B/P (MAP) 119/68 (85) Pulse Ox 95 O2 Delivery Room Air FiO2 21 Exam Vital Signs Vital Signs Date Time Temp Pulse Resp B/P (MAP) Pulse Ox O2 Delivery O2 Flow Rate FiO2 10/05/21 19:53 36.6 67 16 119/68 (85) 95 Room Air 10/02/21 01:40 21 Physical Exam General: Alert. No acute distress. He is obese. Eye: No xanthelasma. HENT: Normocephalic. Neck: Jugular venous pressure does not appear elevated. Respiratory: Lungs are clear to auscultation. Respirations are non-labored. Breath sounds are equal. Symmetrical chest wall expansion. Cardiovascular: Normal rate. Regular rhythm. No murmur. No gallop. No edema. Gastrointestinal: Soft. Normal bowel sounds. Skin: Warm. Dry. Neurologic: Alert and oriented to person, place, time. Cranial nerves 3-11 grossly intact. Psychiatric: Cooperative. Appropriate mood & affect. Diagnosis/Problems Diagnosis/Problems (1) Hypertensive urgency Assessment & Plan: His blood pressures are now improved. Earlier today, he's blood pressure was running on the low side. He had been started on doxazosin twice a day. I have changed this over to once daily dosing. He may be ready for discharge from rehab tomorrow. I will have our office schedule him for a follow-up appointment with his regular farm reporter, Dr. Pimentel, in 1 month. (2) Mixed hyperlipidemia Assessment & Plan: Continue atorvastatin. (3) Paroxysmal atrial fibrillation Assessment & Plan: He is on rivaroxaban for stroke prophylaxis and amiodarone for rhythm control. He is not on any rate control medication. This condition is followed by his regular farm reporter, Dr. Pimentel. (4) Obesity Assessment & Plan: He needs to work on weight loss. OSCAR AZRATE JR, MD Oct 05, 2021 20:11
[2021-10-05] MEDS: HYDROcodone/APAP 5 MG/325 MG (LORTAB) TAB PO PRN (20:43)
[2021-10-06] MEDS ORDERED: DOXA4TAB2 PO (06:31)
--- NOTE | 2021-10-06 06:31 | Discharge Summary ---
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 Status post intubation due to respiratory failure intubated at [facility] ER Congestive heart failure Atrial fibrillation with rapid ventricular response status post cardioversion placed on amiodarone Gout with acute gout flare Engel catheter now DC Anxiety with panic attacks Anemia Malignant hypertension requiring Cardene drip Plan: Supportive care Aggressive rehab Home meds Gout treatment 10/02/2021: Supportive care Gout treatment 10/03/2021 Supportive care 10/04/2021: Supportive care Monitor blood pressure 10/05/2021: Discharge home tomorrow Await cardiology for blood pressure meds discharge (1) Acute respiratory failure with hypoxia and hypercapnia (2) Afib (3) CHF (congestive heart failure) Status: Acute (4) Bilateral leg edema Status: Acute (5) Hypertensive urgency, malignant Status: Acute Discharge Summary Discharge Physical Examination Allergies: Coded Allergies: amlodipine (Verified Allergy, Unknown, 05/14/19) Vitals & I&Os Vital Signs Date Time Temp Pulse Resp B/P (MAP) Pulse Ox O2 Delivery O2 Flow Rate FiO2 10/06/21 10:10 36.4 72 18 134/83 98 Room Air 10/02/21 01:40 21 General Appearance: Alert, Oriented X3, Cooperative Respiratory: Clear to Auscultation Cardiovascular: Regular Rate Neuro: Normal Gait, Normal Speech, Strength at 5/5 X4 Ext Psych/Mental Status: Mental Status NL Hospital Course Was the Problem List Reviewed?: Yes Hospital Course: Pt had a short hospital course for 6 days after he was intubated in the ICU for malignant hypertension and CHF and multisystem organ failure. Overall he did very well, and had no concerns at time of discharge. He was able to regain all of his ADLs and was ready for DC. Labs (last 24 hrs) Laboratory Tests 10/01/21 16:54: Glucometer 97 10/01/21 21:46: Glucometer 132H 10/02/21 05:24: White Blood Count 9.7, Red Blood Count 3.92L, Hemoglobin 12.1L, Hematocrit 37L, Mean Corpuscular Volume 95, Mean Corpuscular Hemoglobin 31, Mean Corpuscular Hemoglobin Concent 32, Red Cell Distribution Width 14.0, Platelet Count 271, Mean Platelet Volume 10.4, Immature Granulocyte % (Auto) 2, Neutrophils (%) (Auto) 77H, Lymphocytes (%) (Auto) 12, Monocytes (%) (Auto) 9, Eosinophils (%) (Auto) 1, Basophils (%) (Auto) 0, Neutrophils # (Auto) 7.4, Lymphocytes # (Auto) 1.1, Monocytes # (Auto) 0.9, Eosinophils # (Auto) 0.1, Basophils # (Auto) 0.0, Immature Granulocyte # (Auto) 0.2H, Sodium Level 138, Potassium Level 4.0, Chloride Level 103, Carbon Dioxide Level 24, Anion Gap 11, Blood Urea Nitrogen 33H, Creatinine 0.97, Estimat Glomerular Filtration Rate 77, BUN/Creatinine Ratio 34, Glucose Level 90, Calcium Level 9.4, Corrected Calcium 10.4H, Total Bilirubin 0.3, Aspartate Amino Transf (AST/SGOT) 67H, Alanine Aminotransferase (ALT/SGPT) 71H, Alkaline Phosphatase 72, Total Protein 6.3L, Albumin 2.8L 10/02/21 11:48: Glucometer 85 Pending Labs Laboratory Tests 10/01/21 16:54: Glucometer 97 10/01/21 21:46: Glucometer 132 10/02/21 05:24: White Blood Count 9.7, Red Blood Count 3.92, Hemoglobin 12.1, Hematocrit 37, Mean Corpuscular Volume 95, Mean Corpuscular Hemoglobin 31, Mean Corpuscular Hemoglobin Concent 32, Red Cell Distribution Width 14.0, Platelet Count 271, Mean Platelet Volume 10.4, Immature Granulocyte % (Auto) 2, Neutrophils (%) (Auto) 77, Lymphocytes (%) (Auto) 12, Monocytes (%) (Auto) 9, Eosinophils (%) (Auto) 1, Basophils (%) (Auto) 0, Neutrophils # (Auto) 7.4, Lymphocytes # (Auto) 1.1, Monocytes # (Auto) 0.9, Eosinophils # (Auto) 0.1, Basophils # (Auto) 0.0, Immature Granulocyte # (Auto) 0.2, Sodium Level 138, Potassium Level 4.0, Chloride Level 103, Carbon Dioxide Level 24, Anion Gap 11, Blood Urea Nitrogen 33, Creatinine 0.97, Estimat Glomerular Filtration Rate 77, BUN/Creatinine Ratio 34, Glucose Level 90, Calcium Level 9.4, Corrected Calcium 10.4, Total Bilirubin 0.3, Aspartate Amino Transf (AST/SGOT) 67, Alanine Aminotransferase (ALT/SGPT) 71, Alkaline Phosphatase 72, Total Protein 6.3, Albumin 2.8 10/02/21 11:48: Glucometer 85 Discharge Home Medications: Active Scripts Active Doxazosin Mesylate 4 Mg Tablet 2 Mg PO DAILY Vitamin D2 (Ergocalciferol (Vitamin D2)) 50 Mcg Capsule 50 Mcg PO DAILY B-12 (Cyanocobalamin (Vitamin B-12)) 500 Mcg Tablet 500 Mcg PO DAILY Zinc (Zinc Sulfate) 50 Mg Tablet 50 Mg PO DAILY Colchicine 0.6 Mg Capsule 0.6 Mg PO DAILY 30 Days DOES NOT HAVE ANY AT THIS TIME Reported Potassium Chloride 10 Meq Tab.er.prt 10 Meq PO BID Amiodarone HCl 200 Mg Tablet 100 Mg PO DAILY TAKES 1/2 OF A 200MG TABLET Furosemide 40 Mg Tablet 40 Mg PO BID Hydralazine HCl 10 Mg Tablet 10 Mg PO TID Lisinopril 40 Mg Tablet 40 Mg PO DAILY Clonidine HCl 0.2 Mg Tablet 0.2 Mg PO TID Xarelto (Rivaroxaban) 20 Mg Tablet 20 Mg PO DAILY IN EVENING Atorvastatin Calcium 40 Mg Tablet 40 Mg PO DAILY 40MG TABLET IN THE EVENING Instructions to patient/family Please see electronic discharge instructions given to patient. Diagnosis/Problems Diagnosis/Problems (1) Acute respiratory failure with hypoxia and hypercapnia (2) Afib (3) CHF (congestive heart failure) Status: Acute (4) Bilateral leg edema Status: Acute (5) Hypertensive urgency, malignant Status: Acute KAMLA FERNANDEZ DO Oct 06, 2021 06:31
[2021-10-06] MEDS: FUROSEMIDE 40 MG (LASIX) TAB PO SCH (06:46)
[2021-10-06 07:24] VITALS: BP 134/83
[2021-10-06] MEDS: RT-ALBUTEROL/IPRATROPIUM 3 ML (DUONEB) VIAL INH SCH (07:32)
[2021-10-06] MEDS: PANTOPRAZOLE 40 MG (PROTONIX) TAB PO SCH (07:46)
[2021-10-06] MEDS: AMIODARONE 200 MG (CORDARONE) TAB PO SCH (07:46)
[2021-10-06] MEDS: KCL 10 MEQ TAB (MICRO K) PO SCH (07:47)
[2021-10-06] MEDS: lisINopril 40 MG (PRINIVIL) TABLET PO SCH (07:47)
[2021-10-06] MEDS: cloNIDine 0.2 MG (CATAPRES) TAB PO SCH (07:47)
[2021-10-06] MEDS: ZINC SULFATE 220 MG CAPSULE PO SCH (07:48)
[2021-10-06] MEDS: CYANOCOBALAMIN 1,000 MCG (VITAMIN B-12) TABLET PO SCH (07:48)
[2021-10-06] MEDS: HYDROcodone/APAP 5 MG/325 MG (LORTAB) TAB PO PRN (08:10)
--- NOTE | 2021-10-06 08:35 | Therapy Team Discharge Summary ---
Therapy Discharge Summary Discharge Recommendations Date of Discharge Occupational Therapy Pt admitted to ARU with debility. At OF, pt independent with all ADLs and functional mobility, no AD/AE. Upon initial evaluation, pt required set up assistance with eating, oral care, showering, upper/lower body dressing, min A footwear, and independent with toileting. OT tx focused on increasing BUE strength and activity tolerance, and increasing independence with ADLs and functional mobility. At discharge, pt was independent with ADLs, meeting all LTGs. Pt to discharge home on this date, d/c from OT. Decreased Activ Tolerance, Impaired Funct Balance, Impaired I ADL's PT Trapper Animal Goals Jail Goals PT Jail Goals Time Frame: Oct 28, 2021 Roll Left to Right (QC): 6 Sit to Lying (QC): 6 Lying-Sitting on Side/Bed(QC): 6 Sit to Stand (QC): 6 Chair/Dqh-jr-Dmqzd Xfer(QC): 6 Car Transfer (QC): 6 Does the Patient Walk: Yes Walk 10 feet (QC): 6 Walk 10ft-Uneven Surface(QC): 4 Walk 50ft with 2 Turns (QC): 6 Walk 150 ft (QC): 6 Does the Pt use WC or Scooter?: No Wheel 50 feet with 2 turns (QC: 88 1 Step (curb) (QC): 4 4 Steps (QC): 4 12 Steps (QC): 4 Picking up an Object (QC): 5 OT Jail Goals Jail Goals Time Frame: Oct 14, 2021 Eating (QC): 6 (met) Oral Hygiene (QC): 6 (met) Shower/Bathe Self (QC): 6 (met) Upper Body Dressing (QC): 6 (met) Lower Body Dressing (QC): 6 (met) On/Off Footwear (QC): 6 (met) Toileting Hygiene (QC): 6 (met) Toilet/Commode Transfer (QC): 6 Additional Goals: 1-Demonstrate ADL Tasks, 2-Verbalize Understanding, 3-ImproveStrength/Claudia 1=Demonstrate adherence to instructed precautions during ADL tasks. 2=Patient will verbalize/demonstrate understanding of assistive devices/modifications for ADL. 3=Patient will improve strength/tolerance for activity to enable patient to perform ADL's. DONNY PLUNKETT OT Oct 06, 2021 08:35
[2021-10-06] MEDS ORDERED: VITAMIN D2 1.25 MG (50,000 UNITS) CAP PO SCH (09:00)
[2021-10-06] MEDS ORDERED: doxAzosin 4 MG (CARDURA) TAB PO SCH (09:00)
--- NOTE | 2021-10-06 09:56 | Therapy Team Discharge Summary ---
Therapy Discharge Summary Discharge Recommendations Date of Discharge Physical Therapy Patient came to rehab with debility. Upon evaluation patient performed bed mobility and transfers with min assist, car transfer min assist, ambulated 60' with a rolling walker with CGA. Patient has been performing bed mobility and transfer training, balance and endurance training, functional strengthening, stair training, gait training, and education. Patient has made good progress and has met all of his salvage determiner goals. Now, patient performs bed mobility and transfers with independence, car transfer independent, ambulates over 150' with a rolling walker with independence (including 50' with at least 2 turns of 90 degrees and 10' over an uneven surface), can go up and down 12 steps using 2 handrails with independence, and can olive picker an object from the floor with setup. Patient is being discharged from this facility today and will be discharged from PT at this time. Occupational Therapy Decreased Activ Tolerance, Impaired Funct Balance, Impaired I ADL's PT Inclusion Intern Goals Skilled Nursing Goals PT Skilled Nursing Goals Time Frame: Oct 28, 2021 Roll Left to Right (QC): 6 Sit to Lying (QC): 6 Lying-Sitting on Side/Bed(QC): 6 Sit to Stand (QC): 6 Chair/Rvn-ix-Vryvr Xfer(QC): 6 Car Transfer (QC): 6 Does the Patient Walk: Yes Walk 10 feet (QC): 6 Walk 10ft-Uneven Surface(QC): 4 Walk 50ft with 2 Turns (QC): 6 Walk 150 ft (QC): 6 Does the Pt use WC or Scooter?: No Wheel 50 feet with 2 turns (QC: 88 1 Step (curb) (QC): 4 4 Steps (QC): 4 12 Steps (QC): 4 Picking up an Object (QC): 5 OT Skilled Nursing Goals Inclusion Intern Goals Time Frame: Oct 14, 2021 Eating (QC): 6 (met) Oral Hygiene (QC): 6 (met) Shower/Bathe Self (QC): 6 (met) Upper Body Dressing (QC): 6 (met) Lower Body Dressing (QC): 6 (met) On/Off Footwear (QC): 6 (met) Toileting Hygiene (QC): 6 (met) Toilet/Commode Transfer (QC): 6 Additional Goals: 1-Demonstrate ADL Tasks, 2-Verbalize Understanding, 3- ImproveStrength/Claudia 1=Demonstrate adherence to instructed precautions during ADL tasks. 2=Patient will verbalize/demonstrate understanding of assistive devices/modifications for ADL. 3=Patient will improve strength/tolerance for activity to enable patient to perform ADL's. CHIP VALADEZ PT Oct 06, 2021 09:56
[2021-10-06 10:10] VITALS: BP 134/83
--- NOTE | 2021-10-06 10:27 | D/C HH Face to Face Order ---
D/C Face to Face Orders Reconcile Patient Problems Problems Reviewed?: Yes Instructions for Patient [facility] Patient Instructions/FollowUp: PCP 2 weeks Physician to follow Patient: Kody Discharge Diet for Home: No Restrictions Patient Problems: Malignant HTN Patient Data-Allergies,Ht & Wt Patient Allergies: Coded Allergies: amlodipine (Verified Allergy, Unknown, 05/14/19) Height (Feet): 5 Height (Inches): 6.00 Weight (Pounds): 225 Weight (Ounces): 0.0 Home Health Need/Face to Face Date of Face to Face: Oct 06, 2021 Clinical Findings: Generalized weakness and fatigue, Muscle weakness I have seen Pt [id number]: Yes Discharged To: Home Diagnosis/Conditions: Malignant HTN Patient is Homebound due to: Koko fall risk due to instabilty, Muscle weakness, Shortness of breath/distress Homebound Status Due to the above stated illness, injury or surgical procedure (medical condition or diagnosis) and associated clinical findings, the patient is homebound because of his/her inability to leave home except with aid of a supportive device and/or person AND leaving the home requires a considerable and taxing effort or is medically contraindicated. Pt req the following assistanc: Walker Home Health Nursing Orders Home Health Services Order: Nursing Services, Tool And Equipment Rental Clerk-Evaluate & Treat, Physical Therapy-Evaluate & Treat Certify Stmt I certify that this patient is under my care and that I, a nurse practitioner or a physician; a timber management assistant working with me, had a face to face encounter that - meets the physician face to face encounter requirements with this patient as dated. KAMLA FERNANDEZ DO Oct 06, 2021 10:27
== END 2021-10-06 10:10 | disposition home health service (06) | DRG 91 ==
LOC: UNDOADMIN 09:44
PROVIDERS: ADMIT Internal Medicine; ATTEND Internal Medicine
DX: G72.81 Critical illness myopathy (principal); I21.A1 Myocardial infarction type 2; I50.22 Chronic systolic (congestive) heart failure; I11.0 Hypertensive heart disease with heart failure; I16.0 Hypertensive urgency; I48.0 Paroxysmal atrial fibrillation; I27.20 Pulmonary hypertension, unspecified; I25.10 Atherosclerotic heart disease of native coronary artery without angina pectoris; E78.2 Mixed hyperlipidemia; M10.9 Gout, unspecified; F41.0 Panic disorder [episodic paroxysmal anxiety]; E78.00 Pure hypercholesterolemia, unspecified; H54.61 Unqualified visual loss, right eye, normal vision left eye; I77.9 Disorder of arteries and arterioles, unspecified; Z87.891 Personal history of nicotine dependence; Z95.5 Presence of coronary angioplasty implant and graft; Z95.1 Presence of aortocoronary bypass graft; Z79.02 Long term (current) use of antithrombotics/antiplatelets; Z68.36 Body mass index [BMI] 36.0-36.9, adult; Z79.899 Other long term (current) drug therapy
CPT/HCPCS: 36415; 80053; 82947; 85025; 94640; 94760

== ENCOUNTER 2021-11-09 11:39 | Inpatient (IN) | payer MEDICARE, OTHER ==
[~2021-11-09] VITALS: Ht 67 cm; Wt 108.5 kg
[~2021-11-09 11:39] MED LIST changes: +COLC0.6C3 PO; +CYAN500T44 PO; +DOXA4TAB2 PO; +ERGO50CA PO; +ZINC220T3 PO
[2021-11-09] MEDS ORDERED: polyethylene glycoL POWDER 17 GM (MIRALAX) PACK PO PRN (14:45)
[2021-11-09] MEDS ORDERED: diphenhydrAMINE 25 MG TAB (BENADRYL) PO PRN (14:45)
[2021-11-09] MEDS ORDERED: ONDANSETRON 4 MG/2 ML (SDV) Z0FRAN IV PRN (14:45)
[2021-11-09] MEDS ORDERED: MELATONIN 3 MG TABLET PO PRN (14:45)
[2021-11-09] MEDS ORDERED: ANTACID SUSP 30 ML UDC (MYLANTA) PO PRN (14:45)
[2021-11-09] MEDS ORDERED: ONDANSETRON 4 MG (ZOFRAN) ORAL DISSOLVE TAB PO PRN (14:45)
--- NOTE | 2021-11-09 15:32 | Consultation-Cardiology ---
HPI-Cardiology Cardiology Consultation Date of Consultation 11/09/21 Date of Admission Time Seen by Provider: 15:27 Indication: Dyspnea, syncope HPI Patient is a 66 y/o male with history of PAF, CAD with CABG, HTN with recent hospitalization for hypertensive urgency. Presented to [place] ER with complaints of dizziness and syncope as well as acute dyspnea. Patient reports he went out to his car to go on a drive with his dog, once he got into winch driver seat became dizzy and short of breath and had syncopal episode. Denies any active chest pain. Denies any recent dizziness prior to episode. . Reports blood pressure at home has been mildly elevated. Reports compliance with medications. Work up done in ER showing AFib with RVR and elevated BNP. Was given IV lasix in ER which improved his dyspnea. Currently he is rate controlled afib with frequent PVC's. Home Medications & Allergies Allergies: Coded Allergies: amlodipine (Verified Allergy, Unknown, 05/14/19) Home Medication List Reviewed: Yes [id number] Hx Patient Social History Marital Status: single Employed/Student: retired Smoking Status: Former Smoker Type Used: Cigars, Cigarettes 2nd Hand Smoke Exposure: No Recent Hopitalizations: No Have you traveled recently?: No Alcohol Use?: No Immunizations Up To Date Tetanus Booster (TDap): Less than 5yrs Date of Pneumonia Vaccine: May 14, 2018 Date of Influenza Vaccine: Aug 09, 2021 Past Medical History CAD, PAF, HTN Family Medical History Significant Family History: No Pertinent Family Hx Family Medical Hx Noncontributory Review of Systems-General Review of Systems Constitutional: see HPI; No fever, No malaise, No weakness EENTM: see HPI; No blurred vision, No double vision Respiratory: see HPI; No cough; dyspnea on exertion, short of breath; No wheezing Cardiovascular: see HPI; No chest pain; edema, Hx of Intervention; No palpitations; syncope, vascular heart diseas Gastrointestinal: No abdominal pain Genitourinary: No frequency, No hematuria Musculoskeletal: No back pain Skin: No dryness, No lesions Psychiatric/Neurological: Denies Anxiety, Denies Depressed ECG Impression ECG Initial ECG Rhythm: A Fib/Flutter Initial ECG Impression: Atrial Fibrillation w/RVR Physical Exam Physical Exam Vital Signs Vital Signs - First Documented Capillary Refill : Height, Weight, BMI Height: 5'6.00" Weight: 225lbs. 0.0oz. 102.995357rw; 241.25 BMI Method:Stated General Appearance: No Apparent Distress, WD/WN HEENT: Normal ENT Inspection Neck: Non Tender, Supple; No Carotid Bruit Respiratory: Chest Non Tender, Lungs Clear, Normal Breath Sounds, No Accessory Muscle Use, No Respiratory Distress Cardiovascular: No Gallop, No JVD, Normal Peripheral Pulses, Irregularly Irregular, Other (+1 edema BLE) Gastrointestinal: Non Tender, Soft Back: No CVA Tenderness Extremity: Pedal Edema Neurologic/Psychiatric: Alert, Oriented x3, resin remover II-XII Norm as Tested A/P-Cardiology Admission Diagnosis Dizziness and near syncope Atrial fibrillation CAD HTN Assessment/Plan Dizziness with near syncope, unknown etiology, possibly secodary to afib, occurred earlier today while sitting in car. EKG done at [place] showing afib with RVR. Will continue on telemetry. I will evaluate troponin. Planning for stress test in the morning. Acute on chronic congestive heart failure, chronic compensated left ventricular systolic dysfunction, last echocardiogram done September 2021 showing EF 35-40%, slight improvement compared to Oct 2019. Responded to Lasix in the ER. Maintained on lisinopril. Unable to tolerate beta haresh in the past secondary to underlying bradycardia. Continue to [facility], planning for stress test in the morning. Coronary artery disease, history of angioplasty, CABG 2 done early in August 2016, patient return for chest pain and flash pulmonary edema, cardiac catheterization was done on August 31, 2016. Showing patent DOMÍNGUEZ to LAD, patent vein graft to the obtuse marginal branch with small vessel disease with slower flow responded to intracoronary nitroglycerin and improvement of the flow. Stress test done 05/28/17 revealed fixed defect with no ischemia or infarct. EF 47%. Was hospitalized in [place] in December 2019, planning to evaluate stress test Afib with RVR, history of paroxysmal atrial fibrillation, has been maintained on Xarelto since February 2019. Currently rate controlled afib, continue on telemetry. [id number] score of 4, yearly risk of stroke without oral anticoagulation is 4 percent, maintained on Xarelto. Peripheral edema, maintained on Lasix as outpatient Hypertension, Unable to tolerate beta haresh secondary to bradycardia, patient is allergic to amlodipine. Does not tolerate hydrochlorothiazide secondary to history of gout. Was hospitalized in Sep 2021 for hypertensive urgency, started on doxazosin, since then it has been discontinued secondary to hypotension. Blood pressure had been well controlled at home. Will continue to monitor closely. Hyperlipidemia, I will evaluate lipid profile. Pulmonary hypertension, continue to monitor at this time Mild bilateral carotid stenosis, nonobstructive disease per carotid duplex done July 2020.continue to monitor. Right eye blindness, episode of left eye blurred vision occurred in the past. Workup has been negative. ExTobaccoism, Patient has stopped smoking in August after his bypass History of Gouty arthritis Thank you for allowing us to participate in the management of Mr. Baca. This is Wendi Armstrong PA-C, as a scribe for Loren. Patient was seen and evaluated, I interviewed and examined the patient, discussed the management plan with Wendi in length, I agree with the current scribed note Patient is reporting dizziness and near syncope, no full syncope, reporting as near blacking out. Noted to be in atrial fibrillation Was having significant shortness of breath and hypertensive urgency, currently feeling better, sitting upright, breathing better Responded well to diuretics. I will restart home medication monitor blood pressure Planning for stress test in the morning WENDI GUERRERO Nov 09, 2021 15:32 TRISH LORENZ MD Nov 09, 2021 16:34
[2021-11-09] MEDS ORDERED: ZINC50TA58 PO (15:53)
[2021-11-09] MEDS ORDERED: CHOL20002 PO (15:53)
[2021-11-09] MEDS ORDERED: CYAN500T8 PO (15:53)
[2021-11-09] MEDS ORDERED: OMEG1CAP24 PO (15:55)
[2021-11-09] MEDS ORDERED: ASCO100024 PO (15:55)
[2021-11-09] MEDS ORDERED: TURM538C PO (15:55)
[2021-11-09] MEDS ORDERED: REGADENOSON 0.4 MG/5 ML SYR (LEXISCAN) IV ONE (16:00)
[2021-11-09] MEDS ORDERED: HOLD METFORMIN - RECEIVED CONTRAST 20 ML VIAL IV SCH (16:15)
[2021-11-09] MEDS ORDERED: NS 100 ML (IVPB) BAG IV ONE (16:15)
[2021-11-09] MEDS ORDERED: IOHEXOL 350 MG/ML 100 ML (OMNIPAQUE 350) VIAL IV ONE (16:15)
--- NOTE | 2021-11-09 16:45 | Diagnostic Imaging Report ---
EXAMINATION: CT angiography of the chest. TECHNIQUE: Contrast enhanced thin section helical images were obtained through the chest with intravenous contrast timed for the optimal opacification of the arterial structures per CTA protocol. Post-processing, reconstructions and interpretation of angiographic images of the vessels was performed. 3D MIP reconstructions were performed and reviewed. All CT scans use one or more of the following dose optimizing techniques: automated exposure control, MA and/or KvP adjustment based on a patient size and exam type, or iterative reconstruction. HISTORY: Respiratory failure and chest pain COMPARISON: 09/25/2021 FINDINGS: Vascular: No filling defects within the pulmonary arteries. Thoracic aorta is normal in caliber. Calcification of the aorta and coronary vessels. Thyroid: The thyroid is normal. Mediastinum: Heart size is normal without significant pericardial effusion. No suspicious lymphadenopathy. Lungs and airways: There are mild groundglass opacities within both lungs. There are small bilateral pleural effusions with adjacent atelectasis. No pneumothorax. The airways are normal. Upper abdomen: The subphrenic structures are normal. Musculoskeletal: Degenerative changes of the spine without suspicious osseous lesion or compression fracture. Surgical changes from median sternotomy and CABG. IMPRESSION: 1. Mild groundglass opacities within the lungs which can be seen with pulmonary edema or atypical infection. 2. Small bilateral pleural effusions with adjacent atelectasis. 3. No findings of pulmonary embolus. Dictated by: Dictated on workstation # [id number]
[2021-11-09] MEDS: FUROSEMIDE 40 MG (LASIX) TAB PO SCH (18:24)
[2021-11-09] MEDS: KCL 10 MEQ TAB (MICRO K) PO SCH (18:25)
[2021-11-09] MEDS: RIVAROXABAN 20 MG TABLET (XARELTO) PO SCH (18:25)
[2021-11-09] MEDS: cloNIDine 0.2 MG (CATAPRES) TAB PO SCH (20:25)
[2021-11-09] MEDS ORDERED: NON-FORMULARY MEDICATION 1 EA EA (Potassium Chloride 10 MEQ) PO SCH (21:00)
--- NOTE | 2021-11-09 21:21 | History & Physical-Hospitalist ---
History of Present Illness HPI/Chief Complaint Pete Baca is a 66 year old male with PMH HTN, HLD, CAD s/p CABG, HFpEF, AFib, who presented to [place] [facility] with lightheadedness and dizziness. He had been in his usual state of health until he got into his care and nearly fainted. He was not having chest pain or shortness of breath. He went to the ER and was found to be severely hypertensive. He reports taking all his medications as directed. He has been compliant with a low sodium diet. He was given Lasix and oxygen and his symptoms improved. Upon my exam, he is back in his normal state of health. Source: patient Exam Limitations: no limitations Date Seen 11/09/21 Time Seen by a Provider: 18:40 Attending Physician Giovanna Jordan MD PCP Malina Gates MD Referring Physician Date of Admission Nov 09, 2021 at 14:33 Home Medications & Allergies Home Medications Reviewed patient Home Medication Reconciliation performed by pharmacy medication reconciliations location and measurement technician and/or nursing. Patients Allergies have been reviewed. Allergies Allergies Coded Allergies amlodipine (Verified Allergy, Unknown, 05/14/19) Past Ironanj-Ezhepk-Kvkdgi Hx Patient Social History Marrital Status: single Employed/Student: retired Tobacco Use?: No Smoking Status: Former Smoker Smokeless Tobacco Frequency: Never a User Use of E-Cig and/or Vaping dev: No Substance use?: No Alcohol Use?: No Pt feels they are or have been: No Immunizations Up To Date Date of Influenza Vaccine: Aug 09, 2021 Tetanus Booster (TDap): Less Than 5 Years Date of Pneumonia Vaccine: May 14, 2018 Seasonal Allergies Seasonal Allergies: No Current Status Advance Directives: No Communicates: Verbally Primary Language: [place] Islander Preferred Spoken Language: [place] Islander Is interpretation needed?: No Implanted or Applied Medical D: None Past Medical History Surgeries: Cardiac, CABG, Coronary Stent COPD Currently Using CPAP: No Currently Using BIPAP: No High Cholesterol, Hypertension Sexually Transmitted Disease: No HIV/AIDS: No Arthritis, Gout Loss of Vision: Right Hearing Impairment: Denies Blood Disorders: No Adverse Reaction/Blood Tranf: No Family Medical History No Pertinent Family Hx Review of Systems Constitutional: dizziness EENTM: no symptoms reported Respiratory: short of breath Cardiovascular: no symptoms reported Gastrointestinal: no symptoms reported Genitourinary: no symptoms reported Musculoskeletal: no symptoms reported Skin: no symptoms reported Psychiatric/Neurological: No Symptoms Reported Physical Exam Physical Exam Vital Signs Vital Signs - First Documented Capillary Refill : Height, Weight, BMI Height: 5'6.00" Weight: 225lbs. 0.0oz. 102.339853qs; 241.25 BMI Method:Stated General Appearance: No Apparent Distress, Obese HEENT: PERRL/EOMI, Pharynx Normal Neck: Normal Inspection, Supple Respiratory: Lungs Clear, Normal Breath Sounds, No Respiratory Distress Cardiovascular: No Murmur, Irregularly Irregular Gastrointestinal: Normal Bowel Sounds, Non Tender, Soft Extremity: Normal Inspection, Non Tender, No Pedal Edema Neurologic/Psychiatric: Alert, Oriented x3, No Motor/Sensory Deficits, Normal Mood/Affect Skin: Normal Color, Warm/Dry Results Results/Procedures Labs Patient resulted labs reviewed. Imaging: Reviewed Imaging Report Assessment/Plan Admission Diagnosis Hypertensive emergency Admission Status: Inpatient Order (span 2 midnights) Reason for Inpatient Admission: Flash pulmonary edema Assessment and Plan HTN emergency Flash pulmonary edema Acute on chronic heart failure with preserved ejection fraction Atrial fibrillation CAD s/p CABG BP improved s/p Lasix Cardiology consulted Continue home meds Planning for stress test tomorrow DVT prophylaxis: already receiving therapeutic anticoagulation Diagnosis/Problems Diagnosis/Problems (1) Flash pulmonary edema Status: Acute (2) Hypertensive emergency Status: Acute (3) Paroxysmal A-fib Status: Chronic (4) Acute on chronic HFrEF (heart failure with reduced ejection fraction) Status: Acute (5) Obesity Status: Chronic GIOVANNA JORDAN MD Nov 09, 2021 21:21
[2021-11-10 05:02] LABS: BASOPHILS # (AUTO) 0.1 10^3/uL (0.0-0.1); BASOPHILS % (AUTO) 1 % (0-10); EOSINOPHILS # (AUTO) 0.1 10^3/uL (0.0-0.3); EOSINOPHILS % (AUTO) 1 % (0-10); HEMATOCRIT 43 % (40-54); HEMOGLOBIN 13.6 g/dL (13.3-17.7); LYMPHOCYTES # (AUTO) 1.3 10^3/uL (1.0-4.0); LYMPHOCYTES % (AUTO) 14 % (12-44); MEAN CORPUSCULAR HEMOGLOBIN 30 pg (25-34); MEAN CORPUSCULAR HGB CONC 32 g/dL (32-36); MEAN CORPUSCULAR VOLUME 93 fL (80-99); MONOCYTES # (AUTO) 0.7 10^3/uL (0.0-1.0); MONOCYTES % (AUTO) 7 % (0-12); NEUTROPHILS # (AUTO) 7.2 10^3/uL (1.8-7.8); NEUTROPHILS % (AUTO) 76 % (42-75); PLATELET COUNT 285 10^3/uL (130-400); WHITE BLOOD COUNT 9.5 10^3/uL (4.3-11.0)
[2021-11-10 05:42] LABS: POTASSIUM 3.6 MMOL/L (3.6-5.0)
[2021-11-10 05:44] LABS: CALCIUM 8.6 MG/DL (8.5-10.1)
[2021-11-10 05:48] LABS: CREATININE SERUM 1.1 MG/DL (0.60-1.30); PHOSPHORUS 3.7 MG/DL (2.3-4.7)
[2021-11-10 05:50] LABS: MAGNESIUM 2.1 MG/DL (1.6-2.4)
[2021-11-10] MEDS ORDERED: KCL 20 MEQ TAB (K-DUR) PO SCH (06:00)
[2021-11-10] MEDS ORDERED: MAGNESIUM 1 GM/100 ML IVPB 100 ML IV SCH (06:00)
[2021-11-10] MEDS ORDERED: POTASSIUM CL 10MEQ/50ML IVPB 50 ML IV SCH (06:00)
[2021-11-10] MEDS ORDERED: CATHETER FLUSH 10 ML SYR IV PRN (07:00)
[2021-11-10] MEDS ORDERED: REGADENOSON 0.4 MG/5 ML SYR (LEXISCAN) IV ONE (07:57)
[2021-11-10 08:01] VITALS: BP 138/106
--- NOTE | 2021-11-10 08:17 | Cardiology Progress Note ---
Subjective Date Seen by Provider: Nov 10, 2021 Time Seen by Provider: 08:14 Subjective/Events-last exam Patient undergoing stress test this morning. Denies chest pain or dizziness. Reports dyspnea is improving. Review of Systems General: No Chills, No Night Sweats, No Fatigue; Malaise; No Appetite, No Other HEENT: No Head Aches, No Visual Changes, No Eye Pain, No Ear Pain, No Dysphasia, No Sinus Congestion, No Post Nasal Drip, No Sore Throat, No Other Pulmonary: No Dyspnea, No Cough, No Pleuritic Chest Pain, No Other Cardiovascular: No: Chest Pain, Palpitations, Orthopnea, Paroxysmal Noc. Dyspnea, Edema, Lt Headedness, Other Objective-Cardiology Exam Last Set of Vital Signs Vital Signs 11/10/21 11/10/21 06:00 11:48 Temp 36.5 Pulse 71 Resp 18 B/P (MAP) 135/88 Pulse Ox 94 O2 Delivery Room Air O2 Flow Rate 2.00 I&O Intake and Output 11/10/21 00:00 Intake Total 400 ml Output Total 1150 ml Balance -750 ml Intake Oral 400 ml Output Urine Total 1150 ml Daily Weight Change No General: Alert, Oriented X3, Cooperative HEENT: Atraumatic, PERRLA Neck: Supple, No JVD, No Thyromegaly Lungs: Clear to Auscultation, Normal Air Movement Heart: Normal S1, Normal S2, Other (irregularly irregular) Abdomen: Normal Bowel Sounds, Soft Extremities: Other (+1 edema BLE) Skin: No Rashes, No Significant Lesion Neuro: Normal Gait, Normal Speech Psych/Mental Status: Mental Status NL, Mood NL Results Lab Laboratory Tests 11/10/21 04:30 A/P-Cardiology Admission Diagnosis Dizziness and near syncope Atrial fibrillation CAD HTN Assessment/Plan Dizziness with near syncope, unknown etiology, possibly secodary to afib, Could be secondary to recurrent atrial fibrillation. Currently still in atrial fibrillation and asymptomatic. Acute on chronic congestive heart failure, chronic compensated left ventricular systolic dysfunction, last echocardiogram done September 2021 showing EF 35-40%, slight improvement compared to Oct 2019. Responded to Lasix in the ER. Maintained on lisinopril. Unable to tolerate beta haresh in the past secondary to underlying bradycardia. Continue to diurese. Coronary artery disease, history of angioplasty, CABG 2 done early in August 2016, patient return for chest pain and flash pulmonary edema, cardiac catheterization was done on August 31, 2016. Showing patent DOMÍNGUEZ to LAD, patent vein graft to the obtuse marginal branch with small vessel disease with slower flow responded to intracoronary nitroglycerin and improvement of the flow. Stress test done 05/28/17 revealed fixed defect with no ischemia or infarct. EF 47%. Stress test was done to evaluate and it was abnormal, I am planning to proceed with cardiac catheterization possible PTCA. Afib with RVR, history of paroxysmal atrial fibrillation, has been maintained on Xarelto since February 2019. Currently rate controlled afib, Has been on amiodarone 100 mg daily, I'll increase the dose to twice daily and monitor tolerance and response. [id number] score of 4, yearly risk of stroke without oral anticoagulation is 4 percent, maintained on Xarelto. Peripheral edema, maintained on Lasix as outpatient Hypertension, Unable to tolerate beta haresh secondary to bradycardia, patient is allergic to amlodipine. Does not tolerate hydrochlorothiazide secondary to history of gout. Was hospitalized in Sep 2021 for hypertensive urgency, started on doxazosin, since then it has been discontinued secondary to hypotension. Blood pressure had been well controlled at home. Will continue to monitor closely. Hyperlipidemia, I will evaluate lipid profile. Pulmonary hypertension, continue to monitor at this time Mild bilateral carotid stenosis, nonobstructive disease per carotid duplex done July 2020.continue to monitor. Right eye blindness, episode of left eye blurred vision occurred in the past. Workup has been negative. ExTobaccoism, Patient has stopped smoking in August after his bypass History of Gouty arthritis Supervisory-Addendum Brief Supervisory Addendum Participated in pt care: history, MDM, physical Personally performed: exam, history, MDM Care discussed with: IVAN Results interpretation: Verified all documentation Notes: Patient was seen and evaluated with Wendi, examination performed, management plan was discussed, agree with the current scribed note, I made few changes to the note using Italic font WENDI GUERRERO Nov 10, 2021 08:17 TRISH LORENZ MD Nov 10, 2021 11:26
[2021-11-10] MEDS ORDERED: AMIODARONE 200 MG (CORDARONE) TAB PO SCH (09:00)
[2021-11-10] MEDS: cloNIDine 0.2 MG (CATAPRES) TAB PO SCH ×3 (09:45→20:05)
[2021-11-10] MEDS: ACETAMINOPHEN 325 MG TABLET PO PRN ×2 (09:46→17:37)
[2021-11-10] MEDS: FUROSEMIDE 40 MG (LASIX) TAB PO SCH ×2 (09:46→16:37)
[2021-11-10] MEDS: KCL 10 MEQ TAB (MICRO K) PO SCH ×2 (09:46→17:31)
[2021-11-10] MEDS: lisINopril 40 MG (PRINIVIL) TABLET PO SCH (09:47)
[2021-11-10] MEDS: RIVAROXABAN 20 MG TABLET (XARELTO) PO SCH (11:15)
--- NOTE | 2021-11-10 15:18 | Progress Note - Hospitalist ---
Subjective HPI/CC On Admission Date Seen by Provider: Nov 10, 2021 Time Seen by Provider: 10:45 Pete Baca is a 66 year old male with PMH HTN, HLD, CAD s/p CABG, HFpEF, AFib, who presented to [place] ER with lightheadedness and dizziness. He had been in his usual state of health until he got into his care and nearly fainted. He was not having chest pain or shortness of breath. He went to the ER and was found to be severely hypertensive. He reports taking all his medications as directed. He has been compliant with a low sodium diet. He was given Lasix and oxygen and his symptoms improved. Upon my exam, he is back in his normal state of health. Subjective/Events-last exam He is more awake and alert today. He is talking and oriented. He denies pain. He denies shortness of breath. Objective Exam Vital Signs Vital Signs Date Time Temp Pulse Resp B/P (MAP) Pulse Ox O2 Delivery O2 Flow Rate FiO2 11/10/21 13:00 75 11/10/21 11:48 36.5 18 135/88 94 Room Air 11/10/21 06:00 2.00 Capillary Refill : General Appearance: No Apparent Distress, Obese Respiratory: Lungs Clear, No Respiratory Distress Cardiovascular: No Murmur, Irregularly Irregular Gastrointestinal: Normal Bowel Sounds, Soft Extremity: Normal Inspection, No Pedal Edema Neurologic/Psychiatric: Alert, Oriented x3, Normal Mood/Affect Skin: Normal Color, Warm/Dry Results/Procedures Lab Laboratory Tests 11/10/21 04:30 Patient resulted labs reviewed. Imaging: Reviewed Imaging Report Assessment/Plan Assessment and Plan Assess & Plan/Chief Complaint HTN emergency Flash pulmonary edema Acute on chronic heart failure with preserved ejection fraction Atrial fibrillation CAD s/p CABG BP improved Lasix Amiodarone Xarelto Cardiology consulted Stress test concerning for ischemia Planning for left heart cath tomorrow DVT prophylaxis: already receiving therapeutic anticoagulation Diagnosis/Problems Diagnosis/Problems (1) Flash pulmonary edema Status: Acute (2) Hypertensive emergency Status: Acute (3) Paroxysmal A-fib Status: Chronic (4) Acute on chronic HFrEF (heart failure with reduced ejection fraction) Status: Acute (5) Obesity Status: Chronic (6) CAD (coronary artery disease) Status: Acute GIOVANNA JORDAN MD Nov 10, 2021 15:18
--- NOTE | 2021-11-10 16:43 | Cardiology Stress Test Report ---
Stress Test Report Date of Procedure/Referring: Date of Procedure: Nov 10, 2021 PCP Marissa Mccrary MD Admitting Physician Malina Gates MD Indications: CAD Baseline Heart Rate: 79 Baseline Blood Pressure: Blood Pressure Systolic: 138 Blood Pressure Diastolic: 106 Baseline Vitals Vital Signs Date Time Temp Pulse Resp B/P (MAP) Pulse Ox O2 Delivery O2 Flow Rate FiO2 11/09/21 13:06 72 147/90 11/09/21 14:45 36.9 20 97 Nasal Cannula 2.00 Baseline EKG: Baseline EKG: NSR, frequent pvc's Summary After explaining the procedure to the patient, he signed a consent and then brought to the stress nuclear laboratory. Patient received 0.4 mg Lexiscan for stress test, ECG, heart rate and blood pressure were monitored continuously. Resting and stress dose of radio tracer were injected, imaging was acquired and reviewed in short axis, horizontal long axis and vertical long axis views. TID: 1.06 SSS: 14 SDS: 2 EF: 27 1. Patient tolerated Lexiscan well 2. Frequent premature ventricular contractions persisted during test 3. Large area of decreased uptake involving the whole anterior wall mid to apical anterolateral and anteroseptal segments with mild reversibility 4. Prominent left ventricle with diffuse left ventricular hypokinesia, more pronounced at the anterior wall, ejection fraction 27% TRISH LORENZ MD Nov 10, 2021 16:43
[2021-11-10] MEDS: AMIODARONE 200 MG (CORDARONE) TAB PO SCH (20:05)
[2021-11-11 05:40] LABS: POTASSIUM 3.6 MMOL/L (3.6-5.0)
[2021-11-11 05:42] LABS: CALCIUM 8.8 MG/DL (8.5-10.1)
[2021-11-11 05:46] LABS: CREATININE SERUM 1.08 MG/DL (0.60-1.30); PHOSPHORUS 3.6 MG/DL (2.3-4.7)
[2021-11-11] MEDS: FUROSEMIDE 40 MG (LASIX) TAB PO SCH ×2 (06:23→17:49)
[2021-11-11] MEDS ORDERED: LIDOCAINE 1% INJ 20 ML VIAL ONE (06:44)
[2021-11-11] MEDS ORDERED: HEParin (CATH LAB) 2,000 ML IV ONE (06:45)
[2021-11-11] MEDS ORDERED: NS IV 1000 ML 1,000 ML ONE (08:39)
[2021-11-11] MEDS ORDERED: fentaNYL INJ 100 MCG/2 ML AMP ONE (08:39)
[2021-11-11] MEDS ORDERED: MIDAZOLAM 5 MG/5 ML (VERSED) VIAL ONE (08:39)
--- NOTE | 2021-11-11 08:55 | Cardiology Progress Note ---
Subjective Date Seen by Provider: Nov 11, 2021 Time Seen by Provider: 08:47 Subjective/Events-last exam Patient is laying down in bed, complaining of pain in his left wrist and his left knee. No chest pain. Review of Systems General: No Chills, No Night Sweats; Fatigue; No Malaise, No Appetite, No Other HEENT: No Head Aches, No Visual Changes, No Eye Pain, No Ear Pain, No Dysphasia, No Sinus Congestion, No Post Nasal Drip, No Sore Throat, No Other Pulmonary: Dyspnea; No Cough, No Pleuritic Chest Pain, No Other Cardiovascular: No: Chest Pain, Palpitations, Orthopnea, Paroxysmal Noc. Dyspnea, Edema, Lt Headedness, Other Objective-Cardiology Exam Last Set of Vital Signs Vital Signs 11/10/21 11/11/21 11/11/21 11/11/21 06:00 00:00 04:00 07:00 Temp 36.6 Pulse 93 Resp 15 B/P (MAP) 148/99 Pulse Ox 97 O2 Delivery Room Air O2 Flow Rate 2.00 I&O Intake and Output 11/11/21 00:00 Intake Total 1375 ml Output Total 1995 ml Balance -620 ml Intake Oral 1375 ml Output Urine Total 1995 ml General: Alert, Oriented X3, Cooperative HEENT: Atraumatic, PERRLA Neck: Supple, No JVD, No Thyromegaly Lungs: Clear to Auscultation, Normal Air Movement Heart: Normal S1, Normal S2, Other (irregularly irregular) Abdomen: Normal Bowel Sounds, Soft Extremities: No Clubbing, Other (+1 edema BLE) Skin: No Rashes, No Significant Lesion Neuro: Normal Speech Psych/Mental Status: Mental Status NL, Mood NL Results Lab Laboratory Tests 11/11/21 05:11 A/P-Cardiology Admission Diagnosis Dizziness and near syncope Atrial fibrillation CAD HTN Assessment/Plan Dizziness with near syncope, unknown etiology, possibly secodary to afib, Could be secondary to recurrent atrial fibrillation. Currently still in atrial fibrillation and asymptomatic. Acute on chronic congestive heart failure, chronic compensated left ventricular systolic dysfunction, last echocardiogram done September 2021 showing EF 35-40%, ejection fraction 27% on SPECT images on November 10, 2021. Responded to Lasix in the ER. Maintained on lisinopril. Unable to tolerate beta haresh in the past secondary to underlying bradycardia. Continue to diurese. Coronary artery disease, history of angioplasty, CABG 2 done early in August 2016, patient return for chest pain and flash pulmonary edema, cardiac catheterization was done on August 31, 2016. Showing patent DOMÍNGUEZ to LAD, patent vein graft to the obtuse marginal branch with small vessel disease with slower flow responded to intracoronary nitroglycerin and improvement of the flow. Stress test done 05/28/17 revealed fixed defect with no ischemia or infarct. EF 47%. Patient has abnormal stress test which significant ischemia, I am planning to proceed with cardiac catheterization possible PTCA Afib with RVR, history of paroxysmal atrial fibrillation, has been maintained on Xarelto since February 2019. Currently rate controlled afib, Has been on amiodarone 100 mg daily, I'll increase the dose to twice daily and monitor tolerance and response. [id number] score of 4, yearly risk of stroke without oral anticoagulation is 4 percent, maintained on Xarelto. Peripheral edema, maintained on Lasix as outpatient Hypertension, Unable to tolerate beta haresh secondary to bradycardia, patient is allergic to amlodipine. Does not tolerate hydrochlorothiazide secondary to history of gout. Was hospitalized in Sep 2021 for hypertensive urgency, started on doxazosin, since then it has been discontinued secondary to hypotension. Blood pressure had been well controlled at home. Will continue to monitor closely. Hyperlipidemia, I will evaluate lipid profile. Pulmonary hypertension, continue to monitor at this time Mild bilateral carotid stenosis, nonobstructive disease per carotid duplex done July 2020.continue to monitor. Right eye blindness, episode of left eye blurred vision occurred in the past. Workup has been negative. ExTobaccoism, Patient has stopped smoking in August after his bypass History of Gouty arthritis TRISH LORENZ MD Nov 11, 2021 08:55
--- NOTE | 2021-11-11 08:56 | Conscious Sedation/ASA ---
Conscious Sedation Pre-Proced Time 08:55 ASA Score 3 For ASA 3 and 4: Consider anesthesia and medical clearance. Also, for patients with a history of failed moderate sedation consider anesthesia. Airway Lungs Heart ASA score ASA 1: a normal healthy patient ASA 2: a patient with a mild systemic disease (mid diabetes, controlled hypertension, obesity x ASA 3: a patient with a severe systemic disease that limits activity (angina, COPD, prior Myocardial infarction) ASA 4: a patient with an incapacitating disease that is a constant threat to life (CHF, renal failure) ASA 5: a moribund patient not expected to survive 24 hrs. (ruptured aneurysm) ASA 6: a declared brain- patient whose organs are being harvested. For emergent operations, add the letter E after the classification Mallampati Classification Grade 3 Sedation Plan Analgesia, Amnesia, Plan communicated to team members, Discussed options with patient/fam, Discussed risks with patient/fam The patient is an appropriate candidate to undergo the planned procedure, sedation, and anesthesia. The patient immediately re-assessed prior to indication. TRISH LORENZ MD Nov 11, 2021 08:56
[2021-11-11] MEDS ORDERED: NS IV 1000 ML 1,000 ML IV SCH (09:45)
[2021-11-11] MEDS ORDERED: PATIENT MAY USE OWN MEDS, ALL PO SCH (09:45)
[2021-11-11] MEDS: KCL 10 MEQ TAB (MICRO K) PO SCH ×2 (10:10→17:49)
[2021-11-11] MEDS: cloNIDine 0.2 MG (CATAPRES) TAB PO SCH ×3 (10:10→21:15)
[2021-11-11] MEDS: AMIODARONE 200 MG (CORDARONE) TAB PO SCH ×2 (10:11→21:15)
[2021-11-11] MEDS: lisINopril 40 MG (PRINIVIL) TABLET PO SCH (10:11)
--- NOTE | 2021-11-11 11:15 | Cardiac Cath Report ---
Cardiac Cath Report Physician (s)/[employer] (s) Physician TRISH LORENZ MD Pre-Procedure Diagnosis Pre-Procedure Diagnosis: Coronary artery disease Post-Procedure Note Procedure Start Date: Nov 11, 2021 Name of Procedure: Left heart catheterization Vein graft angiogram DOMÍNGUEZ angiogram Findings/Procedure Note PROCEDURE NOTE: 66-year-old gentleman with history of coronary artery disease, CABG, congestive heart failure, admitted with syncope, has been having deterioration in the left ventricular function. Arranged for cardiac catheterization possible PTCA After explaining the procedure to the patient, all pros and cons were explained, all questions were answered. The patient signed the consent and then he was placed on the cardiac catheterization laboratory. Groin was prepped SL fashion local anesthesia was used. Sheath placed in the right femoral artery. Tova right and left catheter were used to access the coronary system.Vein Graft evaluated. DOMÍNGUEZ evaluated. Pigtail was used to access the left ventricular cavity. Left ventriculogram was not done, pressure was measured At the end of the procedure the sheath was removed. Closure device was used FINDINGS: Hemodynamics LV 156/14, end-diastolic pressure 14 Aorta 156/83 mean of 108 ANATOMY: Left Main is free of obstructive disease Left Anterior Descending has moderate disease, DOMÍNGUEZ to the LAD is patent with excellent flow distally Left Circumflex has moderate disease, vein graft to the first obtuse marginal branch is patent with excellent flow distally. The second obtuse marginal branch is small artery about 1.5 cm in diameter with severe stenosis proximally Right Coronary Artery is dominant with mild disease nonobstructive disease DOMÍNGUEZ angiogram showed patent DOMÍNGUEZ to the LAD with excellent flow distally Vein Graft evaluation showed vein graft to the obtuse marginal branch that is patent with excellent flow distally LV Gram was not done, pressure was measured CONCLUSION: 1. Patent DOMÍNGUEZ to the LAD with excellent flow at the distal LAD system 2. Patent vein graft to the first obtuse marginal branch with excellent flow distally, the second obtuse marginal branch has severe stenosis proximally, the artery is small, about 1.5 cm in diameter. Medical therapy is recommended 3. Nonobstructive disease in the right coronary system 4. Normal left ventricular end-diastolic pressure DISCUSSION AND RECOMMENDATION: Continue to maximize medical therapy Anesthesia Type: Conscious Sedation Estimated blood loss (mL): 25 ml Contrast Amount: 53 ml Total Radiation Dose: 645 mGy Post-Procedure Diagnosis Post-operative diagnosis: Coronary artery disease Congestive heart failure, acute on chronic left ventricular systolic dysfunction Paroxysmal atrial fibrillation Hypertension TRISH LORENZ MD Nov 11, 2021 11:15
[2021-11-11] MEDS ORDERED: SPIRONOLACTONE 25 MG (ALDACTONE) TAB ONE (11:17)
[2021-11-11] MEDS: SPIRONOLACTONE 25 MG (ALDACTONE) TAB PO SCH (11:22)
[2021-11-11] MEDS ORDERED: FUROSEMIDE 40 MG/4 ML INJ (LASIX) IVP ONE (13:00)
[2021-11-11] MEDS ORDERED: FUROSEMIDE 40 MG/4 ML INJ (LASIX) IVP NR (15:30)
--- NOTE | 2021-11-11 17:14 | Progress Note - Hospitalist ---
Subjective HPI/CC On Admission Date Seen by Provider: Nov 11, 2021 Time Seen by Provider: 10:50 Pete Baca is a 66 year old male with PMH HTN, HLD, CAD s/p CABG, HFpEF, AFib, who presented to [place] ER with lightheadedness and dizziness. He had been in his usual state of health until he got into his care and nearly fainted. He was not having chest pain or shortness of breath. He went to the ER and was found to be severely hypertensive. He reports taking all his medications as directed. He has been compliant with a low sodium diet. He was given Lasix and oxygen and his symptoms improved. Upon my exam, he is back in his normal state of health. Subjective/Events-last exam He is feeling better. He denies chest pain. He denies shortness of breath. He is still on bedrest. He denies any pain in his groin. He is having pain in his left arm. Objective Exam Vital Signs Vital Signs Date Time Temp Pulse Resp B/P (MAP) Pulse Ox O2 Delivery O2 Flow Rate FiO2 11/11/21 16:00 36.6 74 15 148/99 97 Room Air 2.00 2.00 Capillary Refill : Less Than 3 Seconds General Appearance: No Apparent Distress, Obese Respiratory: Lungs Clear, No Respiratory Distress Cardiovascular: Regular Rate, Rhythm, No Murmur Gastrointestinal: Normal Bowel Sounds, Soft Extremity: Normal Inspection, No Pedal Edema Neurologic/Psychiatric: Alert, No Motor/Sensory Deficits, Normal Mood/Affect Skin: Normal Color, Warm/Dry Results/Procedures Lab Laboratory Tests 11/11/21 05:11 Patient resulted labs reviewed. Imaging: Reviewed Imaging Report Assessment/Plan Assessment and Plan Assess & Plan/Chief Complaint Acute on chronic heart failure with reduced ejection fraction Atrial fibrillation CAD s/p CABG Positive stress test Cardiology following Left heart cath today with small vessel disease, no interventions indicated Continue Amiodarone and Xarelto Continue Lasix DVT prophylaxis: already receiving therapeutic anticoagulation HTN emergency, resolved Flash pulmonary edema, resolved Diagnosis/Problems Diagnosis/Problems (1) Flash pulmonary edema Status: Resolved Resolution Date/Time: 11/11/21 @ 17:16 (2) Hypertensive emergency Status: Resolved Resolution Date/Time: 11/11/21 @ 17:16 (3) Paroxysmal A-fib Status: Chronic (4) Acute on chronic HFrEF (heart failure with reduced ejection fraction) Status: Acute (5) Obesity Status: Chronic (6) CAD (coronary artery disease) Status: Acute GIOVANNA JORDAN MD Nov 11, 2021 17:14
[2021-11-11] MEDS: RIVAROXABAN 20 MG TABLET (XARELTO) PO SCH (17:49)
--- NOTE | 2021-11-11 18:37 | Diagnostic Imaging Report ---
CLINICAL HISTORY: Left arm pain. COMPARISON: None. TECHNIQUE: 2 views of the left humerus. FINDINGS: There is no acute fracture or dislocation of the left humerus. Alignment is anatomic. Advanced degenerative changes are seen in the left glenohumeral joint with osteophytes, joint space narrowing and subchondral sclerosis. Moderate degenerative changes are also present in the left AC joint. IMPRESSION: 1. No acute fracture in the left humerus. 2. Advanced osteoarthritis in the left glenohumeral joint. Dictated by: Dictated on workstation # [id number]
--- NOTE | 2021-11-11 18:38 | Diagnostic Imaging Report ---
EXAMINATION: Left wrist radiographs, 2 views. COMPARISON: None. HISTORY: 66-year-old male, left wrist pain. FINDINGS: There is widening of the scapholunate interval without proximal migration of the capitate. There is mild distal radioulnar and first carpometacarpal arthritis. There is moderate to severe joint space loss of the third metacarpophalangeal joint. 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 There is no identified acute fracture. There is an IV present. IMPRESSION: 1. No identified acute fracture. 2. Widening of the scapholunate interval of uncertain exact age. This can be seen with a post traumatic scapholunate ligament tear, rheumatoid arthritis and/or calcium pyrophosphate dihydrate deposition disease. 3. Advanced arthritis of the third metacarpophalangeal joint which potentially can be seen with rheumatoid arthritis. Additional findings of arthritis present are most likely related to osteoarthritis. Dictated by: Dictated on workstation # [id number]
[2021-11-12] MEDS: ACETAMINOPHEN 325 MG TABLET PO PRN ×2 (05:08→15:33)
[2021-11-12 05:51] LABS: POTASSIUM 3.7 MMOL/L (3.6-5.0)
[2021-11-12 05:52] LABS: CALCIUM 9.4 MG/DL (8.5-10.1)
[2021-11-12 05:57] LABS: CREATININE SERUM 1.16 MG/DL (0.60-1.30); PHOSPHORUS 3.5 MG/DL (2.3-4.7)
[2021-11-12 05:59] LABS: MAGNESIUM 2.1 MG/DL (1.6-2.4)
[2021-11-12] MEDS ORDERED: SPIR25TA5 PO (09:49)
--- NOTE | 2021-11-12 09:52 | D/C HH Face to Face Order ---
D/C Face to Face Orders Instructions for Patient Via Katrin Soonr, Patient Instructions/FollowUp: Dr. Gates follow up in one week Physician to follow Patient: Kody Discharge Diet for Home: Low Sodium Diet Patient Data-Allergies,Ht & Wt Patient Allergies: Coded Allergies: amlodipine (Verified Allergy, Unknown, 05/14/19) Height (Feet): 5 Height (Inches): 6.00 Weight (Pounds): 225 Weight (Ounces): 0.0 Home Health Need/Face to Face Date of Face to Face: Nov 12, 2021 Clinical Findings: Instability, Muscle weakness, Shortness of breath I have seen Pt [id number]: Yes Discharged To: Home Diagnosis/Conditions: HFrEF CAD HTN AFib Problems/Diagnosis/Condition: (1) HTN (hypertension) (2) Acute on chronic HFrEF (heart failure with reduced ejection fraction) (3) CAD (coronary artery disease) (4) Paroxysmal A-fib (5) Obesity Patient is Homebound due to: Koko fall risk due to instabilty, Muscle weakness, Shortness of breath/distress Homebound Status Due to the above stated illness, injury or surgical procedure (medical condition or diagnosis) and associated clinical findings, the patient is homebound because of his/her inability to leave home except with aid of a supportive device and/or person AND leaving the home requires a considerable and taxing effort or is medically contraindicated. Pt req the following assistanc: Aid of another person Home Health Nursing Orders Home Health Services Order: Nursing Services, [employer]-Evaluate & Treat, Physical Therapy-Evaluate & Treat Therapy Orders Therapy Orders: OT (must have SN or PT order), Physical Therapy Therapy Specific Orders: Eval assistive deivces, Teach enviro modifications/safety, Gait training, Increase strength/endurance Certify Stmt I certify that this patient is under my care and that I, a nurse practitioner or a physician; a resident assistant working with me, had a face to face encounter that - meets the physician face to face encounter requirements with this patient as juan francisco yarbrough. GIOVANNA JORDAN MD Nov 12, 2021 09:51
--- NOTE | 2021-11-12 10:01 | Cardiology Progress Note ---
Subjective Date Seen by Provider: Nov 12, 2021 Time Seen by Provider: 09:57 Subjective/Events-last exam Patient was seen at bedside, sitting comfortably, still complaining of left elbow and wrist pain Review of Systems General: No Chills, No Night Sweats, No Fatigue, No Malaise, No Appetite, No Other HEENT: No Head Aches, No Visual Changes, No Eye Pain, No Ear Pain, No Dysphasia, No Sinus Congestion, No Post Nasal Drip, No Sore Throat, No Other Pulmonary: No Dyspnea, No Cough, No Pleuritic Chest Pain, No Other Cardiovascular: No: Chest Pain, Palpitations, Orthopnea, Paroxysmal Noc. Dyspnea, Edema, Lt Headedness, Other Objective-Cardiology Exam Last Set of Vital Signs Vital Signs 11/12/21 07:35 Temp 36.8 Pulse 74 Resp 18 B/P (MAP) 156/89 Pulse Ox 97 O2 Delivery Room Air I&O Intake and Output0 11/12/21 00:00 Intake Total 1440 ml Output Total 2350 ml Balance -910 ml Intake Oral 940 ml IV Total 500 ml Output Urine Total 2350 ml General: Alert, Oriented X3, Cooperative HEENT: Atraumatic, PERRLA Neck: Supple, No JVD, No Thyromegaly Lungs: Clear to Auscultation, Normal Air Movement Heart: Normal S1, Normal S2, Other (irregularly irregular) Abdomen: Normal Bowel Sounds, Soft Extremities: No Clubbing, Other (+1 edema BLE) Skin: No Rashes, No Significant Lesion Neuro: Normal Speech Psych/Mental Status: Mental Status NL, Mood NL Results Lab Laboratory Tests 11/12/21 05:15 A/P-Cardiology Admission Diagnosis Dizziness and near syncope Atrial fibrillation CAD HTN Assessment/Plan Dizziness with near syncope, unknown etiology, possibly secodary to afib, Could be secondary to recurrent atrial fibrillation. Currently still in atrial fibrillation and asymptomatic. Acute on chronic congestive heart failure, chronic compensated left ventricular systolic dysfunction, last echocardiogram done September 2021 showing EF 35-40%, ejection fraction 27% on SPECT images on November 10, 2021. Responded to Lasix. Maintained on lisinopril. Unable to tolerate beta haresh in the past secondary to underlying bradycardia. Better at this time, edema is better. Coronary artery disease, history of angioplasty, CABG 2 done early in August 2016, patient return for chest pain and flash pulmonary edema, cardiac catheterization was done on August 31, 2016. Showing patent DOMÍNGUEZ to LAD, patent vein graft to the obtuse marginal branch with small vessel disease with slower flow responded to intracoronary nitroglycerin and improvement of the flow. Patient has abnormal stress test which significant ischemia, Cardiac catheterization was carried out on November 11, 2020 showing patent DOMÍNGUEZ to LAD with good flow distally, patent vein graft to the first obtuse marginal branch with good flow distally, the second obtuse marginal branch has severe proximal stenosis, the artery is fairly small about 1.5 cm in diameter, medical therapy is recommended, nonobstructive disease in the right coronary system. Afib with RVR, history of paroxysmal atrial fibrillation, has been maintained on Xarelto since February 2019. Currently rate controlled afib, amiodarone was increased 200 mg twice a day [id number] score of 4, yearly risk of stroke without oral anticoagulation is 4 percent, maintained on Xarelto. Peripheral edema, maintained on Lasix as outpatient Hypertension, Unable to tolerate beta haresh secondary to bradycardia, patient is allergic to amlodipine. Does not tolerate hydrochlorothiazide secondary to history of gout. Was hospitalized in Sep 2021 for hypertensive urgency, started on doxazosin, since then it has been discontinued secondary to hypotension. Blood pressure had been well controlled at home. Will continue to monitor closely. Hyperlipidemia, continue to monitor lipids Pulmonary hypertension, continue to monitor at this time Mild bilateral carotid stenosis, nonobstructive disease per carotid duplex done July 2020.continue to monitor. Right eye blindness, episode of left eye blurred vision occurred in the past. Workup has been negative. ExTobaccoism, Patient has stopped smoking in August after his bypass History of Gouty arthritis Left knee pain, left wrist and elbow pain, managed by primary care physician TRISH LORENZ MD Nov 12, 2021 10:01
[2021-11-12] MEDS: cloNIDine 0.2 MG (CATAPRES) TAB PO SCH ×3 (10:54→21:02)
[2021-11-12] MEDS: FUROSEMIDE 40 MG (LASIX) TAB PO SCH ×2 (10:54→16:47)
[2021-11-12] MEDS: KCL 10 MEQ TAB (MICRO K) PO SCH ×2 (10:55→17:11)
[2021-11-12] MEDS: AMIODARONE 200 MG (CORDARONE) TAB PO SCH ×2 (10:55→21:02)
[2021-11-12] MEDS: SPIRONOLACTONE 25 MG (ALDACTONE) TAB PO SCH (10:55)
[2021-11-12] MEDS: lisINopril 40 MG (PRINIVIL) TABLET PO SCH (10:55)
[2021-11-12] MEDS: RIVAROXABAN 20 MG TABLET (XARELTO) PO SCH (16:47)
[2021-11-12 22:05] VITALS: BP 138/68
== END 2021-11-12 22:00 | disposition home health service (06) | DRG 286 ==
LOC: ICU 14:33 → CSD 11-10 09:29
PROVIDERS: ADMIT Internal Medicine; ATTEND Internal Medicine
PROC: 4A023N7 Measurement of Cardiac Sampling and Pressure, Left Heart, Percutaneous Approach (ICD-10-PCS; principal; 2021-11-11)
PROC: B2111ZZ Fluoroscopy of Multiple Coronary Arteries using Low Osmolar Contrast (ICD-10-PCS; 2021-11-11)
PROC: B2121ZZ Fluoroscopy of Single Coronary Artery Bypass Graft using Low Osmolar Contrast (ICD-10-PCS; 2021-11-11)
PROC: B2181ZZ Fluoroscopy of Left Internal Mammary Bypass Graft using Low Osmolar Contrast (ICD-10-PCS; 2021-11-11)
DX: I11.0 Hypertensive heart disease with heart failure (principal); I50.23 Acute on chronic systolic (congestive) heart failure; I16.1 Hypertensive emergency; I48.92 Unspecified atrial flutter; I48.0 Paroxysmal atrial fibrillation; I49.3 Ventricular premature depolarization; I25.10 Atherosclerotic heart disease of native coronary artery without angina pectoris; E78.5 Hyperlipidemia, unspecified; E78.00 Pure hypercholesterolemia, unspecified; I27.20 Pulmonary hypertension, unspecified; I65.23 Occlusion and stenosis of bilateral carotid arteries; J44.9 Chronic obstructive pulmonary disease, unspecified; H54.61 Unqualified visual loss, right eye, normal vision left eye; M25.562 Pain in left knee; M25.532 Pain in left wrist; M25.522 Pain in left elbow; Z87.891 Personal history of nicotine dependence; Z95.1 Presence of aortocoronary bypass graft; Z88.8 Allergy status to other drugs, medicaments and biological substances
CPT/HCPCS: 36415; 71275; 73060; 73100; 78452; 80048; 83735; 84100; 84484; 85025; 87081; 93017; 93459

== ENCOUNTER 2023-04-17 12:42 | Emergency (ER) | payer MEDICARE ==
[~2023-04-17] VITALS: Ht 167 cm; Wt 95.2 kg
[~2023-04-17 12:42] MED LIST changes: +ASCO100024 PO; +CHOL20002 PO; +CYAN500T8 PO; +OMEG1CAP24 PO; +POTA-177 PO; -POTA10CA43 PO; +POTA10CA44 PO; -POTA10TA37 PO; +SPIR25TA5 PO; +TURM538C PO; +ZINC50TA58 PO
--- NOTE | 2023-04-17 13:01 | ED General ---
General Chief Complaint: Fever-Adult/Adol Stated Complaint: DRY HEAVES | CHILLS Nursing Triage Note: PT AMB TO RM 6 WITH CANE WITH C/O CHILLS AND DRY HEAVES SINCE 0700 THIS MORNING. PT DENIES VOMITTING. PT STATES HE HAS BEEN WORKING ON HIS HOUSE AND HAS BEEN GETTING DRY HEAVES AROUND DUST Source of Information: Patient Exam Limitations: No Limitations History of Present Illness Date Seen by Provider: Apr 17, 2023 Time Seen by Provider: 12:50 Initial Comments Patient is a 68-year-old male who presents to the emergency room with a chief complaint of diffuse body aches, severe "chills" and inability to get warm. He states he has been coughing and subsequently dry heaving and vomiting since early this morning around 7 AM. He states he has been working outside and in his house, exposed to a lot of dust and dirt, cleaning out his garage. He thinks he inhaled and/or swallowed a bunch of irritants. He denies known fever. He is not having chest pain but he is having body aches. He has had formed stools, they have been black because he took some Pepto-Bismol "the other day". He denies any significant rashes, joint pain or swelling. He has a chronically more swollen left leg due to vein harvest from prior bypass surgery. He has not taken anything at home for his symptoms. He is not a diabetic. He quit smoking about 15 years ago. He does not require the use of oxygen at home, he does not use inhalers. Timing/Duration: 4-6 Hours Severity: Moderate Associated Systoms: Fever/Chills (chills - no measured fever), Malaise, Nausea/Vomiting, Shortness of Air, Weakness Allergies and Home Medications Allergies Coded Allergies: amlodipine (Verified Allergy, Unknown, 05/14/19) Patient Home Medication List Home Medication List Reviewed: Yes Amiodarone HCl (Amiodarone HCl) 200 Mg Tablet, 100 MG PO DAILY, (Reported) Entered as Reported by: CORNELIO ALMENDAREZ on 09/27/21 0950 Ascorbic Acid (Vitamin C) 1,000 Mg Tablet, 1,000 MG PO DAILY, (Reported) Entered as Reported by: KATIE THOMAS on 11/09/21 1555 Atorvastatin Calcium (Atorvastatin Calcium) 40 Mg Tablet, 40 MG PO 1800, (Reported) Entered as Reported by: BRAYDEN MINA on 02/03/19 1609 Cholecalciferol (Vitamin D3) (Vitamin D3) 50 Mcg Capsule, 50 MCG PO DAILY, (Reported) Entered as Reported by: KATIE THOMAS on 11/09/21 155 Clonidine HCl (Clonidine HCl) 0.2 Mg Tablet, 0.2 MG PO TID, (Reported) Entered as Reported by: SANJAY AGUILAR on 04/05/20 232 Cyanocobalamin (Vitamin B-12) (Vitamin B-12) 500 Mcg Tablet, 500 MCG PO DAILY, (Reported) Entered as Reported by: KATIE THOMAS on 11/09/21 155 Furosemide (Furosemide) 40 Mg Tablet, 40 MG PO BID, (Reported) Entered as Reported by: CORNELIO ALMENDAREZ on 09/27/21 0949 Hydralazine HCl (Hydralazine HCl) 10 Mg Tablet, 10 MG PO TID, (Reported) Entered as Reported by: SANJAY AGUILAR on 04/05/20 232 Lisinopril (Lisinopril) 40 Mg Tablet, 40 MG PO DAILY, (Reported) Entered as Reported by: SANJAY AGUILAR on 04/05/20 232 [place]-3 Fatty Acids/Fish Oil ([place] 3 Fish Oil Softgel) 1 Each Capsule.dr, 1 EACH PO DAILY, (Reported) Entered as Reported by: KATIE THOMAS on 11/09/21 155 Ondansetron (Ondansetron Odt) 4 Mg Tab.rapdis, 4 MG SL Q8H PRN for NAUSEA/VOMITING Prescribed by: MAYANK MUÑIZ on 04/17/23 1411 Potassium Chloride (Potassium Chloride) 10 Meq Tab.er.prt, 10 MEQ PO BID, (Reported) Entered as Reported by: CORNELIO ALMENDAREZ on 09/27/21 0951 Rivaroxaban (Xarelto) 20 Mg Tablet, 20 MG PO 1700, (Reported) Entered as Reported by: EDUARD ROLLINS on 05/14/19 0738 Spironolactone (Spironolactone) 25 Mg Tablet, 25 MG PO DAILY Prescribed by: GIOVANNA JORDAN on 11/12/21 0949 Turmeric Root Extract (Turmeric) 538 Mg Capsule, 538 MG PO DAILY, (Reported) Entered as Reported by: KATIE THOMAS on 11/09/21 1556 Zinc (Zinc) 50 Mg Tablet, 50 MG PO DAILY, (Reported) Entered as Reported by: KATIE THOMAS on 11/09/21 1553 Review of Systems Review of Systems Constitutional: see HPI, malaise EENTM: no symptoms reported Respiratory: cough Cardiovascular: no symptoms reported Gastrointestinal: hematemesis, vomiting Genitourinary: no symptoms reported Musculoskeletal: other (Body aches) Skin: no symptoms reported Psychiatric/Neurological: No Symptoms Reported All Other Systems Reviewed Negative Unless Noted: Yes Past Xqipjcp-Vwdrum-Pzjfsh Hx Patient Social History Tobacco Use?: No Use of E-Cig and/or Vaping dev: No Substance use?: No Alcohol Use?: No Pt feels they are or have been: No Immunizations Up To Date Tetanus Booster (TDap): Less than 5yrs Seasonal Allergies Seasonal Allergies: No Past Medical History Surgery/Hospitalization HX: CABG, BECKY TKR, HEART STENTS AFIB, HTN, HLD, CHF Surgeries: Yes (CARDIAC CATHS. STENT X 1 IN 1998; 2 VESSEL CABG 08/30/16 [facility]/DR. MCMAHON) Cardiac, CABG, Coronary Stent Respiratory: No COPD Currently Using CPAP: No Currently Using BIPAP: No Cardiac: Yes (BRADYCARDIA; CHF; 2 VESSEL CABG; STENT X 1) High Cholesterol, Hypertension Neurological: No Reproductive Disorders: No Sexually Transmitted Disease: No HIV/AIDS: No Genitourinary: No Gastrointestinal: No Musculoskeletal: Yes (CHRONIC SHOULDER AND KNEE PAIN) Arthritis, Gout Endocrine: No HEENT: No Loss of Vision: Right Hearing Impairment: Denies Cancer: No Psychosocial: No Integumentary: No Blood Disorders: No Adverse Reaction/Blood Tranf: No Family Medical History No Pertinent Family Hx Physical Exam Vital Signs Vital Signs - First Documented 04/17/23 12:48 Temp 36.3 Pulse 115 Resp 20 B/P (MAP) 146/121 (129) Pulse Ox 98 O2 Delivery Room Air Capillary Refill : Height, Weight, BMI Height: 5'6.00" Weight: 225lbs. 0.0oz. 102.631248kp; 34.00 BMI Method:Stated General Appearance: No Apparent Distress, WD/WN, Obese Eyes: Bilateral Eye Normal Inspection, Bilateral Eye PERRL, Bilateral Eye EOMI HEENT: PERRL/EOMI Neck: Normal Inspection Respiratory: Lungs Clear, Normal Breath Sounds, No Accessory Muscle Use, No Respiratory Distress Cardiovascular: Normal Peripheral Pulses, Irregularly Irregular Gastrointestinal: Soft, Tenderness (Mild tenderness left lower quadrant without rebound or involuntary guarding) Extremity: Normal Inspection, Normal Range of Motion, Pedal Edema (Lower extremity 1-2+ edema. No calf tenderness. The left leg is slightly warm, slightly red.) Neurologic/Psychiatric: Alert, Oriented x3, No Motor/Sensory Deficits, Normal Mood/Affect Skin: Normal Color, Warm/Dry Focused Exam Lactate Level 04/17/23 13:03: Lactic Acid Level 1.30 Lactic Acid Level Laboratory Tests Test 04/17/23 13:03 Lactic Acid Level 1.30 MMOL/L (0.50-2.00) Procedures/Interventions Date of ETT Placement: Sep 25, 2021 Progress/Results/Core Measures Suspected Sepsis SIRS Temperature: Pulse: 115 Respiratory Rate: 20 Laboratory Tests 04/17/23 12:50: White Blood Count 22.8H Blood Pressure 146 /121 Mean: 129 04/17/23 13:03: Lactic Acid Level 1.30 Laboratory Tests 04/17/23 12:50: Creatinine 1.76H, INR Comment 2.3H, Platelet Count 305, Total Bilirubin 0.8 Results/Orders Lab Results Laboratory Tests Test 04/17/23 12:50 04/17/23 13:03 04/17/23 13:07 04/17/23 13:13 Range/Units White Blood Count 22.8 H 4.3-11.0 10^3/uL Red Blood Count 4.54 4.30-5.52 10^6/uL Hemoglobin 14.6 13.3-17.7 g/dL Hematocrit 44 40-54 % Mean Corpuscular Volume 97 80-99 fL Mean Corpuscular Hemoglobin 32 25-34 pg Mean Corpuscular Hemoglobin Concent 33 32-36 g/dL Red Cell Distribution Width 12.9 10.0-14.5 % Platelet Count 305 130-400 10^3/uL Mean Platelet Volume 8.8 L 9.0-12.2 fL Immature Granulocyte % (Auto) 1 % Neutrophils (%) (Auto) 89 H 42-75 % Lymphocytes (%) (Auto) 2 L 12-44 % Monocytes (%) (Auto) 7 0-12 % Eosinophils (%) (Auto) 0 0-10 % Basophils (%) (Auto) 0 0-10 % Neutrophils # (Auto) 20.3 H 1.8-7.8 10^3/uL Lymphocytes # (Auto) 0.5 L 1.0-4.0 10^3/uL Monocytes # (Auto) 1.7 H 0.0-1.0 10^3/uL Eosinophils # (Auto) 0.0 0.0-0.3 10^3/uL Basophils # (Auto) 0.1 0.0-0.1 10^3/uL Immature Granulocyte # (Auto) 0.3 H 0.0-0.1 10^3/uL Neutrophils % (Manual) 87 % Lymphocytes % (Manual) 4 % Monocytes % (Manual) 4 % Band Neutrophils 5 % Blood Morphology Comment NORMAL Prothrombin Time 25.5 H 12.2-14.7 SEC INR Comment 2.3 H 0.8-1.4 Activated Partial Thromboplast Time 47 H 24-35 SEC Sodium Level 132 L 135-145 MMOL/L Potassium Level 5.3 H 3.6-5.0 MMOL/L Chloride Level 102 98-107 MMOL/L Carbon Dioxide Level 19 L 21-32 MMOL/L Anion Gap 11 5-14 MMOL/L Blood Urea Nitrogen 41 H 7-18 MG/DL Creatinine 1.76 H 0.60-1.30 MG/DL Estimat Glomerular Filtration Rate 41 BUN/Creatinine Ratio 23 Glucose Level 114 H 70-105 MG/DL Calcium Level 10.8 H 8.5-10.1 MG/DL Corrected Calcium 10.5 H 8.5-10.1 MG/DL Total Bilirubin 0.8 0.1-1.0 MG/DL Aspartate Amino Transf (AST/SGOT) 25 5-34 U/L Alanine Aminotransferase (ALT/SGPT) 25 0-55 U/L Alkaline Phosphatase 99 40-136 U/L Total Protein 7.9 6.4-8.2 GM/DL Albumin 4.4 3.2-4.5 GM/DL Lactic Acid Level 1.30 0.50-2.00 MMOL/L SARS-CoV-2 RNA (RT-PCR) Not Detected Not Detecte Urine Color YELLOW Urine Clarity CLEAR Urine pH 5.5 5-9 Urine Specific [place] 1.010 L 1.016-1.022 Urine Protein NEGATIVE NEGATIVE Urine Glucose (UA) NEGATIVE NEGATIVE Urine Ketones NEGATIVE NEGATIVE Urine Nitrite NEGATIVE NEGATIVE Urine Bilirubin NEGATIVE NEGATIVE Urine Urobilinogen 0.2 < = 1.0 MG/DL Urine Leukocyte Esterase NEGATIVE NEGATIVE Urine RBC (Auto) NEGATIVE NEGATIVE Urine RBC RARE /HPF Urine WBC 2-5 /HPF Urine Crystals NONE /LPF Urine Bacteria TRACE /HPF Urine Casts NONE /LPF Urine Mucus NEGATIVE /LPF Urine Culture Indicated CULTURE PENDING My Orders Orders - MAYANK MUÑIZ MD Cbc With Automated Diff (04/17/23 13:00) Comprehensive Metabolic Panel (04/17/23 13:00) Blood Culture (04/17/23 13:00) Sputum Culture (04/17/23 13:00) Urinalysis (04/17/23 13:00) Urine Culture (04/17/23 13:00) Protime With Inr (04/17/23 13:00) Partial Thromboplastin Time (04/17/23 13:00) Chest 1 View, Ap/Pa Only (04/17/23 13:00) Ed Iv/Invasive Line Start (04/17/23 13:00) Ed Iv/Invasive Line Start (04/17/23 13:00) Vital Signs Adult Sepsis Patie Q15M (04/17/23 13:00) O2 (04/17/23 13:00) Remove Rings In Anticipation O (04/17/23 13:00) Lactic Acid Analyzer (04/17/23 13:00) Covid 19 Inhouse Test (04/17/23 13:00) Manual Differential (04/17/23 12:50) Ns Iv 1000 Ml (Sodium Chloride 0.9%) (04/17/23 13:29) Vital Signs/I&O 04/17/23 04/17/23 12:48 13:04 Temp 36.3 37.3 Pulse 115 Resp 20 B/P (MAP) 146/121 (129) Pulse Ox 98 O2 Delivery Room Air Capillary Refill : Blood Pressure Mean: 129 Progress Note : Time: 13:55 Progress Note Patient seen and evaluated by me, evaluation today includes a "septic" work-up, CBC, Chem-12, lactic acid, coag profile, urinalysis, blood cultures, single view chest x-ray. Pertinent physical exam findings, well-developed well-nourished mildly obese male in no acute distress. Heart is a little irregularly irregular and tachycardic at a rate of 100. The patient is afebrile. He is slightly hypertensive. Room air sats 96%. No increased work of breathing or respiratory distress. No rales rhonchi or wheezes. Abdomen is soft, mildly tender in the left lower quadrant. Extremities show a little edema in the left leg with slight mild erythema that the patient states is chronic. No open wounds or other rashes are noted. Patient is awake, alert, oriented with no focal neurologic deficits. Differential diagnosis based on history and physical exam, pneumonia, sepsis, urinary tract infection, dehydration, cellulitis. Labs independently reviewed and interpreted by me. His CBC shows a white blood cell count of 22.8, hemoglobin of 14.6 hematocrit of 44, platelet count of 305. Segmented neutrophils of 89%, 2% lymphs. Chem-12 is remarkable for sodium of 132 potassium slightly increased at 5.3, chloride 102 CO2 of 19 BUN of 41 creatinine of 1.76 and glucose of 114. Liver functions are within normal limits. Lactic acid is 1.3. Coags are elevated secondary to Xarelto. PT of 25.5, INR 2.3, PTT of 47. His urinalysis is clear without signs of infection. Chest x-ray independently reviewed by me, no focal infiltrates and this is confirmed on radiologist read. COVID test is negative. While he did mention some hematemsis, his Hgb is normal and he has not had any in the ED. (most likely due to zarelto use and persistent cough/"hacking" as he says). Patient is treated in the emergency department with a liter of normal saline. He is reevaluated at this time and is completely asymptomatic. Abdomen is reexamined, it is nontender. He reiterates that the left leg is always a little red and always little swollen. He again demonstrates no increased work of breathing, respiratory distress, wheezes or rhonchi. His heart rate is down in the low 90s, upper 80s. He would like to be discharged home. While he does have a fairly significant leukocytosis, I do not have an actual source, he is not actively febrile I am unsure as to what antibiotic would be the best for him at this time. I am going to hold off on antibiotics and allow him to discharge to home, he does have a primary care physician that he can follow-up with. I strongly encouraged him to return to the emergency department if he develops any fever or worsening respiratory complaints. He is not nauseous, he has had no further cough in the emergency department. The patient himself is comfortable with this plan of care. He verbalized understanding of the discharge instructions. All questions are sought and answered. Diagnostic Imaging Diagonstic Imaging: Xray Plain Films/CT/US/NM/MRI: chest Comments [facility], [place] NAME: AKILAH HAYWARD [facility] REC#: [id number] PT STATUS: REG ER : 1955 PHYSICIAN: MAYANK MUÑIZ MD ADMIT DATE: 04/17/23/ER Signed Date of Exam:04/17/23 CHEST 1 VIEW, AP/PA ONLY CHEST 1 VIEW, AP/PA ONLY INDICATION: Cough, Chills, body aches. COMPARISON: Chest radiograph on 09/29/2021. FINDINGS: Lungs: Normal lung volume. No focal consolidation. Stable pulmonary vasculature. Pleura: No pleural effusion or pneumothorax. Heart and Mediastinum: Cardiomediastinal silhouette and great vessels of the thorax are stable. Poststernotomy changes. Osseous Structures and Soft Tissues: No acute osseous abnormality. Normal soft tissues. Degenerative changes within the bilateral glenohumeral joints. IMPRESSION: No acute cardiopulmonary process. Dictated by: Dictated on workstation # [id number] Dict: 04/17/23 1320 Trans: 04/17/23 1321 [facility] [id number] Interpreted by: YAMEL RIVERA DO Electronically signed by: YAMEL RIVERA DO 04/17/23 1321 Departure Impression Primary Impression: Leukocytosis, unspecified Additional Impressions: Nausea & vomiting Qualified Codes: R11.2 - Nausea with vomiting, unspecified Acute kidney injury Disposition: 01 HOME, SELF-CARE Condition: Improved Departure-Patient Inst. Decision time for Depature: 14:08 Referrals: COLIN RIDLEY MD (PCP/Family) Primary Care Physician Patient Instructions: Nausea and Vomiting, Adult ED Add. Discharge Instructions: Drink plenty of fluids tostay well hydrated. Monitor yourself for fever - if you develop any fever, especially with increased cough or vomiting, please come back to the Emergency Department for re- evaluation. You do have increased kidney function today, this needs to be re-checked by your family doctor. Please call her office tomorrow for a follow up appointment later this week or early next week. Continue your daily prescribed medications. I have sent some nausea medications to your pharmacy - you can take one 4mg ondansetron every 8 hours as needed for nausea. Scripts Ondansetron (Ondansetron Odt) 4 Mg Tab.rapdis 4 MG SL Q8H PRN for NAUSEA/VOMITING, #8 TAB Prov: MAYANK MUÑIZ MD 04/17/23 Copy Copies To 1: COLIN RIDLEY MD, KATHRYN M MD Apr 17, 2023 13:01
[2023-04-17 13:09] LABS: BASOPHILS # (AUTO) 0.1 10^3/uL (0.0-0.1); BASOPHILS % (AUTO) 0 % (0-10); EOSINOPHILS % (AUTO) 0 % (0-10); HEMATOCRIT 44 % (40-54); HEMOGLOBIN 14.6 g/dL (13.3-17.7); LYMPHOCYTES # (AUTO) 0.5 10^3/uL (1.0-4.0); LYMPHOCYTES % (AUTO) 2 % (12-44); MEAN CORPUSCULAR HEMOGLOBIN 32 pg (25-34); MEAN CORPUSCULAR HGB CONC 33 g/dL (32-36); MEAN CORPUSCULAR VOLUME 97 fL (80-99); MEAN PLATELET VOLUME 8.8 fL (9.0-12.2); MONOCYTES # (AUTO) 1.7 10^3/uL (0.0-1.0); MONOCYTES % (AUTO) 7 % (0-12); NEUTROPHILS # (AUTO) 20.3 10^3/uL (1.8-7.8); NEUTROPHILS % (AUTO) 89 % (42-75); PLATELET COUNT 305 10^3/uL (130-400); WHITE BLOOD COUNT 22.8 10^3/uL (4.3-11.0)
[2023-04-17 13:11] LABS: ALBUMIN 4.4 GM/DL (3.2-4.5); POTASSIUM 5.3 MMOL/L (3.6-5.0)
[2023-04-17 13:12] LABS: CALCIUM 10.8 MG/DL (8.5-10.1)
[2023-04-17 13:13] LABS: TOTAL PROTEIN 7.9 GM/DL (6.4-8.2)
[2023-04-17 13:15] LABS: BILIRUBIN,TOTAL 0.8 MG/DL (0.1-1.0); INR 2.3 (0.8-1.4); PROTHROMBIN TIME PATIENT 25.5 SEC (12.2-14.7)
[2023-04-17 13:17] LABS: CREATININE SERUM 1.76 MG/DL (0.60-1.30)
--- NOTE | 2023-04-17 13:22 | Diagnostic Imaging Report ---
CHEST 1 VIEW, AP/PA ONLY INDICATION: Cough, Chills, body aches. COMPARISON: Chest radiograph on 09/29/2021. FINDINGS: Lungs: Normal lung volume. No focal consolidation. Stable pulmonary vasculature. Pleura: No pleural effusion or pneumothorax. Heart and Mediastinum: Cardiomediastinal silhouette and great vessels of the thorax are stable. Poststernotomy changes. Osseous Structures and Soft Tissues: No acute osseous abnormality. Normal soft tissues. Degenerative changes within the bilateral glenohumeral joints. IMPRESSION: No acute cardiopulmonary process. Dictated by: Dictated on workstation # [id number]
[2023-04-17 13:23] LABS: BILIRUBIN,URINE NEGATIVE (NEGATIVE); CLARITY,URINE CLEAR; COLOR,URINE YELLOW; GLUCOSE, URINE (UA) NEGATIVE (NEGATIVE); KETONES,URINE NEGATIVE (NEGATIVE); LEUKOCYTE ESTERASE ,URINE NEGATIVE (NEGATIVE); NITRITE,URINE NEGATIVE (NEGATIVE); PH,URINE 5.5 (5-9); PROTEIN,URINE NEGATIVE (NEGATIVE)
[2023-04-17 13:27] LABS: BAND NEUTROPHILS 5 %; LYMPHOCYTES % (MANUAL) 4 %; MONOCYTES % (MANUAL) 4 %; NEUTROPHILS % (MANUAL) 87 %; RBC MORPH NORMAL
[2023-04-17] MEDS ORDERED: NS IV 1000 ML 1,000 ML IV STA (13:29)
[2023-04-17 13:30] LABS: BACTERIA,URINE TRACE /HPF; RBC,URINE RARE /HPF
[2023-04-17] MEDS ORDERED: ONDA4TAB11 SL (14:11)
[2023-04-17 14:42] VITALS: BP 124/76
== END 2023-04-17 14:42 | disposition home or self-care (01) ==
LOC: EDUNIT# 12:42 → ER 12:44
DX: R11.2 Nausea with vomiting, unspecified (principal); D72.829 Elevated white blood cell count, unspecified; N17.9 Acute kidney failure, unspecified; R10.32 Left lower quadrant pain; R00.0 Tachycardia, unspecified; I11.0 Hypertensive heart disease with heart failure; I50.9 Heart failure, unspecified; E66.9 Obesity, unspecified; Z68.34 Body mass index [BMI] 34.0-34.9, adult; Z87.891 Personal history of nicotine dependence; Z20.822 Contact with and (suspected) exposure to COVID-19
CPT/HCPCS: 36415; 71045; 80053; 81000; 83605; 85007; 85027; 85610; 85730; 87040; 87088; 87636